=== PATIENT | male | born 1945 | race Caucasian/White ===

== ENCOUNTER 2017-09-18 22:47 | Inpatient (IN) | payer OTHER, BC ==
[~2017-09-18] VITALS: Ht 170.2 cm; Wt 66.2 kg
[2017-09-18 02:35] VITALS: BP 101/62; PULSE 91; TEMP 37.1; O2SAT 100; BMI 17.5
[~2017-09-18 22:47] MED LIST: ALPR-411 PO; ASPCH81X JT; ATOR-22 PO; IMD2 PO; LANS30CA63 PO; LMTHP PO; LPR25 PO; MGNO400 PO; PRT40 PO; VTMD PO
[2017-09-18] MEDS ORDERED: NOREPINEPHRINE BIT INJ 8 MG in DEXTROSE 5% 500ML 500 ML IV STA (23:05)
[2017-09-18 23:13] LABS: HEMATOCRIT 40.3 % (42-52); HEMOGLOBIN 12.1 g/dL (14.0-18.0); MEAN CELL VOLUME 90.2 fL (80-100); MEAN CORPUSCULAR HEMOGLOBIN 27.1 pg (25-34); MEAN PLATELET VOLUME 9.8 fL (7.4-10.4); PLATELET COUNT 473 K/uL (130-400); RED CELL DISTRIBUTION WIDTH CV 16.9 % (11.5-14.5); RED CELL DISTRIBUTION WIDTH SD 55.9 fL (36.4-46.3); WHITE BLOOD COUNT 29.94 K/uL (4.8-10.8)
[2017-09-18] MEDS ORDERED: VANCOMYCIN IV 1,500 MG in SODIUM CHLORIDE 0.9% 500ML 500 ML IV STA (23:16)
[2017-09-18] MEDS ORDERED: PIPERACILLIN/TAZOBACTAM 4.5 GM/100ML D5W IV STA (23:16)
--- NOTE | 2017-09-18 23:21 | DIAGNOSTIC IMAGING REPORT ---
CHEST ONE VIEW PORTABLE CLINICAL HISTORY: 72 years-old Male presenting with Evaluate Fever/Sepsis. TECHNIQUE: Portable supine AP view of the chest was obtained. COMPARISON: 06/18/2015. FINDINGS: Tracheostomy tube terminates in the upper thoracic trachea. Surgical clips again project over the mediastinum. Multiple external leads project over the chest. Atherosclerosis of the aortic arch. Cardiac silhouette normal size. Pulmonary vascular prominence. Mid to basilar predominant opacities in the right lung. Moderate right pleural effusion. No large pneumothorax. Deformity of the left first rib unchanged. Partially visualized aortic endograft in the abdomen. IMPRESSION: 1. Right lung mid to basilar opacity with moderate right pleural effusion. This is concerning for pneumonia with a parapneumonic effusion. Consider chest CT for further evaluation. Electronically signed by: Niranjan Vyas M.D. 09/18/2017 11:19 PM Dictated Date/Time: 09/18/2017 11:17 PM
[2017-09-18 23:28] LABS: PTT PATIENT 27.5 SECONDS (21.0-31.0)
[2017-09-18 23:29] LABS: ISTAT SODIUM 136 mEq/L (135-144)
[2017-09-18] MEDS ORDERED: VANCOMYCIN CONSULT ACTIVE PRN (23:30)
[2017-09-18] MEDS ORDERED: FURO-85 PO (23:34)
[2017-09-18] MEDS ORDERED: LACTATED RINGER'S 1000ML 1,000 ML IV STA (23:36)
[2017-09-18] MEDS ORDERED: CLON0.5T3 PO (23:37)
[2017-09-18] MEDS ORDERED: tobramycin PO (23:37)
[2017-09-18 23:38] LABS: BASO % 0.3 %; BASO ABS # 0.09 K/uL (0-0.2); EOS % 0.3 %; EOS ABS # 0.09 K/uL (0-0.5); IG# 1.28 K/uL (0.00-0.02); LYMPH % 10.6 %; LYMPH ABS # 3.17 K/uL (1.2-3.4); MONO % 6.7 %; MONO ABS # 2.01 K/uL (0.11-0.59); NEUT % 77.8 %
[2017-09-18] MEDS ORDERED: BUSP15TA70 PO (23:38)
[2017-09-18 23:41] LABS: ALBUMIN 3.2 gm/dl (3.4-5.0); ALT/SGPT 102 U/L (12-78); AST/SGOT 111 U/L (15-37); BLOOD UREA NITROGEN 26 mg/dl (7-18); CALCIUM 9.2 mg/dl (8.5-10.1); CARBON DIOXIDE 34 mmol/L (21-32); CREATININE 1.17 mg/dl (0.60-1.40); GLUCOSE 255 mg/dl (70-99); LIPASE 53 U/L (73-393); SODIUM 134 mmol/L (136-145)
[2017-09-18 23:53] LABS: ALKALINE PHOSPHATASE 150 U/L (45-117)
[2017-09-19] VITALS (60 sets, daily range): BP systolic 85–125; BP diastolic 41–74; PULSE 86–114; TEMP 36.8–37; O2SAT 93–100; Ht 170.2 cm; Wt 66.2 kg
--- NOTE | 2017-09-19 00:29 | EMERGENCY ROOM VISIT NOTE ---
History Report prepared by Angelibdylon: Willie Adkins Under the Supervision of: Dr. Robbin Gunn M.D. First contact with patient: 22:44 Chief Complaint: CARDIAC ARREST Stated Complaint: CARDIAC ARREST History of Present Illness The patient is a 72 year old male who presents to the Emergency Room from [facility] via ALS for Cardiac Arrest. Per EMS the patient first stopped breathing and then went into cardiac arrest while a patient in [facility]. CPR was started and an AED was placed. NO SHOCK was advised by the AED. EMS/ Staff members performed chest compressions for 5-10 minutes and pulses returned spontaneously without shock. There was a substantial amount of aspirate in the patient's tracheostomy tube, which was suctioned out. The tracheotomy tube is present secondary to a history of Esophageal Cancer. Following return of pulse, the patient remained unresponsive. The patient is a "FULL CODE." EMS was dispatched 2145, 1 hour and 2 minutes ago. EMS administered fluids and placed a left humeral IO prior to arrival. Source of History: EMS Onset: EMS called 1 hour and 2 minutes ago Position: chest Quality: other (Cardiac Arrest) Timing: other (Cardiac arrest/pulses returned spontaneously) Note: Patient is unresponsive. Review of Systems See HPI for pertinent positives and negatives. A total of ten systems were reviewed and were otherwise negative. Past Medical & Surgical Medical Problems: (1) Acute respiratory failure with hypoxia and hypercapnia (2) COPD (chronic obstructive pulmonary disease) (3) Coronary artery disease (4) DVT (deep venous thrombosis) (5) Esophageal cancer (6) Paroxysmal SVT (supraventricular tachycardia) (7) Sepsis Surgical Problems: (1) History of esophagectomy Family History Cancer Heart disease Social History Smoking Status: Former Smoker Drug Use: none Marital Status: Housing Status: lives with family Occupation Status: retired Current/Historical Medications Scheduled Aspirin (Aspirin Chewable), 81 MG PO DAILY Atorvastatin (Lipitor), 20 MG PO DAILY Buspirone Hcl (Buspar), Unknown Dose PO DIRECTED Clonazepam (Klonopin), Unknown Dose PO DIRECTED Furosemide (Lasix), 20 MG PO BID Metoprolol Tartrate (Lopressor), 25 MG PO BID [tobramycin], 300 ML PO BID Scheduled PRN Alprazolam (Xanax), 0.25 MG PO Q8 PRN for anxiety Allergies Coded Allergies: No Known Allergies (Unverified , 09/18/17) Physical Exam Vital Signs Date Time Temp Pulse Resp B/P (MAP) Pulse Ox O2 Delivery O2 Flow Rate FiO2 09/19/17 01:51 92/58 100 Mechanical Ventilator 100 09/19/17 01:20 95 20 89/52 100 Mechanical Ventilator 100 09/19/17 00:45 94 20 92/63 100 Mechanical Ventilator 100 09/19/17 00:40 93 20 74/26 100 Mechanical Ventilator 100 09/19/17 00:25 93 20 88/44 98 Mechanical Ventilator 09/19/17 00:02 101 20 86/45 95 Mechanical Ventilator 100 09/18/17 23:35 103 20 83/55 99 Mechanical Ventilator 100 09/18/17 23:22 116 20 88/52 95 Mechanical Ventilator 100 09/18/17 23:16 93 Mechanical Ventilator 100 09/18/17 23:00 36.8 110 18 79/48 95 Mechanical Ventilator 100 09/18/17 23:00 100 09/18/17 22:52 117 09/18/17 02:35 37.1 91 20 101/62 100 Mechanical Ventilator 100 Physical Exam GENERAL: Awake, alert, chronically ill-appearing HENT: Normocephalic, atraumatic. Dry cracked Mucous membranes. EYES: Normal conjunctiva. Sclera non-icteric. NECK: Supple. No nuchal rigidity. FROM. No JVD. Tracheotomy is clean/dry/ intact. RESPIRATORY: There are rhonchorus breath sounds in the right lung field, otherwise diminished throughout. CARDIAC: ST. Extremities warm and well perfused. Pulses equal. ABDOMEN: Soft, non-distended. No tenderness to palpation. No rebound or guarding. No masses. The lower abdominal J-tube tube is clean dry and intact. RECTAL: Deferred. MUSCULOSKELETAL: Chest examination reveals diffuse tenderness. The back is symmetrical on inspection without obvious abnormality. There is no CVA tenderness to palpation. No joint edema. LOWER EXTREMITIES: Calves are equal size bilaterally and non-tender. No edema. No discoloration. NEURO: GCS of 14 SKIN: No rash or jaundice noted. Skin tear anterior CW. Medical Decision & Procedures ER Provider Diagnostic Interpretation: Radiology results as stated below per my review and radiologist interpretation: CHEST ONE VIEW PORTABLE CLINICAL HISTORY: 72 years-old Male presenting with Evaluate Fever/Sepsis. TECHNIQUE: Portable supine AP view of the chest was obtained. COMPARISON: 06/18/2015. FINDINGS: Tracheostomy tube terminates in the upper thoracic trachea. Surgical clips again project over the mediastinum. Multiple external leads project over the chest. Atherosclerosis of the aortic arch. Cardiac silhouette normal size. Pulmonary vascular prominence. Mid to basilar predominant opacities in the right lung. Moderate right pleural effusion. No large pneumothorax. Deformity of the left first rib unchanged. Partially visualized aortic endograft in the abdomen. IMPRESSION: 1. Right lung mid to basilar opacity with moderate right pleural effusion. This is concerning for pneumonia with a parapneumonic effusion. Consider chest CT for further evaluation. Electronically signed by: Niranjan Vyas M.D. 09/18/2017 11:19 PM Dictated Date/Time: 09/18/2017 11:[address] HEAD: No ICH, mass effect or edema. No evidence of acute cortical stroke. Visualized sinuses and mastoid air cells are clear. CT CHEST without contrast: A bandlike opacity in the right upper lobe may represent post radiation change or other chronic change. There is right lower lobe collapse with areas of bronchiectasis as well as small airway occlusions which may indicate mucoid impaction. Cannot exclude underlying infiltrate or mass lesions. Dependent atelectasis in the left lower lobe with corresponding areas of peribronchial thickening No significant effusion and no pneumothorax Tracheostomy tube in place Postop changes in the chest wall and anterior mediastinum Scattered age-indeterminate rib factures. Radiologist: Drake Driscoll MD Laboratory Results Test 09/18/17 23:00 09/18/17 23:05 09/18/17 23:15 09/19/17 00:14 Red Blood Cell Morphology Unremarkable Total Bilirubin 1.1 mg/dl (0.2-1) Direct Bilirubin 0.3 mg/dl (0-0.2) Aspartate Amino Transf (AST/SGOT) 111 U/L (15-37) Alanine Aminotransferase (ALT/SGPT) 102 U/L (12-78) Alkaline Phosphatase 150 U/L (45-117) Total Creatine Kinase 81 U/L (39-308) Pro-B-Type Natriuretic Peptide 4349 pg/ml (0-900) Total Protein 9.0 gm/dl (6.4-8.2) Albumin 3.2 gm/dl (3.4-5.0) Lipase 53 U/L (73-393) Bedside Troponin I 0.060 ng/ml (0-0.045) Bedside Hemoglobin 10.9 g/dl (14.0-18.0) Bedside Hematocrit 32 % (42-52) Bedside Blood Gas pH (LAB) 7.33 (7.35-7.45) Bedside Blood Gas pCO2 (LAB) 61 mmHg (35-46) Bedside Blood Gas pO2 (LAB) 102 mmHg (80-95) Bedside Blood Gas HCO3 (LAB) 32 meq/L (19-24) Bedside Blood Gas Total CO2 34 mEq/l (24-31) Bedside Blood Gas Base Excess (LAB) 6.0 meq/L (-9-1.8) Bedside Blood Gas O2 Saturation 97.0 % (90-95) Bedside Sodium 136 mEq/L (135-144) Bedside Potassium 3.0 mEq/L (3.3-5.0) Urine Color DK YELLOW Urine Appearance CLOUDY (CLEAR) Urine pH 5.0 (4.5-7.5) Urine Specific [place] 1.021 (1.000-1.030) Urine Protein 2+ (NEG) Urine Glucose (UA) NEG (NEG) Urine Ketones NEG (NEG) Urine Occult Blood 2+ (NEG) Urine Nitrite NEG (NEG) Urine Bilirubin NEG (NEG) Urine Urobilinogen NEG (NEG) Urine Leukocyte Esterase NEG (NEG) Urine WBC (Auto) 5-10 /hpf (0-5) Urine RBC (Auto) 10-30 /hpf (0-4) Urine Hyaline Casts (Auto) 10-30 /lpf (0-5) Urine Epithelial Cells (Auto) >30 /lpf (0-5) Urine Bacteria (Auto) NEG (NEG) Urine Renal Epithelial Cells /lpf (0-5) Laboratory results reviewed by me Medications Administered Medications (Trade) Dose Ordered Sig/Madalyn Route Start Time Stop Time Status Last Admin Dose Admin Norepinephrine Bitartrate 8 mg/ Dextrose 508 ml @ 0 mls/hr Q0M STAT IV 09/18/17 23:05 09/18/17 23:08 DC 09/18/17 23:18 30.7 MLS/HR Vancomycin HCl 1500 mg/Sodium Chloride 530 ml @ 200 mls/hr ONE STAT IV 09/18/17 23:16 09/19/17 01:54 DC 09/19/17 00:07 200 MLS/HR Piperacillin Sod/ Tazobactam Sod (Zosyn Iv) 4.5 gm NOW STAT IV 09/18/17 23:16 09/18/17 23:19 DC 09/18/17 23:23 4.5 GM Lactated Ringer's 1,000 ml @ 999 mls/hr Q1H1M STAT IV 09/18/17 23:36 09/19/17 00:36 DC 09/19/17 00:07 999 MLS/HR Fentanyl Citrate (Fentanyl Inj) 12.5 mcg Q1H PRN IV 09/19/17 01:45 10/03/17 01:44 09/19/17 17:19 12.5 MCG Lorazepam (Ativan Inj) 0.5 mg Q4H PRN IV 09/19/17 01:45 10/19/17 01:44 09/19/17 05:55 0.5 MG Norepinephrine Bitartrate 8 mg/ Dextrose 508 ml @ 0 mls/hr Q0M PRN IV 09/19/17 01:44 10/19/17 01:43 09/19/17 05:55 36.5 MLS/HR Procedure Central Venous Catheter Indication: Hypotension/Sepsis Catheter type: Triple Lumen Location: Right Femoral Verbal consent was obtained after the risks and benefits were explained, including but not limited to pneumothorax, hemothorax, vessel injury, bleeding, scarring, infection, pain, and bone/joint/nerve damage. At this time, the risks of the procedure are less than the risks of NOT performing the procedure. A time out was taken and the correct patient and site identified. The patient was placed in the supine position and the skin was prepped in the standard fashion with chlorhexidine and full sterile drapes applied. The proper landmarks were identified with ultrasound, anesthetized with 1% lidocaine without epinephrine, and the needle was inserted through the skin in the standard fashion. The needle was carefully advanced into blood vessel lumen under ultrasound guidance. The guidewire was placed uneventfully. The vessel is dilated and the catheter was placed. It was sutured into position. There was good blood return from all ports. The patient tolerated the procedure well and there were no complications. ECG Per My Interpretation Rate (beats per minute): 118 Rhythm: sinus tachycardia Findings: LAFB, other (Left ventricular hypertrophy) Change: no significant change (previous visit EKG) ED Course 2246: The patient was evaluated in room B1. A complete history and physical exam was performed. 2305: Ordered Norepinephrine 508 mL IV. 2316: Ordered Zosyn 4.5 gm IV, Vancomycin HCl 530 mL @ 200 mL/hr IV. 2336: Ordered Lactated Ringer's 1000 mL @ 999 mL/hr IV. 2343: I discussed the case with Dr. Donal Frias [facility] Hospitalist. He will evaluate the patient until he is placed in the ICU. 2348: I discussed the case with Dr. Shawna Frias [facility] Javascript Front End Developer. He will accept the patient to the ICU. Medical Decision I reviewed the patient's past medical history, medications, and the nursing notes as described above. Differential diagnosis: Etiologies such as aortic dissection, pulmonary embolism, pneumothorax, musculoskeletal, infections, pericarditis, myocarditis, esophageal rupture, gastrointestinal,reactive airway disease, pneumonia, COPD, CHF, cardiac ischemia, as well as others were entertained. 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 Of note, I received med command call from EMS after [facility] and they were concerned for ST elevations present on their 12-lead, albeit with HR 120s-150s. Prior to patient 's arrival I discussed the patient's case with Dr. Mckeon, interventional cardiology. Given the report of the patient's recent critical illness, we agreed to reassess upon arrival to evaluate the need/indication to activate the Supervisor [employer]. After ROSC obtained EMS found the patient be hypotensive and administered push doses of epinephrine for blood pressure support. On arrival, the patient is AF with HR 110s, SBP 100s, Hypoxic with O2 sat 80s. The patient was alert with eyes open and would follow commands to close his eyes and give thumbs up. EKG demonstrated Left anterior fascicular block with LVH with QRS of 118 similar to patient's prior. No JESSICA present. Thus, no indication for lab support tech activation at this time. Moreover, history is most c/w respiratory arrest as inciting event. Once secure peripheral IV access was obtained the patient was seated up, and his initial hypoxia in the 80s improved to the mid 90s-100s. Blood pressure then drifting down to systolic of 70s so patient was given additional IV fluids and placed on Levophed drip. Initial ABG demonstrated pH of 7.35, PCO2 60s, and PaO2 of 102. Chest chest x-ray demonstrates right lung opacities concerning for pneumonia, given patient's aspiration history concerning for aspiration as well as infection related to the patient's known pseudomonal infection for which he is receiving inhaled tobramycin. Preliminary stat rad read of CT head is unremarkable. Preliminary STATRAD read of CT of the chest demonstrates right lower lobe collapse with areas of bronchiectasis as well as small airway occlusions which may indicate mucoid impaction. Comments on multiple age-indeterminate rib fractures. No pneumothorax. Labs consistent with critical illness. WBC 29, lactate 5.8. Troponin 0 0.93, BNP 4000. Patient continued on IV fluids and Levophed with improvement in his alertness. Given broad-spectrum antibiotics. Case was discussed with past KODAK Perez hospitalist, who will evaluate the patient for admission to the ICU. Case was additionally discussed with Dr. Matos, ICU wood mill supervisor, who accepts the patient for admission to the ICU. Central line was placed in the right femoral vein per procedure note. IJ site deferred at this time given the patient's report of prior thrombosis as well as challenge of placement with patient's tracheostomy. Subclavian also deferred at this time due to the patient's anatomy related to his critical illness. Medication Reconcilliation Current Medication List: was personally reviewed by me Blood Pressure Screening Patient's blood pressure: Low blood pressure Referred to wood mill supervisor Consults Time Called: [phone] Consulting Physician: Dr. Donal CANDELARIO Hospitalist Returned Call: [phone] I discussed the case with Dr. Donal CANDELARIO Hospitalist. He will evaluate the patient until he is placed in the ICU. Additional Consults: Time Called: [phone] Consulted Physician: Dr. Shawna CANDELARIO Javascript Front End Developer Returned Call: [phone] Additional Comments: I discussed the case with Dr. Shawna CANDELARIO Javascript Front End Developer. He will accept the patient to the ICU. Impression Primary Impression: Cardiopulmonary arrest with successful resuscitation Additional Impression: Aspiration pneumonia Critical Care I have personally spent greater than 80 minutes of critical care time in the direct management of this patient. This includes bedside care, interpretation of diagnostic studies, and testing, discussion with consultants, patient, and family members, and other required patient management activities. This 80 minutes is in excess of all separately billable procedures. Scribe Attestation The scribe's documentation has been prepared under my direction and personally reviewed by me in its entirety. I confirm that the note above accurately reflects all work, treatment, procedures, and medical decision making performed by me. Departure Information Dispostion Being Evaluated By Hospitalist Referrals Nilay Samayoa M.D. (PCP) Patient Instructions My [facility] Problem Qualifiers
[2017-09-19] MEDS ORDERED: NOREPINEPHRINE BIT INJ 8 MG in DEXTROSE 5% 500ML 500 ML IV PRN (01:44)
[2017-09-19] MEDS ORDERED: ICU PROTOCOL FOR HYPERGLYCEMIA PRN (01:45)
[2017-09-19] MEDS ORDERED: ACETAMINOPHEN 325 MG TAB PO PRN (01:45)
--- NOTE | 2017-09-19 02:03 | History and Physical ---
History & Physical Date & Time of Service: September 19, 2017 at 02:03 Chief Complaint: Cardiac Arrest Primary Care Physician: Nilay Samayoa M.D. History of Present Illness Source: family, hospital records, EMS 72 yo M with CAD s/p CABG, AAA s/p stent graft repair, DM II, COPD, HTN. esophageal cancer s/p tracheostomy and J tube insertion who was transferred from [facility] for cardiac arrest. Per reports, patient had respiratory arrest during J tube feeds. When a pulse could not be identified, CPR was initiated although no defibrillation was advised by AED. There was eventual return of spontaneous circulation after 10 min of chest compressions. On arrival to the ED, patient was noted to be hypotensive and tachycardic. Airways was established via suctioning, IVF was administered with additional pressor support and patient was started on broad spectrum antibiotics in accordance with recent sputum culture showing multi-resistant pseudomonas species. Additionally a central line was placed into the right femoral artery. Patient was transferred to ICU for close monitoring. Past Medical/Surgical History Medical Problems: (1) Acute respiratory failure with hypoxia and hypercapnia (2) COPD (chronic obstructive pulmonary disease) (3) Coronary artery disease (4) DVT (deep venous thrombosis) (5) Elevated troponin (6) Esophageal cancer (7) Esophageal obstruction (8) GI bleed (9) Hypotension (10) Paroxysmal SVT (supraventricular tachycardia) (11) Pneumonia (12) Protein-calorie malnutrition, moderate (13) Renal failure (14) Respiratory failure (15) Sepsis (16) Syncope and collapse (17) Vomiting (18) Weakness Surgical Problems: (1) History of esophagectomy Family History Cancer Heart disease Non contributory Social History Smoking Status: Former Smoker Smokeless Tobacco Use: No Alcohol Use: none Drug Use: none Marital Status: Occupational Status: retired Immunizations History of Influenza Vaccine: Unknown History of Tetanus Vaccine?: Unknown History of Pneumococcal: No Pneumococcal Date: Apr 23, 2012 History of Hepatitis B Vaccine: No Allergies Coded Allergies: No Known Allergies (Unverified , 09/18/17) Home Medications Scheduled Aspirin (Aspirin Chewable), 81 MG PO DAILY Atorvastatin (Lipitor), 20 MG PO DAILY Buspirone Hcl (Buspar), Unknown Dose PO DIRECTED Clonazepam (Klonopin), Unknown Dose PO DIRECTED Furosemide (Lasix), 20 MG PO BID Metoprolol Tartrate (Lopressor), 25 MG PO BID [tobramycin], 300 ML PO BID Scheduled PRN Alprazolam (Xanax), 0.25 MG PO Q8 PRN for anxiety Physical Exam Vital Signs Date Time Temp Pulse Resp B/P (MAP) Pulse Ox O2 Delivery O2 Flow Rate FiO2 09/19/17 00:45 94 20 92/63 100 Mechanical Ventilator 100 09/19/17 00:40 93 20 74/26 100 Mechanical Ventilator 100 09/19/17 00:25 93 20 88/44 98 Mechanical Ventilator 09/19/17 00:02 101 20 86/45 95 Mechanical Ventilator 100 09/18/17 23:35 103 20 83/55 99 Mechanical Ventilator 100 09/18/17 23:22 116 20 88/52 95 Mechanical Ventilator 100 09/18/17 23:16 93 Mechanical Ventilator 100 09/18/17 23:00 36.8 110 18 79/48 95 Mechanical Ventilator 100 09/18/17 23:00 100 09/18/17 22:52 117 General Appearance: + mild distress (secondary to pain), + thin Head: normocephalic, atraumatic Eyes: sclerae normal ENT: hearing grossly normal, + pertinent finding (tracheostomy in situ) Neck: supple Respiratory/Chest: + decreased breath sounds, + rales, + wheezing Cardiovascular: normal peripheral pulses, + tachycardia Abdomen/GI: normal bowel sounds, non tender, soft, + pertinent finding (J tube in LLQ) Genitourinary - Male: normal male genitalia Extremities/Musculoskelatal: no calf tenderness, no pedal edema Neurologic/Psych: alert, normal mood/affect Skin: normal color, warm/dry, no rash Diagnostics Laboratory Results Results Past 24 Hours Test 09/18/17 23:00 09/18/17 23:05 09/18/17 23:15 09/18/17 23:18 Range/Units White Blood Count 29.94 4.8-10.8 K/uL Red Blood Count 4.47 4.7-6.1 M/uL Hemoglobin 12.1 14.0-18.0 g/dL Hematocrit 40.3 42-52 % Mean Corpuscular Volume 90.2 80-100 fL Mean Corpuscular Hemoglobin 27.1 25-34 pg Mean Corpuscular Hemoglobin Concent 30.0 32-36 g/dl Platelet Count 473 130-400 K/uL Mean Platelet Volume 9.8 7.4-10.4 fL Neutrophils (%) (Auto) 77.8 % Lymphocytes (%) (Auto) 10.6 % Monocytes (%) (Auto) 6.7 % Eosinophils (%) (Auto) 0.3 % Basophils (%) (Auto) 0.3 % Neutrophils # (Auto) 23.30 1.4-6.5 K/uL Lymphocytes # (Auto) 3.17 1.2-3.4 K/uL Monocytes # (Auto) 2.01 0.11-0.59 K/uL Eosinophils # (Auto) 0.09 0-0.5 K/uL Basophils # (Auto) 0.09 0-0.2 K/uL RDW Standard Deviation 55.9 36.4-46.3 fL RDW Coefficient of Variation 16.9 11.5-14.5 % Immature Granulocyte % (Auto) 4.3 % Immature Granulocyte # (Auto) 1.28 0.00-0.02 K/uL Red Blood Cell Morphology Unremarkable Prothrombin Time 10.6 9.0-12.0 SECONDS Prothromb Time International Ratio 1.0 0.9-1.1 Activated Partial Thromboplast Time 27.5 21.0-31.0 SECONDS Partial Thromboplastin Ratio 1.1 Sodium Level 134 136-145 mmol/L Potassium Level 4.0 3.5-5.1 mmol/L Chloride Level 88 98-107 mmol/L Carbon Dioxide Level 34 21-32 mmol/L Anion Gap 12.0 3-11 mmol/L Blood Urea Nitrogen 26 7-18 mg/dl Creatinine 1.17 0.60-1.40 mg/dl Estimated GFR () 72.8 Estimated GFR (Non- 62.8 BUN/Creatinine Ratio 22.5 10-20 Random Glucose 255 70-99 mg/dl Calcium Level 9.2 8.5-10.1 mg/dl Total Bilirubin 1.1 0.2-1 mg/dl Direct Bilirubin 0.3 0-0.2 mg/dl Aspartate Amino Transf (AST/SGOT) 111 15-37 U/L Alanine Aminotransferase (ALT/SGPT) 102 12-78 U/L Alkaline Phosphatase 150 45-117 U/L Total Creatine Kinase 81 39-308 U/L Troponin I 0.093 0-0.045 ng/ml Pro-B-Type Natriuretic Peptide 4349 0-900 pg/ml Total Protein 9.0 6.4-8.2 gm/dl Albumin 3.2 3.4-5.0 gm/dl Lipase 53 73-393 U/L Bedside Troponin I 0.060 0-0.045 ng/ml Bedside Hemoglobin 10.9 14.0-18.0 g/dl Bedside Hematocrit 32 42-52 % Bedside Blood Gas pH (LAB) 7.33 7.35-7.45 Bedside Blood Gas pCO2 (LAB) 61 35-46 mmHg Bedside Blood Gas pO2 (LAB) 102 80-95 mmHg Bedside Blood Gas HCO3 (LAB) 32 19-24 meq/L Bedside Blood Gas Total CO2 34 24-31 mEq/l Bedside Blood Gas Base Excess (LAB) 6.0 -9-1.8 meq/L Bedside Blood Gas O2 Saturation 97.0 90-95 % Bedside Sodium 136 135-144 mEq/L Bedside Potassium 3.0 3.3-5.0 mEq/L Lactic Acid Level 5.8 0.4-2.0 mmol/L Test 09/19/17 00:14 Range/Units Urine Color DK YELLOW Urine Appearance CLOUDY CLEAR Urine pH 5.0 4.5-7.5 Urine Specific [place] 1.021 1.000-1.030 Urine Protein 2+ NEG Urine Glucose (UA) NEG NEG Urine Ketones NEG NEG Urine Occult Blood 2+ NEG Urine Nitrite NEG NEG Urine Bilirubin NEG NEG Urine Urobilinogen NEG NEG Urine Leukocyte Esterase NEG NEG Urine WBC (Auto) 5-10 0-5 /hpf Urine RBC (Auto) 10-30 0-4 /hpf Urine Hyaline Casts (Auto) 10-30 0-5 /lpf Urine Epithelial Cells (Auto) >30 0-5 /lpf Urine Bacteria (Auto) NEG NEG Urine Renal Epithelial Cells 0-5 /lpf Microbiology Results 09/18/17 Blood Culture, Received Pending 09/18/17 Blood Culture, Received Pending 09/19/17 Urine Culture, Received Pending Diagnostic Radiology CT HEAD WITHOUT CONTRAST (CT) CLINICAL HISTORY: Altered mental status COMPARISON STUDY: No previous studies for comparison. TECHNIQUE: Axial CT of the brain is performed from the vertex to the skull base. IV contrast was not administered for this examination. A dose lowering technique was utilized adhering to the principles of ALARA. CT DOSE: 614.27 mGy.cm FINDINGS: No intra or extra-axial mass lesions are visualized. There is no CT evidence of acute cortical infarction. There is no evidence of midline shift. There is no acute hemorrhage. No calvarial fractures are visualized. There are patchy white matter hypodensities likely on a small vessel basis. There is no evidence of pathologic ventricular dilatation. There is no evidence of acute sinusitis. There is a small metallic foreign body within the left premaxillary soft tissues. IMPRESSION: No acute intracranial findings CHEST ONE VIEW PORTABLE CLINICAL HISTORY: 72 years-old Male presenting with Evaluate Fever/Sepsis. TECHNIQUE: Portable supine AP view of the chest was obtained. COMPARISON: 06/18/2015. FINDINGS: Tracheostomy tube terminates in the upper thoracic trachea. Surgical clips again project over the mediastinum. Multiple external leads project over the chest. Atherosclerosis of the aortic arch. Cardiac silhouette normal size. Pulmonary vascular prominence. Mid to basilar predominant opacities in the right lung. Moderate right pleural effusion. No large pneumothorax. Deformity of the left first rib unchanged. Partially visualized aortic endograft in the abdomen. IMPRESSION: 1. Right lung mid to basilar opacity with moderate right pleural effusion. This is concerning for pneumonia with a parapneumonic effusion. Consider chest CT for further evaluation. CT SCAN OF THE CHEST WITHOUT IV CONTRAST CLINICAL HISTORY: Cardiac arrest. COMPARISON STUDY: Chest CT dated 07/30/2014. TECHNIQUE: CT scan of the thorax was performed from the thoracic inlet to the upper abdomen. Images are reviewed in the axial, sagittal, and coronal planes. IV contrast was not administered for this examination. The examination is significantly degraded by motion artifact, as was by streak artifact from the arms which could not be elevated above the chest. A dose lowering technique was utilized adhering to the principles of ALARA. CT DOSE: 263.09 mGy.cm FINDINGS: Thyroid: Atrophic. Thoracic aorta: There is atherosclerotic calcification of the thoracic aorta, which is normal in caliber and demonstrates bovine variant arch anatomy. Heart: The heart is normal in size and without pericardial effusion. The coronary arteries are densely calcified. Lungs and pleural spaces: A tracheostomy is in place. Secretions fill the larynx. Emphysema is noted. Fibrotic change in the paramediastinal right upper lobe is similar to previous and is likely treatment related. There are small right and trace left pleural effusions. There is dense airspace consolidation in the right lower lung with near-complete atelectasis of the right lower lobe. Fluid/secretions fill the right lower lobe airways. Dense airspace consolidation is seen in the left lower lobe. Patchy consolidative changes also seen in the right middle and right upper lobes. Mediastinum: There is no mediastinal lymphadenopathy. Rema: Not well assessed without IV contrast. Axillae: There is no axillary lymphadenopathy. Upper abdomen: There are postoperative changes from esophageal resection and gastric pull-through procedure. The gastric conduit is seen in the anterior mediastinum. An aortic stent graft is partially imaged in the upper abdomen. A 2.7 cm cyst is incidentally noted in the right hepatic lobe. A punctate nonobstructing calculus is seen in the upper pole of the left kidney. There are mildly enlarged upper abdominal lymph nodes. Gastrohepatic nodes measure up to 10 mm in short axis. A celiac node on image #[id number] measures 13 mm in short axis. Skeletal structures: The skeletal structures are osteopenic. Degenerative change is seen throughout the thoracic spine. There are mild compression deformities of T6, T10, and T12. No lytic or blastic bony lesions are seen. Postoperative change is noted in the left humeral head. Chronic deformity is noted in the left shoulder. There is also chronic deformity of the right posterior sixth rib as well as several left-sided ribs. There are acute nondistracted right anterior 2nd through 7th rib fractures. There are also acute nondistracted left anterior 3rd through 7th rib fractures. IMPRESSION: 1. Significantly streak and motion compromised examination 2. Numerous bilateral rib fractures as above. 3. There are postoperative changes from esophageal resection with gastric pull-through procedure. 4. There are small right and trace left pleural effusions. 5. There is dense airspace consolidation at the right lung base with near-complete atelectasis of the right lower lobe. Fluid/secretions fill the right lower lobe airways. There is also dense consolidation at the left lung base, with patchy airspace consolidation seen in the right upper and middle lobes. These findings likely represent pneumonia/aspiration pneumonitis. 6. There are enlarged lymph nodes in the upper abdomen. These are nonspecific but concerning for metastatic disease if there is a history of esophageal cancer. 7. Additional findings as above. Impression Assessment and Plan 72 yo M with CAD s/p CABG, AAA s/p stent graft repair, DM II, COPD, HTN. esophageal cancer s/p tracheostomy and J tube insertion who was transferred from [facility] for cardiac arrest. Per reports, patient had respiratory arrest during J tube feeds. When a pulse could not be identified, CPR was initiated although no defibrillation was advised by AED. There was eventual return of spontaneous circulation after 10 min of chest compressions. On arrival to the ED, patient was noted to be hypotensive and tachycardic. Airways was established via suctioning, IVF was administered with additional pressor support and patient was started on broad spectrum antibiotics in accordance with recent sputum culture showing multi-resistant pseudomonas species. Additionally a central line was placed into the right femoral artery. Patient was transferred to ICU for close monitoring. Sepsis secondary to probable pulmonary source (chronic aspiration vs empyema) - ABx based on recent sputum cultures+ sensitivities from : tobramycin, ciprofloxacin, vancomycin - ID consulted - Blood cultures pending - Vasopressor support with IVF NSS and norepinephrine per ICU - Ventilatory support per ICU - Procal ordered, trend CBC and lactic acid Rib fractures - Pain: acetaminophen and fentanyl ordered Deranged LFTs - Liver U/S ordered - Trend LFT CAD/HTN/HLD - PO meds held for now: aspirin, metoprolol, furosemide, atorvastatin - EKG PRN chest pain - Monitor on telemetry DM -Glucose checks as per ICU protocol GI ppx - Pantoprazole VTE ppx - Hep SC Code: FULL Attending addendum: I have physically seen this patient, have supervised the medical residents activities, and agree with the H&P unless as otherwise noted. Assessment and Plan: Sepsis/acute on chronic respiratory failure with hypoxia and hypercapnia/ chronic Pseudomonas infection-- Adjust ventilator per follow-up ABGs. Review of cultures from [facility] shows an inducible beta- lactamase with resistance generated to penicillins and all cephalosporins except cefepime. Continue tobramycin inhaled 300 mg twice daily. Add Cipro 400 mg IV every 12 hours. Remainder of care per funeral service licensee consult. CAD/hypertension-- Adjust medications to IV Diabetes mellitus-- Accu-Cheks before meals and at bedtime NovoLog coverage Remainder as above. Resuscitation Status FULL VTE Prophylaxis Will order VTE Prophylaxis: Yes Note Total Time: Critical Care 30 - 74 minutes Resident Tracking Resident Involvement: Resident Care Provided Care Provided: Adult Hospital Medicine
[2017-09-19] MEDS ORDERED: VANCOMYCIN CONSULT ACTIVE PRN (02:15)
[2017-09-19] MEDS: FENTANYL CITRATE INJ 50 MCG/1 ML 2 ML VIAL IV PRN ×4 (03:35→17:19)
[2017-09-19] MEDS ORDERED: VANCOMYCIN IV 750 MG in SODIUM CHLORIDE 0.9% 250ML 250 ML IV SCH ×2 (04:00→16:00)
[2017-09-19] MEDS: SODIUM CHLORIDE 0.9% 1000ML 1,000 ML IV SCH ×2 (05:04→17:20)
[2017-09-19] MEDS ORDERED: TOBRAMYCIN CONSULT ACTIVE PRN (05:30)
[2017-09-19] MEDS: LORAZEPAM 2 MG/ML 1 ML VIAL IV PRN (05:55)
[2017-09-19] MEDS: IMIPENEM CILASTATIN IV SCH ×3 (05:57→17:19)
[2017-09-19] MEDS: DEXTROSE 5% IV SCH ×3 (05:57→17:19)
[2017-09-19] MEDS ORDERED: TOBRAMYCIN SULF INJ 420 MG in DEXTROSE 5% 100ML 100 ML IV SCH (06:00)
[2017-09-19] MEDS ORDERED: CIPROFLOXACIN / D5W 400 MG in PREMIXED IN D5W 200 ML IV SCH (06:00)
--- NOTE | 2017-09-19 06:32 | DIAGNOSTIC IMAGING REPORT ---
CT HEAD WITHOUT CONTRAST (CT) CLINICAL HISTORY: Altered mental status COMPARISON STUDY: No previous studies for comparison. TECHNIQUE: Axial CT of the brain is performed from the vertex to the skull base. IV contrast was not administered for this examination. A dose lowering technique was utilized adhering to the principles of ALARA. CT DOSE: 614.27 mGy.cm FINDINGS: No intra or extra-axial mass lesions are visualized. There is no CT evidence of acute cortical infarction. There is no evidence of midline shift. There is no acute hemorrhage. No calvarial fractures are visualized. There are patchy white matter hypodensities likely on a small vessel basis. There is no evidence of pathologic ventricular dilatation. There is no evidence of acute sinusitis. There is a small metallic foreign body within the left premaxillary soft tissues. IMPRESSION: No acute intracranial findings Electronically signed by: Art Ma M.D. 09/19/2017 6:30 AM Dictated Date/Time: 09/19/2017 6:29 AM
[2017-09-19 06:34] LABS: HEMOGLOBIN A1C 5.2 % (4.5-5.6)
--- NOTE | 2017-09-19 07:11 | Critical Care Consultation ---
Critical Care Consultation Date of Consultation: September 19, 2017. Attending Physician: Ernesto Mansfield M.D. Reason for Consultation: Respiratory arrest, hypotension History of Present Illness History is obtained from prior records as well as staff members. Patient is a 72-year-old male who presents from [facility] via ALS for cardiac arrest. Reportedly the patient suffered respiratory insufficiency/respiratory arrest ( the possibility has been raised with possibly aspiration and was reportedly receiving tube feeds or medications via the gastrostomy tube when this event occurred) leading to cardiac arrest. The patient was noted to not have a pulse which CPR was started and an AED was placed and no shock was advised. Patient received chest compressions for approximately 5-10 minutes before there was return of spontaneous circulation. Reportedly there was copious amounts of aspirate from the patient's tracheostomy tube which was suctioned out and airway was reestablished. EMS established a left humeral intraosseous line prior to arrival in the emergency department In the emergency department, the patient had consultation with Dr. Mckeon interventional cardiology for possible ST elevations present on prehospital EKG , repeat EKG did not demonstrate such changes. Patient was noted to have a significant 6 multidrug-resistant pseudomonal infection that he was being treated for, he was started on broad-spectrum IV antibiotics, a right sided femoral line was placed for persistent hypotension and vasoactive medication administration. There is a concern for concrement and sepsis secondary to probable pulmonary source, chronic aspiration, empyema. In the emergency department the patient was found to be responsive and answering questions appropriately. There is no indication for therapeutic hypothermia. The patient was at [facility] secondary to recent admission to [facility] for complications following treatment for esophageal cancer. 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 with surgeries performed at [facility], type 2 diabetes, history of coronary artery disease, history of repaired abdominal aortic aneurysm, history of transaminitis, COPD, history of deep venous thrombosis (this is possibly associated with PICC lines) Past Medical/Surgical History As noted above Family History Cancer Heart disease Social History Smoking Status: Former Smoker Drug Use: none Marital Status: Housing Status: lives with family Occupation Status: retired Allergies Coded Allergies: No Known Allergies (Unverified , 09/18/17) Home Medications Scheduled Aspirin (Aspirin Chewable), 81 MG PO DAILY Atorvastatin (Lipitor), 20 MG PO DAILY Buspirone Hcl (Buspar), Unknown Dose PO DIRECTED Clonazepam (Klonopin), Unknown Dose PO DIRECTED Furosemide (Lasix), 20 MG PO BID Metoprolol Tartrate (Lopressor), 25 MG PO BID [tobramycin], 300 ML PO BID Scheduled PRN Alprazolam (Xanax), 0.25 MG PO Q8 PRN for anxiety Current Inpatient Medications Current Inpatient Medications Medications (Trade) Dose Ordered Sig/Madalyn Route Start Time Stop Time Status Last Admin Dose Admin Heparin Sodium (Porcine) (Heparin Sq 5000 Unit/0.5ml) 5,000 unit Q12H SQ 09/19/17 09:00 10/19/17 08:59 Sodium Chloride 1,000 ml @ 100 mls/hr Q10H IV 09/19/17 05:00 10/19/17 04:59 09/19/17 05:04 100 MLS/HR Acetaminophen (Tylenol Tab) 650 mg Q4H PRN PO 09/19/17 01:45 10/19/17 01:44 Fentanyl Citrate (Fentanyl Inj) 12.5 mcg Q1H PRN IV 09/19/17 01:45 10/03/17 01:44 09/19/17 03:35 12.5 MCG Lorazepam (Ativan Inj) 0.5 mg Q4H PRN IV 09/19/17 01:45 10/19/17 01:44 09/19/17 05:55 0.5 MG Norepinephrine Bitartrate 8 mg/ Dextrose 508 ml @ 0 mls/hr Q0M PRN IV 09/19/17 01:44 10/19/17 01:43 09/19/17 05:55 36.5 MLS/HR Pantoprazole Sodium 40 mg/ Syringe 10 ml @ 5 mls/min DAILY IV 09/19/17 09:00 09/22/17 09:01 Albuterol/ Ipratropium (Duoneb) 3 ml Q4RWA INH 09/19/17 08:00 10/19/17 07:59 Miscellaneous Information (Icu Protocol For Hyperglycemia) 1 ea PRN PRN N/A 09/19/17 01:45 09/21/17 01:44 Tobramycin (Ortiz Soln For Inhalation 300MG/ 5ML) 5 ml BIDR NEB 09/19/17 08:00 09/26/17 07:59 Miscellaneous Information (Consult) 1 ea UD PRN N/A 09/19/17 02:15 10/19/17 02:14 Vancomycin HCl 750 mg/Sodium Chloride 265 ml @ 125 mls/hr Q16H IV 09/19/17 16:00 09/21/17 00:00 Imipenem/ Cilastatin Sodium 400 mg/Dextrose 116 ml @ 100 mls/hr Q6H IV 09/19/17 06:00 09/26/17 05:59 09/19/17 05:57 100 MLS/HR Tobramycin Sulfate 420 mg/ Dextrose 110.5 ml @ 100 mls/hr TODAY@0600 IV 09/19/17 06:00 09/19/17 07:07 09/19/17 05:57 100 MLS/HR Miscellaneous Information (Consult) 1 ea UD PRN N/A 09/19/17 05:30 10/19/17 05:29 Ciprofloxacin/ Dextrose 400 mg/ Prmx 200 ml @ 100 mls/hr Q12H IV 09/19/17 08:00 09/26/17 07:59 Review of Systems Constitutional: No fever Cardiovascular: + chest pain (Associated with movement, known rib fractures) Physical Exam Date Time Temp Pulse Resp B/P (MAP) Pulse Ox O2 Delivery O2 Flow Rate FiO2 09/19/17 06:30 86 12 109/52 (71) 98 Mechanical Ventilator 50 09/19/17 06:15 88 12 113/59 (77) 97 Mechanical Ventilator 50 09/19/17 06:00 91 12 107/69 (82) 98 Mechanical Ventilator 50 09/19/17 05:54 80 09/19/17 05:45 91 20 110/58 (75) 99 Mechanical Ventilator 100 09/19/17 05:30 96 20 96/59 (71) 100 Mechanical Ventilator 100 09/19/17 05:15 100 09/19/17 05:15 93 20 106/59 (75) 99 Mechanical Ventilator 100 09/19/17 05:00 96 20 101/65 (77) 98 Mechanical Ventilator 100 09/19/17 04:45 95 20 105/51 (69) 99 Mechanical Ventilator 100 09/19/17 04:30 94 20 105/55 (72) 100 Mechanical Ventilator 100 5/15/18 04:15 95 20 103/56 (72) 100 Mechanical Ventilator 100 09/19/17 04:00 100 09/19/17 04:00 Mechanical Ventilator 100 09/19/17 04:00 96 20 102/53 (69) 100 Mechanical Ventilator 100 09/19/17 03:45 94 20 91/52 (65) 100 Mechanical Ventilator 100 09/19/17 03:30 95 20 99/55 (70) 100 Mechanical Ventilator 100 09/19/17 03:15 93 20 90/67 (75) 100 Mechanical Ventilator 100 09/19/17 02:15 100 09/19/17 01:51 92/58 100 Mechanical Ventilator 100 09/19/17 01:20 95 20 89/52 100 Mechanical Ventilator 100 09/19/17 00:45 94 20 92/63 100 Mechanical Ventilator 100 09/19/17 00:40 93 20 74/26 100 Mechanical Ventilator 100 09/19/17 00:25 93 20 88/44 98 Mechanical Ventilator 09/19/17 00:02 101 20 86/45 95 Mechanical Ventilator 100 09/18/17 23:35 103 20 83/55 99 Mechanical Ventilator 100 09/18/17 23:22 116 20 88/52 95 Mechanical Ventilator 100 09/18/17 23:16 93 Mechanical Ventilator 100 09/18/17 23:00 36.8 110 18 79/48 95 Mechanical Ventilator 100 09/18/17 23:00 100 09/18/17 22:52 117 Laboratory Results Last 24 Hours Test 09/18/17 23:00 09/18/17 23:05 09/18/17 23:15 09/18/17 23:18 White Blood Count 29.94 K/uL Red Blood Count 4.47 M/uL Hemoglobin 12.1 g/dL Hematocrit 40.3 % Mean Corpuscular Volume 90.2 fL Mean Corpuscular Hemoglobin 27.1 pg Mean Corpuscular Hemoglobin Concent 30.0 g/dl Platelet Count 473 K/uL Mean Platelet Volume 9.8 fL Neutrophils (%) (Auto) 77.8 % Lymphocytes (%) (Auto) 10.6 % Monocytes (%) (Auto) 6.7 % Eosinophils (%) (Auto) 0.3 % Basophils (%) (Auto) 0.3 % Neutrophils # (Auto) 23.30 K/uL Lymphocytes # (Auto) 3.17 K/uL Monocytes # (Auto) 2.01 K/uL Eosinophils # (Auto) 0.09 K/uL Basophils # (Auto) 0.09 K/uL RDW Standard Deviation 55.9 fL RDW Coefficient of Variation 16.9 % Immature Granulocyte % (Auto) 4.3 % Immature Granulocyte # (Auto) 1.28 K/uL Red Blood Cell Morphology Unremarkable Prothrombin Time 10.6 SECONDS Prothromb Time International Ratio 1.0 Activated Partial Thromboplast Time 27.5 SECONDS Partial Thromboplastin Ratio 1.1 Sodium Level 134 mmol/L Potassium Level 4.0 mmol/L Chloride Level 88 mmol/L Carbon Dioxide Level 34 mmol/L Anion Gap 12.0 mmol/L Blood Urea Nitrogen 26 mg/dl Creatinine 1.17 mg/dl Estimated GFR () 72.8 Estimated GFR (Non- 62.8 BUN/Creatinine Ratio 22.5 Random Glucose 255 mg/dl Calcium Level 9.2 mg/dl Total Bilirubin 1.1 mg/dl Direct Bilirubin 0.3 mg/dl Aspartate Amino Transf (AST/SGOT) 111 U/L Alanine Aminotransferase (ALT/SGPT) 102 U/L Alkaline Phosphatase 150 U/L Total Creatine Kinase 81 U/L Troponin I 0.093 ng/ml Pro-B-Type Natriuretic Peptide 4349 pg/ml Total Protein 9.0 gm/dl Albumin 3.2 gm/dl Lipase 53 U/L Bedside Troponin I 0.060 ng/ml Bedside Hemoglobin 10.9 g/dl Bedside Hematocrit 32 % Bedside Blood Gas pH (LAB) 7.33 Bedside Blood Gas pCO2 (LAB) 61 mmHg Bedside Blood Gas pO2 (LAB) 102 mmHg Bedside Blood Gas HCO3 (LAB) 32 meq/L Bedside Blood Gas Total CO2 34 mEq/l Bedside Blood Gas Base Excess (LAB) 6.0 meq/L Bedside Blood Gas O2 Saturation 97.0 % Bedside Sodium 136 mEq/L Bedside Potassium 3.0 mEq/L Lactic Acid Level 5.8 mmol/L Test 09/19/17 00:14 09/19/17 04:25 09/19/17 05:33 Urine Color DK YELLOW Urine Appearance CLOUDY Urine pH 5.0 Urine Specific Bitely 1.021 Urine Protein 2+ Urine Glucose (UA) NEG Urine Ketones NEG Urine Occult Blood 2+ Urine Nitrite NEG Urine Bilirubin NEG Urine Urobilinogen NEG Urine Leukocyte Esterase NEG Urine WBC (Auto) 5-10 /hpf Urine RBC (Auto) 10-30 /hpf Urine Hyaline Casts (Auto) 10-30 /lpf Urine Epithelial Cells (Auto) >30 /lpf Urine Bacteria (Auto) NEG Urine Renal Epithelial Cells /lpf Estimated Average Glucose 103 mg/dl Hemoglobin A1c 5.2 % Lactic Acid Level 1.8 mmol/L Troponin I 0.845 ng/ml Ionized Calcium 1.07 mmol/l Procalcitonin 1.70 ng/ml Diagnostic Results I have reviewed the radiology report as well as the images of the CT scan of the head, chest x-ray, I have also independently reviewed the CT scan imaging of the chest: Significant collapse of the right lower posterior lobe, probable mucoid impaction, retained material cephalad to the tracheostomy tube, significant soft tissue defect in the left anterior chest, age-indeterminate rib fractures left chest, I do not see significant effusion that was noted on the chest x-ray Assessment & Plan Reason Critically Ill: Acute hypoxic respiratory arrest leading to cardiac arrest PLAN: Neuro: Pain secondary to rib fractures status post cardiopulmonary resuscitation -Roxicodone via PEG tube every 6 hours as needed for pain Resp: Respiratory arrest -Likely secondary to acute airway obstruction Mucoid impaction of lungs -Status post bronchoscopy with significant extensive impaction -Lavage specimen sent History pneumonia with multidrug-resistant Pseudomonas The patient's requested Dr. Bowmna of the pulmonary service to also evaluate the patient CV: Status post cardiac arrest -Elevated troponins likely secondary to above -Echocardiogram pending -Wean vasoactive medications as tolerated -Hold metoprolol, continue aspirin and statin Fluids/Renal: Hypomagnesemia Hypokalemia Hypophosphatemia -Replete electrolytes as needed ID: Blood cultures and lavage cultures pending -Attempted to get [facility] records for microbiological history -Patient on Primaxin, ciprofloxacin, tobramycin, and tobramycin nebulizer GI/Nutrition: Hypoalbuminemia Severe protein calorie malnutrition -Boost and continue with tube feedings when on minimal levo or off vasoactive medication Jejunostomy tube malfunction -General surgery consult reviewed -Manipulated by general surgery and temporarily working -If to do becomes completely occluded will require transfer to outside facility for interventional radiology guided placement Heme: Heparin 5000 twice daily for DVT prophylaxis History of esophageal cancer -Requested [facility] H&[facility], discharge summary, oncology notes Endocrine: Hyperglycemia -ICU hyperglycemia protocol Vascular access: Right femoral triple lumen placed in emergency department Code Status: Full, palliative care consulted The patient was discussed on multidisciplinary rounds I discussed the case at length with Dr. Bowman. I have personally spent 125 minutes of critical care time in the direct management of this patient. This is a life/limb threatening event. This includes time spent evaluating patient, direct bedside care, chart review, placing orders, interpretation of diagnostic studies, discussion with consultants, patient, and/or family members regarding treatment decisions, as well as other required patient management activities. This time is exclusive of all separately billable procedures, and teaching time and separate from and in addition to any other critical care service time.
--- NOTE | 2017-09-19 07:19 | DIAGNOSTIC IMAGING REPORT ---
ULTRASOUND RIGHT UPPER QUADRANT ABDOMEN CLINICAL HISTORY: Elevated hepatic transaminases. COMPARISON STUDY: Abdominal CT dated 07/18/2014. TECHNIQUE: Real-time, grayscale, and color flow sonography of the right upper quadrant of the abdomen was performed. Images are reviewed in the transverse and longitudinal planes. FINDINGS: Liver: The liver is normal in size and demonstrates heterogeneously increased echotexture suggesting steatosis. There is no intrahepatic biliary ductal dilatation. The main portal vein is patent. Gallbladder: The gallbladder is filled with sludge and shadowing gallstones. There is no gallbladder wall thickening or pericholecystic fluid. A sonographic Gentile's sign is indeterminant as the patient has right-sided rib fractures. The common bile duct measures up to 0.4 cm in diameter. Pancreas: Not visualized due to overlying bowel gas. Right kidney: Survey images of the right kidney demonstrate normal size and echotexture. There is no hydronephrosis. Ascites: There is trace perihepatic ascites. Pleural spaces: A trace right pleural effusion is noted. IMPRESSION: 1. Cholelithiasis and biliary sludge without convincing sonographic evidence of acute cholecystitis. A sonographic Gentile's sign was indeterminate due to right-sided rib fractures, and if there is strong clinical concern for cholecystitis a nuclear hepatobiliary scan should be considered. 2. Findings suggest mild hepatic steatosis. 3. There is trace perihepatic ascites. 4. Trace right pleural effusion. Electronically signed by: Ike Gregorio M.D. 09/19/2017 7:18 AM Dictated Date/Time: 09/19/2017 7:15 AM
[2017-09-19] MEDS: CIPROFLOXACIN / D5W 400 MG in PREMIXED IN D5W 200 ML IV SCH ×2 (07:28→19:40)
[2017-09-19] MEDS: TOBRAMYCIN 300 MG/5 ML NEB SCH ×2 (07:32→20:42)
[2017-09-19] MEDS: ALBUT/IPRATROP 3MG/0.5MG NEB 3 ML VIAL INH SCH ×4 (07:32→20:41)
--- NOTE | 2017-09-19 07:59 | DIAGNOSTIC IMAGING REPORT ---
CT SCAN OF THE CHEST WITHOUT IV CONTRAST CLINICAL HISTORY: Cardiac arrest. COMPARISON STUDY: Chest CT dated 07/30/2014. TECHNIQUE: CT scan of the thorax was performed from the thoracic inlet to the upper abdomen. Images are reviewed in the axial, sagittal, and coronal planes. IV contrast was not administered for this examination. The examination is significantly degraded by motion artifact, as was by streak artifact from the arms which could not be elevated above the chest. A dose lowering technique was utilized adhering to the principles of ALARA. CT DOSE: 263.09 mGy.cm FINDINGS: Thyroid: Atrophic. Thoracic aorta: There is atherosclerotic calcification of the thoracic aorta, which is normal in caliber and demonstrates bovine variant arch anatomy. Heart: The heart is normal in size and without pericardial effusion. The coronary arteries are densely calcified. Lungs and pleural spaces: A tracheostomy is in place. Secretions fill the larynx. Emphysema is noted. Fibrotic change in the paramediastinal right upper lobe is similar to previous and is likely treatment related. There are small right and trace left pleural effusions. There is dense airspace consolidation in the right lower lung with near-complete atelectasis of the right lower lobe. Fluid/secretions fill the right lower lobe airways. Dense airspace consolidation is seen in the left lower lobe. Patchy consolidative changes also seen in the right middle and right upper lobes. Mediastinum: There is no mediastinal lymphadenopathy. Rema: Not well assessed without IV contrast. Axillae: There is no axillary lymphadenopathy. Upper abdomen: There are postoperative changes from esophageal resection and gastric pull-through procedure. The gastric conduit is seen in the anterior mediastinum. An aortic stent graft is partially imaged in the upper abdomen. A 2.7 cm cyst is incidentally noted in the right hepatic lobe. A punctate nonobstructing calculus is seen in the upper pole of the left kidney. There are mildly enlarged upper abdominal lymph nodes. Gastrohepatic nodes measure up to 10 mm in short axis. A celiac node on image #[id number] measures 13 mm in short axis. Skeletal structures: The skeletal structures are osteopenic. Degenerative change is seen throughout the thoracic spine. There are mild compression deformities of T6, T10, and T12. No lytic or blastic bony lesions are seen. Postoperative change is noted in the left humeral head. Chronic deformity is noted in the left shoulder. There is also chronic deformity of the right posterior sixth rib as well as several left-sided ribs. There are acute nondistracted right anterior 2nd through 7th rib fractures. There are also acute nondistracted left anterior 3rd through 7th rib fractures. IMPRESSION: 1. Significantly streak and motion compromised examination 2. Numerous bilateral rib fractures as above. 3. There are postoperative changes from esophageal resection with gastric pull-through procedure. 4. There are small right and trace left pleural effusions. 5. There is dense airspace consolidation at the right lung base with near-complete atelectasis of the right lower lobe. Fluid/secretions fill the right lower lobe airways. There is also dense consolidation at the left lung base, with patchy airspace consolidation seen in the right upper and middle lobes. These findings likely represent pneumonia/aspiration pneumonitis. 6. There are enlarged lymph nodes in the upper abdomen. These are nonspecific but concerning for metastatic disease if there is a history of esophageal cancer. 7. Additional findings as above. Electronically signed by: Ike Gregorio M.D. 09/19/2017 7:58 AM Dictated Date/Time: 09/19/2017 7:43 AM
[2017-09-19 08:49] LABS: PTT PATIENT 24.5 SECONDS (21.0-31.0)
[2017-09-19] MEDS: PANTOprazole INJ 40 MG in SYRINGE 0 ML IV SCH (08:57)
[2017-09-19] MEDS: HEPARIN SOD 5000 UNIT/0.5 ML CARP SQ SCH ×2 (08:58→21:36)
[2017-09-19 08:59] LABS: CALCIUM 8.1 mg/dl (8.5-10.1); CREATININE 0.77 mg/dl (0.60-1.40); POTASSIUM 3.4 mmol/L (3.5-5.1)
[2017-09-19] MEDS ORDERED: VANCOMYCIN IV 1,000 MG in SODIUM CHLORIDE 0.9% 250ML 250 ML IV SCH (09:00)
[2017-09-19] MEDS ORDERED: PERFLUTREN LIPID MICROSPHERE (DEFINITY) IV ONE (09:08)
[2017-09-19 09:30] LABS: HEMATOCRIT 28.6 % (42-52); HEMOGLOBIN 8.9 g/dL (14.0-18.0); MEAN CELL VOLUME 85.6 fL (80-100); MEAN CORPUSCULAR HEMOGLOBIN 26.6 pg (25-34); MEAN CORPUSCULAR HGB CONC 31.1 g/dl (32-36); MEAN PLATELET VOLUME 9.7 fL (7.4-10.4); PLATELET COUNT 395 K/uL (130-400); RED CELL DISTRIBUTION WIDTH CV 16.9 % (11.5-14.5); RED CELL DISTRIBUTION WIDTH SD 53.4 fL (36.4-46.3); WHITE BLOOD COUNT 19.45 K/uL (4.8-10.8)
[2017-09-19 09:31] LABS: BASO % 0.1 %; BASO ABS # 0.02 K/uL (0-0.2); IG# 0.23 K/uL (0.00-0.02); LYMPH % 4.4 %; LYMPH ABS # 0.85 K/uL (1.2-3.4); MONO % 7.9 %; MONO ABS # 1.53 K/uL (0.11-0.59); NEUT % 86.4 %; NEUT ABS # 16.82 K/uL (1.4-6.5)
[2017-09-19] MEDS ORDERED: POTASSIUM PHOS 3 MMOL/1 ML INFUSION IV STA (09:48)
--- NOTE | 2017-09-19 10:09 | Medical Consult ---
Consultation Date of Consultation: September 19, 2017. Attending Physician: Alec Azul MD Reason for Consultation: Multi resistant Pseudomonas species History of Present Illness History obtained from medical records and medical staff as patient unable to provide any history. 72-year-old male with history of esophageal cancer, status post multiple procedures with prior esophageal perforation, intermittent feeding through his PEG tube, who apparently has had pulmonary infection with highly resistant Pseudomonas species for which he has been receiving inhaled tobramycin, was brought to the hospital after suffering cardiac arrest at rehab. He has now been intubated for respiratory failure, with infiltrates on x-ray consistent with probable aspiration. Patient has been started on broad-spectrum antibiotics with imipenem, vancomycin, ciprofloxacin. Cultures are pending. He has undergone bronchoscopy with lavage of mucus plugs, smears and cultures are pending. Past Medical/Surgical History Medical Problems: (1) Aspiration pneumonia Status: Acute (2) Cardiac arrest Status: Acute (3) Cardiopulmonary arrest with successful resuscitation Status: Acute (4) Elevated troponin Status: Acute (5) Pneumonia Status: Acute (6) Renal failure Status: Acute (7) Respiratory failure Status: Acute Medical Problems: (1) Acute respiratory failure with hypoxia and hypercapnia (2) COPD (chronic obstructive pulmonary disease) (3) Coronary artery disease (4) DVT (deep venous thrombosis) (5) Esophageal cancer (6) Paroxysmal SVT (supraventricular tachycardia) (7) Sepsis Surgical Problems: (1) History of esophagectomy Family History Cancer Heart disease Social History Smoking Status: Former Smoker Drug Use: none Marital Status: Housing Status: lives with family Occupation Status: retired Allergies Coded Allergies: No Known Allergies (Unverified , 09/18/17) Current Inpatient Medications Current Inpatient Medications Medications (Trade) Dose Ordered Sig/Madalyn Route Start Time Stop Time Status Last Admin Dose Admin Heparin Sodium (Porcine) (Heparin Sq 5000 Unit/0.5ml) 5,000 unit Q12H SQ 09/19/17 09:00 10/19/17 08:59 09/19/17 08:58 5,000 UNIT Sodium Chloride 1,000 ml @ 100 mls/hr Q10H IV 09/19/17 05:00 10/19/17 04:59 09/19/17 05:04 100 MLS/HR Acetaminophen (Tylenol Tab) 650 mg Q4H PRN PO 09/19/17 01:45 10/19/17 01:44 Fentanyl Citrate (Fentanyl Inj) 12.5 mcg Q1H PRN IV 09/19/17 01:45 10/03/17 01:44 09/19/17 09:08 12.5 MCG Lorazepam (Ativan Inj) 0.5 mg Q4H PRN IV 09/19/17 01:45 10/19/17 01:44 09/19/17 05:55 0.5 MG Norepinephrine Bitartrate 8 mg/ Dextrose 508 ml @ 0 mls/hr Q0M PRN IV 09/19/17 01:44 10/19/17 01:43 09/19/17 05:55 36.5 MLS/HR Pantoprazole Sodium 40 mg/ Syringe 10 ml @ 5 mls/min DAILY IV 09/19/17 09:00 09/22/17 09:01 09/19/17 08:57 5 MLS/MIN Albuterol/ Ipratropium (Duoneb) 3 ml Q4RWA INH 09/19/17 08:00 10/19/17 07:59 09/19/17 07:32 3 ML Miscellaneous Information (Icu Protocol For Hyperglycemia) 1 ea PRN PRN N/A 09/19/17 01:45 09/21/17 01:44 Tobramycin (Ortiz Soln For Inhalation 300MG/ 5ML) 5 ml BIDR NEB 09/19/17 08:00 09/26/17 07:59 09/19/17 07:32 5 ML Miscellaneous Information (Consult) 1 ea UD PRN N/A 09/19/17 02:15 10/19/17 02:14 Vancomycin HCl 750 mg/Sodium Chloride 265 ml @ 125 mls/hr Q16H IV 09/19/17 16:00 09/21/17 00:00 Imipenem/ Cilastatin Sodium 400 mg/Dextrose 116 ml @ 100 mls/hr Q6H IV 09/19/17 06:00 09/26/17 05:59 09/19/17 05:57 100 MLS/HR Miscellaneous Information (Consult) 1 ea UD PRN N/A 09/19/17 05:30 10/19/17 05:29 Ciprofloxacin/ Dextrose 400 mg/ Prmx 200 ml @ 100 mls/hr Q12H IV 09/19/17 08:00 09/26/17 07:59 09/19/17 07:28 100 MLS/HR Magnesium Sulfate 100 ml @ 100 mls/hr Q1H IV 09/19/17 10:15 09/19/17 12:14 Potassium Phosphate (Potassium Phosphate Replacement) 15 mmol NOW STAT IV 09/19/17 09:48 09/19/17 09:49 UNV Review of Systems Not obtainable because of patient's mental status Physical Exam Date Time Temp Pulse Resp B/P (MAP) Pulse Ox O2 Delivery O2 Flow Rate FiO2 09/19/17 08:30 92 12 107/51 (69) 97 09/19/17 08:15 91 12 95/56 (69) 96 09/19/17 08:00 40 09/19/17 08:00 96 Mechanical Ventilator 40 09/19/17 08:00 90 12 94/47 (63) 96 09/19/17 07:33 40 09/19/17 06:30 86 12 109/52 (71) 98 Mechanical Ventilator 50 09/19/17 06:15 88 12 113/59 (77) 97 Mechanical Ventilator 50 09/19/17 06:00 91 12 107/69 (82) 98 Mechanical Ventilator 50 09/19/17 05:54 80 09/19/17 05:45 91 20 110/58 (75) 99 Mechanical Ventilator 100 09/19/17 05:30 96 20 96/59 (71) 100 Mechanical Ventilator 100 09/19/17 05:15 100 09/19/17 05:15 93 20 106/59 (75) 99 Mechanical Ventilator 100 09/19/17 05:00 96 20 101/65 (77) 98 Mechanical Ventilator 100 09/19/17 04:45 95 20 105/51 (69) 99 Mechanical Ventilator 100 09/19/17 04:30 94 20 105/55 (72) 100 Mechanical Ventilator 100 09/19/17 04:15 95 20 103/56 (72) 100 Mechanical Ventilator 100 09/19/17 04:00 100 09/19/17 04:00 Mechanical Ventilator 100 09/19/17 04:00 96 20 102/53 (69) 100 Mechanical Ventilator 100 09/19/17 03:45 94 20 91/52 (65) 100 Mechanical Ventilator 100 09/19/17 03:30 95 20 99/55 (70) 100 Mechanical Ventilator 100 09/19/17 03:15 93 20 90/67 (75) 100 Mechanical Ventilator 100 09/19/17 02:15 100 09/19/17 01:51 92/58 100 Mechanical Ventilator 100 09/19/17 01:20 95 20 89/52 100 Mechanical Ventilator 100 09/19/17 00:45 94 20 92/63 100 Mechanical Ventilator 100 09/19/17 00:40 93 20 74/26 100 Mechanical Ventilator 100 09/19/17 00:25 93 20 88/44 98 Mechanical Ventilator 09/19/17 00:02 101 20 86/45 95 Mechanical Ventilator 100 09/18/17 23:35 103 20 83/55 99 Mechanical Ventilator 100 09/18/17 23:22 116 20 88/52 95 Mechanical Ventilator 100 09/18/17 23:16 93 Mechanical Ventilator 100 09/18/17 23:00 36.8 110 18 79/48 95 Mechanical Ventilator 100 09/18/17 23:00 100 09/18/17 22:52 117 General Appearance: no apparent distress, + pertinent finding (Chronically ill- appearing) Head: normocephalic, atraumatic Eyes: normal inspection, EOMI, sclerae normal ENT: normal ENT inspection, pharynx normal, + pertinent finding (Endotracheal tube in place) Neck: supple, no adenopathy, thyroid normal, trachea midline Respiratory/Chest: no respiratory distress, + rales, + rhonchi Cardiovascular: regular rate, rhythm, no gallop, no murmur Abdomen/GI: normal bowel sounds, non tender, soft, no organomegaly Extremities/Musculoskelatal: normal inspection, normal capillary refill, non- tender Neurologic/Psych: + pertinent finding (Sedated on ventilator, no obvious focal) Skin: normal color, warm/dry, no rash Lymphatic: no adenopathy Laboratory Results Date/Time Source Procedure Growth Status 09/18/17 23:18 Blood Blood Culture Pending Received 09/18/17 23:00 Blood Blood Culture Pending Received 09/19/17 02:45 Nasal MRSA DNA Surveillance Screen - Final Specimen Negative for MRSA by DNA Probe Complete 09/19/17 05:36 Sputum Trach. Tube Suction Gram Stain Pending Received 09/19/17 05:36 Sputum Trach. Tube Suction Sputum Culture Pending Received 09/19/17 00:14 Urine,Catheterized Urine Culture Pending Received Last 24 Hours Test 09/18/17 23:00 09/18/17 23:05 09/18/17 23:15 09/18/17 23:18 White Blood Count 29.94 K/uL Red Blood Count 4.47 M/uL Hemoglobin 12.1 g/dL Hematocrit 40.3 % Mean Corpuscular Volume 90.2 fL Mean Corpuscular Hemoglobin 27.1 pg Mean Corpuscular Hemoglobin Concent 30.0 g/dl Platelet Count 473 K/uL Mean Platelet Volume 9.8 fL Neutrophils (%) (Auto) 77.8 % Lymphocytes (%) (Auto) 10.6 % Monocytes (%) (Auto) 6.7 % Eosinophils (%) (Auto) 0.3 % Basophils (%) (Auto) 0.3 % Neutrophils # (Auto) 23.30 K/uL Lymphocytes # (Auto) 3.17 K/uL Monocytes # (Auto) 2.01 K/uL Eosinophils # (Auto) 0.09 K/uL Basophils # (Auto) 0.09 K/uL RDW Standard Deviation 55.9 fL RDW Coefficient of Variation 16.9 % Immature Granulocyte % (Auto) 4.3 % Immature Granulocyte # (Auto) 1.28 K/uL Red Blood Cell Morphology Unremarkable Prothrombin Time 10.6 SECONDS Prothromb Time International Ratio 1.0 Activated Partial Thromboplast Time 27.5 SECONDS Partial Thromboplastin Ratio 1.1 Sodium Level 134 mmol/L Potassium Level 4.0 mmol/L Chloride Level 88 mmol/L Carbon Dioxide Level 34 mmol/L Anion Gap 12.0 mmol/L Blood Urea Nitrogen 26 mg/dl Creatinine 1.17 mg/dl Estimated GFR () 72.8 Estimated GFR (Non- 62.8 BUN/Creatinine Ratio 22.5 Random Glucose 255 mg/dl Calcium Level 9.2 mg/dl Total Bilirubin 1.1 mg/dl Direct Bilirubin 0.3 mg/dl Aspartate Amino Transf (AST/SGOT) 111 U/L Alanine Aminotransferase (ALT/SGPT) 102 U/L Alkaline Phosphatase 150 U/L Total Creatine Kinase 81 U/L Troponin I 0.093 ng/ml Pro-B-Type Natriuretic Peptide 4349 pg/ml Total Protein 9.0 gm/dl Albumin 3.2 gm/dl Lipase 53 U/L Bedside Troponin I 0.060 ng/ml Bedside Hemoglobin 10.9 g/dl Bedside Hematocrit 32 % Bedside Blood Gas pH (LAB) 7.33 Bedside Blood Gas pCO2 (LAB) 61 mmHg Bedside Blood Gas pO2 (LAB) 102 mmHg Bedside Blood Gas HCO3 (LAB) 32 meq/L Bedside Blood Gas Total CO2 34 mEq/l Bedside Blood Gas Base Excess (LAB) 6.0 meq/L Bedside Blood Gas O2 Saturation 97.0 % Bedside Sodium 136 mEq/L Bedside Potassium 3.0 mEq/L Lactic Acid Level 5.8 mmol/L Test 09/19/17 00:14 09/19/17 04:25 09/19/17 05:33 09/19/17 08:29 Urine Color DK YELLOW Urine Appearance CLOUDY Urine pH 5.0 Urine Specific [place] 1.021 Urine Protein 2+ Urine Glucose (UA) NEG Urine Ketones NEG Urine Occult Blood 2+ Urine Nitrite NEG Urine Bilirubin NEG Urine Urobilinogen NEG Urine Leukocyte Esterase NEG Urine WBC (Auto) 5-10 /hpf Urine RBC (Auto) 10-30 /hpf Urine Hyaline Casts (Auto) 10-30 /lpf Urine Epithelial Cells (Auto) >30 /lpf Urine Bacteria (Auto) NEG Urine Renal Epithelial Cells /lpf Estimated Average Glucose 103 mg/dl Hemoglobin A1c 5.2 % Lactic Acid Level 1.8 mmol/L 1.6 mmol/L Troponin I 0.845 ng/ml Hepatitis C Antibody Screen NEG Ionized Calcium 1.07 mmol/l 1.04 mmol/l Procalcitonin 1.70 ng/ml Random Cortisol 40.37 mcg/dl White Blood Count 19.45 K/uL Red Blood Count 3.34 M/uL Hemoglobin 8.9 g/dL Hematocrit 28.6 % Mean Corpuscular Volume 85.6 fL Mean Corpuscular Hemoglobin 26.6 pg Mean Corpuscular Hemoglobin Concent 31.1 g/dl Platelet Count 395 K/uL Mean Platelet Volume 9.7 fL Neutrophils (%) (Auto) 86.4 % Lymphocytes (%) (Auto) 4.4 % Monocytes (%) (Auto) 7.9 % Eosinophils (%) (Auto) 0.0 % Basophils (%) (Auto) 0.1 % Neutrophils # (Auto) 16.82 K/uL Lymphocytes # (Auto) 0.85 K/uL Monocytes # (Auto) 1.53 K/uL Eosinophils # (Auto) 0.00 K/uL Basophils # (Auto) 0.02 K/uL RDW Standard Deviation 53.4 fL RDW Coefficient of Variation 16.9 % Immature Granulocyte % (Auto) 1.2 % Immature Granulocyte # (Auto) 0.23 K/uL Anisocytosis PRESENT Stomatocytes 1+ Prothrombin Time 10.8 SECONDS Prothromb Time International Ratio 1.0 Activated Partial Thromboplast Time 24.5 SECONDS Partial Thromboplastin Ratio 0.9 Sodium Level 133 mmol/L Potassium Level 3.4 mmol/L Chloride Level 92 mmol/L Carbon Dioxide Level 35 mmol/L Anion Gap 6.0 mmol/L Blood Urea Nitrogen 21 mg/dl Creatinine 0.77 mg/dl Est Creatinine Clear Calc Drug Dose 76.8 ml/min Estimated GFR () 106.6 Estimated GFR (Non- 91.9 BUN/Creatinine Ratio 27.8 Random Glucose 220 mg/dl Calcium Level 8.1 mg/dl Phosphorus Level 2.0 mg/dl Magnesium Level 1.6 mg/dl Patient Name: MCKENZIE STYLES Unit Number: [id number] Dictated: 09/19/17742 Transcribed: 09/19/17742 EV Printed Date/Time: [~ rep prt dt]/[~ rep prt tm] [~ rep ct labl] - [~ rep ct ivnm] [facility] Radiology [place] [address] Dictated: 09/19/17742 Transcribed: 09/19/17742 EV Printed Date/Time: [~ rep prt dt]/[~ rep prt tm] [~ rep ct labl] - [~ rep ct ivnm] CT SCAN OF THE CHEST WITHOUT IV CONTRAST CLINICAL HISTORY: Cardiac arrest. COMPARISON STUDY: Chest CT dated 07/30/2014. TECHNIQUE: CT scan of the thorax was performed from the thoracic inlet to the upper abdomen. Images are reviewed in the axial, sagittal, and coronal planes. IV contrast was not administered for this examination. The examination is significantly degraded by motion artifact, as was by streak artifact from the arms which could not be elevated above the chest. A dose lowering technique was utilized adhering to the principles of ALARA. CT DOSE: 263.09 mGy.cm FINDINGS: Thyroid: Atrophic. Thoracic aorta: There is atherosclerotic calcification of the thoracic aorta, which is normal in caliber and demonstrates bovine variant arch anatomy. Heart: The heart is normal in size and without pericardial effusion. The coronary arteries are densely calcified. Lungs and pleural spaces: A tracheostomy is in place. Secretions fill the larynx. Emphysema is noted. Fibrotic change in the paramediastinal right upper lobe is similar to previous and is likely treatment related. There are small right and trace left pleural effusions. There is dense airspace consolidation in the right lower lung with near-complete atelectasis of the right lower lobe. Fluid/secretions fill the right lower lobe airways. Dense airspace consolidation is seen in the left lower lobe. Patchy consolidative changes also seen in the right middle and right upper lobes. Mediastinum: There is no mediastinal lymphadenopathy. Rema: Not well assessed without IV contrast. Axillae: There is no axillary lymphadenopathy. Upper abdomen: There are postoperative changes from esophageal resection and gastric pull-through procedure. The gastric conduit is seen in the anterior mediastinum. An aortic stent graft is partially imaged in the upper abdomen. A 2.7 cm cyst is incidentally noted in the right hepatic lobe. A punctate nonobstructing calculus is seen in the upper pole of the left kidney. There are mildly enlarged upper abdominal lymph nodes. Gastrohepatic nodes measure up to 10 mm in short axis. A celiac node on image #[id number] measures 13 mm in short axis. Skeletal structures: The skeletal structures are osteopenic. Degenerative change is seen throughout the thoracic spine. There are mild compression deformities of T6, T10, and T12. No lytic or blastic bony lesions are seen. Postoperative change is noted in the left humeral head. Chronic deformity is noted in the left shoulder. There is also chronic deformity of the right posterior sixth rib as well as several left-sided ribs. There are acute nondistracted right anterior 2nd through 7th rib fractures. There are also acute nondistracted left anterior 3rd through 7th rib fractures. IMPRESSION: 1. Significantly streak and motion compromised examination 2. Numerous bilateral rib fractures as above. 3. There are postoperative changes from esophageal resection with gastric pull-through procedure. 4. There are small right and trace left pleural effusions. 5. There is dense airspace consolidation at the right lung base with near-complete atelectasis of the right lower lobe. Fluid/secretions fill the right lower lobe airways. There is also dense consolidation at the left lung base, with patchy airspace consolidation seen in the right upper and middle lobes. These findings likely represent pneumonia/aspiration pneumonitis. 6. There are enlarged lymph nodes in the upper abdomen. These are nonspecific but concerning for metastatic disease if there is a history of esophageal cancer. 7. Additional findings as above. Electronically signed by: Ike Gregorio M.D. 09/19/2017 7:58 AM Dictated Date/Time: 09/19/2017 7:43 AM The status of this report is Signed. Draft = Not yet reviewed or approved by Radiologist. Signed = Reviewed and approved by Radiologist. <AttendingPhy>Ernesto Mansfield M.D.</AttendingPhy> <FamilyPhy></FamilyPhy> < PrimaryPhy>Nilay Samayoa M.D.</PrimaryPhy> <UnitNumber>[id number]</UnitNumber> <VisitNumber>[id number]</VisitNumber> <PatientName>MCKENZIE STYLES</ PatientName> <DateOfBirth>1945</DateOfBirth> <Location>[facility]</Location> <ServiceDate>09/18/17</ServiceDate> <MNE>ESINDI</MNE> <OrderingPhy>Robbin Gunn M.D.</OrderingPhy> <OrderingPhyMNE>f rep ord dr bethea</OrderingPhyMNE> <DictatingPhyMNE>f rep dict dr bethea</DictatingPhyMNE> <CCListMNE>f rep ct neema</ CCListMNE> <AdmittingPhyMNE>f pt admit dr bethea</AdmittingPhyMNE> <AttendingPhyMNE >f pt attend dr bethea</AttendingPhyMNE> <ConsultingPhyMNE>f pt consult dr bethea</ConsultingPhyMNE> <FamilyPhyMNE>f pt fam dr bethea</FamilyPhyMNE> <OtherPhyMNE>f pt other dr bethea</OtherPhyMNE> < PrimaryPhyMNE>f pt prim care dr bethea</PrimaryPhyMNE> <ReferringPhyMNE>f pt referring dr bethea</ReferringPhyMNE> Assessment & Plan 72-year-old male status post cardiac arrest with probable aspiration with report of highly resistant Pseudomonas in recent sputum. Patient be continued on broad-spectrum antibiotics, will try to obtain exact culture and sensitivity results to better guide therapy. Will discuss with all involved. Will follow.
[2017-09-19] MEDS ORDERED: POTASSIUM PHOSPHATE INJ 15 MMOL in SODIUM CHLORIDE 0.9% 250ML 250 ML IV ONE (10:15)
[2017-09-19] MEDS: MAGNESIUM SULFATE 1GM / D5W 100 ML IV SCH ×2 (10:23→11:17)
[2017-09-19] MEDS ORDERED: OPTIRAY 320 IV PRN (10:45)
[2017-09-19] MEDS ORDERED: MAGNESIUM SULFATE 1GM / D5W 100 ML IV SCH (11:30)
--- NOTE | 2017-09-19 12:08 | DIAGNOSTIC IMAGING REPORT ---
CT ABD/PELVIS IV CONTRAST ONLY CLINICAL HISTORY: Right-sided abdominal pain. Trauma hematocrit. Evaluate for intraabdominal hemorrhage. COMPARISON STUDY: July 18, 2014 TECHNIQUE: Following the IV administration of 119 mL of Optiray-320, CT scan of the abdomen and pelvis was performed from the lung bases to the proximal femurs. Images are reviewed in the axial, sagittal, and coronal planes. IV contrast was administered without complication. A dose lowering technique was utilized adhering to the principles of ALARA. CT DOSE: FINDINGS: Lower chest: There is underlying pulmonary emphysema. There is dense right lower lobe pulmonary consolidation with air bronchograms. There is left lower lobe atelectasis/consolidation. Liver: There is a 29 mm right hepatic lobe hypodensity, under water assistant with a cyst. There is minimal central ductal prominence. Gallbladder: Unremarkable. Spleen: Normal in size and attenuation. Pancreas: Unremarkable. Adrenal glands: Unremarkable. Kidneys: There is symmetric renal cortical enhancement. The kidneys are normal in size without hydronephrosis. Bowel: There are no transition zones to indicate bowel obstruction. There is no evidence of acute diverticulitis. There are postsurgical changes involving the right colon. There is no evidence of acute appendicitis. A left-sided jejunostomy tube is visualized. Peritoneum: There is no intraperitoneal free air or abdominal ascites. There are no findings to indicate a retroperitoneal hematoma. Vasculature: The patient is status post aortobiiliac stent grafting. The right iliac stent is occluded. Adenopathy: There are borderline enlarged para-aortic and peripancreatic lymph nodes. Pelvic viscera: There is a joint for leak catheter. The prostate is mildly enlarged. Skeletal structures: There is bilateral L5 spondylolysis. There is an old superior endplate T10 compression deformity. IMPRESSION: 1. No evidence of intra-abdominal or pelvic hemorrhage 2. No evidence of bowel obstruction. No evidence of free air. No evidence of acute diverticulitis. No evidence of acute appendicitis. 3. Aortobiiliac stent grafting. The right iliac stent is occluded 4. Dense consolidation of the right lower lobe. Left basilar atelectasis/consolidation 5. Borderline enlarged para-aortic and peripancreatic lymph nodes Electronically signed by: Art Ma M.D. 09/19/2017 12:06 PM Dictated Date/Time: 09/19/2017 12:00 PM
[2017-09-19 12:12] LABS: HEMATOCRIT 25.7 % (42-52); HEMOGLOBIN 8.1 g/dL (14.0-18.0)
[2017-09-19] MEDS ORDERED: DEXTROSE 50% 50 ML SYR IV PRN (12:30)
[2017-09-19] MEDS ORDERED: PHARMACY GLYCEMIC MGMT CONSULT PRN (12:30)
[2017-09-19] MEDS ORDERED: GLUCOSE 40% GEL 15 GM TUBE PO PRN (12:30)
[2017-09-19] MEDS ORDERED: GLUCAGON FOR INJ 1 MG VIAL IM PRN (12:30)
[2017-09-19] MEDS ORDERED: CARBOHYDRATES FOR HYPOGLYCEMIA PO PRN (12:30)
[2017-09-19] MEDS ORDERED: GLUCOSE 10 TABS/TUBE PO PRN (12:30)
[2017-09-19] MEDS ORDERED: NovoLIN R BOLUS FROM BAG IV ONE (12:30)
--- NOTE | 2017-09-19 12:39 | DIAGNOSTIC IMAGING REPORT ---
CHEST CTA for PULMONARY ARTERIES CT DOSE: 872.30 mGy.cm HISTORY: Respiratory arrest. TECHNIQUE: Multiaxial CT images of the chest were performed following the intravenous administration of contrast to evaluate the pulmonary arteries. Maximal intensity projection images were also obtained. A dose lowering technique was utilized adhering to the principles of ALARA. COMPARISON STUDY: Chest CT 09/18/2017. FINDINGS: Partially visualized stent within the abdominal aorta. No evidence for aortic dissection. Trace bilateral pleural effusions. 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 Motion artifact results in suboptimal evaluation of the left lower lobe segmental and subsegmental pulmonary arteries. However, no definite filling defects identified within the pulmonary arteries to suggest pulmonary embolus. Tracheostomy tube is in good position. There is mucoid material within the larynx superior to the tracheostomy tube. Partial opacification of the left lower lobe bronchi. There is also near complete opacification of the right lower lobe bronchus. Dense consolidation within the posterior right lower lobe persists. There are postoperative changes suggesting prior right upper lobectomy. Right suprahilar consolidation remains unchanged. This may be due to post radiation changes. No pneumothorax. Mild emphysema. Left lower lobe basilar patchy groundglass and consolidative opacities are not significantly changed. Bilateral rib fractures are again noted. These are consistent with age indeterminate fractures. Retrograde opacification of the hepatic veins. Stable hypodense lesion within the right hepatic lobe. No significant mediastinal or hilar lymphadenopathy. There again noted postoperative changes consistent with prior esophagectomy with a colonic bypass at the anterior mediastinum. Catheter hepatic lymphadenopathy remains unchanged. Compression deformities within the thoracic spine are again noted. IMPRESSION: 1. No evidence for pulmonary embolus with limitations as described above. 2. No significant change compared to the prior study. Bilateral lower lobe consolidation, right greater than left and partial opacification of the lower lobe bronchi are again noted. This favors aspiration pneumonia. 3. Gastrohepatic lymphadenopathy, unchanged. 4. Right suprahilar consolidation may represent posttreatment changes. 5. Acute bilateral anterior rib fractures are again noted. No pneumothorax. 6. Postoperative changes consistent with esophagectomy with a colonic bypass. Electronically signed by: Jamil Thorpe M.D. 09/19/2017 12:38 PM Dictated Date/Time: 09/19/2017 12:21 PM
[2017-09-19] MEDS ORDERED: INSULIN REGULAR 250 UNITS in SODIUM CHLORIDE 0.9% 250ML 250 ML IV SCH (12:45)
[2017-09-19] MEDS ORDERED: NURSING VERBAL MED ORDER ONE ×2 (12:45→14:15)
[2017-09-19] MEDS ORDERED: INSULIN ASPART 100 UNITS/ML 3 ML PEN SC SCH (12:45)
[2017-09-19] MEDS ORDERED: [UNRECOGNIZED DRUG - REMARK] ONE (13:00)
[2017-09-19] MEDS ORDERED: MIDAZOLAM HCL 1 MG/ML 2ML VIAL ONE (14:03)
[2017-09-19] MEDS ORDERED: MIDAZOLAM HCL 5 MG/ML 1 ML VIAL IV ONE (14:15)
[2017-09-19] MEDS ORDERED: FENTANYL CITRATE INJ 50 MCG/1 ML 2 ML VIAL IV ONE (14:15)
[2017-09-19] MEDS ORDERED: FENTANYL CITRATE INJ 50 MCG/1 ML 2 ML VIAL IV STA (14:50)
[2017-09-19] MEDS: INSULIN ASPART 100 UNITS/ML 3 ML PEN SC SCH ×2 (14:59→17:32)
--- NOTE | 2017-09-19 15:03 | Post Sedation Assessment ---
Post Sedation Assessment General Date of Sedation September 19, 2017. Vital Signs: Vital Signs Past 12 Hours Date Time Temp Pulse Resp B/P (MAP) Pulse Ox O2 Delivery O2 Flow Rate FiO2 09/19/17 13:16 94 12 95/53 (67) 95 09/19/17 13:00 93 13 106/55 (72) 93 09/19/17 12:46 101 13 93/51 (65) 94 09/19/17 12:31 95 12 102/55 (71) 94 09/19/17 12:16 96 12 107/56 (73) 93 09/19/17 12:00 36.8 99 15 115/61 (79) 95 Mechanical Ventilator 40 09/19/17 12:00 Mechanical Ventilator 40 09/19/17 12:00 40 09/19/17 11:10 40 09/19/17 11:00 91 12 97/52 (67) 97 Mechanical Ventilator 40 09/19/17 10:46 89 12 98/46 (63) 97 Mechanical Ventilator 40 09/19/17 10:31 93 12 98/41 (60) 96 Mechanical Ventilator 40 09/19/17 10:00 93 12 94/56 (69) 96 Mechanical Ventilator 40 09/19/17 09:46 96 12 91/49 (63) 95 Mechanical Ventilator 40 09/19/17 09:30 93 14 92/54 (67) 96 Mechanical Ventilator 40 09/19/17 09:00 92 12 104/44 (64) 96 Mechanical Ventilator 40 09/19/17 08:30 92 12 107/51 (69) 97 09/19/17 08:15 91 12 95/56 (69) 96 09/19/17 08:00 40 09/19/17 08:00 96 Mechanical Ventilator 40 09/19/17 08:00 90 12 94/47 (63) 96 09/19/17 07:33 40 09/19/17 06:30 86 12 109/52 (71) 98 Mechanical Ventilator 50 09/19/17 06:15 88 12 113/59 (77) 97 Mechanical Ventilator 50 09/19/17 06:00 91 12 107/69 (82) 98 Mechanical Ventilator 50 09/19/17 05:54 80 09/19/17 05:45 91 20 110/58 (75) 99 Mechanical Ventilator 100 09/19/17 05:30 96 20 96/59 (71) 100 Mechanical Ventilator 100 09/19/17 05:15 100 09/19/17 05:15 93 20 106/59 (75) 99 Mechanical Ventilator 100 09/19/17 05:00 96 20 101/65 (77) 98 Mechanical Ventilator 100 09/19/17 04:45 95 20 105/51 (69) 99 Mechanical Ventilator 100 09/19/17 04:30 94 20 105/55 (72) 100 Mechanical Ventilator 100 09/19/17 04:15 95 20 103/56 (72) 100 Mechanical Ventilator 100 09/19/17 04:00 100 09/19/17 04:00 Mechanical Ventilator 100 09/19/17 04:00 96 20 102/53 (69) 100 Mechanical Ventilator 100 09/19/17 03:45 94 20 91/52 (65) 100 Mechanical Ventilator 100 09/19/17 03:30 95 20 99/55 (70) 100 Mechanical Ventilator 100 09/19/17 03:15 93 20 90/67 (75) 100 Mechanical Ventilator 100 Post Procedure Recovery Score Activity: (2) Moves 4 extremities * Circulation: (2) +/-20% PreAnes Value Consciousness: (1) Arouseable (by name) Discharge Sedation Level of Care: Higher Level of Care (Patient remains in ICU status) Post Sedation Plan Medications where given on my order. Procedure start time 14:15, end time 15:00. Total fentanyl 200 mcg IV, total versed 4 mg IV. Patient tolerated procedure well.
--- NOTE | 2017-09-19 15:20 | Procedure Note ---
Procedure Note Procedure Date September 19, 2017. (Ike Haas PA-C) Procedure Description Procedure Name: Fiberoptic bronchoscopy Procedure time out: patient ID confirmed, correct procedure Consent obtained: written (Consent obtained by Dr. Matos) Time of procedure: 14:30 Performed by: physician cryptologist (Ike Haas PA-C) Indications: diagnostic, therapeutic Contraindications: none Description: Using clean technique and with Dr. Matos in the room, a fiberoptic bronchoscope was passed through the adapter into a #6 Shiley tracheostomy tube with inner cannula. This was easily passed and june was visualized. There was significant sputum and mucus plugging at the right main bronchus. The bronchoscope was advanced into the right lower lobe and copious amounts of mucopurulent sputum and mucous plugs were removed. The scope was then passed into the right middle lobe with similar findings and results. The scope was then passed into the right upper lobe takeoff where there was minimal mucus plugging. Approximately 80 cc of saline was used to flush the right middle and right lower lobe and samples were collected with a Lukens trap and sent to the lab for analysis. 5 cc of acetylcysteine (Mucomyst) was instilled into the right lower lobe. Scope was then brought back to the level of the june and passed through the left main bronchus. There were some mucous plugs in the left lower lobe takeoff at the level of the lingula. Left lower lobe was lavaged until clean. There was minimal bronchial trauma with no significant bleeding in the left subsegments. The bronchoscope was then brought back to the level of the june and again passed into the right main bronchus and into the right lower lobe where significant mucous plugs were again removed. This was repeated until sputum was mobile. This is also done in the right middle lobe takeoff. At the completion of the procedure, 5 cc of acetylcysteine was then instilled at the right main bronchus with 5 cc of saline. Patient tolerated the procedure well with no change in SaO2 and no change in blood pressure or heart rate. Fentanyl and midazolam was used for conscious sedation and was ordered and monitored by Dr. Matos who was present for the entire procedure. Complications: none Patient tolerated procedure: well Post-procedure vital signs: reviewed and stable Comments: Results were conveyed verbally to the patient's Sri Jerry who stated understanding and all questions were answered to her satisfaction (Ike Haas PA-C) Procedure Name: I was physically present during the entire procedure (Wero Matos, Rick.OKarla)
--- NOTE | 2017-09-19 15:39 | Pharmacy Progress Note ---
Pharmacy Antibiotic Consult Date of Service: September 19, 2017. Pharmacy Dosing Scope Pharmacy is consulted to initiate vancomycin/tobramycin IV dosing therapy, order appropriate labs and adjust drug dose/frequency. Subjective The patient is a 72 year old male admitted on September 19, 2017 at 02:03. Objective Height (Feet): 5 Height (Inches): 7.00 Weight (Kilograms): 60.800 Lab Results (24hrs): Test 09/18/17 23:00 09/18/17 23:05 09/18/17 23:15 09/19/17 00:14 White Blood Count 29.94 K/uL (4.8-10.8) Red Blood Count 4.47 M/uL (4.7-6.1) Hemoglobin 12.1 g/dL (14.0-18.0) Hematocrit 40.3 % (42-52) Mean Corpuscular Volume 90.2 fL (80-100) Mean Corpuscular Hemoglobin 27.1 pg (25-34) Mean Corpuscular Hemoglobin Concent 30.0 g/dl (32-36) Platelet Count 473 K/uL (130-400) Mean Platelet Volume 9.8 fL (7.4-10.4) Neutrophils (%) (Auto) 77.8 % Lymphocytes (%) (Auto) 10.6 % Monocytes (%) (Auto) 6.7 % Eosinophils (%) (Auto) 0.3 % Basophils (%) (Auto) 0.3 % Neutrophils # (Auto) 23.30 K/uL (1.4-6.5) Lymphocytes # (Auto) 3.17 K/uL (1.2-3.4) Monocytes # (Auto) 2.01 K/uL (0.11-0.59) Eosinophils # (Auto) 0.09 K/uL (0-0.5) Basophils # (Auto) 0.09 K/uL (0-0.2) RDW Standard Deviation 55.9 fL (36.4-46.3) RDW Coefficient of Variation 16.9 % (11.5-14.5) Immature Granulocyte % (Auto) 4.3 % Immature Granulocyte # (Auto) 1.28 K/uL (0.00-0.02) Red Blood Cell Morphology Unremarkable Prothrombin Time 10.6 SECONDS (9.0-12.0) Prothromb Time International Ratio 1.0 (0.9-1.1) Activated Partial Thromboplast Time 27.5 SECONDS (21.0-31.0) Partial Thromboplastin Ratio 1.1 Sodium Level 134 mmol/L (136-145) Potassium Level 4.0 mmol/L (3.5-5.1) Chloride Level 88 mmol/L (98-107) Carbon Dioxide Level 34 mmol/L (21-32) Anion Gap 12.0 mmol/L (3-11) Blood Urea Nitrogen 26 mg/dl (7-18) Creatinine 1.17 mg/dl (0.60-1.40) Estimated GFR () 72.8 Estimated GFR (Non- 62.8 BUN/Creatinine Ratio 22.5 (10-20) Random Glucose 255 mg/dl (70-99) Calcium Level 9.2 mg/dl (8.5-10.1) Total Bilirubin 1.1 mg/dl (0.2-1) Direct Bilirubin 0.3 mg/dl (0-0.2) Aspartate Amino Transf (AST/SGOT) 111 U/L (15-37) Alanine Aminotransferase (ALT/SGPT) 102 U/L (12-78) Alkaline Phosphatase 150 U/L (45-117) Total Creatine Kinase 81 U/L (39-308) Pro-B-Type Natriuretic Peptide 4349 pg/ml (0-900) Total Protein 9.0 gm/dl (6.4-8.2) Albumin 3.2 gm/dl (3.4-5.0) Lipase 53 U/L (73-393) Bedside Troponin I 0.060 ng/ml (0-0.045) Bedside Hemoglobin 10.9 g/dl (14.0-18.0) Bedside Hematocrit 32 % (42-52) Bedside Blood Gas pH (LAB) 7.33 (7.35-7.45) Bedside Blood Gas pCO2 (LAB) 61 mmHg (35-46) Bedside Blood Gas pO2 (LAB) 102 mmHg (80-95) Bedside Blood Gas HCO3 (LAB) 32 meq/L (19-24) Bedside Blood Gas Total CO2 34 mEq/l (24-31) Bedside Blood Gas Base Excess (LAB) 6.0 meq/L (-9-1.8) Bedside Blood Gas O2 Saturation 97.0 % (90-95) Bedside Sodium 136 mEq/L (135-144) Bedside Potassium 3.0 mEq/L (3.3-5.0) Urine Color DK YELLOW Urine Appearance CLOUDY (CLEAR) Urine pH 5.0 (4.5-7.5) Urine Specific [place] 1.021 (1.000-1.030) Urine Protein 2+ (NEG) Urine Glucose (UA) NEG (NEG) Urine Ketones NEG (NEG) Urine Occult Blood 2+ (NEG) Urine Nitrite NEG (NEG) Urine Bilirubin NEG (NEG) Urine Urobilinogen NEG (NEG) Urine Leukocyte Esterase NEG (NEG) Urine WBC (Auto) 5-10 /hpf (0-5) Urine RBC (Auto) 10-30 /hpf (0-4) Urine Hyaline Casts (Auto) 10-30 /lpf (0-5) Urine Epithelial Cells (Auto) >30 /lpf (0-5) Urine Bacteria (Auto) NEG (NEG) Urine Renal Epithelial Cells /lpf (0-5) Test 09/19/17 04:25 09/19/17 05:33 09/19/17 08:29 09/19/17 12:03 Estimated Average Glucose 103 mg/dl Hemoglobin A1c 5.2 % (4.5-5.6) Lactic Acid Level 1.8 mmol/L (0.4-2.0) 1.6 mmol/L (0.4-2.0) Troponin I 0.845 ng/ml (0-0.045) 0.544 ng/ml (0-0.045) Hepatitis C Antibody Screen NEG (NEG) Ionized Calcium 1.07 mmol/l (1.12-1.32) 1.04 mmol/l (1.12-1.32) Procalcitonin 1.70 ng/ml (0-0.5) Random Cortisol 40.37 mcg/dl White Blood Count 19.45 K/uL (4.8-10.8) Red Blood Count 3.34 M/uL (4.7-6.1) Hemoglobin 8.9 g/dL (14.0-18.0) 8.1 g/dL (14.0-18.0) Hematocrit 28.6 % (42-52) 25.7 % (42-52) Mean Corpuscular Volume 85.6 fL (80-100) Mean Corpuscular Hemoglobin 26.6 pg (25-34) Mean Corpuscular Hemoglobin Concent 31.1 g/dl (32-36) Platelet Count 395 K/uL (130-400) Mean Platelet Volume 9.7 fL (7.4-10.4) Neutrophils (%) (Auto) 86.4 % Lymphocytes (%) (Auto) 4.4 % Monocytes (%) (Auto) 7.9 % Eosinophils (%) (Auto) 0.0 % Basophils (%) (Auto) 0.1 % Neutrophils # (Auto) 16.82 K/uL (1.4-6.5) Lymphocytes # (Auto) 0.85 K/uL (1.2-3.4) Monocytes # (Auto) 1.53 K/uL (0.11-0.59) Eosinophils # (Auto) 0.00 K/uL (0-0.5) Basophils # (Auto) 0.02 K/uL (0-0.2) RDW Standard Deviation 53.4 fL (36.4-46.3) RDW Coefficient of Variation 16.9 % (11.5-14.5) Immature Granulocyte % (Auto) 1.2 % Immature Granulocyte # (Auto) 0.23 K/uL (0.00-0.02) Anisocytosis PRESENT Stomatocytes 1+ Prothrombin Time 10.8 SECONDS (9.0-12.0) Prothromb Time International Ratio 1.0 (0.9-1.1) Activated Partial Thromboplast Time 24.5 SECONDS (21.0-31.0) Partial Thromboplastin Ratio 0.9 Sodium Level 133 mmol/L (136-145) Potassium Level 3.4 mmol/L (3.5-5.1) Chloride Level 92 mmol/L (98-107) Carbon Dioxide Level 35 mmol/L (21-32) Anion Gap 6.0 mmol/L (3-11) Blood Urea Nitrogen 21 mg/dl (7-18) Creatinine 0.77 mg/dl (0.60-1.40) Est Creatinine Clear Calc Drug Dose 76.8 ml/min Estimated GFR () 106.6 Estimated GFR (Non- 91.9 BUN/Creatinine Ratio 27.8 (10-20) Random Glucose 220 mg/dl (70-99) Calcium Level 8.1 mg/dl (8.5-10.1) Phosphorus Level 2.0 mg/dl (2.5-4.9) Magnesium Level 1.6 mg/dl (1.8-2.4) Random Tobramycin Level 7.40 mcg/mL Test 09/19/17 13:59 09/19/17 14:26 Bedside Glucose (other) 95 mg/dl (70-99) 83 mg/dl (70-99) Assessment & Plan Original dosing was completed by overnight pharmacist then altered given improvement in renal function. Patient started empirically on antibiotics, pending receipt of previous culture results as well as new repeat cultures. Patient is also noted to be receiving imipenem, ciprofloxacin, and tobramycin nebulizer treatments. Patient has been receiving tobramycin nebs prior to admission. ID on board. I will dose slightly less aggressively on the mg/kg dose of vancomycin given the potential for nephrotoxicity with vancomycin and concomitant aminoglycosides. Loading dose: vancomycin 1500 mg IV X 1 dose (given 07/20 ~0000) then vancomycin 750mg q18 hours (received 1 dose): Change to 750 mg IV every 12 hours. Goal trough level estimate: between 15 - 20 mcg/mL. Peak and trough or random level has been ordered for: as indicated should therapy continue Tobramycin dosed ~7 mg/kg (420mg) actual body weight (ABW<IBW) via extended interval dosing. Random level 6 hours post infusion was 7.4, thus indicating every 24 hour dosing. Repeat levels will be ordered as necessary. Pharmacy will continue to follow and will adjust dose/frequency as necessary. Thank you
--- NOTE | 2017-09-19 15:41 | OPERATIVE REPORT ---
DATE OF OPERATION: 09/19/2017 The patient seen in the unit. REASON FOR CONSULTATION: Plugged J tube. SUMMARY: The patient had an insignificant course for the last 24 hours, but noted to have a jejunostomy tube that apparently was not functioning. In talking with the apparently this had been a pattern for sometime and they changed multiple times. I talked with the radiologist here regarding the possibility of changing and they felt that probably interventional radiologist would need to be done and this would have to be done at elsewhere. The patient is comfortable now, is in no acute distress. The abdomen is benign. I looked at the jejunostomy tube and actually placed a very fine flimsy guidewire through the area without any difficulty. It went approximately at most about 8 inches or so. Once this had been done, I then used a syringe to a total of 20 mL of saline and infused and it went in very easily without any obstruction, obviously we could not aspirate back. I used another 10 mL and similarly went in without any problem. At this point, I let the nursing service and Ike Haas to know of the procedure that apparently was tolerated well and it should be functioning. I attest to the content of the Intraoperative Record and any orders documented therein. Any exceptions are noted below. RAUL
--- NOTE | 2017-09-19 16:12 | ECHOCARDIOGRAM REPORT ---
*NOTICE TO RECEIVING LIBERTARIAN AGENCY This information is strictly Confidential and protected under [place] law. [place] law prohibits you from making any further disclosure of this information unless further disclosure is expressly permitted by the written consent of the person to whom it pertains or is authorized by law. A general authorization for the release of medical or other information is not sufficient for this purpose. Hospital accepts no responsibility if the information is made available to any other person, INCLUDING THE PATIENT. Interpretation Summary * Name: WHIT PEDROZA Study Date: 09/19/2017 06:49 AM BP: 183/83 mmHg * Patient Location: C.EDB HR: 60 * : 12/25/1919 (M/d/yyyy) Gender: Female Height: 62 in * Age: 89 yrs Ethnicity: CA Weight: 180 lb * Ordering Physician: Roselyn Sandy. * Performed By: Laura Manning RCS * * Reason For Study: CHF * BSA: 1.8 m2 * -- Conclusions -- * 1. Normal left ventricular size and systolic function. EF 60-65%. No definite regional wall motion abnormalities. No left ventricular hypertrophy. No significant diastolic dysfunction suggested. * 2. The right ventricle is severely dilated. The right ventricular systolic function is normal as assessed by tricuspid annular plane systolic excursion (TAPSE) (normal >1.5 cm). * 3. Severe biatrial dilation. * 4. Severe tricuspid regurgitation. * 5. Normal estimated right ventricular systolic pressure; 36mmHg. * 6. Compared to prior study on 05/08/2012, LV systolic function is now normal. Right ventricle is now severely dilated. Procedure Details * A complete two-dimensional transthoracic echocardiogram was performed (2D, M-mode, Doppler and color flow Doppler). * A contrast injection of Definity was performed to improve assessment of LV function. * Contrast was injected into an intravenous site in the right arm. * One vial of Definity ultrasound contrast was diluted in normal saline to a total volume of 10 ml. A total of '2' ml of solution was administered during imaging. * Lot # [id number] of Definity utilized for procedure. * Expiration date . * The attending nurse who injected the contrast agent was Gayathri Sandy RN. * Please note the patient name at top of image is incorrect, however the patient name on report is correct. Images are for Whit Pedroza. Left Ventricle * Normal left ventricular size and systolic function. EF 60-65%. No definite regional wall motion abnormalities. No left ventricular hypertrophy. No significant diastolic dysfunction suggested. Right Ventricle * There is a pacemaker lead in the right ventricle. * The right ventricle is severely dilated. * The right ventricular systolic function is normal as assessed by tricuspid annular plane systolic excursion (TAPSE) (normal >1.5 cm). Atria * The left atrium is severely dilated. * The right atrium is severely dilated. Mitral Valve * There is mild to moderate mitral annular calcification. * There is no mitral valve stenosis. * There is mild mitral regurgitation. Tricuspid Valve * The tricuspid valve is not well visualized. * There is no tricuspid stenosis. * There is severe tricuspid regurgitation. Aortic Valve * The aortic valve is trileaflet. * No hemodynamically significant valvular aortic stenosis. * Trace aortic regurgitation. Pulmonic Valve * The pulmonary valve is inadequately visualized, but the Doppler data is adequate for interpretation. * There is no pulmonic valvular stenosis. * Mild to moderate pulmonic valvular regurgitation. Great Vessels * The aortic root is normal size. * There is systolic flow reversal of the hepatic venous flow pattern. Pericardium/Pleural * There is no pericardial effusion. Great Vessels * Normal inferior vena cava size and collapsability with sniff indicates a normal right atrial pressure of 3 mmHg MMode 2D Measurements and Calculations IVSd 1.1 cm IVSs 1.3 cm LVIDd 4.1 cm LVIDs 2.5 cm LVPWd 1.0 cm LVPWs 1.4 cm IVS/LVPW 1.0 FS 38.4 % EDV(Teich) 74.0 ml ESV(Teich) 22.8 ml EF(Teich) 69.2 % EDV(cubed) 68.6 ml ESV(cubed) 16.0 ml EF(cubed) 76.6 % % IVS thick 23.4 % % LVPW thick 35.1 % LV mass(C)d 145.3 grams LV mass(C)dI 79.5 grams/m\S\2 LV mass(C)s 110.3 grams LV mass(C)sI 60.3 grams/m\S\2 CO(Teich) 3.1 l/min CI(Teich) 1.7 l/min/m\S\2 SV(Teich) 51.2 ml SI(Teich) 28.0 ml/m\S\2 CO(cubed) 3.2 l/min CI(cubed) 1.7 l/min/m\S\2 SV(cubed) 52.6 ml SI(cubed) 28.8 ml/m\S\2 Ao root diam 3.3 cm Ao root area 8.7 cm\S\2 ACS 1.6 cm LA dimension 5.2 cm LA/Ao 1.6 LVAd ap4 24.1 cm\S\2 LVLd ap4 7.2 cm EDV(MOD-sp4) 66.1 ml LVAs ap4 12.8 cm\S\2 LVLs ap4 6.0 cm ESV(MOD-sp4) 23.1 ml EF(MOD-sp4) 65.1 % LVAd ap2 25.4 cm\S\2 LVLd ap2 7.6 cm EDV(MOD-sp2) 70.8 ml LVAs ap2 14.2 cm\S\2 LVLs ap2 6.6 cm ESV(MOD-sp2) 26.3 ml EF(MOD-sp2) 62.9 % CO(MOD-sp4) 2.6 l/min CI(MOD-sp4) 1.4 l/min/m\S\2 SV(MOD-sp4) 43.0 ml SI(MOD-sp4) 23.5 ml/m\S\2 CO(MOD-sp2) 2.7 l/min CI(MOD-sp2) 1.5 l/min/m\S\2 SV(MOD-sp2) 44.5 ml SI(MOD-sp2) 24.3 ml/m\S\2 Doppler Measurements and Calculations MV E max mary 94.6 cm/sec MV A max mary 30.6 cm/sec MV E/A 3.1 MV P1/2t max mary 107.0 cm/sec MV P1/2t 79.4 msec MVA(P1/2t) 2.8 cm\S\2 MV dec slope 394.8 cm/sec\S\2 MV dec time 0.18 sec Ao V2 max 126.7 cm/sec Ao max PG 6.4 mmHg Ao max PG (full) 4.3 mmHg AI max mary 446.4 cm/sec AI max PG 79.7 mmHg AI dec slope 227.5 cm/sec\S\2 AI P1/2t 574.8 msec LV V1 max PG 2.1 mmHg LV V1 max 72.3 cm/sec PA V2 max 96.0 cm/sec PA max PG 3.7 mmHg PI max mary 193.9 cm/sec PI max PG 15.0 mmHg PI dec slope 173.8 cm/sec\S\2 PI P1/2t 326.7 msec TR max mary 288.6 cm/sec RVSP(TR) 36.3 mmHg RAP systole 3.0 mmHg
[2017-09-19] MEDS ORDERED: FUROSEMIDE 20 MG TAB PO SCH (16:30)
[2017-09-19] MEDS ORDERED: POTASSIUM PHOSPHATE INJ 12 MMOL in SODIUM CHLORIDE 0.9% 250ML 250 ML IV ONE (16:30)
[2017-09-19 17:07] LABS: HEMATOCRIT 26.7 % (42-52); HEMOGLOBIN 8.3 g/dL (14.0-18.0)
--- NOTE | 2017-09-19 17:27 | PULMONARY CONSULTATION ---
DATE OF CONSULTATION: 09/19/2017 Pulmonary medicine consultation. REASON FOR CONSULTATION: Right lower lobe pneumonia/tracheostomy and a previous bout of cardiopulmonary arrest. HISTORY OF PRESENT ILLNESS: [id number] white male was transferred emergently from [facility] to this facility on 09/19/2017 to our ER. Patient has a complex medical history. 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 He has had bouts of sepsis secondary to pneumonia as well as previous acute renal injury and history of ileostomy. He has anemia of chronic disease and has been fed through a PEG tube that was replaced several weeks ago at [facility] when it became inoperative. Apparently there was difficulty at [facility] with utilization of the PEG tube. He was allowed liquids intermittently at [facility] over the past month without obvious signs of aspiration. Apparently at [facility], he suffered a cardiac arrest with possible aspiration. CPR was instituted as patient was found pulseless and an AED was placed but no shock was advised. He received compressions for 5-10 minutes and there was return of spontaneous circulation. Apparently they suctioned copious amounts from the tracheostomy tube, which was a #[address] Tj Mckeon from interventional cardiology was consulted, but no intervention was indicated and there was no indication for therapeutic hypothermia. He has had a pseudomonas growing from his tracheal secretions for some time and they were using inhaled RAJ at [facility]. Pulmozyme and Mucomyst were considered because at times the secretions were thick. Patient prior to undergoing bronchoscopy this afternoon because of the right lower lobe consolidation and atelectasis, he was found to be responsive and answering questions appropriately. A palliative care consultation was obtained earlier with Dr. Vivienne Pereira. 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 Those records are not available to me at present time. Dr. Casanova was consulted and a guidewire was placed through the jejunostomy tube. There was no sign of obstruction and Dr. Casanova felt the J tube was now operational. During the bronchoscopy, Mucomyst was instilled into the right lower lobe and the right mainstem bronchus was significantly occluded and the aspirate was sent for appropriate studies. I have been asked to see patient in consultation. For details of past medical history, medications, family and social history, I refer you to current and past record. Chest CT scan done yesterday showed numerous bilateral rib fractures. Postoperative changes from esophageal resection with gastric pull-through procedure was noted with colonic interposition. Trace right and left pleural effusions. There was dense airspace consolidation involving the right lower lobe with near-complete atelectasis and fluid and secretions seen in the right lower lobe bronchus. PHYSICAL EXAMINATION: GENERAL: Reveals a thin, somewhat cachectic white male currently sedated but exhibiting no signs of respiratory distress. VITAL SIGNS: Pulse is 110 and regular, respiratory rate 16, blood pressure 111/62, O2 sat 98% on 100% FIO2 on current mechanical ventilator settings. SKIN: Without lesion. HEENT: Atraumatic, normocephalic. PERRLA. EOMI. Conjunctivae pale. Sclerae nonicteric. Fundi poorly visualized. NECK: Neck veins are not distended at 45 degrees. LUNGS: Coarse rhonchorous breath sounds heard over the large airways with decreased breath sounds in right base. CARDIAC: Sinus tachycardia. I do not appreciate an S3. ABDOMEN: Soft, protuberant, J tube in place. EXTREMITIES: No significant pedal edema, clubbing or cyanosis. NEUROLOGICAL: Cannot evaluate. LABORATORY DATA AND IMAGING: CT scan as noted. Culture is pending. H&H 8.1 and 25.7, white count 19,000. Troponin 0.544. 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 Patient currently is receiving subQ heparin sedation, Levophed, IV pantoprazole, aerosolized bronchodilator and inhaled tobramycin b.i.d. 300 mg along with IV vancomycin, Zosyn and ciprofloxacin. We will see what the cultures show from the bronchial washings, but agree with current selection of antibiotic pending culture results. Pulmonary toilet is critical here with frequent suctioning and the use of Mucomyst would be helpful. The echocardiogram shows right ventricle severely dilated with a normal left ventricle ejection fraction. We will follow along with you. Thank you very much for this consultation.
[2017-09-19] MEDS ORDERED: PEPTAMEN INTENSE VHP 1000ML BAG JT PRN (18:00)
[2017-09-19] MEDS: OXYCODONE/ACETAMINOPHEN 5-325 TAB PO PRN (18:23)
--- NOTE | 2017-09-19 20:23 | Progress Note ---
Subjective Date of Service: September 19, 2017. Subjective Pt evaluation today including: physical exam, chart review, lab review, review of studies (CTs, records from [facility]), conversation w/ campaign consultant ( critical care), review of inpatient medication list Pain: right side of abdomen (grimaces with palpating abdomen, shakes head "yes ") PO Intake: NPO, on vent, J-tube Voiding: fink catheter in place events of last 24 hours noted patient was awake and following commands for me during my bedside rounds shaking head yes/no to questions as well main issue was that of abdominal pain during the examination shook head NO when asked about chest pain, dyspnea Problem List Medical Problems: (1) Aspiration pneumonia Status: Acute (2) Cardiac arrest Status: Acute (3) Cardiopulmonary arrest with successful resuscitation Status: Acute (4) Elevated troponin Status: Acute (5) Pneumonia Status: Acute (6) Renal failure Status: Acute (7) Respiratory failure Status: Acute Objective Vital Signs Date Time Temp Pulse Resp B/P (MAP) Pulse Ox O2 Delivery O2 Flow Rate FiO2 09/19/17 17:46 90/58 (69) 09/19/17 17:30 113 15 89/57 (68) 95 Mechanical Ventilator 60 09/19/17 17:18 50 09/19/17 17:16 111 23 95/61 (72) 09/19/17 17:01 114 24 107/60 (76) 99 09/19/17 17:00 114 24 107/60 (76) 99 09/19/17 16:41 110 16 86/61 (69) 99 09/19/17 16:36 113 15 107/56 (73) 98 09/19/17 16:31 113 13 87/61 (70) 97 09/19/17 16:30 106 21 100/65 (77) 98 09/19/17 16:15 105 16 98/60 (73) 98 09/19/17 16:00 Mechanical Ventilator 100 09/19/17 16:00 109 18 96/63 (74) 98 09/19/17 16:00 80 09/19/17 15:16 80 09/19/17 15:01 106 16 111/62 (78) 98 Mechanical Ventilator 100 09/19/17 15:00 106 16 111/62 (78) 98 09/19/17 14:55 98 12 115/74 (88) 98 09/19/17 14:52 103 19 118/52 (74) 97 09/19/17 14:50 99 15 118/60 (79) 98 09/19/17 14:45 94 23 125/65 (85) 99 09/19/17 14:41 91 14 114/58 (76) 99 Mechanical Ventilator 100 09/19/17 14:35 90 14 111/55 (73) 100 09/19/17 14:30 92 13 99/52 (68) 99 09/19/17 14:26 95 12 102/55 (71) 100 09/19/17 14:22 90 12 110/50 (70) 100 Mechanical Ventilator 100 09/19/17 13:16 94 12 95/53 (67) 95 09/19/17 13:00 93 13 106/55 (72) 93 09/19/17 12:46 101 13 93/51 (65) 94 09/19/17 12:31 95 12 102/55 (71) 94 09/19/17 12:16 96 12 107/56 (73) 93 09/19/17 12:00 36.8 99 15 115/61 (79) 95 Mechanical Ventilator 40 09/19/17 12:00 Mechanical Ventilator 40 09/19/17 12:00 40 09/19/17 11:10 40 09/19/17 11:00 91 12 97/52 (67) 97 Mechanical Ventilator 40 09/19/17 10:46 89 12 98/46 (63) 97 Mechanical Ventilator 40 09/19/17 10:31 93 12 98/41 (60) 96 Mechanical Ventilator 40 09/19/17 10:00 93 12 94/56 (69) 96 Mechanical Ventilator 40 09/19/17 09:46 96 12 91/49 (63) 95 Mechanical Ventilator 40 09/19/17 09:30 93 14 92/54 (67) 96 Mechanical Ventilator 40 09/19/17 09:00 92 12 104/44 (64) 96 Mechanical Ventilator 40 09/19/17 08:30 92 12 107/51 (69) 97 09/19/17 08:15 91 12 95/56 (69) 96 09/19/17 08:00 40 09/19/17 08:00 96 Mechanical Ventilator 40 09/19/17 08:00 90 12 94/47 (63) 96 09/19/17 07:33 40 09/19/17 06:30 86 12 109/52 (71) 98 Mechanical Ventilator 50 09/19/17 06:15 88 12 113/59 (77) 97 Mechanical Ventilator 50 09/19/17 06:00 91 12 107/69 (82) 98 Mechanical Ventilator 50 09/19/17 05:54 80 09/19/17 05:45 91 20 110/58 (75) 99 Mechanical Ventilator 100 09/19/17 05:30 96 20 96/59 (71) 100 Mechanical Ventilator 100 09/19/17 05:15 100 09/19/17 05:15 93 20 106/59 (75) 99 Mechanical Ventilator 100 09/19/17 05:00 96 20 101/65 (77) 98 Mechanical Ventilator 100 09/19/17 04:45 95 20 105/51 (69) 99 Mechanical Ventilator 100 09/19/17 04:30 94 20 105/55 (72) 100 Mechanical Ventilator 100 09/19/17 04:15 95 20 103/56 (72) 100 Mechanical Ventilator 100 09/19/17 04:00 100 09/19/17 04:00 Mechanical Ventilator 100 09/19/17 04:00 96 20 102/53 (69) 100 Mechanical Ventilator 100 09/19/17 03:45 94 20 91/52 (65) 100 Mechanical Ventilator 100 09/19/17 03:30 95 20 99/55 (70) 100 Mechanical Ventilator 100 09/19/17 03:15 93 20 90/67 (75) 100 Mechanical Ventilator 100 09/19/17 02:15 100 09/19/17 01:51 92/58 100 Mechanical Ventilator 100 09/19/17 01:20 95 20 89/52 100 Mechanical Ventilator 100 09/19/17 00:45 94 20 92/63 100 Mechanical Ventilator 100 09/19/17 00:40 93 20 74/26 100 Mechanical Ventilator 100 09/19/17 00:25 93 20 88/44 98 Mechanical Ventilator 09/19/17 00:02 101 20 86/45 95 Mechanical Ventilator 100 09/18/17 23:35 103 20 83/55 99 Mechanical Ventilator 100 09/18/17 23:22 116 20 88/52 95 Mechanical Ventilator 100 09/18/17 23:16 93 Mechanical Ventilator 100 09/18/17 23:00 36.8 110 18 79/48 95 Mechanical Ventilator 100 09/18/17 23:00 100 09/18/17 22:52 117 Physical Exam General Appearance: no apparent distress, + thin ENT: pharynx normal (no thrush or ulcers ) Neck: no JVD, + pertinent finding (trach in place, clean) Respiratory/Chest: lungs clear, no respiratory distress, no accessory muscle use, + decreased breath sounds (right base), + pertinent finding (left upper chest with scalloped out area of muscle/tissue; this is well-healed; visible pulsations from vessels noted; there is also an area of weeping/bleeding near the left costo-chrondral junction) Cardiovascular: regular rate, rhythm, no gallop, + systolic murmur (2/6 LSB) Abdomen: normal bowel sounds, soft, no organomegaly, + tenderness (very tender RUQ and RLQ, especially the RUQ), + pertinent finding (J-tube in place, lower abdomen ) Extremities: no pedal edema Neurologic/Psychiatric: no motor/sensory deficits (strength 5/5 x 4 exts; no facial droop), alert Skin: + pertinent finding (right groin femoral CVC clean, no bleeding or hematoma) Laboratory Results Last 24 Hours Test 09/18/17 23:00 09/18/17 23:05 09/18/17 23:15 09/18/17 23:18 White Blood Count 29.94 K/uL Red Blood Count 4.47 M/uL Hemoglobin 12.1 g/dL Hematocrit 40.3 % Mean Corpuscular Volume 90.2 fL Mean Corpuscular Hemoglobin 27.1 pg Mean Corpuscular Hemoglobin Concent 30.0 g/dl Platelet Count 473 K/uL Mean Platelet Volume 9.8 fL Neutrophils (%) (Auto) 77.8 % Lymphocytes (%) (Auto) 10.6 % Monocytes (%) (Auto) 6.7 % Eosinophils (%) (Auto) 0.3 % Basophils (%) (Auto) 0.3 % Neutrophils # (Auto) 23.30 K/uL Lymphocytes # (Auto) 3.17 K/uL Monocytes # (Auto) 2.01 K/uL Eosinophils # (Auto) 0.09 K/uL Basophils # (Auto) 0.09 K/uL RDW Standard Deviation 55.9 fL RDW Coefficient of Variation 16.9 % Immature Granulocyte % (Auto) 4.3 % Immature Granulocyte # (Auto) 1.28 K/uL Red Blood Cell Morphology Unremarkable Prothrombin Time 10.6 SECONDS Prothromb Time International Ratio 1.0 Activated Partial Thromboplast Time 27.5 SECONDS Partial Thromboplastin Ratio 1.1 Sodium Level 134 mmol/L Potassium Level 4.0 mmol/L Chloride Level 88 mmol/L Carbon Dioxide Level 34 mmol/L Anion Gap 12.0 mmol/L Blood Urea Nitrogen 26 mg/dl Creatinine 1.17 mg/dl Estimated GFR () 72.8 Estimated GFR (Non- 62.8 BUN/Creatinine Ratio 22.5 Random Glucose 255 mg/dl Calcium Level 9.2 mg/dl Total Bilirubin 1.1 mg/dl Direct Bilirubin 0.3 mg/dl Aspartate Amino Transf (AST/SGOT) 111 U/L Alanine Aminotransferase (ALT/SGPT) 102 U/L Alkaline Phosphatase 150 U/L Total Creatine Kinase 81 U/L Troponin I 0.093 ng/ml Pro-B-Type Natriuretic Peptide 4349 pg/ml Total Protein 9.0 gm/dl Albumin 3.2 gm/dl Lipase 53 U/L Bedside Troponin I 0.060 ng/ml Bedside Hemoglobin 10.9 g/dl Bedside Hematocrit 32 % Bedside Blood Gas pH (LAB) 7.33 Bedside Blood Gas pCO2 (LAB) 61 mmHg Bedside Blood Gas pO2 (LAB) 102 mmHg Bedside Blood Gas HCO3 (LAB) 32 meq/L Bedside Blood Gas Total CO2 34 mEq/l Bedside Blood Gas Base Excess (LAB) 6.0 meq/L Bedside Blood Gas O2 Saturation 97.0 % Bedside Sodium 136 mEq/L Bedside Potassium 3.0 mEq/L Lactic Acid Level 5.8 mmol/L Test 09/19/17 00:14 09/19/17 04:25 09/19/17 05:33 09/19/17 06:15 Urine Color DK YELLOW Urine Appearance CLOUDY Urine pH 5.0 Urine Specific [place] 1.021 Urine Protein 2+ Urine Glucose (UA) NEG Urine Ketones NEG Urine Occult Blood 2+ Urine Nitrite NEG Urine Bilirubin NEG Urine Urobilinogen NEG Urine Leukocyte Esterase NEG Urine WBC (Auto) 5-10 /hpf Urine RBC (Auto) 10-30 /hpf Urine Hyaline Casts (Auto) 10-30 /lpf Urine Epithelial Cells (Auto) >30 /lpf Urine Bacteria (Auto) NEG Urine Renal Epithelial Cells /lpf Estimated Average Glucose 103 mg/dl Hemoglobin A1c 5.2 % Lactic Acid Level 1.8 mmol/L Troponin I 0.845 ng/ml Hepatitis C Antibody Screen NEG Ionized Calcium 1.07 mmol/l Procalcitonin 1.70 ng/ml Random Cortisol 40.37 mcg/dl Bedside Glucose 146 mg/dl Test 09/19/17 08:29 09/19/17 12:03 09/19/17 12:09 09/19/17 13:59 White Blood Count 19.45 K/uL Red Blood Count 3.34 M/uL Hemoglobin 8.9 g/dL 8.1 g/dL Hematocrit 28.6 % 25.7 % Mean Corpuscular Volume 85.6 fL Mean Corpuscular Hemoglobin 26.6 pg Mean Corpuscular Hemoglobin Concent 31.1 g/dl Platelet Count 395 K/uL Mean Platelet Volume 9.7 fL Neutrophils (%) (Auto) 86.4 % Lymphocytes (%) (Auto) 4.4 % Monocytes (%) (Auto) 7.9 % Eosinophils (%) (Auto) 0.0 % Basophils (%) (Auto) 0.1 % Neutrophils # (Auto) 16.82 K/uL Lymphocytes # (Auto) 0.85 K/uL Monocytes # (Auto) 1.53 K/uL Eosinophils # (Auto) 0.00 K/uL Basophils # (Auto) 0.02 K/uL RDW Standard Deviation 53.4 fL RDW Coefficient of Variation 16.9 % Immature Granulocyte % (Auto) 1.2 % Immature Granulocyte # (Auto) 0.23 K/uL Anisocytosis PRESENT Stomatocytes 1+ Prothrombin Time 10.8 SECONDS Prothromb Time International Ratio 1.0 Activated Partial Thromboplast Time 24.5 SECONDS Partial Thromboplastin Ratio 0.9 Sodium Level 133 mmol/L Potassium Level 3.4 mmol/L Chloride Level 92 mmol/L Carbon Dioxide Level 35 mmol/L Anion Gap 6.0 mmol/L Blood Urea Nitrogen 21 mg/dl Creatinine 0.77 mg/dl Est Creatinine Clear Calc Drug Dose 76.8 ml/min Estimated GFR () 106.6 Estimated GFR (Non- 91.9 BUN/Creatinine Ratio 27.8 Random Glucose 220 mg/dl Lactic Acid Level 1.6 mmol/L Calcium Level 8.1 mg/dl Ionized Calcium 1.04 mmol/l Phosphorus Level 2.0 mg/dl Magnesium Level 1.6 mg/dl Troponin I 0.544 ng/ml Random Tobramycin Level 7.40 mcg/mL Bedside Glucose (other) 283 mg/dl 95 mg/dl Test 09/19/17 14:26 09/19/17 15:16 09/19/17 16:58 Bedside Glucose (other) 83 mg/dl 95 mg/dl Hemoglobin 8.3 g/dL Hematocrit 26.7 % Troponin I 0.440 ng/ml Assessment and Plan Complicated 72yo male with: 1. shock, likely septic - from right-sided pneumonia - continue levophed, titrate to maintain MAP>65. Cannot rule out another source for septic shock (biliary?). Cont broad-spectrum IV antibiotics. Follow all cultures. ECHO today without evidence of cardiogenic component contributing to shock. No evidence of adrenal shock. Could have hemorrhage as his H/H have dropped considerably from admission. Fecal occult his stools. Defer antibiotic selection to ID and critical care. 2. s/p cardiac arrest - likely hypoxia-induced as there was a report that copious secretions/tube feedings were suctioned from his trach during the code. He had chest compressions for 5-10 minutes with successful cheondoism of spontaneous circulation. He has a mild troponin elevation likely due to his arrest and #1 above. Doubt he had a true ACS. Echo w/ preserved LV function. Amazingly he appears to be neurologically intact based on my limited neurological exam today. He is following commands and has a nonfocal examination. Once off the vent we can reassess this more carefully. 3. acute hypoxic/hypercarbic respiratory failure likely 2nd to right-sided pneumonia - strong suspicion that the pneumonia is from aspiration. He has had pseudomonas pneumonia by report with the pseudomonas being multi- drug resistant. Defer vent management to critical care; defer abx selection to ID. 4. j-tube obstruction - s/p dislodgement by general surgery today. 5. right-sided pneumonia - s/p bronch today with cultures taken and mucous plugs removed. Supportive care, [facility] ventilation, abx, etc. 6. abdominal pain - mainly RUQ - with his gallstones and abnormal LFTs need to r/o acute cholecystitis. Agree w/ HIDA scan. 7. hypomagnesemia - replace w/ IV mag sulfate 2 grams, repeat mag level in am. 8. hypophosphatemia - replace with IV k-phos, repeat level in am. 9. positive troponin - due to cardiac arrest and/or myocardial demand ischemia in setting of shock. 10. ?acute blood loss anemia - serial H/H's, fecal occult blood, IV PPI. 11. esophageal cancer with numerous complications in the past requiring various surgeries - since all of his care is out of town in [place] the exact status of his cancer is unknown. 12. h/o T2DM - hemoglobin a1c is very low suggesting his DM has resolved, likely from weight loss due to #11 and malnutrition. 13. protein calorie malnutrition - once J-tube obstruction has resolved resume feedings per dietary recs. 14. COPD - does not appear to be in exacerbation at this time. 15. h/o DVT - noted. Heparin for DVT proph cautiously in light of #10. 16. CAD - the medical record suggests history of such, but I cannot find any definitive evidence of coronary disease. 17. hyponatremia - continue IV fluids; BMP am. appreciate gen surg, critical care, ID consultations Continued [facility] stay due to: abnormal vital signs, voiding difficulties, ambulation difficulties, multiple IV medications needed Discharge planning: uncertain
--- NOTE | 2017-09-19 20:46 | ECHOCARDIOGRAM REPORT ---
*NOTICE TO RECEIVING [employer] This information is strictly Confidential and protected under [place] law. [place] law prohibits you from making any further disclosure of this information unless further disclosure is expressly permitted by the written consent of the person to whom it pertains or is authorized by law. A general authorization for the release of medical or other information is not sufficient for this purpose. Hospital accepts no responsibility if the information is made available to any other person, INCLUDING THE PATIENT. Interpretation Summary * Name: MCKENZIE STYLES Study Date: 09/19/2017 12:57 PM BP: 105/51 mmHg * Patient Location: E107 HR: 95 * : 1945 (M/d/yyyy) Gender: Male Height: 67 in * Age: 72 yrs Ethnicity: CA Weight: 134 lb * Ordering Physician: Du * Performed By: Pieter Manning RCS * * Reason For Study: Chest Pain * BSA: 1.7 m2 * -- Conclusions -- * 1. Normal left ventricular size and systolic function. EF 55-60%. No definite regional wall motion abnormalities. No left ventricular hypertrophy. * 2. The right ventricular systolic function is reduced as assessed by tricuspid annular plane systolic excursion (TAPSE) (TAPSE <1.6 cm). * 3. Moderate valvular aortic stenosis. Mild aortic regurgitation. * 4. Compared to prior study on 06/18/2015, aortic transvalvular velocities and gradients have increased. LV systolic function is now less hyperdynamic. Procedure Details * A complete two-dimensional transthoracic echocardiogram was performed (2D, M-mode, Doppler and color flow Doppler). * The study was technically difficult. * There were technical limitations due to patient'spoor positioning * A contrast injection of Definity was performed to improve assessment of LV function. * Contrast was injected into an intravenous site in the right arm. * One vial of Definity ultrasound contrast was diluted in normal saline to a total volume of 10 ml. A total of '1' ml of solution was administered during imaging. * Lot # [id number] of Definity utilized for procedure. * Expiration date . * The attending nurse who injected the contrast agent was aCtrina Caro RN. Left Ventricle * Normal left ventricular size and systolic function. EF 55-60%. No definite regional wall motion abnormalities. No left ventricular hypertrophy. Right Ventricle * The right ventricle is normal size. * The right ventricular systolic function is reduced as assessed by tricuspid annular plane systolic excursion (TAPSE) (TAPSE <1.6 cm). Atria * The left atrial size is normal. * Right atrial size is normal. * There is no evidence of atrial septal defect, but resolution does not allow assessment for a patent foramen ovale. Mitral Valve * There is mild to moderate mitral annular calcification. * There is no mitral valve stenosis. * Significant mitral regurgitation is absent. Tricuspid Valve * The tricuspid valve is not well visualized. * There is no tricuspid stenosis. * Significant tricuspid regurgitation is absent. Aortic Valve * The aortic valve is not well visualized. * Dimensionless index 0.34. * Moderate valvular aortic stenosis. * Mild aortic regurgitation. Pulmonic Valve * The pulmonic valve is not well visualized. Great Vessels * The aortic root is not well visualized. Pericardium/Pleural * There is no pericardial effusion. Great Vessels * IVC not well visualized. MMode 2D Measurements and Calculations IVSd 0.84 cm IVSs 1.1 cm LVIDd 4.1 cm LVIDs 2.8 cm LVPWd 0.77 cm LVPWs 1.1 cm IVS/LVPW 1.1 FS 31.3 % EDV(Teich) 74.4 ml ESV(Teich) 30.1 ml EF(Teich) 59.6 % EDV(cubed) 69.2 ml ESV(cubed) 22.4 ml EF(cubed) 67.6 % % IVS thick 32.5 % % LVPW thick 42.8 % LV mass(C)d 98.1 grams LV mass(C)dI 57.5 grams/m\S\2 LV mass(C)s 87.8 grams LV mass(C)sI 51.5 grams/m\S\2 SV(Teich) 44.3 ml SI(Teich) 26.0 ml/m\S\2 SV(cubed) 46.7 ml SI(cubed) 27.4 ml/m\S\2 ACS 1.1 cm LA dimension 2.3 cm LVOT diam 2.0 cm LVOT area 3.2 cm\S\2 LVAd ap4 31.5 cm\S\2 LVLd ap4 9.2 cm EDV(MOD-sp4) 88.7 ml EDV(sp4-el) 91.8 ml LVAs ap4 19.4 cm\S\2 LVLs ap4 7.7 cm ESV(MOD-sp4) 40.7 ml ESV(sp4-el) 41.2 ml EF(MOD-sp4) 54.1 % EF(sp4-el) 55.1 % SV(MOD-sp4) 47.9 ml SI(MOD-sp4) 28.1 ml/m\S\2 SV(sp4-el) 50.6 ml SI(sp4-el) 29.6 ml/m\S\2 Doppler Measurements and Calculations MV E max mary 104.0 cm/sec MV A max mary 96.2 cm/sec MV E/A 1.1 MV P1/2t max mary 128.1 cm/sec MV P1/2t 52.2 msec MVA(P1/2t) 4.2 cm\S\2 MV dec slope 719.3 cm/sec\S\2 MV dec time 0.22 sec Ao V2 max 321.0 cm/sec Ao max PG 41.2 mmHg Ao max PG (full) 36.3 mmHg Ao V2 mean 217.7 cm/sec Ao mean PG 21.3 mmHg Ao mean PG (full) 18.9 mmHg Ao V2 VTI 52.2 cm DEVIN(I,A) 1.1 cm\S\2 DEVIN(I,D) 1.1 cm\S\2 DEVIN(V,A) 1.1 cm\S\2 DEVIN(V,D) 1.1 cm\S\2 AI max mary 412.0 cm/sec AI max PG 67.9 mmHg AI dec slope 256.4 cm/sec\S\2 AI P1/2t 470.6 msec LV V1 max PG 4.9 mmHg LV V1 mean PG 2.4 mmHg LV V1 max 110.7 cm/sec LV V1 mean 72.8 cm/sec LV V1 VTI 18.5 cm SV(LVOT) 59.8 ml SI(LVOT) 35.1 ml/m\S\2 PA V2 max 87.1 cm/sec PA max PG 3.0 mmHg
[2017-09-19] MEDS: MIDODRINE 10 MG TAB PO SCH (21:39)
[2017-09-20] VITALS (22 sets, daily range): BP systolic 82–130; BP diastolic 48–77; PULSE 95–123; TEMP 36.6–36.9; O2SAT 90–98
[2017-09-20] MEDS: DEXTROSE 5% IV SCH ×4 (00:17→17:43)
[2017-09-20] MEDS: IMIPENEM CILASTATIN IV SCH ×4 (00:17→17:43)
[2017-09-20] MEDS: OXYCODONE/ACETAMINOPHEN 5-325 TAB PO PRN ×2 (00:33→08:13)
[2017-09-20 00:43] LABS: HEMATOCRIT 26.2 % (42-52); HEMOGLOBIN 8.2 g/dL (14.0-18.0)
[2017-09-20] MEDS: ALBUT/IPRATROP 3MG/0.5MG NEB 3 ML VIAL INH SCH ×5 (02:28→20:18)
[2017-09-20] MEDS ORDERED: VANCOMYCIN IV 1,000 MG in SODIUM CHLORIDE 0.9% 250ML 250 ML IV SCH (04:00)
[2017-09-20] MEDS ORDERED: VANCOMYCIN IV 750 MG in SODIUM CHLORIDE 0.9% 250ML 250 ML IV SCH (04:00)
[2017-09-20 04:33] LABS: BASO % 0.1 %; BASO ABS # 0.02 K/uL (0-0.2); EOS % 0.3 %; EOS ABS # 0.05 K/uL (0-0.5); HEMATOCRIT 27.1 % (42-52); HEMOGLOBIN 8.5 g/dL (14.0-18.0); IG# 0.08 K/uL (0.00-0.02); LYMPH ABS # 0.86 K/uL (1.2-3.4); MEAN CELL VOLUME 85.8 fL (80-100); MEAN CORPUSCULAR HEMOGLOBIN 26.9 pg (25-34); MEAN CORPUSCULAR HGB CONC 31.4 g/dl (32-36); MEAN PLATELET VOLUME 9.5 fL (7.4-10.4); MONO % 9.4 %; MONO ABS # 1.35 K/uL (0.11-0.59); NEUT % 83.6 %; NEUT ABS # 12.05 K/uL (1.4-6.5); PLATELET COUNT 308 K/uL (130-400); RED CELL DISTRIBUTION WIDTH CV 17.3 % (11.5-14.5); RED CELL DISTRIBUTION WIDTH SD 54.2 fL (36.4-46.3); WHITE BLOOD COUNT 14.41 K/uL (4.8-10.8)
[2017-09-20] MEDS: FENTANYL CITRATE INJ 50 MCG/1 ML 2 ML VIAL IV PRN (04:43)
[2017-09-20 04:59] LABS: ALBUMIN 2.3 gm/dl (3.4-5.0); CALCIUM 8.2 mg/dl (8.5-10.1); CREATININE 0.81 mg/dl (0.60-1.40); POTASSIUM 3.9 mmol/L (3.5-5.1)
[2017-09-20 05:09] LABS: PHOSPHORUS 3.2 mg/dl (2.5-4.9); TOTAL PROTEIN 6.2 gm/dl (6.4-8.2)
[2017-09-20] MEDS: SODIUM CHLORIDE 0.9% 1000ML 1,000 ML IV SCH ×2 (05:21→11:00)
[2017-09-20] MEDS ORDERED: TOBRAMYCIN SULF INJ 420 MG in DEXTROSE 5% 100ML 100 ML IV SCH (06:00)
[2017-09-20] MEDS: INSULIN ASPART 100 UNITS/ML 3 ML PEN SC SCH ×4 (06:00→17:42)
[2017-09-20] MEDS: MIDODRINE 10 MG TAB PO SCH ×3 (06:09→21:40)
--- NOTE | 2017-09-20 07:00 | DIAGNOSTIC IMAGING REPORT ---
CHEST ONE VIEW PORTABLE CLINICAL HISTORY: Respiratory arrest. ASPIRATION PNEUMONIA COMPARISON STUDY: 09/18/2017 FINDINGS: The cardiac and mediastinal contours remain stable. The heart is normal in size. A tracheostomy tube is again visualized. There is pulmonary emphysema. There is an old deformity of the left medial clavicle. There are bilateral deformities. There is a decreasing right pleural effusion.[ There are improving basilar airspace opacities IMPRESSION: 1. Emphysema 2. Decreasing right pleural effusion 3. Improving basilar airspace opacities Electronically signed by: Art Ma M.D. 09/20/2017 6:59 AM Dictated Date/Time: 09/20/2017 6:57 AM
[2017-09-20] MEDS: CIPROFLOXACIN / D5W 400 MG in PREMIXED IN D5W 200 ML IV SCH (08:13)
[2017-09-20] MEDS: HEPARIN SOD 5000 UNIT/0.5 ML CARP SQ SCH ×2 (08:14→20:44)
[2017-09-20] MEDS: PANTOprazole INJ 40 MG in SYRINGE 0 ML IV SCH ×2 (08:14→20:43)
[2017-09-20] MEDS: TOBRAMYCIN 300 MG/5 ML NEB SCH ×2 (08:35→20:18)
[2017-09-20] MEDS ORDERED: ASPIRIN 81 MG CHEW PO SCH (09:00)
[2017-09-20] MEDS ORDERED: ATORVASTATIN 10 MG TAB PO SCH (09:00)
--- NOTE | 2017-09-20 09:18 | SURGERY PROGRESS NOTE ---
DATE: 09/20/2017 I checked with the nurses. There has been no problem with the J tube that we unplugged yesterday. At this time, we will sign off; we will be glad to see him anytime should any future problems arise.
[2017-09-20] MEDS ORDERED: KETOROLAC TROMETHAMINE 15 MG/ML VIAL IV. PRN (09:30)
[2017-09-20] MEDS ORDERED: OXYCODONE HCL IR 5 MG TAB (IMMEDIATE RELEASE) PO PRN (10:15)
[2017-09-20] MEDS: ACETAMINOPHEN IV 1000MG/100ML IV SCH ×2 (11:43→21:40)
[2017-09-20] MEDS: LIDODERM (LIDOCAINE) PATCH 5% TD PRN (11:44)
[2017-09-20] MEDS ORDERED: CLON0.5T3 JT (12:50)
[2017-09-20] MEDS ORDERED: FURO-85 JT (12:50)
[2017-09-20] MEDS ORDERED: DOCU5LIQ JT (12:50)
[2017-09-20] MEDS ORDERED: BUSP1TAB46 JT (12:50)
[2017-09-20] MEDS ORDERED: FAMO20TA JT (12:50)
[2017-09-20] MEDS ORDERED: IPRASOL4 INH (12:51)
[2017-09-20] MEDS ORDERED: PRMT10 JT (12:54)
[2017-09-20] MEDS ORDERED: NTRP JT (12:54)
[2017-09-20] MEDS ORDERED: OXYC10SO JT (12:54)
[2017-09-20] MEDS ORDERED: SENN8.8S5 JT (12:54)
[2017-09-20] MEDS ORDERED: [UNRECOGNIZED DRUG - CODE] INH (12:56)
[2017-09-20] MEDS ORDERED: TOBR1NEB INH (12:56)
[2017-09-20] MEDS ORDERED: LANS30CA12 JT (12:56)
--- NOTE | 2017-09-20 13:25 | PULMONARY PROGRESS NOTE ---
DATE: 09/20/2017 SUBJECTIVE: The patient is awake, alert, and able to converse with me both by written language and mouthing the words. No signs of respiratory distress. He is complaining of right upper quadrant and lower pain and sternal pain, no doubt from chest compressions and multiple rib fractures. Apparently a HIDA scan has been scheduled and though the patient is not able, it is recommended not to take any narcotics prior to the procedure. He denies respiratory distress currently. PHYSICAL EXAMINATION: VITAL SIGNS: Temperature is 36.9, pulse 103 and regular, respiratory rate 22, blood pressure 105/52 and 90% on a 12 L trach collar. SKIN: Without lesion. HEENT: Atraumatic, normocephalic. PERRLA. LUNGS: Improved aeration in right base, distant P and A. CARDIAC EXAMINATION: Unchanged. ABDOMEN: Soft. EXTREMITIES: Trace pedal edema. No clubbing or peripheral cyanosis. NEUROLOGICAL: No obvious lateralizing signs. LABORATORY DATA: H and H 8.5 and 27, white count 14,000. PRP within normal limits. Albumin 2.3. A chest x-ray today shows emphysematous changes with decreased right pleural effusion with improved aeration at the right base. Cultures from yesterday's bronch washings grew out scant deja floor and no sign of Pseudomonas. 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 At this point, the patient's J tube is functioning. I suspect the pain that he is feeling is from multiple rib fractures, perhaps aggravated by recent chest compression. I do not believe at this point in time he inhaled RAJ, it is necessarily contributing much to his care and I suspect the patient can be left on his Cipro without any additional antibiotic. He may need Mucomyst 20% 3-5 mL each time via neb treatment as I suspect the right lower lobe area of atelectasis and mucoid impaction is a chronic problem. We would like to see the patient out of the bed in a chair possible and we will reevaluate after the HIDA scan today.
[2017-09-20] MEDS ORDERED: [UNRECOGNIZED DRUG - REMARK] ONE (15:00)
--- NOTE | 2017-09-20 15:03 | Infectious Disease Progress Nt ---
Progress Note Date of Service September 20, 2017. Subjective Pt evaluation today including: conversation w/ patient, physical exam, chart review, lab review, review of studies, conversation w/ internet sales consultant, review of inpatient medication list Patient awake and alert this morning, on trach collar and appears to be in no acute distress. Remains afebrile. Review of prior sputum cultures showed that patient had fully sensitive Pseudomonas species, and no significant resistance noted. All Other Systems: Reviewed and Negative Medications Current Inpatient Medications Medications (Trade) Dose Ordered Sig/Madalyn Route Start Time Stop Time Status Last Admin Dose Admin Heparin Sodium (Porcine) (Heparin Sq 5000 Unit/0.5ml) 5,000 unit Q12H SQ 09/19/17 09:00 10/19/17 08:59 09/20/17 08:14 5,000 UNIT Sodium Chloride 1,000 ml @ 100 mls/hr Q10H IV 09/19/17 05:00 09/20/17 15:00 09/20/17 05:21 100 MLS/HR Acetaminophen (Tylenol Tab) 650 mg Q4H PRN PO 09/19/17 01:45 10/19/17 01:44 Fentanyl Citrate (Fentanyl Inj) 12.5 mcg Q1H PRN IV 09/19/17 01:45 10/03/17 01:44 09/20/17 04:43 12.5 MCG Lorazepam (Ativan Inj) 0.5 mg Q4H PRN IV 09/19/17 01:45 10/19/17 01:44 09/19/17 05:55 0.5 MG Albuterol/ Ipratropium (Duoneb) 3 ml Q4RWA INH 09/19/17 08:00 10/19/17 07:59 09/20/17 11:09 3 ML Tobramycin (Ortiz Soln For Inhalation 300MG/ 5ML) 5 ml BIDR NEB 09/19/17 08:00 09/26/17 07:59 09/20/17 08:35 5 ML Imipenem/ Cilastatin Sodium 400 mg/Dextrose 116 ml @ 100 mls/hr Q6H IV 09/19/17 06:00 09/26/17 05:59 09/20/17 11:51 100 MLS/HR Ioversol (Optiray 320) 100 ml UD PRN IV 09/19/17 10:45 09/23/17 10:44 Atorvastatin Calcium (Lipitor Tab) 10 mg QAM PO 09/20/17 09:00 10/20/17 08:59 Future Hold Midodrine (Proamatine Tab) 10 mg Q8 PO 09/19/17 14:00 10/19/17 13:59 Future hold 09/20/17 06:09 10 MG Furosemide (Lasix Tab) 20 mg BIDM PO 09/19/17 16:30 10/19/17 16:29 Future Hold Insulin Aspart (novoLOG ASPART) SLIDING SCALE Q6H SC 09/19/17 12:00 10/19/17 11:59 Glucose (Glucose 40% Gel) 15-30 GRAMS 15 GRAMS... UD PRN PO 09/19/17 12:30 10/19/17 12:29 Glucose (Glucose Chew Tab) 4-8 Tablets 4 Tabl... UD PRN PO 09/19/17 12:30 10/19/17 12:29 Dextrose (Dextrose 50% 50ML Syringe) 25-50ML 25ML FOR ... UD PRN IV 09/19/17 12:30 10/19/17 12:29 Glucagon (Glucagon Inj) 1 mg UD PRN IM 09/19/17 12:30 10/19/17 12:29 Carbohydrates (Carbohydrates For Hypoglycemia) 15-30 GRAMS 15 grams if BSG 54-69... UD PRN PO 09/19/17 12:30 10/19/17 12:29 Enteral Nutritional Formula (Peptamen Intense VHP) 1,000 ml UD PRN JT 09/19/17 18:00 10/19/17 17:59 09/19/17 19:40 1,000 ML Oxycodone HCl (Roxicodone Immediate Rel Tab) `1-2 tabs for pain 1 tab ... Q6H PRN PO 09/20/17 10:15 10/04/17 10:14 Acetaminophen 100 ml @ 400 mls/hr Q8 IV 09/20/17 12:00 10/20/17 11:59 09/20/17 11:43 400 MLS/HR Ketorolac Tromethamine (Toradol Inj) 15 mg Q6H IV. 09/20/17 16:00 09/25/17 09:59 Miscellaneous (Stop Order) 1 ea TODAY@1500 ONCE N/A 09/20/17 15:00 09/20/17 15:01 Pantoprazole Sodium 40 mg/ Syringe 10 ml @ 5 mls/min BID IV 09/20/17 21:00 09/27/17 09:01 Lidocaine (Lidoderm Patch 5%) 1 patch Q24H PRN TD 09/20/17 10:30 10/20/17 10:29 09/20/17 11:44 1 PATCH Pantoprazole Sodium 40 mg/ Syringe 10 ml @ 5 mls/min DAILY IV 09/28/17 09:00 10/28/17 08:59 Aspirin (Aspirin Chew) 81 mg DAILY@1400 JT 09/20/17 14:00 10/20/17 13:59 Miscellaneous (Remove Lidoderm Patch) 1 ea Q12H PRN N/A 09/20/17 12:00 10/20/17 11:59 Buspirone HCl (Buspar Tab) 7.5 mg TID JT 09/20/17 14:00 10/20/17 13:59 Clonazepam (Klonopin Tab) 0.5 mg TID PO 09/20/17 14:00 10/20/17 13:59 Objective Vital Signs Date Time Temp Pulse Resp B/P (MAP) Pulse Ox O2 Delivery O2 Flow Rate FiO2 09/20/17 14:21 103 26 93/53 (66) 91 Trach Collar 12.0 70 09/20/17 12:00 Trach Collar 12.0 70 09/20/17 12:00 36.9 103 22 105/52 (69) 90 Trach Collar 12.0 70 09/20/17 11:10 96 20 94 Trach Collar 12.0 40 09/20/17 10:00 102 18 82/49 (60) 95 Mechanical Ventilator 09/20/17 08:42 40 09/20/17 08:00 40 09/20/17 08:00 Mechanical Ventilator 50 09/20/17 08:00 36.9 105 17 98/52 (67) 95 Mechanical Ventilator 09/20/17 07:15 40 09/20/17 06:01 100 15 100/52 (68) 97 09/20/17 05:32 50 09/20/17 04:16 36.7 116 18 130/77 (94) 95 Mechanical Ventilator 09/20/17 04:00 Mechanical Ventilator 50 5/16/18 04:00 50 18 02:29 50 18 02:01 96 17 99/59 (72) 97 18 00:01 36.8 104 17 89/56 (67) 98 Mechanical Ventilator 09/19/17 23:59 Mechanical Ventilator 50 18 23:59 50 18 22:45 50 18 21:31 112 14 85/61 (69) 97 09/19/17 21:10 50 18 21:01 112 19 94/53 (67) 97 18 20:01 37.0 95 19 105/58 (74) 96 Mechanical Ventilator 50 09/19/17 20:00 96 Mechanical Ventilator 50 09/19/17 20:00 50 09/19/17 19:46 100 14 96/57 (70) 96 09/19/17 19:31 104 13 102/59 (73) 96 09/19/17 19:16 106 13 99/55 (70) 96 09/19/17 19:01 108 13 96/60 (72) 97 09/19/17 17:46 90/58 (69) 09/19/17 17:30 113 15 89/57 (68) 95 Mechanical Ventilator 60 09/19/17 17:18 50 09/19/17 17:16 111 23 95/61 (72) 09/19/17 17:01 114 24 107/60 (76) 99 09/19/17 17:00 114 24 107/60 (76) 99 18 16:41 110 16 86/61 (69) 99 18 16:36 113 15 107/56 (73) 98 18 16:31 113 13 87/61 (70) 97 09/19/17 16:30 106 21 100/65 (77) 98 18 16:15 105 16 98/60 (73) 98 09/19/17 16:00 Mechanical Ventilator 100 09/19/17 16:00 109 18 96/63 (74) 98 18 16:00 80 18 15:16 80 18 15:01 106 16 111/62 (78) 98 Mechanical Ventilator 100 09/19/17 15:00 106 16 111/62 (78) 98 Physical Exam General Appearance: WD/WN, no apparent distress Eyes: normal inspection, EOMI, sclerae normal ENT: normal ENT inspection, pharynx normal Neck: supple, no adenopathy, thyroid normal, trachea midline Respiratory/Chest: chest non-tender, no respiratory distress, + rales, + rhonchi Cardiovascular: regular rate, rhythm, no edema, no murmur Abdomen: normal bowel sounds, non tender, soft, no organomegaly Extremities: non-tender, no calf tenderness, normal capillary refill Neurologic/Psychiatric: no motor/sensory deficits, oriented x 3 Skin: normal color, warm/dry, no rash Lymphatic: no adenopathy Laboratory Results RUN DATE: 09/20/17 [facility] LAB PAGE 1 RUN TIME: 1132 Specimen Inquiry PATIENT: MCKENZIE STYLES A LOC: EREN U # : [id number] AGE/SX: 72/M ROOM: E107 REG : 09/19/[address]: Alec Azul MD : 1945 BED: 1 DIS : STATUS: ADM IN TLOC: SPEC #: [id number] PHILIP: 09/19/17 STATUS: RES REQ #: [id number] RECD: 09/19/[address] [facility] [address]: Alka. Sandy MD SOURCE: SPUTUM ENTR: 09/19/[address] [facility] DR: Vikram Singh MD SPDESC: T TUBE SUC Nilay Samayoa M.D. Pasquariello, Rick D M.D. Shippert, Brian W. , D.OKarla ORDERED: SPUT CULT/SMR COMMENTS: Has Specimen Been Obtained/Collected? Y Procedure Result Verified Site GRAM STAIN Final 09/20/17 RESULT FEW EPITHELIAL CELLS MODERATE POLYS FEW YEAST SPUTUM CULTURE Preliminary 09/20/17 LIGHT NORMAL SCOTT Present, Final Report to Follow. Last 24 Hours Test 09/19/17 15:16 09/19/17 16:58 09/19/17 17:26 09/20/17 00:02 Bedside Glucose (other) 95 mg/dl Hemoglobin 8.3 g/dL Hematocrit 26.7 % Troponin I 0.440 ng/ml Bedside Glucose 121 mg/dl 109 mg/dl Test 09/20/17 00:10 09/20/17 04:15 09/20/17 11:34 Hemoglobin 8.2 g/dL 8.5 g/dL Hematocrit 26.2 % 27.1 % White Blood Count 14.41 K/uL Red Blood Count 3.16 M/uL Mean Corpuscular Volume 85.8 fL Mean Corpuscular Hemoglobin 26.9 pg Mean Corpuscular Hemoglobin Concent 31.4 g/dl Platelet Count 308 K/uL Mean Platelet Volume 9.5 fL Neutrophils (%) (Auto) 83.6 % Lymphocytes (%) (Auto) 6.0 % Monocytes (%) (Auto) 9.4 % Eosinophils (%) (Auto) 0.3 % Basophils (%) (Auto) 0.1 % Neutrophils # (Auto) 12.05 K/uL Lymphocytes # (Auto) 0.86 K/uL Monocytes # (Auto) 1.35 K/uL Eosinophils # (Auto) 0.05 K/uL Basophils # (Auto) 0.02 K/uL RDW Standard Deviation 54.2 fL RDW Coefficient of Variation 17.3 % Immature Granulocyte % (Auto) 0.6 % Immature Granulocyte # (Auto) 0.08 K/uL Red Blood Cell Morphology Unremarkable Sodium Level 135 mmol/L Potassium Level 3.9 mmol/L Chloride Level 97 mmol/L Carbon Dioxide Level 31 mmol/L Anion Gap 7.0 mmol/L Blood Urea Nitrogen 16 mg/dl Creatinine 0.81 mg/dl Est Creatinine Clear Calc Drug Dose 73.0 ml/min Estimated GFR () 104.4 Estimated GFR (Non- 90.0 BUN/Creatinine Ratio 19.2 Random Glucose 106 mg/dl Calcium Level 8.2 mg/dl Phosphorus Level 3.2 mg/dl Magnesium Level 1.9 mg/dl Total Bilirubin 0.8 mg/dl Direct Bilirubin 0.2 mg/dl Aspartate Amino Transf (AST/SGOT) 47 U/L Alanine Aminotransferase (ALT/SGPT) 51 U/L Alkaline Phosphatase 84 U/L Total Protein 6.2 gm/dl Albumin 2.3 gm/dl Bedside Glucose 105 mg/dl Patient Name: MCKENZIE STYLES Unit Number: [id number] Dictated: 09/20/17656 Transcribed: 09/20/17656 ARG Printed Date/Time: [~ rep prt dt]/[~ rep prt tm] [~ rep ct labl] - [~ rep ct ivnm] [facility] Radiology Department [place] [id number] Dictated: 09/20/17656 Transcribed: 09/20/17656 ARG Printed Date/Time: [~ rep prt dt]/[~ rep prt tm] [~ rep ct labl] - [~ rep ct ivnm] CHEST ONE VIEW PORTABLE CLINICAL HISTORY: Respiratory arrest. ASPIRATION PNEUMONIA COMPARISON STUDY: 09/18/2017 FINDINGS: The cardiac and mediastinal contours remain stable. The heart is normal in size. A tracheostomy tube is again visualized. There is pulmonary emphysema. There is an old deformity of the left medial clavicle. There are bilateral deformities. There is a decreasing right pleural effusion.[ There are improving basilar airspace opacities IMPRESSION: 1. Emphysema 2. Decreasing right pleural effusion 3. Improving basilar airspace opacities Electronically signed by: Art Ma M.D. 09/20/2017 6:59 AM Dictated Date/Time: 09/20/2017 6:57 AM The status of this report is Signed. Draft = Not yet reviewed or approved by Radiologist. Signed = Reviewed and approved by Radiologist. <AttendingPhy>Alec Azul MD</AttendingPhy> <FamilyPhy></FamilyPhy> < PrimaryPhy>Nilay Samayoa M.D.</PrimaryPhy> <UnitNumber>[id number]</UnitNumber> <VisitNumber>[id number]</VisitNumber> <PatientName>MCKENZIE STYLES</ PatientName> <DateOfBirth>1945</DateOfBirth> <Location>C.MSICU</Location> <ServiceDate>09/18/17</ServiceDate> <MNE>ESINDI</MNE> <OrderingPhy>Roselyn Sandy MD </OrderingPhy> <OrderingPhyMNE>f rep ord dr bethea</OrderingPhyMNE> < DictatingPhyMNE>f rep dict dr bethea</DictatingPhyMNE> <CCListMNE>f rep ct mne</ CCListMNE> <AdmittingPhyMNE>f pt admit dr bethea</AdmittingPhyMNE> <AttendingPhyMNE >f pt attend dr bethea</AttendingPhyMNE> <ConsultingPhyMNE>f pt consult dr bethea</ConsultingPhyMNE> <FamilyPhyMNE>f pt fam dr bethea</FamilyPhyMNE> <OtherPhyMNE>f pt other dr bethea</OtherPhyMNE> < PrimaryPhyMNE>f pt prim care dr bethea</PrimaryPhyMNE> <ReferringPhyMNE>f pt referring dr bethea</ReferringPhyMNE> Assessment and Plan 72-year-old male status post cardiac arrest with probable aspiration, previously treated for pseudomonal infection. I think that antibiotics can be de-escalated at this point, and would consider use of imipenem. Discuss with Critical Care service. Will follow.
--- NOTE | 2017-09-20 15:19 | DIAGNOSTIC IMAGING REPORT ---
NUCLEAR MEDICINE HEPATOBILIARY SCAN CLINICAL HISTORY: Right upper quadrant abdominal pain. Cholelithiasis. COMPARISON STUDY: Ultrasound dated 09/19/2017, CT scan dated 09/19/2017. FINDINGS: The patient was injected with 5.5 mCi of technetium 99m Choletec. The patient was unable to lay supine for the standard image acquisition. A single 60 minute static image was acquired. There is apparent visualization of the gallbladder. The cystic duct is likely patent. IMPRESSION: 1. Technically limited study 2. A single 60 minute static image appears to demonstrate the gallbladder. This would indicate cystic duct patency Electronically signed by: Art Ma M.D. 09/20/2017 3:18 PM Dictated Date/Time: 09/20/2017 3:15 PM
[2017-09-20] MEDS: CLONAZEPAM 0.5 MG TAB PO SCH ×2 (15:26→20:43)
[2017-09-20] MEDS: ASPIRIN 81 MG CHEW JT SCH (15:26)
[2017-09-20] MEDS: OXYCODONE HCL IR 5 MG TAB (IMMEDIATE RELEASE) PO PRN ×2 (15:27→20:43)
[2017-09-20] MEDS: KETOROLAC TROMETHAMINE 15 MG/ML VIAL IV. SCH ×2 (15:28→21:40)
--- NOTE | 2017-09-20 16:51 | Pre Sedation Assessment ---
Pre Sedation Assessment General Date of Sedation: September 19, 2017. This is a delayed chart entry, original documentation is contained below, this was inadvertently filed in the incorrect chart. Pre-Sedation Airway Assessment Smoking Status: Former Smoker Hx of Sleep Apnea: No Oral Cavity: Dentures NPO Status Date of Last Intake of Fluids: September 18, 2017 Time of Last Intake of Fluids: 9 Date of Last Intake of Solids: September 18, 2017 Time of Last Intake of Solids: 2358 Notes Pre Sedation Assessment General Date of Sedation: September 19, 2017. Vital Signs Past 12 Hours Date Time Temp Pulse Resp B/P (MAP) Pulse Ox O2 Delivery O2 Flow Rate FiO2 09/19/17 13:00 95 17 112/84 (93) 100 Mechanical Ventilator 40 09/19/17 12:39 60 09/19/17 12:30 40 09/19/17 12:30 37.1 94 16 143/106 99 Mechanical Ventilator 40 09/19/17 12:01 107 16 148/86 100 Mechanical Ventilator 09/19/17 11:30 117 16 154/96 100 Mechanical Ventilator 09/19/17 11:21 60 09/19/17 11:15 111 16 157/86 98 Mechanical Ventilator 09/19/17 10:58 100 09/19/17 10:53 108 09/19/17 10:09 102 16 149/74 99 Room Air 09/19/17 08:38 96 20 114/61 94 Room Air Review Cardiovascular: regular rate, rhythm Lungs: + pertinent finding (decreased sounds right chest) Pre-Sedation Airway Assessment Hx of Sleep Apnea: No Hx of difficult intubation: No Short Thick Neck: No Thyro-mental Distance: > 3 Finger Breadths Oral Cavity: Dental Abnormalities (adentulous) Mallampati Classification: Class III (patient has secure airway with established traceostomy) ASA Classification: Class IV NPO Status Date of Last Intake of Fluids: September 18, 2017 Time of Last Intake of Fluids: 23:59 Date of Last Intake of Solids: September 18, 2017 Time of Last Intake of Solids: 23:59 Procedure Planning Contraindications for Sedation: None Notes Patient has established tracheostomy. Currently ICU status on vasoactive medication with secured central venous access. The planned sedation has been discussed with the patient. Informed Consent was obtained. I have identified the patient, determined the appropriateness of sedation and have assessed the patient immediately prior to the procedure. All medicine(s) and interventions are by my order. <Electronically signed by Wero Matos D.O.> Signed: 09/19/17 [id number] Signed: The status of this report is Signed * If report status is Draft, the document has not been finalized by the responsible provider.
--- NOTE | 2017-09-20 17:02 | Critical Care Progress Note ---
Critical Care Progress Note Date of Service September 20, 2017. ICU Day ICU Day Number: [address] Matos Subjective Patient with chronic placement of tracheostomy tube. He had been placed on AC ventilation for respiratory failure secondary to pneumonia. Bronchoscopy yesterday revealed copious amounts of mucopurulent secretions. Bronc results pending. Patient placed on trach collar this morning and oxygenating well. Patient is alert and oriented. He denies any pain from cough but does complain of chest pain from rib fractures. He denies any feelings of shortness of breath. He has no awareness of arrhythmias or tachyarrhythmias. He denies nausea or vomiting. He has no other acute complaints. He is alert this morning and communicates with cursive writing on a note pad. Objective GENERAL : No acute distress. Pleasant EYES: No icterus, gaze conjugate NOSE: No evidence of epistaxis MOUTH: No lesions or candidiasis. Mucosa moist NECK: Supple. Tracheostomy tube in place. LUNGS: Decreased breath sounds at the right base with some coarse crackles. No bronchospasm HEART: Regular, rate controlled ABDOMEN: Soft, NT, ND, BS Present. J-tube in place and secure EXTREMITIES: No LE edema, pedal pulses intact NEURO: A&OX3 Assessment & Plan This is a 72-year-old male that was admitted to the intensive care unit yesterday for acute hypoxic respiratory rest leading to cardiac arrest. He has a history of recurrent Pseudomonas. Respiratory cultures were reviewed from [facility] and showed pansensitive Pseudomonas. Patient is being followed by Dr. Singh from infectious disease while inpatient. The patient 's is very active in his care. PNEUMONIA * Status post bronchoscopy yesterday with copious amounts of mucopurulent secretions evacuated with bronchial lavage * Initial bronc washings show scant normal deja * Laboratory analysis of bronchial washings pending * Bronchial washings with severe acute pneumonitis * Patient initially started on ciprofloxacin IV, tobramycin IV, vancomycin IV, and Primaxin IV * ID consulted -appreciate Dr. Singh's input * Discontinue vancomycin as MRSA screening is negative * Change ciprofloxacin to p.o. pending final bronc wash results * Discontinue tobramycin IV per Dr. Singh * Chest x-ray this morning was significant clearing * No bronchoscopy planned for today * Continue to monitor clinically * Continue bronchodilators * Vibration bed module ordered * Continue incentive spirometry * Pneumatic vest not an option secondary to rib fractures * De-escalate antibiotics to tobramycin nebs and imipenem NEURO * Patient alert and oriented 3 -CAM negative * No focal deficits * Watch for focal changes secondary to increase of pain medications PAIN * Percocet discontinued -change to oxycodone * Will start [id number] scheduled Tylenol as well as [id number] scheduled Toradol * Check LFTs in the morning * PPI increased for gastric protection given history of GI bleeding * K pad ordered * Unable to Place Lidoderm patch secondary to open skin wound secondary to cardiac compressions CARDIOVASCULAR * Troponin trended downward -elevated secondary to hypoxic driven cardiac arrest * Echocardiogram completed with LVEF of 55-60%. Also with moderate aortic stenosis with mild aortic regurgitation * Pressures have been weaned off as of 0500 this morning * Continue to monitor on telemetry * Home meds include furosemide 20 mg p.o. twice daily, Lipitor 20 mg p.o. daily , aspirin 81 mg daily, Lopressor 25 mg p.o. twice daily, Midrin 10 mg TID * Patient scheduled for HIDA scan later today -resume oral medications after testing is completed PULMONARY * Pseudomonal pneumonia as listed above * Continue bronchodilators * We will discuss restarting tobramycin nebs with pulmonary tomorrow RENAL * BUN 16, creatinine 0.81 * Currently receiving normal saline at 100 mL/h * Discontinue of 1500 today after completion of HIDA scan * Trend serial labs NUTRITION * Jejunal tube malfunction corrected by Dr. Casanova and is now functioning well * Nutrition consult placed * Peptamen held for HIDA scan today * Resume tube feeds after HIDA scan * Check repeat LFTs tomorrow morning HEME * Hemoglobin stable at 8.5 * No indication for transfusion at this time * Continue to follow serial labs ID * Pseudomonas pneumonia as above * ID consulted and following -appreciate Dr. Singh's input * Blood cultures negative for growth 2 * Urine culture with less than 1000 colonies * MRSA screening negative by DNA probe * Initial sputum culture from tube secretions is light normal deja * Cultures from bronchial washings completed 09/19/2017 pending * Discontinue vancomycin. Discontinue tobramycin IV * Change ciprofloxacin to p.o.; continue Primaxin at this time -await bronchial washing results GI * History of esophageal carcinoma * Peptamen tube feeds per nutritional consult * Continue pantoprazole * Twice daily dosing for 7 days secondary to empiric Toradol for 5 days * Jejunal tube in place and functioning IV ACCESS * Peripheral IVs in place * Right femoral triple-lumen had been placed in the emergency department - discontinue ENDOCRINE * No history of diabetes mellitus or chronic insulin use * Hyperglycemia * Hyperglycemia protocol with BSG's * Continue NovoLog sliding scale insulin * No history of hypothyroidism * Most recent TSH from 06/18/2015 was 1.4 DVT PROPHYLAXIS * Heparin 5000 units subcu every 12 hours CCT: 45 minutes independent of any procedures Thank you for including us in the care of this patient. Please refer to Dr. Matos's addendum for further recommendations. I have personally evaluated and examined this patient. I agree with assessment and plan of Ethel Haas PA-C. See additions above I suspect the patient is having difficulty mobilizing secretions as his chest x- ray looks significantly improved this morning, however he is requiring supplemental oxygen I plan to rest the patient overnight on the ventilator with PEEP to assist with preventing atelectatic trauma and mucoid impaction We will reassess the need to perform bronchoscopy tomorrow and hopefully be able to downgrade the patient I believe the main roots of the patient's problem is mucoid impaction of the lungs leading to acute airway obstruction which led to his cardiac arrest Consults & Procedures Consultants: General surgery -Dr. Casanova Pulmonary -Dr. Bowman Wound care nurse -Yokasta Gibbs RNchild care centre manager medicine -Dr. Matos Procedures: Right femoral triple-lumen catheter; placed in the ED 09/19/2017; removed 2017 Fiberoptic bronchoscopy 09/19/2017 Echocardiogram 09/19/2017 Data Medications: Current Inpatient Medications Medications (Trade) Dose Ordered Sig/Madalyn Route Start Time Stop Time Status Last Admin Dose Admin Heparin Sodium (Porcine) (Heparin Sq 5000 Unit/0.5ml) 5,000 unit Q12H SQ 09/19/17 09:00 10/19/17 08:59 09/20/17 08:14 5,000 UNIT Acetaminophen (Tylenol Tab) 650 mg Q4H PRN PO 09/19/17 01:45 10/19/17 01:44 Fentanyl Citrate (Fentanyl Inj) 12.5 mcg Q1H PRN IV 09/19/17 01:45 10/03/17 01:44 09/20/17 04:43 12.5 MCG Lorazepam (Ativan Inj) 0.5 mg Q4H PRN IV 09/19/17 01:45 10/19/17 01:44 09/19/17 05:55 0.5 MG Albuterol/ Ipratropium (Duoneb) 3 ml Q4RWA INH 09/19/17 08:00 10/19/17 07:59 09/20/17 15:22 3 ML Tobramycin (Ortiz Soln For Inhalation 300MG/ 5ML) 5 ml BIDR NEB 09/19/17 08:00 09/26/17 07:59 09/20/17 08:35 5 ML Imipenem/ Cilastatin Sodium 400 mg/Dextrose 116 ml @ 100 mls/hr Q6H IV 09/19/17 06:00 09/26/17 05:59 09/20/17 11:51 100 MLS/HR Ioversol (Optiray 320) 100 ml UD PRN IV 09/19/17 10:45 09/23/17 10:44 Atorvastatin Calcium (Lipitor Tab) 10 mg QAM PO 09/20/17 09:00 10/20/17 08:59 Future Hold Midodrine (Proamatine Tab) 10 mg Q8 PO 09/19/17 14:00 10/19/17 13:59 Future hold 09/20/17 15:26 10 MG Furosemide (Lasix Tab) 20 mg BIDM PO 09/19/17 16:30 10/19/17 16:29 Future Hold Insulin Aspart (novoLOG ASPART) SLIDING SCALE Q6H SC 09/19/17 12:00 10/19/17 11:59 Glucose (Glucose 40% Gel) 15-30 GRAMS 15 GRAMS... UD PRN PO 09/19/17 12:30 10/19/17 12:29 Glucose (Glucose Chew Tab) 4-8 Tablets 4 Tabl... UD PRN PO 09/19/17 12:30 10/19/17 12:29 Dextrose (Dextrose 50% 50ML Syringe) 25-50ML 25ML FOR ... UD PRN IV 09/19/17 12:30 10/19/17 12:29 Glucagon (Glucagon Inj) 1 mg UD PRN IM 09/19/17 12:30 10/19/17 12:29 Carbohydrates (Carbohydrates For Hypoglycemia) 15-30 GRAMS 15 grams if BSG 54-69... UD PRN PO 09/19/17 12:30 10/19/17 12:29 Enteral Nutritional Formula (Peptamen Intense VHP) 1,000 ml UD PRN JT 09/19/17 18:00 10/19/17 17:59 09/19/17 19:40 1,000 ML Acetaminophen 100 ml @ 400 mls/hr Q8 IV 09/20/17 12:00 10/20/17 11:59 09/20/17 11:43 400 MLS/HR Ketorolac Tromethamine (Toradol Inj) 15 mg Q6H IV. 09/20/17 16:00 09/25/17 09:59 09/20/17 15:28 15 MG Pantoprazole Sodium 40 mg/ Syringe 10 ml @ 5 mls/min BID IV 09/20/17 21:00 09/27/17 09:01 Lidocaine (Lidoderm Patch 5%) 1 patch Q24H PRN TD 09/20/17 10:30 10/20/17 10:29 09/20/17 11:44 1 PATCH Pantoprazole Sodium 40 mg/ Syringe 10 ml @ 5 mls/min DAILY IV 09/28/17 09:00 10/28/17 08:59 Aspirin (Aspirin Chew) 81 mg DAILY@1400 JT 09/20/17 14:00 10/20/17 13:59 09/20/17 15:26 81 MG Miscellaneous (Remove Lidoderm Patch) 1 ea Q12H PRN N/A 09/20/17 12:00 10/20/17 11:59 Buspirone HCl (Buspar Tab) 7.5 mg TID JT 09/20/17 14:00 10/20/17 13:59 09/20/17 15:26 7.5 MG Clonazepam (Klonopin Tab) 0.5 mg TID PO 09/20/17 14:00 10/20/17 13:59 09/20/17 15:26 0.5 MG Oxycodone HCl (Roxicodone Immediate Rel Tab) `1-2 tabs for pain 1 tab ... Q6H PRN PO 09/20/17 15:15 10/04/17 15:14 09/20/17 15:27 10 MG I & O: 24-Hour Column 09/21/17 08:00 Intake Total 2379 ml Output Total 900 ml Balance 1479 ml Vital Signs: Date Time Temp Pulse Resp B/P (MAP) Pulse Ox O2 Delivery O2 Flow Rate FiO2 09/20/17 16:00 Trach Collar 12.0 50 09/20/17 14:21 103 26 93/53 (66) 91 Trach Collar 12.0 70 09/20/17 12:00 Trach Collar 12.0 70 09/20/17 12:00 36.9 103 22 105/52 (69) 90 Trach Collar 12.0 70 09/20/17 11:10 96 20 94 Trach Collar 12.0 40 09/20/17 10:00 102 18 82/49 (60) 95 Mechanical Ventilator 09/20/17 08:42 40 09/20/17 08:00 40 09/20/17 08:00 Mechanical Ventilator 50 09/20/17 08:00 36.9 105 17 98/52 (67) 95 Mechanical Ventilator 09/20/17 07:15 40 09/20/17 06:01 100 15 100/52 (68) 97 09/20/17 05:32 50 09/20/17 04:16 36.7 116 18 130/77 (94) 95 Mechanical Ventilator 09/20/17 04:00 Mechanical Ventilator 50 09/20/17 04:00 50 09/20/17 02:29 50 09/20/17 02:01 96 17 99/59 (72) 97 09/20/17 00:01 36.8 104 17 89/56 (67) 98 Mechanical Ventilator 09/19/17 23:59 Mechanical Ventilator 50 09/19/17 23:59 50 09/19/17 22:45 50 09/19/17 21:31 112 14 85/61 (69) 97 09/19/17 21:10 50 09/19/17 21:01 112 19 94/53 (67) 97 09/19/17 20:01 37.0 95 19 105/58 (74) 96 Mechanical Ventilator 50 09/19/17 20:00 96 Mechanical Ventilator 50 09/19/17 20:00 50 09/19/17 19:46 100 14 96/57 (70) 96 09/19/17 19:31 104 13 102/59 (73) 96 09/19/17 19:16 106 13 99/55 (70) 96 09/19/17 19:01 108 13 96/60 (72) 97 5/15/18 17:46 90/58 (69) 09/19/17 17:30 113 15 89/57 (68) 95 Mechanical Ventilator 60 09/19/17 17:18 50 09/19/17 17:16 111 23 95/61 (72) 09/19/17 17:01 114 24 107/60 (76) 99 09/19/17 17:00 114 24 107/60 (76) 99 09/19/17 16:41 110 16 86/61 (69) 99 09/19/17 16:36 113 15 107/56 (73) 98 Laboratory Results: Last 24 Hours Test 09/19/17 16:58 09/19/17 17:26 09/20/17 00:02 09/20/17 00:10 Hemoglobin 8.3 g/dL 8.2 g/dL Hematocrit 26.7 % 26.2 % Troponin I 0.440 ng/ml Bedside Glucose 121 mg/dl 109 mg/dl Test 09/20/17 04:15 09/20/17 11:34 White Blood Count 14.41 K/uL Red Blood Count 3.16 M/uL Hemoglobin 8.5 g/dL Hematocrit 27.1 % Mean Corpuscular Volume 85.8 fL Mean Corpuscular Hemoglobin 26.9 pg Mean Corpuscular Hemoglobin Concent 31.4 g/dl Platelet Count 308 K/uL Mean Platelet Volume 9.5 fL Neutrophils (%) (Auto) 83.6 % Lymphocytes (%) (Auto) 6.0 % Monocytes (%) (Auto) 9.4 % Eosinophils (%) (Auto) 0.3 % Basophils (%) (Auto) 0.1 % Neutrophils # (Auto) 12.05 K/uL Lymphocytes # (Auto) 0.86 K/uL Monocytes # (Auto) 1.35 K/uL Eosinophils # (Auto) 0.05 K/uL Basophils # (Auto) 0.02 K/uL RDW Standard Deviation 54.2 fL RDW Coefficient of Variation 17.3 % Immature Granulocyte % (Auto) 0.6 % Immature Granulocyte # (Auto) 0.08 K/uL Red Blood Cell Morphology Unremarkable Sodium Level 135 mmol/L Potassium Level 3.9 mmol/L Chloride Level 97 mmol/L Carbon Dioxide Level 31 mmol/L Anion Gap 7.0 mmol/L Blood Urea Nitrogen 16 mg/dl Creatinine 0.81 mg/dl Est Creatinine Clear Calc Drug Dose 73.0 ml/min Estimated GFR () 104.4 Estimated GFR (Non- 90.0 BUN/Creatinine Ratio 19.2 Random Glucose 106 mg/dl Calcium Level 8.2 mg/dl Phosphorus Level 3.2 mg/dl Magnesium Level 1.9 mg/dl Total Bilirubin 0.8 mg/dl Direct Bilirubin 0.2 mg/dl Aspartate Amino Transf (AST/SGOT) 47 U/L Alanine Aminotransferase (ALT/SGPT) 51 U/L Alkaline Phosphatase 84 U/L Total Protein 6.2 gm/dl Albumin 2.3 gm/dl Bedside Glucose 105 mg/dl
--- NOTE | 2017-09-20 17:46 | Progress Note ---
Subjective Date of Service: September 20, 2017. Subjective Pt evaluation today including: conversation w/ patient, physical exam, chart review, lab review, review of studies (HIDA, CTs, etc), conversation w/ safety consultant (critical care ), review of inpatient medication list Pain: chest, pleuritic, and also the upper abdomen PO Intake: NPO Voiding: fink catheter in place events of overnight reviewed he is awake, alert, and voicing all needs by writing down questions as well as answers on a piece of paper his main complaint is that of chest pain, especially the lower chest wall denies nausea or emesis having some upper abdominal pain as well was contacted by [place], director of casework department, and wishes for him to return to [facility] and not an LTACH he had [place] [facility] June [place] to September 2017 Problem List Medical Problems: (1) Aspiration pneumonia Status: Acute (2) Cardiac arrest Status: Acute (3) Cardiopulmonary arrest with successful resuscitation Status: Acute (4) Elevated troponin Status: Acute (5) Pneumonia Status: Acute (6) Renal failure Status: Acute (7) Respiratory failure Status: Acute Review of Systems Constitutional: No fever Respiratory: + cough, No dyspnea at rest Cardiac: + see HPI, + chest pain, No orthopnea, No PND Abdomen: + pain, + constipation, No nausea, No vomiting Objective Vital Signs Date Time Temp Pulse Resp B/P (MAP) Pulse Ox O2 Delivery O2 Flow Rate FiO2 09/20/17 08:42 40 09/20/17 07:15 40 09/20/17 06:01 100 15 100/52 (68) 97 09/20/17 05:32 50 09/20/17 04:16 36.7 116 18 130/77 (94) 95 Mechanical Ventilator 09/20/17 04:00 Mechanical Ventilator 50 09/20/17 04:00 50 09/20/17 02:29 50 09/20/17 02:01 96 17 99/59 (72) 97 09/20/17 00:01 36.8 104 17 89/56 (67) 98 Mechanical Ventilator 09/19/17 23:59 Mechanical Ventilator 50 09/19/17 23:59 50 09/19/17 22:45 50 09/19/17 21:31 112 14 85/61 (69) 97 09/19/17 21:10 50 09/19/17 21:01 112 19 94/53 (67) 97 09/19/17 20:01 37.0 95 19 105/58 (74) 96 Mechanical Ventilator 50 09/19/17 20:00 96 Mechanical Ventilator 50 09/19/17 20:00 50 18 19:46 100 14 96/57 (70) 96 09/19/17 19:31 104 13 102/59 (73) 96 09/19/17 19:16 106 13 99/55 (70) 96 09/19/17 19:01 108 13 96/60 (72) 97 09/19/17 17:46 90/58 (69) 09/19/17 17:30 113 15 89/57 (68) 95 Mechanical Ventilator 60 09/19/17 17:18 50 09/19/17 17:16 111 23 95/61 (72) 09/19/17 17:01 114 24 107/60 (76) 99 09/19/17 17:00 114 24 107/60 (76) 99 09/19/17 16:41 110 16 86/61 (69) 99 09/19/17 16:36 113 15 107/56 (73) 98 09/19/17 16:31 113 13 87/61 (70) 97 09/19/17 16:30 106 21 100/65 (77) 98 09/19/17 16:15 105 16 98/60 (73) 98 09/19/17 16:00 Mechanical Ventilator 100 09/19/17 16:00 109 18 96/63 (74) 98 09/19/17 16:00 80 09/19/17 15:16 80 09/19/17 15:01 106 16 111/62 (78) 98 Mechanical Ventilator 100 09/19/17 15:00 106 16 111/62 (78) 98 09/19/17 14:55 98 12 115/74 (88) 98 09/19/17 14:52 103 19 118/52 (74) 97 09/19/17 14:50 99 15 118/60 (79) 98 09/19/17 14:45 94 23 125/65 (85) 99 09/19/17 14:41 91 14 114/58 (76) 99 Mechanical Ventilator 100 09/19/17 14:35 90 14 111/55 (73) 100 09/19/17 14:30 92 13 99/52 (68) 99 09/19/17 14:26 95 12 102/55 (71) 100 09/19/17 14:22 90 12 110/50 (70) 100 Mechanical Ventilator 100 09/19/17 13:16 94 12 95/53 (67) 95 09/19/17 13:00 93 13 106/55 (72) 93 09/19/17 12:46 101 13 93/51 (65) 94 09/19/17 12:31 95 12 102/55 (71) 94 09/19/17 12:16 96 12 107/56 (73) 93 09/19/17 12:00 36.8 99 15 115/61 (79) 95 Mechanical Ventilator 40 09/19/17 12:00 Mechanical Ventilator 40 09/19/17 12:00 40 09/19/17 11:10 40 09/19/17 11:00 91 12 97/52 (67) 97 Mechanical Ventilator 40 09/19/17 10:46 89 12 98/46 (63) 97 Mechanical Ventilator 40 09/19/17 10:31 93 12 98/41 (60) 96 Mechanical Ventilator 40 09/19/17 10:00 93 12 94/56 (69) 96 Mechanical Ventilator 40 09/19/17 09:46 96 12 91/49 (63) 95 Mechanical Ventilator 40 09/19/17 09:30 93 14 92/54 (67) 96 Mechanical Ventilator 40 Physical Exam General Appearance: no apparent distress, + thin, + pertinent finding ( coughing ) ENT: pharynx normal (MMM, no thrush) Neck: no JVD, + pertinent finding (trach in place, white secretions in tubing connected to the trach) Respiratory/Chest: lungs clear, no respiratory distress, no accessory muscle use, + decreased breath sounds (right base), + pertinent finding (tender to palpation over costo-chondral junction; large scalloped area of chest wall missing from left upper chest with visible pulsations from vessels underneath; there is a large dressing on the central chest wall ) Cardiovascular: regular rate, rhythm, no gallop, + systolic murmur (2/6 RUSB) Abdomen: normal bowel sounds, soft, no organomegaly, + tenderness (RUE/high epigastric region) Extremities: no pedal edema Neurologic/Psychiatric: no motor/sensory deficits (strength 5/5 x 4 exts; no obvious facial droop), alert Skin: + pertinent finding (j-tube in place left abdomen clean; right femoral CVC clean, no hematoma or drainage) Laboratory Results Last 24 Hours Test 09/19/17 12:03 09/19/17 12:09 09/19/17 13:59 09/19/17 14:26 Hemoglobin 8.1 g/dL Hematocrit 25.7 % Troponin I 0.544 ng/ml Random Tobramycin Level 7.40 mcg/mL Bedside Glucose (other) 283 mg/dl 95 mg/dl 83 mg/dl Test 09/19/17 15:16 09/19/17 16:58 09/19/17 17:26 09/20/17 00:02 Bedside Glucose (other) 95 mg/dl Hemoglobin 8.3 g/dL Hematocrit 26.7 % Troponin I 0.440 ng/ml Bedside Glucose 121 mg/dl 109 mg/dl Test 09/20/17 00:10 09/20/17 04:15 Hemoglobin 8.2 g/dL 8.5 g/dL Hematocrit 26.2 % 27.1 % White Blood Count 14.41 K/uL Red Blood Count 3.16 M/uL Mean Corpuscular Volume 85.8 fL Mean Corpuscular Hemoglobin 26.9 pg Mean Corpuscular Hemoglobin Concent 31.4 g/dl Platelet Count 308 K/uL Mean Platelet Volume 9.5 fL Neutrophils (%) (Auto) 83.6 % Lymphocytes (%) (Auto) 6.0 % Monocytes (%) (Auto) 9.4 % Eosinophils (%) (Auto) 0.3 % Basophils (%) (Auto) 0.1 % Neutrophils # (Auto) 12.05 K/uL Lymphocytes # (Auto) 0.86 K/uL Monocytes # (Auto) 1.35 K/uL Eosinophils # (Auto) 0.05 K/uL Basophils # (Auto) 0.02 K/uL RDW Standard Deviation 54.2 fL RDW Coefficient of Variation 17.3 % Immature Granulocyte % (Auto) 0.6 % Immature Granulocyte # (Auto) 0.08 K/uL Red Blood Cell Morphology Unremarkable Sodium Level 135 mmol/L Potassium Level 3.9 mmol/L Chloride Level 97 mmol/L Carbon Dioxide Level 31 mmol/L Anion Gap 7.0 mmol/L Blood Urea Nitrogen 16 mg/dl Creatinine 0.81 mg/dl Est Creatinine Clear Calc Drug Dose 73.0 ml/min Estimated GFR () 104.4 Estimated GFR (Non- 90.0 BUN/Creatinine Ratio 19.2 Random Glucose 106 mg/dl Calcium Level 8.2 mg/dl Phosphorus Level 3.2 mg/dl Magnesium Level 1.9 mg/dl Total Bilirubin 0.8 mg/dl Direct Bilirubin 0.2 mg/dl Aspartate Amino Transf (AST/SGOT) 47 U/L Alanine Aminotransferase (ALT/SGPT) 51 U/L Alkaline Phosphatase 84 U/L Total Protein 6.2 gm/dl Albumin 2.3 gm/dl Assessment and Plan Complicated 72yo male with: 1. shock, likely septic - from right-sided pneumonia - pressors have been discontinued, leukocytosis resolving, and he overall has improved. Defer abx selection to ID and critical care- plan is for imipenem alone along with tobramycin nebs BID due to previous history of pseudomonas; thus far all cultures including bronch cultures are negative. ECHO without evidence of cardiogenic component contributing to shock. No evidence of SBE. No evidence of adrenal shock. Could have had hemorrhage as his H/H had dropped considerably from admission ( 12 down to low 8's). Fecal occult his stools. 2. s/p cardiac arrest - likely hypoxia-induced as there was a report that copious secretions/tube feedings were suctioned from his trach during the code. He had chest compressions for 5-10 minutes with successful lutheran of spontaneous circulation. He has a mild troponin elevation likely due to his arrest and #1 above. Doubt he had a true ACS. Echo w/ preserved LV function. Continues to do well from a mental status standpoint as well as neurological standpoint with no apparent deficits. 3. acute hypoxic/hypercarbic respiratory failure likely 2nd to right-sided pneumonia - strong suspicion that the pneumonia was due to aspiration. He is s/p bronch 09/19/17 Critical care to try and wean the vent today to trach collar. [place] [facility] [place] had rhinovirus infection and pseudomonas (although I cannot find an actual BAL or trach culture in those records) in August 2017. 4. j-tube obstruction - s/p dislodgement by general surgery; back on tube feedings w/ peptamen; goal rate is 50cc/hr continuously. 5. right-sided pneumonia - aspiration vs gram negative in etiology. see above. 6. abdominal pain - mainly RUQ - has gallstones and presented with abnormal LFTs; HIDA today does not appear to show acute cholecystitis. pain could be gastric in origin vs referred pain from rib fractures. We added toradol today for pain control. Consider long-acting pain med?? Cont oxycodone prn as well. 7. hypomagnesemia - resolved. 8. hypophosphatemia - resolved. 9. positive troponin - due to cardiac arrest and/or myocardial demand ischemia in setting of shock. 10. ?acute blood loss anemia - serial H/H's showed drop from about Hb of 12 to low 8's and he seems to have plateaued. Check a fecal occult blood and cont PPI. If heme+ then GI consultation. 11. 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 12. h/o T2DM - hemoglobin a1c is very low suggesting his DM has resolved, likely from weight loss due to #11 and malnutrition. 13. protein calorie malnutrition - severe - J-tube tube feedings have been resumed. 14. COPD - does not appear to be in exacerbation at this time. 15. h/o DVT - noted. Heparin for DVT proph cautiously in light of #10. 16. CAD - records suggest he had left main disease and other occlusions; he is s/p CABG in August 2014 at [facility]. He is typically on low- dose ASA, beta thomas, and statin. Latter being held due to abnormal LFTs. 17. hyponatremia - resolved with IVF. 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 19. tracheostomy status - placed 06/2017 at [facility]. 20. rhinovirus and pseudomonas pneumonia - 08/2017 at [facility] - bronch cultures thus far negative for such. 21. h/o AAA s/p repair in 2014 at [facility]. 22. b/l rib fractures - 2nd to chest compressions during recent cardiac arrest - pain control. 23. abnormal left upper chest wall / cavity - due to surgery in 2015 that involved partial resection of first rib, clavicle, and manubrium. 24. large skin tear on chest - presumably due to recent chest compressions - wound care team consulted for management. has follow-up with thoracic [place] [facility] [place] per records dispo - rehab - LTACH? [facility] once again? Other? update when able total time today including speaking to critical care, case management, and reviewing copious amounts of records from [facility] [place] [place] [facility] - about 60 minutes Continued [facility] stay due to: abnormal vital signs, inadequate oral pain control , voiding difficulties, ambulation difficulties, multiple IV medications needed Discharge planning: uncertain
[2017-09-20] MEDS ORDERED: CIPROFLOXACIN 500 MG TAB PO SCH (21:00)
[2017-09-21] VITALS (29 sets, daily range): BP systolic 87–122; BP diastolic 47–79; PULSE 85–109; TEMP 36.5–36.9; O2SAT 90–100
[2017-09-21] MEDS: IMIPENEM CILASTATIN IV SCH ×2 (00:46→05:52)
[2017-09-21] MEDS: FENTANYL CITRATE INJ 50 MCG/1 ML 2 ML VIAL IV PRN ×4 (00:46→14:35)
[2017-09-21] MEDS: DEXTROSE 5% IV SCH ×2 (00:46→05:52)
--- NOTE | 2017-09-21 01:06 | Surgery Progress Note ---
Surgery Progress Note Date of Service September 21, 2017. Subjective called re- jej tube balloon outside skin Objective Vital Signs: Date Time Temp Pulse Resp B/P (MAP) Pulse Ox O2 Delivery O2 Flow Rate FiO2 09/20/17 22:01 105 25 104/55 (82) 91 09/20/17 21:01 123 25 98/67 (77) 90 09/20/17 20:18 98 20 94 Trach Collar 12.0 40 09/20/17 20:01 101 27 103/57 (68) 91 09/20/17 20:00 36.6 09/20/17 20:00 92 Trach Collar 50 09/20/17 19:01 95 17 98/48 (59) 92 09/20/17 18:01 99 22 117/68 (84) 92 09/20/17 17:31 98 25 101/56 (71) 91 09/20/17 17:01 104 20 100/48 (65) 91 09/20/17 16:31 106 22 98/50 (66) 92 Trach Collar 09/20/17 16:01 36.7 98 24 105/53 (70) 91 Trach Collar 50 09/20/17 16:00 Trach Collar 12.0 50 09/20/17 14:21 103 26 93/53 (66) 91 Trach Collar 12.0 70 09/20/17 12:00 Trach Collar 12.0 70 09/20/17 12:00 36.9 103 22 105/52 (69) 90 Trach Collar 12.0 70 09/20/17 11:10 96 20 94 Trach Collar 12.0 40 09/20/17 10:00 102 18 82/49 (60) 95 Mechanical Ventilator 09/20/17 08:42 40 09/20/17 08:00 40 09/20/17 08:00 Mechanical Ventilator 50 09/20/17 08:00 36.9 105 17 98/52 (67) 95 Mechanical Ventilator 09/20/17 07:15 40 09/20/17 06:01 100 15 100/52 (68) 97 09/20/17 05:32 50 09/20/17 04:16 36.7 116 18 130/77 (94) 95 Mechanical Ventilator 09/20/17 04:00 Mechanical Ventilator 50 09/20/17 04:00 50 09/20/17 02:29 50 5/16/18 02:01 96 17 99/59 (80) 97 General Appearance: no apparent distress Respiratory/Chest: no respiratory distress Abdomen: + pertinent finding (jej tube balloon outside skin with small amt saline) Laboratory Results: Results Past 24 Hours Test 09/20/17 04:15 09/20/17 11:34 09/20/17 17:40 09/20/17 23:27 Range/Units White Blood Count 14.41 4.8-10.8 K/uL Red Blood Count 3.16 4.7-6.1 M/uL Hemoglobin 8.5 14.0-18.0 g/dL Hematocrit 27.1 42-52 % Mean Corpuscular Volume 85.8 80-100 fL Mean Corpuscular Hemoglobin 26.9 25-34 pg Mean Corpuscular Hemoglobin Concent 31.4 32-36 g/dl Platelet Count 308 130-400 K/uL Mean Platelet Volume 9.5 7.4-10.4 fL Neutrophils (%) (Auto) 83.6 % Lymphocytes (%) (Auto) 6.0 % Monocytes (%) (Auto) 9.4 % Eosinophils (%) (Auto) 0.3 % Basophils (%) (Auto) 0.1 % Neutrophils # (Auto) 12.05 1.4-6.5 K/uL Lymphocytes # (Auto) 0.86 1.2-3.4 K/uL Monocytes # (Auto) 1.35 0.11-0.59 K/uL Eosinophils # (Auto) 0.05 0-0.5 K/uL Basophils # (Auto) 0.02 0-0.2 K/uL RDW Standard Deviation 54.2 36.4-46.3 fL RDW Coefficient of Variation 17.3 11.5-14.5 % Immature Granulocyte % (Auto) 0.6 % Immature Granulocyte # (Auto) 0.08 0.00-0.02 K/uL Red Blood Cell Morphology Unremarkable Sodium Level 135 136-145 mmol/L Potassium Level 3.9 3.5-5.1 mmol/L Chloride Level 97 98-107 mmol/L Carbon Dioxide Level 31 21-32 mmol/L Anion Gap 7.0 3-11 mmol/L Blood Urea Nitrogen 16 7-18 mg/dl Creatinine 0.81 0.60-1.40 mg/dl Est Creatinine Clear Calc Drug Dose 73.0 ml/min Estimated GFR () 104.4 Estimated GFR (Non- 90.0 BUN/Creatinine Ratio 19.2 10-20 Random Glucose 106 70-99 mg/dl Calcium Level 8.2 8.5-10.1 mg/dl Phosphorus Level 3.2 2.5-4.9 mg/dl Magnesium Level 1.9 1.8-2.4 mg/dl Total Bilirubin 0.8 0.2-1 mg/dl Direct Bilirubin 0.2 0-0.2 mg/dl Aspartate Amino Transf (AST/SGOT) 47 15-37 U/L Alanine Aminotransferase (ALT/SGPT) 51 12-78 U/L Alkaline Phosphatase 84 45-117 U/L Total Protein 6.2 6.4-8.2 gm/dl Albumin 2.3 3.4-5.0 gm/dl Bedside Glucose 105 127 106 70-99 mg/dl Assessment & Plan Jej tube pulled partially out- deflated balloon able to easily pass tube/balloon back in and inflate balloon with 5 cc saline- will ask radiology to check placement tomorrow. catheter multiple cms into jejunum on CT
[2017-09-21] MEDS: LORAZEPAM 2 MG/ML 1 ML VIAL IV PRN ×3 (01:58→20:11)
--- NOTE | 2017-09-21 03:27 | Critical Care Progress Note ---
Critical Care Progress Note Date of Service September 21, 2017. Critical Care Progress Note I was approached by nursing staff informed the patient had somehow dislodged his J-tube with the balloon being on the external surface of the skin. Patient was independently evaluated by myself. We did attempt manual reduction without success. I did contact general surgery who was kind enough to evaluate the patient in the ICU. After deflation of the balloon, the J-tube was successfully advanced and reinflated without pain or discomfort. Tube feeds had been discontinued and will continue to be held throughout the remainder the night. Imaging modalities for placement will be obtained tomorrow. We will continue to monitor for any changes.
[2017-09-21] MEDS: KETOROLAC TROMETHAMINE 15 MG/ML VIAL IV. SCH ×4 (04:10→21:17)
[2017-09-21 04:36] LABS: BASO % 0.2 %; BASO ABS # 0.03 K/uL (0-0.2); EOS % 1.2 %; EOS ABS # 0.16 K/uL (0-0.5); HEMATOCRIT 26.8 % (42-52); HEMOGLOBIN 8.1 g/dL (14.0-18.0); IG# 0.06 K/uL (0.00-0.02); LYMPH ABS # 0.53 K/uL (1.2-3.4); MEAN CELL VOLUME 86.5 fL (80-100); MEAN CORPUSCULAR HEMOGLOBIN 26.1 pg (25-34); MEAN CORPUSCULAR HGB CONC 30.2 g/dl (32-36); MEAN PLATELET VOLUME 9.7 fL (7.4-10.4); MONO % 11.3 %; MONO ABS # 1.51 K/uL (0.11-0.59); NEUT % 82.8 %; NEUT ABS # 11.04 K/uL (1.4-6.5); PLATELET COUNT 291 K/uL (130-400); RED CELL DISTRIBUTION WIDTH CV 17.2 % (11.5-14.5); RED CELL DISTRIBUTION WIDTH SD 54.4 fL (36.4-46.3); WHITE BLOOD COUNT 13.33 K/uL (4.8-10.8)
[2017-09-21 05:05] LABS: ALBUMIN 2.2 gm/dl (3.4-5.0); CALCIUM 8.7 mg/dl (8.5-10.1); CREATININE 0.54 mg/dl (0.60-1.40); PHOSPHORUS 3.3 mg/dl (2.5-4.9); TOTAL PROTEIN 6.2 gm/dl (6.4-8.2)
[2017-09-21] MEDS: INSULIN ASPART 100 UNITS/ML 3 ML PEN SC SCH ×4 (05:52→17:43)
[2017-09-21] MEDS: MIDODRINE 10 MG TAB PO SCH ×3 (05:52→21:18)
[2017-09-21] MEDS: ACETAMINOPHEN IV 1000MG/100ML IV SCH ×3 (05:52→21:17)
[2017-09-21] MEDS: ALBUT/IPRATROP 3MG/0.5MG NEB 3 ML VIAL INH SCH ×4 (07:00→19:20)
[2017-09-21] MEDS: TOBRAMYCIN 300 MG/5 ML NEB SCH (07:00)
--- NOTE | 2017-09-21 07:05 | DIAGNOSTIC IMAGING REPORT ---
CHEST ONE VIEW PORTABLE HISTORY: 72 years-old Male resp arrest, asp PNA, broken ribs acute respiratory distress COMPARISON: Chest radiograph 09/20/2017 TECHNIQUE: Portable AP view of the chest FINDINGS: Cardiac silhouette is within the upper limits of normal in size, unchanged. Tracheostomy cannula overlying the midline appears unchanged in positioning. Small right pleural effusion has slightly increased in size. There is likely a trace pleural effusion also noted. There is mild pulmonary vascular congestion with development of mild interstitial coarsening. There are hazy bibasilar and right perihilar opacities without pneumothorax. Emphysematous changes redemonstrated. Chronic postsurgical or posttraumatic deformity about the medial left clavicle. Surgical is project over the mediastinum. Deformity involving right-sided ribs also noted. Degenerative changes of the shoulders and spine. IMPRESSION: 1. Mildly increased size of right pleural effusion with persistent bibasilar opacities. 2. Suggestion of mild pulmonary edema. 3. Emphysema. The above report was generated using voice recognition software. It may contain grammatical, syntax or spelling errors. Electronically signed by: Adiel Russell M.D. 09/21/2017 7:04 AM Dictated Date/Time: 09/21/2017 7:01 AM
--- NOTE | 2017-09-21 08:12 | DIAGNOSTIC IMAGING REPORT ---
KUB CLINICAL HISTORY: 72 years-old Male presenting with JTUBE PLACEMENT. TECHNIQUE: Single supine view of the abdomen was obtained. As part of the exam, 30 mL of Optiray 300 was injected through the jejunostomy tube. COMPARISON: CT from 09/19/2017. FINDINGS: The gastrostomy tube is no longer visualized. A jejunostomy tube projects over the left mid abdomen and superior pelvis. Aortobiiliac modular endograft stent is in place. A Mcintyre catheter projects over the pelvis. Subsequently, 30 mL of Optiray 300 was injected via the jejunostomy tube and normal-appearing jejunum opacified. No evidence of peritoneal spillage. Anastomotic suture lines noted in the right mid abdomen. Nonobstructive bowel gas pattern. No gross pneumoperitoneum allowing for supine technique. Allowing for bowel gas and stool, no calcifications to suggest nephrolithiasis. Degenerative changes of the spine. Significant right basilar opacity and minimal left basilar opacity. IMPRESSION: 1. Jejunostomy tube now in place. No evidence of leak or obstruction. Electronically signed by: Niranjan Vyas M.D. 09/21/2017 8:11 AM Dictated Date/Time: 09/21/2017 8:08 AM
[2017-09-21] MEDS: CLONAZEPAM 0.5 MG TAB PO SCH ×3 (08:36→20:14)
[2017-09-21] MEDS: OXYCODONE HCL IR 5 MG TAB (IMMEDIATE RELEASE) PO PRN ×2 (08:36→20:11)
[2017-09-21] MEDS: PANTOprazole INJ 40 MG in SYRINGE 0 ML IV SCH ×2 (08:38→20:12)
[2017-09-21] MEDS: HEPARIN SOD 5000 UNIT/0.5 ML CARP SQ SCH ×2 (08:38→20:13)
--- NOTE | 2017-09-21 09:44 | Progress Note ---
Subjective Date of Service: September 21, 2017. Subjective Pt evaluation today including: conversation w/ patient Pt is s/p bronch and has been given fentanyl. Nursing reports he is usually more interactive, however the fentanyl is preventing that at this time. He is usually also on the trach mask, but s/p bronch has been put on the vent as a respiratory failure prevention. Unable to obtain ROS/HPI due to above. No family is present. Problem List Medical Problems: (1) Aspiration pneumonia Status: Acute (2) Cardiac arrest Status: Acute (3) Cardiopulmonary arrest with successful resuscitation Status: Acute (4) Elevated troponin Status: Acute (5) Pneumonia Status: Acute (6) Renal failure Status: Acute (7) Respiratory failure Status: Acute Objective Vital Signs Date Time Temp Pulse Resp B/P (MAP) Pulse Ox O2 Delivery O2 Flow Rate FiO2 09/21/17 08:58 104 94 09/21/17 08:14 109 31 122/58 (79) 92 Trach Collar 12.0 50 09/21/17 08:12 105 26 111/51 (71) 92 Trach Collar 12.0 50 09/21/17 08:00 36.8 106 28 104/79 (87) 92 Trach Collar 12.0 50 09/21/17 08:00 Trach Collar 12.0 50 09/21/17 07:00 104 20 96 Mechanical Ventilator 40 09/21/17 06:04 50 09/21/17 06:01 108 22 115/66 (92) 95 09/21/17 05:01 106 20 107/47 (76) 95 09/21/17 04:01 109 19 117/60 (87) 94 09/21/17 04:00 96 Mechanical Ventilator 50 09/21/17 04:00 36.5 09/21/17 03:01 107 17 116/57 (81) 95 09/21/17 02:01 92 24 94/64 (77) 90 09/21/17 02:00 50 09/21/17 01:01 99 21 120/58 (83) 98 09/21/17 00:01 36.5 09/20/17 23:59 91 Trach Collar 12.0 40 09/20/17 23:01 101 21 100/55 (78) 91 09/20/17 22:01 105 25 104/55 (82) 91 09/20/17 21:01 123 25 98/67 (77) 90 09/20/17 20:18 98 20 94 Trach Collar 12.0 40 09/20/17 20:01 101 27 103/57 (68) 91 09/20/17 20:00 36.6 09/20/17 20:00 92 Trach Collar 50 09/20/17 19:01 95 17 98/48 (59) 92 09/20/17 18:01 99 22 117/68 (84) 92 09/20/17 17:31 98 25 101/56 (71) 91 09/20/17 17:01 104 20 100/48 (65) 91 09/20/17 16:31 106 22 98/50 (66) 92 Trach Collar 09/20/17 16:01 36.7 98 24 105/53 (70) 91 Trach Collar 50 09/20/17 16:00 Trach Collar 12.0 50 09/20/17 14:21 103 26 93/53 (66) 91 Trach Collar 12.0 70 09/20/17 12:00 Trach Collar 12.0 70 09/20/17 12:00 36.9 103 22 105/52 (69) 90 Trach Collar 12.0 70 09/20/17 11:10 96 20 94 Trach Collar 12.0 40 09/20/17 10:00 102 18 82/49 (60) 95 Mechanical Ventilator Physical Exam General Appearance: WD/WN, no apparent distress Eyes: normal inspection, sclerae normal Respiratory/Chest: normal breath sounds, no respiratory distress Cardiovascular: regular rate, rhythm, no edema Abdomen: non tender, soft Extremities: non-tender, no pedal edema Neurologic/Psychiatric: alert (opens eyes to name/voice, does not answer questions or follow basic commands) Skin: normal color, warm/dry Laboratory Results Last 24 Hours Test 09/20/17 11:34 09/20/17 17:40 09/20/17 23:27 09/21/17 04:19 Bedside Glucose 105 mg/dl 127 mg/dl 106 mg/dl White Blood Count 13.33 K/uL Red Blood Count 3.10 M/uL Hemoglobin 8.1 g/dL Hematocrit 26.8 % Mean Corpuscular Volume 86.5 fL Mean Corpuscular Hemoglobin 26.1 pg Mean Corpuscular Hemoglobin Concent 30.2 g/dl Platelet Count 291 K/uL Mean Platelet Volume 9.7 fL Neutrophils (%) (Auto) 82.8 % Lymphocytes (%) (Auto) 4.0 % Monocytes (%) (Auto) 11.3 % Eosinophils (%) (Auto) 1.2 % Basophils (%) (Auto) 0.2 % Neutrophils # (Auto) 11.04 K/uL Lymphocytes # (Auto) 0.53 K/uL Monocytes # (Auto) 1.51 K/uL Eosinophils # (Auto) 0.16 K/uL Basophils # (Auto) 0.03 K/uL RDW Standard Deviation 54.4 fL RDW Coefficient of Variation 17.2 % Immature Granulocyte % (Auto) 0.5 % Immature Granulocyte # (Auto) 0.06 K/uL Red Blood Cell Morphology Unremarkable Sodium Level 137 mmol/L Potassium Level 4.0 mmol/L Chloride Level 102 mmol/L Carbon Dioxide Level 33 mmol/L Anion Gap 2.0 mmol/L Blood Urea Nitrogen 15 mg/dl Creatinine 0.54 mg/dl Est Creatinine Clear Calc Drug Dose 112.2 ml/min Estimated GFR () 123.3 Estimated GFR (Non- 106.4 BUN/Creatinine Ratio 27.3 Random Glucose 90 mg/dl Calcium Level 8.7 mg/dl Phosphorus Level 3.3 mg/dl Magnesium Level 2.0 mg/dl Total Bilirubin 0.6 mg/dl Direct Bilirubin 0.2 mg/dl Aspartate Amino Transf (AST/SGOT) 31 U/L Alanine Aminotransferase (ALT/SGPT) 37 U/L Alkaline Phosphatase 83 U/L Total Protein 6.2 gm/dl Albumin 2.2 gm/dl Test 09/21/17 05:50 Bedside Glucose 96 mg/dl Assessment and Plan Complicated 72yo male with: 1. shock, likely septic - from right-sided pneumonia - pressors have been discontinued, leukocytosis resolving, and he overall has improved. Defer abx selection to ID and critical care- plan is for imipenem alone along with tobramycin nebs BID due to previous history of pseudomonas; thus far all cultures including bronch cultures are negative. Bronch on 09/19 and repeated on 09/21 ECHO without evidence of cardiogenic component contributing to shock. No evidence of SBE. No evidence of adrenal shock. Could have had hemorrhage as his H/H had dropped considerably from admission ( 12 down to low 8's). Fecal occult pending 2. s/p cardiac arrest - likely hypoxia-induced as there was a report that copious secretions/tube feedings were suctioned from his trach during the code. He had chest compressions for 5-10 minutes with successful oriental orthodox of spontaneous circulation. He has a mild troponin elevation likely due to his arrest and #1 above. Doubt he had a true ACS. Echo w/ preserved LV function. Continues to do well from a mental status standpoint as well as neurological standpoint with no apparent deficits per report, pt is sedated on my exam s/p fentanyl today 3. acute hypoxic/hypercarbic respiratory failure likely 2nd to right-sided pneumonia - strong suspicion that the pneumonia was due to aspiration. He is s/p bronch 09/19 and again on 09/21 Records from [facility] indicate he had rhinovirus infection and pseudomonas, although no documentation found 4. j-tube obstruction - s/p dislodgement by general surgery; back on tube feedings w/ peptamen; goal rate is 50cc/hr continuously. 5. right-sided pneumonia - aspiration vs gram negative in etiology. see above. 6. abdominal pain - mainly RUQ - has gallstones and presented with abnormal LFTs; HIDA neg for acute cholecystitis. pain could be gastric in origin vs referred pain from rib fractures. Toradol for pain control. Consider long-acting pain med?? Cont oxycodone prn as well. 7. hypomagnesemia - resolved. 8. hypophosphatemia - resolved. 9. positive troponin - due to cardiac arrest and/or myocardial demand ischemia in setting of shock. 10. ?acute blood loss anemia - serial H/H's showed drop from about Hb of 12 to low 8's and he seems to have plateaued. Check a fecal occult blood and cont PPI. If heme+ then GI consultation. 11. esophageal cancer with numerous complications in the past requiring various surgeries; he is s/p esophagectomy and ultimately underwent esophago- colonic anastomosis in 2015; Chronic anastomotic stricture and has received dilatations [id number] in the past per records - since all of his care is out of town in [place] the exact status of his cancer is unknown but there does not appear to be recurrence of cancer based on CT chest/ abd/pelvis this admission. 12. h/o T2DM - hemoglobin a1c is very low suggesting his DM has resolved, likely from weight loss due to #11 and malnutrition. 13. protein calorie malnutrition - severe - J-tube tube feedings have been resumed. 14. COPD - does not appear to be in exacerbation at this time. 15. h/o DVT - noted. Heparin for DVT proph cautiously in light of #10. 16. CAD - records suggest he had left main disease and other occlusions; he is s/p CABG in August 2014 at [facility]. He is typically on low- dose ASA, beta thomas, and statin. Latter being held due to abnormal LFTs. 17. hyponatremia - resolved with IVF. 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 19. tracheostomy status - placed 06/2017 at [facility]. 20. rhinovirus and pseudomonas pneumonia - 08/2017 at [facility] - bronch cultures thus far negative for such. 21. h/o AAA s/p repair in 2014 at [facility]. 22. b/l rib fractures - 2nd to chest compressions during recent cardiac arrest - pain control. 23. abnormal left upper chest wall / cavity - due to surgery in 2014 that involved partial resection of first rib, clavicle, and manubrium. 24. large skin tear on chest - presumably due to recent chest compressions - wound care team consulted for management. has follow-up with thoracic surgery at [facility] October 10, 2017 per records dispo - per sign out, prefers home or rehab vs LTACH PT/OT recs for LTACH Environmental [employer] planning for family meeting later today per nursing Continued [facility] stay due to: abnormal vital signs, inadequate oral pain control , voiding difficulties, ambulation difficulties, multiple IV medications needed Discharge planning: uncertain
[2017-09-21] MEDS: PEPTAMEN 1.5 CAL 1000ML BAG JT PRN (10:29)
[2017-09-21] MEDS: LIDODERM (LIDOCAINE) PATCH 5% TD PRN (12:25)
[2017-09-21] MEDS: METOPROLOL TARTRATE 25 MG TAB JT SCH ×2 (12:25→20:13)
[2017-09-21] MEDS: ATORVASTATIN 10 MG TAB PO SCH (13:20)
[2017-09-21] MEDS: ASPIRIN 81 MG CHEW JT SCH (13:20)
[2017-09-21] MEDS ORDERED: MIDAZOLAM HCL 1 MG/ML 2ML VIAL ONE (14:16)
[2017-09-21] MEDS ORDERED: NURSING VERBAL MED ORDER ONE (14:45)
[2017-09-21] MEDS ORDERED: FENTANYL CITRATE INJ 50 MCG/1 ML 2 ML VIAL IV PRN (15:00)
[2017-09-21] MEDS ORDERED: MIDAZOLAM HCL 1 MG/ML 2ML VIAL IV PRN (15:00)
--- NOTE | 2017-09-21 15:11 | PULMONARY PROGRESS NOTE ---
DATE: 09/21/2017 SUBJECTIVE: The patient sitting out in the bed and appears stable. J-tube had to be reinserted. I spoke with Dr. Matos who wishes to discuss with the family, specifically the patient and his about consideration for transfer to a LTACH although I understand the patient's family wished him to return to [facility]. I think at this point in time even pleasure feedings are probably not a good idea given the potential for [id number] aspiration. Post-bronchoscopy, the right lower lobe showed better aeration with right hemidiaphragm was able to be visualized better. Today's chest x-ray showed decreased size of what I suspect is persistent atelectasis of the right lower lobe much. I am not sure the inhaled Ortiz at this point in time is critical, but would consider Mucomyst at 3-5 mL 20% Mucomyst as this could be beneficial to help work as a mucolytic in our attempts to keep the right lower lobe more patent and aerated.
--- NOTE | 2017-09-21 15:42 | Critical Care Progress Note ---
Critical Care Progress Note Date of Service September 21, 2017. ICU Day ICU Day Number: [address] Matos Subjective Patient seen and examined at bedside. Overnight patient's J-tube was dislodged. Successfully replaced by Dr. Gonzales. JOSE E with Gastrografin contrast confirmed placement with no obstruction. Patient denies any abdominal pain. He does continue with chest pain associated with rib fractures. No significant shortness of breath. Increased sputum production today with thick yellow green sputum. No hemoptysis. Patient denies fever chills. No diaphoresis. No lower extremity pain. Edema seems improved to lower extremities. Left arm edema noted but not painful per patient. No other acute complaints Objective GENERAL : No acute distress. EYES: No icterus, gaze conjugate NOSE: No evidence of epistaxis MOUTH: No lesions or candidiasis. Mucosa moist NECK: Supple. Tracheostomy tube in place. No drainage noted to drainage pads LUNGS: Increased rhonchi all lung allen. No appreciation of bronchospasm HEART: Regular, rate controlled ABDOMEN: Soft, NT, ND, BS Present. EXTREMITIES: Bilateral LE edema, pedal pulses intact and equal. Feet warm. Left upper extremity edema but with good radial pulse and capillary refill NEURO: A&OX3 Assessment & Plan This is a 72-year-old male that was admitted to the intensive care unit 09/19/2017 for acute hypoxic respiratory rest leading to cardiac arrest. He has a history of recurrent Pseudomonas. Respiratory cultures were reviewed from [facility] and showed pansensitive Pseudomonas. Patient is being followed by Dr. Singh from infectious disease while inpatient. The patient 's is very active in his care. PNEUMONIA * Status post bronchoscopy 09/19/2017 with copious amounts of mucopurulent secretions evacuated with bronchial lavage * Initial bronc washings show scant normal deja * Laboratory analysis of bronchial washings with no acute infection * Bronchial washings with severe acute pneumonitis * Patient initially started on ciprofloxacin IV, tobramycin IV, vancomycin IV, and Primaxin IV * ID consulted -appreciate Dr. Singh's input * Discontinued vancomycin 09/20/2017 as MRSA screening is negative * Changed ciprofloxacin to p.o. 09/20/2017 pending final bronc wash results * Discontinued tobramycin IV 09/20/[address] Singh * All antibiotics discontinued today -await for patient to declare himself. * Bronchoscopy planned for today * Continue bronchodilators * Continue vibration bed module * Continue incentive spirometry * Pneumatic vest not an option secondary to rib fractures * Continue to treat underlying pain from rib fracture * Bedside ultrasound with no significant pleural effusion NEURO * Patient alert and oriented 3 -CAM negative * No focal deficits * Watch for focal changes secondary to increase of pain medications PAIN * Percocet discontinued -change to oxycodone * Continue [id number] scheduled Tylenol as well as [id number] scheduled Toradol * LFTs within normal range * Continue K pad CARDIOVASCULAR * Troponin trending downward -elevated secondary to hypoxic driven cardiac arrest * Echocardiogram completed with LVEF of 55-60%. Also with moderate aortic stenosis with mild aortic regurgitation * Patient has not required pressors for greater than 24 hours * Continue to monitor on telemetry * Home meds include furosemide 20 mg p.o. twice daily, Lipitor 20 mg p.o. daily , aspirin 81 mg daily, Lopressor 25 mg p.o. twice daily, Midrin 10 mg TID * Restart metoprolol 12.5 mg twice daily * Restart Lipitor at 10 mg daily, will follow-up LFTs PULMONARY * Pseudomonal pneumonia as listed above * Continue bronchodilators * Consider restarting tobramycin nebs per pulmonary discussion RENAL * Renal function stable * Trend serial labs NUTRITION * Jejunal tube management per surgery * Nutrition consult placed * Tube feeds per nutrition HEME * Hemoglobin stable at 8.1 * No evidence of active bleeding * No indication for transfusion at this time * Continue to follow serial labs ID * Pseudomonas pneumonia as above * ID consulted and following -appreciate Dr. Singh's input * Blood cultures negative for growth 2 * Urine culture with less than 1000 colonies * MRSA screening negative by DNA probe * Sputum culture from tube secretions is light normal deja * Cultures from bronchial washings completed 09/19/2017 negative * Discontinue all antibiotics and follow the patient clinically GI * History of esophageal carcinoma * Tube feeds per nutritional consult * Continue pantoprazole * Jejunal tube in place without obstruction per KUB with contrast this morning * Transaminitis: Resolved * History of nonalcoholic steatohepatitis * Consideration given for statin induced LFT transaminitis * Will likely require longer term follow-up IV ACCESS * Peripheral IVs in place * Right femoral triple-lumen had been placed in the emergency department - discontinued 09/20/2017 ENDOCRINE * No history of diabetes mellitus or chronic insulin use * Hyperglycemia * Hyperglycemia protocol with BSG's * Continue NovoLog sliding scale insulin * No history of hypothyroidism * Most recent TSH from 06/18/2015 was 1.4 DVT PROPHYLAXIS * Heparin 5000 units subcu every 12 hours * Change to Lovenox once bronchoscopy is completed if no evidence of hemoptysis CCT: 30 minutes independent of any procedures Thank you for including us in the care of this patient. Please refer to Dr. Matos's addendum for further recommendations. I have personally evaluated and examined this patient. I agree with assessment and plan of Ethel Haas PA-C. Patient was discussed on multidisciplinary rounds as well as as with Dr. Bowman of the pulmonary service. The patient has chronic hypercarbic and likely hypoxic respiratory failure secondary to hyperventilation syndrome secondary to essentially neuromuscular weakness and severe protein calorie malnutrition. During spirometry evaluation, the patient's minute ventilation was only 4.6 L a minute, his ABG demonstrates a compensated chronic respiratory acidosis with PCO2 of 56 and chronic hypoxia on 40% trach collar with a PO2 of 74, his bicarbonate on BMP is chronically elevated at 33. He does not have an adequate minute ventilation for his degree of metabolic demand, his cachexia and muscle wasting is potentiating severe weakness, he is only able to generate a negative inspiratory force of -22 cm of water, his tidal volume is less than 200 his respiratory rate is 24. Additionally it is obvious that the patient is not able to clear his secretions from the right lower lobe effectively. These do not appear to be infected secretions, he is growing a light normal deja, I believe the tobramycin nebs are ill advised, and likely to potentiate future pseudomonal resistance as this patient is colonized and predisposed to recurrent pneumonia given the fact he has a tracheostomy. The patient is likely to require subsequent bronchoscopy for removal of his secretions otherwise he will likely occlude his airway again. Additionally I believe comfort feeds are ill advised on scanning he has significant amounts of secretions in his hypopharynx sitting above the inflated cuff of the tracheostomy tube. The patient has a esophagectomy with colonic transposition, he will always be at risk for aspiration, and agree with strict n.p.o. with regards to his disposition I feel the patient would be best benefited in long-term assisted care given the degree of cachexia and weakness and likely need for subsequent bronchoscopy to prevent airway occlusion. However should the goals of care change and the patient and family be comfortable with the possibility of an acute airway obstruction which would likely lead to the patient ultimately passing, under those circumstances I believe a lower level of care may be appropriate. Certainly given the likelihood of acute airway obstruction and the significant pain the patient already has given his recent cardiac arrest from an acute airway obstruction I feel the patient is best managed in a long-term facility prepared to deal with such complications. I have personally spent 50 minutes of critical care time in the direct management of this patient. This is a life/limb threatening event. This includes time spent evaluating patient, direct bedside care, chart review, placing orders, interpretation of diagnostic studies, discussion with consultants, patient, and/or family members regarding treatment decisions, as well as other required patient management activities. This time is exclusive of all separately billable procedures, and teaching time and separate from and in addition to any other critical care service time. Consults & Procedures Consultants: General surgery -Dr. Casanova Pulmonary -Dr. Bowman Wound care nurse -Yokasta Gibbs RNchild daycare worker medicine -Dr. Matos Procedures: Right femoral triple-lumen catheter; placed in the ED 09/19/2017; removed 2017 Fiberoptic bronchoscopy 09/19/2017 Echocardiogram 09/19/2017 Data Medications: Current Inpatient Medications Medications (Trade) Dose Ordered Sig/Madalyn Route Start Time Stop Time Status Last Admin Dose Admin Heparin Sodium (Porcine) (Heparin Sq 5000 Unit/0.5ml) 5,000 unit Q12H SQ 09/19/17 09:00 10/19/17 08:59 09/21/17 08:38 5,000 UNIT Acetaminophen (Tylenol Tab) 650 mg Q4H PRN PO 09/19/17 01:45 10/19/17 01:44 Fentanyl Citrate (Fentanyl Inj) 12.5 mcg Q1H PRN IV 09/19/17 01:45 10/03/17 01:44 09/21/17 14:35 100 MCG Lorazepam (Ativan Inj) 0.5 mg Q4H PRN IV 09/19/17 01:45 10/19/17 01:44 09/21/17 11:05 0.5 MG Albuterol/ Ipratropium (Duoneb) 3 ml Q4RWA INH 09/19/17 08:00 10/19/17 07:59 09/21/17 14:53 3 ML Ioversol (Optiray 320) 100 ml UD PRN IV 09/19/17 10:45 09/23/17 10:44 Midodrine (Proamatine Tab) 10 mg Q8 PO 09/19/17 14:00 10/19/17 13:59 Future hold 09/21/17 13:19 10 MG Furosemide (Lasix Tab) 20 mg BIDM PO 09/19/17 16:30 10/19/17 16:29 Future Hold Insulin Aspart (novoLOG ASPART) SLIDING SCALE Q6H SC 09/19/17 12:00 10/19/17 11:59 Glucose (Glucose 40% Gel) 15-30 GRAMS 15 GRAMS... UD PRN PO 09/19/17 12:30 10/19/17 12:29 Glucose (Glucose Chew Tab) 4-8 Tablets 4 Tabl... UD PRN PO 09/19/17 12:30 10/19/17 12:29 Dextrose (Dextrose 50% 50ML Syringe) 25-50ML 25ML FOR ... UD PRN IV 09/19/17 12:30 10/19/17 12:29 Glucagon (Glucagon Inj) 1 mg UD PRN IM 09/19/17 12:30 10/19/17 12:29 Carbohydrates (Carbohydrates For Hypoglycemia) 15-30 GRAMS 15 grams if BSG 54-69... UD PRN PO 09/19/17 12:30 10/19/17 12:29 Acetaminophen 100 ml @ 400 mls/hr Q8 IV 09/20/17 12:00 10/20/17 11:59 09/21/17 13:16 400 MLS/HR Ketorolac Tromethamine (Toradol Inj) 15 mg Q6H IV. 09/20/17 16:00 09/25/17 09:59 09/21/17 15:29 15 MG Pantoprazole Sodium 40 mg/ Syringe 10 ml @ 5 mls/min BID IV 09/20/17 21:00 09/27/17 09:01 09/21/17 08:38 5 MLS/MIN Lidocaine (Lidoderm Patch 5%) 1 patch Q24H PRN TD 09/20/17 10:30 10/20/17 10:29 09/21/17 12:25 1 PATCH Pantoprazole Sodium 40 mg/ Syringe 10 ml @ 5 mls/min DAILY IV 09/28/17 09:00 10/28/17 08:59 Aspirin (Aspirin Chew) 81 mg DAILY@1400 JT 09/20/17 14:00 10/20/17 13:59 09/21/17 13:20 81 MG Miscellaneous (Remove Lidoderm Patch) 1 ea Q12H PRN N/A 09/20/17 12:00 10/20/17 11:59 Buspirone HCl (Buspar Tab) 7.5 mg TID JT 09/20/17 14:00 10/20/17 13:59 09/21/17 13:19 7.5 MG Clonazepam (Klonopin Tab) 0.5 mg TID PO 09/20/17 14:00 10/20/17 13:59 09/21/17 13:21 0.5 MG Oxycodone HCl (Roxicodone Immediate Rel Tab) `1-2 tabs for pain 1 tab ... Q6H PRN PO 09/20/17 15:15 10/04/17 15:14 09/21/17 08:36 10 MG Enteral Nutritional Formula (Peptamen 1.5) 1,000 ml UD PRN JT 09/21/17 08:45 10/21/17 08:44 09/21/17 10:29 1,000 ML Atorvastatin Calcium (Lipitor Tab) 10 mg QAM PO 09/21/17 14:00 10/21/17 13:59 09/21/17 13:20 10 MG Metoprolol Tartrate (Lopressor Tab) 12.5 mg BID JT 09/21/17 11:30 10/21/17 11:29 09/21/17 12:25 12.5 MG Docusate Sodium (coLACE SYRUP) 100 mg HS JT 09/21/17 21:00 10/21/17 20:59 Senna (Senokot Syrup) 8.8 mg QAM PO 09/22/17 09:00 10/22/17 08:59 Fentanyl Citrate (Fentanyl Inj) 100 mcg AT BEDSIDE FOR PROCEDURE PRN IV 09/21/17 15:00 09/21/17 20:00 Midazolam HCl (Versed Inj) 2 mg AT BEDSIDE FOR PROCEDURE PRN IV 09/21/17 15:00 09/21/17 20:00 Acetylcysteine (Mucomyst 20% Inh Soln) 3 ml BIDR INH 09/21/17 20:00 10/21/17 19:59 I & O: 24-Hour Column 09/22/17 08:00 Intake Total 261 ml Output Total 300 ml Balance -39 ml Vital Signs: Date Time Temp Pulse Resp B/P (MAP) Pulse Ox O2 Delivery O2 Flow Rate FiO2 09/21/17 14:53 60 09/21/17 14:29 91 19 118/67 (84) 99 Mechanical Ventilator 100 09/21/17 14:27 88 19 104/62 (76) 99 Mechanical Ventilator 100 09/21/17 14:24 88 16 110/61 (77) 99 Mechanical Ventilator 100 09/21/17 14:23 87 23 105/60 (75) 98 Mechanical Ventilator 100 09/21/17 14:21 87 19 100/54 (69) 98 Mechanical Ventilator 100 09/21/17 14:00 85 26 107/54 (71) 90 Trach Collar 12.0 40 09/21/17 12:00 Trach Collar 12.0 50 09/21/17 12:00 36.6 100 18 113/57 (75) 98 Trach Collar 12.0 40 09/21/17 11:17 96 20 97 Trach Collar 12.0 50 09/21/17 10:51 97 24 98 09/21/17 10:00 105 33 110/57 (74) 100 12.0 40 09/21/17 08:58 104 94 09/21/17 08:14 109 31 122/58 (79) 92 Trach Collar 12.0 50 09/21/17 08:12 105 26 111/51 (71) 92 Trach Collar 12.0 50 09/21/17 08:00 36.8 106 28 104/79 (87) 92 Trach Collar 12.0 50 09/21/17 08:00 Trach Collar 12.0 50 09/21/17 07:00 104 20 96 Mechanical Ventilator 40 09/21/17 06:04 50 09/21/17 06:01 108 22 115/66 (92) 95 09/21/17 05:01 106 20 107/47 (76) 95 09/21/17 04:01 109 19 117/60 (87) 94 09/21/17 04:00 96 Mechanical Ventilator 50 09/21/17 04:00 36.5 09/21/17 03:01 107 17 116/57 (81) 95 09/21/17 02:01 92 24 94/64 (77) 90 09/21/17 02:00 50 09/21/17 01:01 99 21 120/58 (83) 98 09/21/17 00:01 36.5 09/20/17 23:59 91 Trach Collar 12.0 40 09/20/17 23:01 101 21 100/55 (78) 91 09/20/17 22:01 105 25 104/55 (82) 91 09/20/17 21:01 123 25 98/67 (77) 90 09/20/17 20:18 98 20 94 Trach Collar 12.0 40 09/20/17 20:01 101 27 103/57 (68) 91 09/20/17 20:00 36.6 09/20/17 20:00 92 Trach Collar 50 09/20/17 19:01 95 17 98/48 (59) 92 09/20/17 18:01 99 22 117/68 (84) 92 09/20/17 17:31 98 25 101/56 (71) 91 09/20/17 17:01 104 20 100/48 (65) 91 09/20/17 16:31 106 22 98/50 (66) 92 Trach Collar 09/20/17 16:01 36.7 98 24 105/53 (70) 91 Trach Collar 50 09/20/17 16:00 Trach Collar 12.0 50 Laboratory Results: Last 24 Hours Test 09/20/17 17:40 09/20/17 23:27 09/21/17 04:19 09/21/17 05:50 Bedside Glucose 127 mg/dl 106 mg/dl 96 mg/dl White Blood Count 13.33 K/uL Red Blood Count 3.10 M/uL Hemoglobin 8.1 g/dL Hematocrit 26.8 % Mean Corpuscular Volume 86.5 fL Mean Corpuscular Hemoglobin 26.1 pg Mean Corpuscular Hemoglobin Concent 30.2 g/dl Platelet Count 291 K/uL Mean Platelet Volume 9.7 fL Neutrophils (%) (Auto) 82.8 % Lymphocytes (%) (Auto) 4.0 % Monocytes (%) (Auto) 11.3 % Eosinophils (%) (Auto) 1.2 % Basophils (%) (Auto) 0.2 % Neutrophils # (Auto) 11.04 K/uL Lymphocytes # (Auto) 0.53 K/uL Monocytes # (Auto) 1.51 K/uL Eosinophils # (Auto) 0.16 K/uL Basophils # (Auto) 0.03 K/uL RDW Standard Deviation 54.4 fL RDW Coefficient of Variation 17.2 % Immature Granulocyte % (Auto) 0.5 % Immature Granulocyte # (Auto) 0.06 K/uL Red Blood Cell Morphology Unremarkable Sodium Level 137 mmol/L Potassium Level 4.0 mmol/L Chloride Level 102 mmol/L Carbon Dioxide Level 33 mmol/L Anion Gap 2.0 mmol/L Blood Urea Nitrogen 15 mg/dl Creatinine 0.54 mg/dl Est Creatinine Clear Calc Drug Dose 112.2 ml/min Estimated GFR () 123.3 Estimated GFR (Non- 106.4 BUN/Creatinine Ratio 27.3 Random Glucose 90 mg/dl Calcium Level 8.7 mg/dl Phosphorus Level 3.3 mg/dl Magnesium Level 2.0 mg/dl Total Bilirubin 0.6 mg/dl Direct Bilirubin 0.2 mg/dl Aspartate Amino Transf (AST/SGOT) 31 U/L Alanine Aminotransferase (ALT/SGPT) 37 U/L Alkaline Phosphatase 83 U/L Total Protein 6.2 gm/dl Albumin 2.2 gm/dl Test 09/21/17 13:01 Blood Gas Sample Site R Radial Bedside Blood Gas pH (LAB) 7.37 Bedside Blood Gas pCO2 (LAB) 56 mmHg Bedside Blood Gas pO2 (LAB) 74 mmHg Bedside Blood Gas HCO3 (LAB) 32 meq/L Bedside Blood Gas Total CO2 34 mEq/l Bedside Blood Gas Base Excess (LAB) 7.0 meq/L Bedside Blood Gas O2 Saturation 94.0 % Kota Test Pass Oxygen Delivery Device Trach Col Bedside FiO2 48 %
--- NOTE | 2017-09-21 16:39 | Procedure Note ---
Procedure Note Date of Service September 21, 2017. Procedure Note Procedure date: September 21, 2017 Procedure: fiberoptic bronchoscopy Pre-procedure Diagnosis: Right lung infiltrate on chest x-ray consistent with atelectasis Post-procedure Diagnosis: same as above Prior to Procedure: Informed Consent: The risks, benefits, indications, potential complications, and alternatives were explained to the patient/family and informed consent obtained. Attending Staff: Samir Matos DO Resident/APC: Not applicable Skin Prep: Not applicable Anesthesia: 2 mg Versed, 100 mcg fentanyl and total Indications: Patient is a 72-year-old male with chronic hypercapnic respiratory failure who has mucoid impaction in the right lower lobe. The identity of the patient was confirmed and a bedside time out was performed. Description of Procedure: Using clean technique a fiberoptic bronchoscope was passed through the adapter into a #6 Shiley tracheostomy tube with inner cannula. This was easily passed and june was visualized. There was significant sputum and mucus plugging at the right main bronchus. The bronchoscope was advanced into the right lower lobe and copious amounts of mucopurulent sputum and mucous plugs were removed. The scope was then passed into the right middle lobe with similar findings and results. The scope was then passed into the right upper lobe takeoff where there was minimal mucus plugging. 5 cc of acetylcysteine (Mucomyst) was instilled into the right lower lobe. Scope was then brought back to the level of the june and passed through the left main bronchus. There were some mucous plugs in the left lower lobe takeoff at the level of the lingula. Left lower lobe was lavaged until clean. 5 cc of acetylcysteine (Mucomyst) was instilled into the left lower lobe. The bronchoscope was then brought back to the level of the june and again passed into the right main bronchus and into the right lower lobe where significant mucous plugs were again removed. This was repeated until sputum was mobile. This is also done in the right middle lobe takeoff. The bronchoscope was then brought back to the level of the june and again passed into the left main bronchus and into the left lower lobe where significant mucous plugs were again removed. At the completion of the procedure, 5 cc of acetylcysteine was then instilled at the right main as well as the left main bronchus with 5 cc of saline. Complications: None, patient tolerated the procedure well Specimens: None Estimated blood loss: Zero
--- NOTE | 2017-09-21 16:42 | Procedure Note ---
Procedure Note Date of Service September 21, 2017. Procedure Note Critical Care Medicine Point of Care Bedside Ultrasound Procedure: Limited Bedside Lung Ultrasound Procedure Date: September 21, 2017 Indication: Infiltrates in right lung on chest x-ray, rule out effusion versus atelectasis Attending: Samir Matos DO Resident/Physician Police Shift Commander: [] Organs Examined: Right lung Phrenic Point (axillary), PLAPS point (posterior) A lines visualized: Present, B lines visualized: Absent Lung Sliding: Present Tissue-like Sign: Present Shred Sign: Absent Quad Sign: Absent Sinusoid Sign: Absent Type of effusions: None Impression: No evidence of pleural effusion, evidence of infiltrative versus atelectatic process Plan: Follow-up with bronchoscopy Images obtained are saved for permanent record
[2017-09-21] MEDS: ACETYLCYSTEINE 20% INHAL SOLN ***DISPENSED BY RESP. INH SCH (19:20)
--- NOTE | 2017-09-21 19:53 | Palliative Care Consultation ---
Consultation Date of Consultation: September 21, 2017. Requesting Physician: Dr. Matos Attending Physician: Dr Matos Reason for Consultation: To be present at family meeting and to assist with goals of care History of Present Illness Patient is a 72-year-old male with a significant past medical history of esophageal cancer status post esophagectomy, now with trach and J-tube. Patient had been transferred from [facility] to [facility] on approximately 5 9. On 515 patient had increased weakness with poor cough. At [facility] patient removed his J-tube, J-tube was replaced, and no further feedings or meds were given until position could be verified. Later that evening patient was found to have a respiratory rate of 3, No pulse was detected and CPR was initiated with transfer to [facility]. Present at bedside with discussion with patient and with ICU attending regarding patient's current status and prognosis to determine patient and 's goals of care. 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 Patient at high risk for repeat aspiration and pneumonia due to cracked ribs after CPR and poor nutritional status despite tube feeds. is optimistic that patient can improve given all his comorbidities. stated she would discuss with the patient in private what his personal goals are. Dr. Matos discussed with that an LTAC is best to meet his needs. did not want patient to return to LTAC in [place]. At [facility] patient was not strong enough to participate in therapies and continued to weaken over several days he was there, doubt he would be a rehab candidate at this time. We will continue to provide support to patient and family regarding further decision making. Past Medical/Surgical History Medical History: Esophageal cancer status post esophagectomy, tracheostomy, G-tube dependent, CAD status post CABG, AAA status post stent, diabetes, COPD, hypertension, history of DVT, history of GI bleed, SVT, recurrent PNA Surgical History: Esophagectomy, tracheostomy, J-tube placement, CABG, AAA stent, bronchoscopies Family History Positive for cancer and heart disease Social History Smoking Status: Former Smoker History of Alcohol Use: No Drug Use: none Marital Status: Housing Status: other (Patient has not been at home for several months, was inpatient ,then transfer to LTAC, then transferred for rehab) Occupation Status: retired Review of Systems Complete review of systems not obtained at on the initial visit due to patient fatigue Allergies Coded Allergies: No Known Allergies (Unverified , 09/18/17) Medications Current Inpatient Medications Medications (Trade) Dose Ordered Sig/Madalyn Route Start Time Stop Time Status Last Admin Dose Admin Heparin Sodium (Porcine) (Heparin Sq 5000 Unit/0.5ml) 5,000 unit Q12H SQ 09/19/17 09:00 10/19/17 08:59 09/21/17 08:38 5,000 UNIT Acetaminophen (Tylenol Tab) 650 mg Q4H PRN PO 09/19/17 01:45 10/19/17 01:44 Fentanyl Citrate (Fentanyl Inj) 12.5 mcg Q1H PRN IV 09/19/17 01:45 10/03/17 01:44 09/21/17 14:35 100 MCG Lorazepam (Ativan Inj) 0.5 mg Q4H PRN IV 09/19/17 01:45 10/19/17 01:44 09/21/17 11:05 0.5 MG Albuterol/ Ipratropium (Duoneb) 3 ml Q4RWA INH 09/19/17 08:00 10/19/17 07:59 09/21/17 19:20 3 ML Ioversol (Optiray 320) 100 ml UD PRN IV 09/19/17 10:45 09/23/17 10:44 Midodrine (Proamatine Tab) 10 mg Q8 PO 09/19/17 14:00 10/19/17 13:59 Future hold 09/21/17 13:19 10 MG Furosemide (Lasix Tab) 20 mg BIDM PO 09/19/17 16:30 10/19/17 16:29 Future Hold Insulin Aspart (novoLOG ASPART) SLIDING SCALE Q6H SC 09/19/17 12:00 10/19/17 11:59 Glucose (Glucose 40% Gel) 15-30 GRAMS 15 GRAMS... UD PRN PO 09/19/17 12:30 10/19/17 12:29 Glucose (Glucose Chew Tab) 4-8 Tablets 4 Tabl... UD PRN PO 09/19/17 12:30 10/19/17 12:29 Dextrose (Dextrose 50% 50ML Syringe) 25-50ML 25ML FOR ... UD PRN IV 09/19/17 12:30 10/19/17 12:29 Glucagon (Glucagon Inj) 1 mg UD PRN IM 09/19/17 12:30 10/19/17 12:29 Carbohydrates (Carbohydrates For Hypoglycemia) 15-30 GRAMS 15 grams if BSG 54-69... UD PRN PO 09/19/17 12:30 10/19/17 12:29 Acetaminophen 100 ml @ 400 mls/hr Q8 IV 09/20/17 12:00 10/20/17 11:59 09/21/17 13:16 400 MLS/HR Ketorolac Tromethamine (Toradol Inj) 15 mg Q6H IV. 09/20/17 16:00 09/25/17 09:59 09/21/17 15:29 15 MG Pantoprazole Sodium 40 mg/ Syringe 10 ml @ 5 mls/min BID IV 09/20/17 21:00 09/27/17 09:01 09/21/17 08:38 5 MLS/MIN Lidocaine (Lidoderm Patch 5%) 1 patch Q24H PRN TD 09/20/17 10:30 10/20/17 10:29 09/21/17 12:25 1 PATCH Pantoprazole Sodium 40 mg/ Syringe 10 ml @ 5 mls/min DAILY IV 09/28/17 09:00 10/28/17 08:59 Aspirin (Aspirin Chew) 81 mg DAILY@1400 JT 09/20/17 14:00 10/20/17 13:59 09/21/17 13:20 81 MG Miscellaneous (Remove Lidoderm Patch) 1 ea Q12H PRN N/A 09/20/17 12:00 10/20/17 11:59 Buspirone HCl (Buspar Tab) 7.5 mg TID JT 09/20/17 14:00 10/20/17 13:59 09/21/17 13:19 7.5 MG Clonazepam (Klonopin Tab) 0.5 mg TID PO 09/20/17 14:00 10/20/17 13:59 09/21/17 13:21 0.5 MG Oxycodone HCl (Roxicodone Immediate Rel Tab) `1-2 tabs for pain 1 tab ... Q6H PRN PO 09/20/17 15:15 10/04/17 15:14 09/21/17 08:36 10 MG Enteral Nutritional Formula (Peptamen 1.5) 1,000 ml UD PRN JT 09/21/17 08:45 10/21/17 08:44 09/21/17 10:29 1,000 ML Atorvastatin Calcium (Lipitor Tab) 10 mg QAM PO 09/21/17 14:00 10/21/17 13:59 09/21/17 13:20 10 MG Metoprolol Tartrate (Lopressor Tab) 12.5 mg BID JT 09/21/17 11:30 10/21/17 11:29 09/21/17 12:25 12.5 MG Docusate Sodium (coLACE SYRUP) 100 mg HS JT 09/21/17 21:00 10/21/17 20:59 Senna (Senokot Syrup) 8.8 mg QAM PO 09/22/17 09:00 10/22/17 08:59 Fentanyl Citrate (Fentanyl Inj) 100 mcg AT BEDSIDE FOR PROCEDURE PRN IV 09/21/17 15:00 09/21/17 20:00 Midazolam HCl (Versed Inj) 2 mg AT BEDSIDE FOR PROCEDURE PRN IV 09/21/17 15:00 09/21/17 20:00 Acetylcysteine (Mucomyst 20% Inh Soln) 3 ml BIDR INH 09/21/17 20:00 10/21/17 19:59 09/21/17 19:20 3 ML Physical Exam Date Time Temp Pulse Resp B/P (MAP) Pulse Ox O2 Delivery O2 Flow Rate FiO2 09/21/17 19:20 101 22 99 Trach Collar 12.0 70 09/21/17 18:00 94 20 110/65 (80) 98 Trach Collar 70 09/21/17 16:00 36.8 100 21 100/54 (69) 92 Trach Collar 50 09/21/17 16:00 Trach Collar 50 09/21/17 15:32 50 09/21/17 14:53 60 09/21/17 14:29 91 19 118/67 (84) 99 Mechanical Ventilator 100 09/21/17 14:27 88 19 104/62 (76) 99 Mechanical Ventilator 100 09/21/17 14:24 88 16 110/61 (77) 99 Mechanical Ventilator 100 09/21/17 14:23 87 23 105/60 (75) 98 Mechanical Ventilator 100 5/17/18 14:21 87 19 100/54 (69) 98 Mechanical Ventilator 100 18 14:00 85 26 107/54 (71) 90 Trach Collar 12.0 40 1718 12:00 Trach Collar 12.0 50 17/18 12:00 36.6 100 18 113/57 (75) 98 Trach Collar 12.0 40 17/18 11:17 96 20 97 Trach Collar 12.0 50 17/18 10:51 97 24 98 1718 10:00 105 33 110/57 (74) 100 12.0 40 17/18 08:58 104 94 18 08:14 109 31 122/58 (79) 92 Trach Collar 12.0 50 09/21/18 08:12 105 26 111/51 (71) 92 Trach Collar 12.0 50 18 08:00 36.8 106 28 104/79 (87) 92 Trach Collar 12.0 50 18 08:00 Trach Collar 12.0 50 18 07:00 104 20 96 Mechanical Ventilator 40 09/21/17 06:04 50 18 06:01 108 22 115/66 (92) 95 18 05:01 106 20 107/47 (76) 95 18 04:01 109 19 117/60 (87) 94 18 04:00 96 Mechanical Ventilator 50 18 04:00 36.5 18 03:01 107 17 116/57 (81) 95 09/21/17 02:01 92 24 94/64 (77) 90 18 02:00 50 18 01:01 99 21 120/58 (83) 98 18 00:01 36.5 18 23:59 91 Trach Collar 12.0 40 18 23:01 101 21 100/55 (78) 91 18 22:01 105 25 104/55 (82) 91 09/20/18 21:01 123 25 98/67 (77) 90 18 20:18 98 20 94 Trach Collar 12.0 40 18 20:01 101 27 103/57 (68) 91 18 20:00 36.6 518 20:00 92 Trach Collar 50 General Appearance: no apparent distress Eyes: EOMI ENT: + pertinent finding (Mild hard of hearing) Neck: supple, + pertinent finding (Trach in place with trach collar) Respiratory: no respiratory distress Cardiovascular: regular rate, rhythm Abdomen: + pertinent finding (Not distended) Musculoskeletal: pertinent finding (Decreased strength upper and lower extremities) Neurologic/Psychiatric: alert Skin: warm/dry Laboratory Results Last 24 Hours Test 09/20/17 23:27 09/21/17 04:19 09/21/17 05:50 09/21/17 13:01 Bedside Glucose 106 mg/dl 96 mg/dl White Blood Count 13.33 K/uL Red Blood Count 3.10 M/uL Hemoglobin 8.1 g/dL Hematocrit 26.8 % Mean Corpuscular Volume 86.5 fL Mean Corpuscular Hemoglobin 26.1 pg Mean Corpuscular Hemoglobin Concent 30.2 g/dl Platelet Count 291 K/uL Mean Platelet Volume 9.7 fL Neutrophils (%) (Auto) 82.8 % Lymphocytes (%) (Auto) 4.0 % Monocytes (%) (Auto) 11.3 % Eosinophils (%) (Auto) 1.2 % Basophils (%) (Auto) 0.2 % Neutrophils # (Auto) 11.04 K/uL Lymphocytes # (Auto) 0.53 K/uL Monocytes # (Auto) 1.51 K/uL Eosinophils # (Auto) 0.16 K/uL Basophils # (Auto) 0.03 K/uL RDW Standard Deviation 54.4 fL RDW Coefficient of Variation 17.2 % Immature Granulocyte % (Auto) 0.5 % Immature Granulocyte # (Auto) 0.06 K/uL Red Blood Cell Morphology Unremarkable Sodium Level 137 mmol/L Potassium Level 4.0 mmol/L Chloride Level 102 mmol/L Carbon Dioxide Level 33 mmol/L Anion Gap 2.0 mmol/L Blood Urea Nitrogen 15 mg/dl Creatinine 0.54 mg/dl Est Creatinine Clear Calc Drug Dose 112.2 ml/min Estimated GFR () 123.3 Estimated GFR (Non- 106.4 BUN/Creatinine Ratio 27.3 Random Glucose 90 mg/dl Calcium Level 8.7 mg/dl Phosphorus Level 3.3 mg/dl Magnesium Level 2.0 mg/dl Total Bilirubin 0.6 mg/dl Direct Bilirubin 0.2 mg/dl Aspartate Amino Transf (AST/SGOT) 31 U/L Alanine Aminotransferase (ALT/SGPT) 37 U/L Alkaline Phosphatase 83 U/L Total Protein 6.2 gm/dl Albumin 2.2 gm/dl Blood Gas Sample Site R Radial Bedside Blood Gas pH (LAB) 7.37 Bedside Blood Gas pCO2 (LAB) 56 mmHg Bedside Blood Gas pO2 (LAB) 74 mmHg Bedside Blood Gas HCO3 (LAB) 32 meq/L Bedside Blood Gas Total CO2 34 mEq/l Bedside Blood Gas Base Excess (LAB) 7.0 meq/L Bedside Blood Gas O2 Saturation 94.0 % Kota Test Pass Oxygen Delivery Device Trach Col Bedside FiO2 48 % Assessment & Plan Palliative Performance Scale: 30 % (1) Palliative care encounter Assessment & Plan: Patient with a complex medical history and poor prognosis. We will continue to provide support to patient and with medical decision making (2) Aspiration pneumonia Status: Chronic Assessment & Plan: Patient with recurrent aspiration of secretions, has been n.p.o., J-tube dependent. Patient also trach dependent (3) Cardiopulmonary arrest with successful resuscitation Status: Acute Assessment & Plan: Patient with cracked ribs status post chest compressions, in addition to his weakness impacting his ability to cough and take deep breaths. Counseling and Coordination Total time 55 minutes with greater than 50% of the time spent at bedside involved with family meeting with ICU attending. Will continue to provide support to patient and with medical decision-making.
[2017-09-21] MEDS: DOCUSATE SODIUM 100 MG/10 ML UDC JT SCH (20:12)
--- NOTE | 2017-09-21 20:17 | Critical Care Progress Note ---
Critical Care Progress Note Date of Service September 21, 2017. 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 Pereira regarding goals of care, prognosis, current treatment recommendations. We discussed from 1755 until 1830. Of note upon entry into the room patient's had placed a speaking valve on the patient's tracheostomy. I confirmed that the cuff was in fact deflated. I questioned if the patient's had notified any of nursing or respiratory staff that she was placing a speaking valve on the patient, she reported that she had, I was unable to confirm this with [facility] staff after the discussion. I requested that she inform medical staff and allow us to participate, we recognize that she carries professional content chills with regards to respiratory therapy; however, for patient safety we want to ensure that we are aware of what is being done with the patient and that deviations from our protocol are recognized in the event of an emergency. The patient's is obviously encouraged by the numerous recoveries the patient has had over the last 5 years particular last 2 years in battling with esophageal cancer. I emphasized my concerns and she was in agreement that the patient meets criteria for hypercarbic and hypoxic respiratory failure. She is in agreement that the patient is at risk for recurrent mucoid impaction and I explained that tobramycin nebs are not recommended, Mucomyst nebulizers are recommended and currently ordered. We discussed the lack of pleural effusion findings and recurrence mucoid impaction which is persistent despite the patient coughing up thick secretions, and my emphasis is that despite him clearing some secretions he still has significant mucoid impaction and we were all in agreement that the patient is at risk for acute airway occlusion. Accordingly with the patient being at risk for acute airway occlusion and subsequent cardiac arrest as evidenced by his recent history he is best suited in a long-term care hospital, the patient's is very hesitant to refer back to the LTAC in [place] however was opened to looking at other facilities. 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 Further emphasized the patient already has fractured ribs and should he suffer another acute airway occlusion leading to cardiac arrest and undergo subsequent CPR is closed nondisplaced rib fractures likely be converted to additional rib fractures with displacement and will be at risk for significantly greater injury making recovery that much more difficult. The patient and his still desire full resuscitation in event of cardiac arrest and accordingly I strongly, and again emphasized strongly, recommend LTAC placement in a facility that can manage needs for recurrent bronchoscopy, recurrent mucoid impaction, and acute airway occlusion. I have also requested that Dr. Bowman discuss these recommendations with the patient and his tomorrow. I have personally spent 35 minutes of critical care time in the direct management of this patient. This is a life/limb threatening event. This includes time spent evaluating patient, direct bedside care, chart review, placing orders, interpretation of diagnostic studies, discussion with consultants, patient, and/or family members regarding treatment decisions, as well as other required patient management activities. This time is exclusive of all separately billable procedures, and teaching time and separate from and in addition to any other critical care service time.
--- NOTE | 2017-09-21 20:40 | Infectious Disease Progress Nt ---
Progress Note Date of Service September 21, 2017. 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 Hemodynamically stable. Remains afebrile. Culture results remain unremarkable. All Other Systems: Reviewed and Negative Medications Current Inpatient Medications Medications (Trade) Dose Ordered Sig/Madalyn Route Start Time Stop Time Status Last Admin Dose Admin Heparin Sodium (Porcine) (Heparin Sq 5000 Unit/0.5ml) 5,000 unit Q12H SQ 09/19/17 09:00 10/19/17 08:59 09/21/17 20:13 5,000 UNIT Acetaminophen (Tylenol Tab) 650 mg Q4H PRN PO 09/19/17 01:45 10/19/17 01:44 Fentanyl Citrate (Fentanyl Inj) 12.5 mcg Q1H PRN IV 09/19/17 01:45 10/03/17 01:44 09/21/17 14:35 100 MCG Lorazepam (Ativan Inj) 0.5 mg Q4H PRN IV 09/19/17 01:45 10/19/17 01:44 09/21/17 20:11 0.5 MG Albuterol/ Ipratropium (Duoneb) 3 ml Q4RWA INH 09/19/17 08:00 10/19/17 07:59 09/21/17 19:20 3 ML Ioversol (Optiray 320) 100 ml UD PRN IV 09/19/17 10:45 09/23/17 10:44 Midodrine (Proamatine Tab) 10 mg Q8 PO 09/19/17 14:00 10/19/17 13:59 Future hold 09/21/17 13:19 10 MG Furosemide (Lasix Tab) 20 mg BIDM PO 09/19/17 16:30 10/19/17 16:29 Future Hold Insulin Aspart (novoLOG ASPART) SLIDING SCALE Q6H SC 09/19/17 12:00 10/19/17 11:59 Glucose (Glucose 40% Gel) 15-30 GRAMS 15 GRAMS... UD PRN PO 09/19/17 12:30 10/19/17 12:29 Glucose (Glucose Chew Tab) 4-8 Tablets 4 Tabl... UD PRN PO 09/19/17 12:30 10/19/17 12:29 Dextrose (Dextrose 50% 50ML Syringe) 25-50ML 25ML FOR ... UD PRN IV 09/19/17 12:30 10/19/17 12:29 Glucagon (Glucagon Inj) 1 mg UD PRN IM 09/19/17 12:30 10/19/17 12:29 Carbohydrates (Carbohydrates For Hypoglycemia) 15-30 GRAMS 15 grams if BSG 54-69... UD PRN PO 09/19/17 12:30 10/19/17 12:29 Acetaminophen 100 ml @ 400 mls/hr Q8 IV 09/20/17 12:00 10/20/17 11:59 09/21/17 13:16 400 MLS/HR Ketorolac Tromethamine (Toradol Inj) 15 mg Q6H IV. 09/20/17 16:00 09/25/17 09:59 09/21/17 15:29 15 MG Pantoprazole Sodium 40 mg/ Syringe 10 ml @ 5 mls/min BID IV 09/20/17 21:00 09/27/17 09:01 09/21/17 20:12 5 MLS/MIN Lidocaine (Lidoderm Patch 5%) 1 patch Q24H PRN TD 09/20/17 10:30 10/20/17 10:29 09/21/17 12:25 1 PATCH Pantoprazole Sodium 40 mg/ Syringe 10 ml @ 5 mls/min DAILY IV 09/28/17 09:00 10/28/17 08:59 Aspirin (Aspirin Chew) 81 mg DAILY@1400 JT 09/20/17 14:00 10/20/17 13:59 09/21/17 13:20 81 MG Miscellaneous (Remove Lidoderm Patch) 1 ea Q12H PRN N/A 09/20/17 12:00 10/20/17 11:59 Buspirone HCl (Buspar Tab) 7.5 mg TID JT 09/20/17 14:00 10/20/17 13:59 09/21/17 20:12 7.5 MG Clonazepam (Klonopin Tab) 0.5 mg TID PO 09/20/17 14:00 10/20/17 13:59 09/21/17 20:14 0.5 MG Oxycodone HCl (Roxicodone Immediate Rel Tab) `1-2 tabs for pain 1 tab ... Q6H PRN PO 09/20/17 15:15 10/04/17 15:14 09/21/17 20:11 5 MG Enteral Nutritional Formula (Peptamen 1.5) 1,000 ml UD PRN JT 09/21/17 08:45 10/21/17 08:44 09/21/17 10:29 1,000 ML Atorvastatin Calcium (Lipitor Tab) 10 mg QAM PO 09/21/17 14:00 10/21/17 13:59 09/21/17 13:20 10 MG Metoprolol Tartrate (Lopressor Tab) 12.5 mg BID JT 09/21/17 11:30 10/21/17 11:29 09/21/17 20:13 12.5 MG Docusate Sodium (coLACE SYRUP) 100 mg HS JT 09/21/17 21:00 10/21/17 20:59 09/21/17 20:12 100 MG Senna (Senokot Syrup) 8.8 mg QAM PO 09/22/17 09:00 10/22/17 08:59 Acetylcysteine (Mucomyst 20% Inh Soln) 3 ml BIDR INH 09/21/17 20:00 10/21/17 19:59 09/21/17 19:20 3 ML Objective Vital Signs Date Time Temp Pulse Resp B/P (MAP) Pulse Ox O2 Delivery O2 Flow Rate FiO2 09/21/17 19:20 101 22 99 Trach Collar 12.0 70 09/21/17 18:00 94 20 110/65 (80) 98 Trach Collar 70 09/21/17 16:00 36.8 100 21 100/54 (69) 92 Trach Collar 50 09/21/17 16:00 Trach Collar 50 09/21/17 15:32 50 09/21/17 14:53 60 09/21/17 14:29 91 19 118/67 (84) 99 Mechanical Ventilator 100 09/21/17 14:27 88 19 104/62 (76) 99 Mechanical Ventilator 100 09/21/17 14:24 88 16 110/61 (77) 99 Mechanical Ventilator 100 09/21/17 14:23 87 23 105/60 (75) 98 Mechanical Ventilator 100 09/21/17 14:21 87 19 100/54 (69) 98 Mechanical Ventilator 100 09/21/17 14:00 85 26 107/54 (71) 90 Trach Collar 12.0 40 18 12:00 Trach Collar 12.0 50 09/21/17 12:00 36.6 100 18 113/57 (75) 98 Trach Collar 12.0 40 18 11:17 96 20 97 Trach Collar 12.0 50 18 10:51 97 24 98 09/21/17 10:00 105 33 110/57 (74) 100 12.0 40 18 08:58 104 94 09/21/17 08:14 109 31 122/58 (79) 92 Trach Collar 12.0 50 09/21/17 08:12 105 26 111/51 (71) 92 Trach Collar 12.0 50 09/21/17 08:00 36.8 106 28 104/79 (87) 92 Trach Collar 12.0 50 09/21/17 08:00 Trach Collar 12.0 50 09/21/17 07:00 104 20 96 Mechanical Ventilator 40 09/21/17 06:04 50 09/21/17 06:01 108 22 115/66 (92) 95 09/21/17 05:01 106 20 107/47 (76) 95 09/21/17 04:01 109 19 117/60 (87) 94 09/21/17 04:00 96 Mechanical Ventilator 50 09/21/17 04:00 36.5 09/21/17 03:01 107 17 116/57 (81) 95 09/21/17 02:01 92 24 94/64 (77) 90 09/21/17 02:00 50 09/21/17 01:01 99 21 120/58 (83) 98 09/21/17 00:01 36.5 09/20/17 23:59 91 Trach Collar 12.0 40 09/20/17 23:01 101 21 100/55 (78) 91 09/20/17 22:01 105 25 104/55 (82) 91 09/20/17 21:01 123 25 98/67 (77) 90 Physical Exam General Appearance: WD/WN, no apparent distress Eyes: normal inspection, sclerae normal ENT: normal ENT inspection, pharynx normal Neck: supple, no adenopathy, thyroid normal, trachea midline Respiratory/Chest: + rales, + rhonchi, + pertinent finding (Chest wall tenderness) Cardiovascular: regular rate, rhythm, no gallop, no murmur Abdomen: normal bowel sounds, non tender, soft, no organomegaly Extremities: non-tender, no calf tenderness Neurologic/Psychiatric: alert, oriented x 3 Skin: normal color, warm/dry, no rash Lymphatic: no adenopathy Laboratory Results RUN DATE: 09/21/17 [facility] LAB PAGE 1 RUN TIME: 1359 Specimen Inquiry PATIENT: MCKENZIE STYLES LOC: [facility] U # : [id number] AGE/SX: 72/M ROOM: E107 REG : 09/19/[address]: Sri Jara DO : 1945 BED: 1 DIS : STATUS: ADM IN TLOC: SPEC #: [id number] PHILIP: 09/19/17 STATUS: COMP REQ #: [id number] RECD: 09/19/17-[address]: Ike Haas PA-C SOURCE: [facility] WASH ENTR: 09/19/17-151 [facility] DR: Vikram Singh MD [facility]: RT LOW LOB Nilay Samayoa M.D. Pasquariello, Rick D M.D. Ramondelli, Salvatore, M.D. Ratner, Jeffrey A., M.D. Du, Roselyn., MD Shippert, Wero W. , Hermann Azul,Alec Cobian MD ORDERED: CONNIE [facility] CUL/SM Procedure Result Verified Site GRAM STAIN Final 09/20/17-804 RESULT FEW EPITHELIAL CELLS MANY POLYS RARE YEAST BRONCH WASH CULTURE Final 09/21/17-3652 Organism 1 FAIZAN ALBICANS QUANITY FEW SENS NO SENSITIVITY TO FOLLOW NORMAL SCOTT NO NORMAL SCOTT Organism 2 YEAST NOT FAIZAN ALBICANS QUANITY RARE SENS NO SENSITIVITY TO FOLLOW END OF REPORT Last 24 Hours Test 09/20/17 23:27 09/21/17 04:19 09/21/17 05:50 09/21/17 13:01 Bedside Glucose 106 mg/dl 96 mg/dl White Blood Count 13.33 K/uL Red Blood Count 3.10 M/uL Hemoglobin 8.1 g/dL Hematocrit 26.8 % Mean Corpuscular Volume 86.5 fL Mean Corpuscular Hemoglobin 26.1 pg Mean Corpuscular Hemoglobin Concent 30.2 g/dl Platelet Count 291 K/uL Mean Platelet Volume 9.7 fL Neutrophils (%) (Auto) 82.8 % Lymphocytes (%) (Auto) 4.0 % Monocytes (%) (Auto) 11.3 % Eosinophils (%) (Auto) 1.2 % Basophils (%) (Auto) 0.2 % Neutrophils # (Auto) 11.04 K/uL Lymphocytes # (Auto) 0.53 K/uL Monocytes # (Auto) 1.51 K/uL Eosinophils # (Auto) 0.16 K/uL Basophils # (Auto) 0.03 K/uL RDW Standard Deviation 54.4 fL RDW Coefficient of Variation 17.2 % Immature Granulocyte % (Auto) 0.5 % Immature Granulocyte # (Auto) 0.06 K/uL Red Blood Cell Morphology Unremarkable Sodium Level 137 mmol/L Potassium Level 4.0 mmol/L Chloride Level 102 mmol/L Carbon Dioxide Level 33 mmol/L Anion Gap 2.0 mmol/L Blood Urea Nitrogen 15 mg/dl Creatinine 0.54 mg/dl Est Creatinine Clear Calc Drug Dose 112.2 ml/min Estimated GFR () 123.3 Estimated GFR (Non- 106.4 BUN/Creatinine Ratio 27.3 Random Glucose 90 mg/dl Calcium Level 8.7 mg/dl Phosphorus Level 3.3 mg/dl Magnesium Level 2.0 mg/dl Total Bilirubin 0.6 mg/dl Direct Bilirubin 0.2 mg/dl Aspartate Amino Transf (AST/SGOT) 31 U/L Alanine Aminotransferase (ALT/SGPT) 37 U/L Alkaline Phosphatase 83 U/L Total Protein 6.2 gm/dl Albumin 2.2 gm/dl Blood Gas Sample Site R Radial Bedside Blood Gas pH (LAB) 7.37 Bedside Blood Gas pCO2 (LAB) 56 mmHg Bedside Blood Gas pO2 (LAB) 74 mmHg Bedside Blood Gas HCO3 (LAB) 32 meq/L Bedside Blood Gas Total CO2 34 mEq/l Bedside Blood Gas Base Excess (LAB) 7.0 meq/L Bedside Blood Gas O2 Saturation 94.0 % Kota Test Pass Oxygen Delivery Device Trach Col Bedside FiO2 48 % Patient Name: MCKENZIE STYLES Unit Number: [id number] Dictated: 09/21/17700 Transcribed: 09/21/17700 TERE Printed Date/Time: [~ rep prt dt]/[~ rep prt tm] [~ rep ct labl] - [~ rep ct ivnm] [facility] Radiology Department [place], [place] [id number] Dictated: 09/21/17700 Transcribed: 09/21/17700 TERE Printed Date/Time: [~ rep prt dt]/[~ rep prt tm] [~ rep ct labl] - [~ rep ct ivnm] [~ rep ct add3]] CHEST ONE VIEW PORTABLE HISTORY: 72 years-old Male resp arrest, asp PNA, broken ribs acute respiratory distress COMPARISON: Chest radiograph 09/20/2017 TECHNIQUE: Portable AP view of the chest FINDINGS: Cardiac silhouette is within the upper limits of normal in size, unchanged. Tracheostomy cannula overlying the midline appears unchanged in positioning. Small right pleural effusion has slightly increased in size. There is likely a trace pleural effusion also noted. There is mild pulmonary vascular congestion with development of mild interstitial coarsening. There are hazy bibasilar and right perihilar opacities without pneumothorax. Emphysematous changes redemonstrated. Chronic postsurgical or posttraumatic deformity about the medial left clavicle. Surgical is project over the mediastinum. Deformity involving right-sided ribs also noted. Degenerative changes of the shoulders and spine. IMPRESSION: 1. Mildly increased size of right pleural effusion with persistent bibasilar opacities. 2. Suggestion of mild pulmonary edema. 3. Emphysema. The above report was generated using voice recognition software. It may contain grammatical, syntax or spelling errors. Electronically signed by: Adiel Russell M.D. 09/21/2017 7:04 AM Dictated Date/Time: 09/21/2017 7:01 AM The status of this report is Signed. Draft = Not yet reviewed or approved by Radiologist. Signed = Reviewed and approved by Radiologist. <AttendingPhy>Alec Azul MD</AttendingPhy> <FamilyPhy></FamilyPhy> < PrimaryPhy>Nilay Samayoa M.D.</PrimaryPhy> <UnitNumber>[id number]</UnitNumber> <VisitNumber>[id number]</VisitNumber> <PatientName>MCKENZIE STYLES</ PatientName> <DateOfBirth>1945</DateOfBirth> <Location>C.MSICU</Location> <ServiceDate>09/18/17</ServiceDate> <MNE>ESINDI</MNE> <OrderingPhy>Roselyn Sandy MD </OrderingPhy> <OrderingPhyMNE>f rep ord dr bethea</OrderingPhyMNE> < DictatingPhyMNE>f rep dict dr bethea</DictatingPhyMNE> <CCListMNE>f rep ct mne</ CCListMNE> <AdmittingPhyMNE>f pt admit dr bethea</AdmittingPhyMNE> <AttendingPhyMNE >f pt attend dr bethea</AttendingPhyMNE> <ConsultingPhyMNE>f pt consult dr bethea</ConsultingPhyMNE> <FamilyPhyMNE>f pt fam dr bethea</FamilyPhyMNE> <OtherPhyMNE>f pt other dr bethea</OtherPhyMNE> < PrimaryPhyMNE>f pt prim care dr bethea</PrimaryPhyMNE> <ReferringPhyMNE>f pt referring dr bethea</ReferringPhyMNE> Assessment and Plan (1) Palliative care encounter Patient with a complex medical history and poor prognosis. We will continue to provide support to patient and with medical decision making (2) Aspiration pneumonia Status: Chronic Patient with recurrent aspiration of secretions, has been n.p.o., J-tube dependent. Patient also trach dependent (3) Cardiopulmonary arrest with successful resuscitation Status: Acute Patient with cracked ribs status post chest compressions, in addition to his weakness impacting his ability to cough and take deep breaths. 72-year-old male status post cardiac arrest with probable aspiration, previously treated for pseudomonal infection. Patient to continue on antibiotics for possible aspiration pneumonia, palliative care consultation and progress.
--- NOTE | 2017-09-21 22:07 | DIAGNOSTIC IMAGING REPORT ---
ULTRASOUND LEFT UPPER EXTREMITY VENOUS CLINICAL HISTORY: Left arm swelling. COMPARISON STUDY: No priors. TECHNIQUE: Real-time, grayscale, and color Doppler sonography of the deep veins of the left upper extremity is performed. Compression and augmentation were utilized. Several vessels were difficult to visualize. FINDINGS: There is no sonographic evidence of deep venous thrombosis identified in the left upper extremity. The left internal jugular, axillary, and brachial veins are patent and normally compressible. Normal venous waveforms and augmentation are seen within the left subclavian vein. The cephalic and basilic veins are clear. The visualized radial and ulnar veins are patent. Soft tissue edema is present in the left arm. IMPRESSION: There is no sonographic evidence of deep venous thrombosis identified in the left upper extremity. Electronically signed by: Ike Gregorio M.D. 09/21/2017 10:05 PM Dictated Date/Time: 09/21/2017 10:05 PM
[2017-09-22] VITALS (27 sets, daily range): BP systolic 64–127; BP diastolic 53–72; PULSE 86–115; TEMP 36.5–36.7; O2SAT 82–98
[2017-09-22] MEDS: KETOROLAC TROMETHAMINE 15 MG/ML VIAL IV. SCH ×4 (03:47→21:03)
[2017-09-22 05:14] LABS: BASO % 0.1 %; BASO ABS # 0.01 K/uL (0-0.2); EOS % 1.7 %; EOS ABS # 0.18 K/uL (0-0.5); HEMOGLOBIN 7.6 g/dL (14.0-18.0); IG# 0.04 K/uL (0.00-0.02); LYMPH % 4.3 %; LYMPH ABS # 0.45 K/uL (1.2-3.4); MEAN CELL VOLUME 87.1 fL (80-100); MEAN CORPUSCULAR HEMOGLOBIN 26.5 pg (25-34); MEAN CORPUSCULAR HGB CONC 30.4 g/dl (32-36); MEAN PLATELET VOLUME 9.8 fL (7.4-10.4); MONO % 9.9 %; MONO ABS # 1.04 K/uL (0.11-0.59); NEUT % 83.6 %; NEUT ABS # 8.75 K/uL (1.4-6.5); PLATELET COUNT 284 K/uL (130-400); RED CELL DISTRIBUTION WIDTH CV 17.3 % (11.5-14.5); RED CELL DISTRIBUTION WIDTH SD 55.2 fL (36.4-46.3); WHITE BLOOD COUNT 10.47 K/uL (4.8-10.8)
[2017-09-22 05:43] LABS: ALBUMIN 2.1 gm/dl (3.4-5.0); CALCIUM 8.8 mg/dl (8.5-10.1); CREATININE 0.51 mg/dl (0.60-1.40); PHOSPHORUS 3.2 mg/dl (2.5-4.9); POTASSIUM 3.9 mmol/L (3.5-5.1); TOTAL PROTEIN 5.9 gm/dl (6.4-8.2)
[2017-09-22] MEDS: ACETAMINOPHEN IV 1000MG/100ML IV SCH ×3 (05:58→21:02)
[2017-09-22] MEDS: INSULIN ASPART 100 UNITS/ML 3 ML PEN SC SCH ×4 (06:00→18:00)
[2017-09-22] MEDS: MIDODRINE 10 MG TAB PO SCH ×3 (06:00→21:03)
[2017-09-22] MEDS: LORAZEPAM 2 MG/ML 1 ML VIAL IV PRN ×3 (06:50→21:07)
[2017-09-22] MEDS: ALBUT/IPRATROP 3MG/0.5MG NEB 3 ML VIAL INH SCH ×4 (07:07→19:16)
[2017-09-22] MEDS: ACETYLCYSTEINE 20% INHAL SOLN ***DISPENSED BY RESP. INH SCH ×2 (07:07→19:21)
[2017-09-22] MEDS: PANTOprazole INJ 40 MG in SYRINGE 0 ML IV SCH ×2 (08:31→21:01)
[2017-09-22] MEDS: HEPARIN SOD 5000 UNIT/0.5 ML CARP SQ SCH ×2 (08:32→21:06)
[2017-09-22] MEDS: ATORVASTATIN 10 MG TAB PO SCH (08:34)
[2017-09-22] MEDS: METOPROLOL TARTRATE 25 MG TAB JT SCH ×2 (08:35→21:04)
[2017-09-22] MEDS: OXYCODONE HCL IR 5 MG TAB (IMMEDIATE RELEASE) PO PRN (08:40)
[2017-09-22] MEDS: CLONAZEPAM 0.5 MG TAB PO SCH ×3 (08:40→21:01)
[2017-09-22] MEDS: LIDODERM (LIDOCAINE) PATCH 5% TD PRN (08:43)
--- NOTE | 2017-09-22 08:44 | DIAGNOSTIC IMAGING REPORT ---
CHEST ONE VIEW PORTABLE CLINICAL HISTORY: 72 years-old Male presenting with Hypoxic respiratory failure, mucoid impaction. TECHNIQUE: Portable upright AP view of the chest was obtained. COMPARISON: 09/21/2017. FINDINGS: Tracheostomy tube projects over the upper thoracic trachea. Surgical clips noted in the mediastinum. Atherosclerosis of the aortic arch. Cardiac silhouette moderately enlarged, unchanged. Pulmonary vascular prominence. Interval increase in right mid to basilar opacity with a moderate to large pleural effusion on the right, which may be loculated. Increased density of the mid to basilar left lung. A layering left pleural effusion may be present. No large pneumothorax. Osseous structures normal. Partially visualized aortic endograft stent in the abdomen. 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 IMPRESSION: 1. Significant interval increase in the now moderate to large right pleural effusion with extensive right lung consolidation/atelectasis. 2. Cardiomegaly with volume overload. 3. Density in the left lung could suggest pulmonary edema, aspiration, or consolidation. Electronically signed by: Niranjan Vyas M.D. 09/22/2017 8:43 AM Dictated Date/Time: 09/22/2017 8:40 AM
[2017-09-22 08:48] LABS: RETIC COUNT % 2.9 % (0.5-2.0)
[2017-09-22] MEDS: SENNA 8.8 MG/5 ML UDP PO SCH (09:00)
[2017-09-22] MEDS ORDERED: NORMOSOL R 1,000 ML IV SCH (09:00)
[2017-09-22] MEDS ORDERED: MIDAZOLAM HCL 1 MG/ML 2ML VIAL IV STA (10:24)
[2017-09-22] MEDS ORDERED: MIDAZOLAM HCL 1 MG/ML 2ML VIAL ONE (10:25)
[2017-09-22] MEDS ORDERED: FENTANYL CITRATE INJ 50 MCG/1 ML 2 ML VIAL IV ONE (10:30)
--- NOTE | 2017-09-22 11:20 | Procedure Note ---
Procedure Note Date of Service September 22, 2017. Procedure Note Procedure date: September 22, 2017 Procedure: fiberoptic bronchoscopy Pre-procedure Diagnosis: Right lower lobe collapse Post-procedure Diagnosis: same as above Prior to Procedure: Informed Consent: The risks, benefits, indications, potential complications, and alternatives were explained to the patient/family and informed consent obtained. Attending Staff: Samir Matos DO Resident/APC: Beverly Skin Prep: Not applicable Anesthesia: 2 mg Versed, 50 mcg fentanyl Indications: Patient has right lower lobe collapse on chest x-ray and increasing oxygen requirements for chronic hypoxic hypercarbic respiratory failure. The identity of the patient was confirmed and a bedside time out was performed. Description of Procedure: Fiberoptic bronchoscopy was performed via endotracheal tube. Bronchioalveolar lavage right middle and lower lobes were performed. Findings included: Decreased amount of secretion in the right middle and right lower lobes after extensive suctioning. 5 ML's of Mucomyst with 5 mL' s of normal saline was instilled evaluation of the left lingular lobe did not demonstrate any mucoid impaction Complications: None Specimens: None Estimated blood loss: Zero
[2017-09-22] MEDS ORDERED: OPTIRAY 320 IV PRN (13:00)
--- NOTE | 2017-09-22 13:27 | Progress Note ---
Subjective Date of Service: September 22, 2017. Subjective Pt evaluation today including: conversation w/ patient, conversation w/ [employer] payroll consultant Pt is comfortable. He had another bronch today. Still SOB at times. Has occasionally nausea w/o emesis. Some abd pain. No chest pain. Pt denies fever, c /d, LE pain or swelling. Problem List Medical Problems: (1) Aspiration pneumonia Status: Chronic (2) Cardiac arrest Status: Acute (3) Cardiopulmonary arrest with successful resuscitation Status: Acute (4) Elevated troponin Status: Acute (5) Pneumonia Status: Acute (6) Renal failure Status: Acute (7) Respiratory failure Status: Acute Review of Systems All Other Systems: Reviewed and Negative Objective Vital Signs Date Time Temp Pulse Resp B/P (MAP) Pulse Ox O2 Delivery O2 Flow Rate FiO2 09/22/17 11:20 105 20 113/61 94 Mechanical Ventilator 50 09/22/17 11:15 106 16 114/62 94 Mechanical Ventilator 50 09/22/17 11:10 50 09/22/17 11:10 107 20 117/64 98 Mechanical Ventilator 09/22/17 11:05 107 17 119/66 98 Mechanical Ventilator 50 09/22/17 11:05 107 17 111/63 98 Mechanical Ventilator 100 09/22/17 11:00 105 18 111/63 95 Mechanical Ventilator 100 Trach Collar 09/22/17 10:55 102 13 103/58 98 Mechanical Ventilator 100 09/22/17 10:50 103 10 99/56 98 Mechanical Ventilator 100 Trach Collar 09/22/17 10:45 101 102/55 98 Mechanical Ventilator 100 Trach Collar 09/22/17 10:45 104 20 96 09/22/17 07:11 104 32 82 Trach Collar 50 09/22/17 06:00 98 22 103/57 (72) 97 09/22/17 04:00 97 Trach Collar 12.0 50 09/22/17 04:00 94 18 106/58 (74) 96 Trach Collar 50 09/22/17 03:00 94 22 106/57 (73) 96 Trach Collar 50 09/22/17 02:00 91 21 64/53 (57) 97 Trach Collar 50 09/22/17 01:00 97 17 105/56 (72) 97 09/22/17 00:00 36.5 90 16 104/57 (73) 97 Trach Collar 50 09/21/17 23:59 99 Trach Collar 12.0 50 09/21/17 22:00 87 20 103/59 (74) 95 Trach Collar 50 09/21/17 20:00 Trach Collar 50 09/21/17 20:00 36.9 105 23 102/64 (77) 94 Trach Collar 50 09/21/17 19:20 101 22 99 Trach Collar 12.0 70 09/21/17 18:00 94 20 110/65 (80) 98 Trach Collar 70 09/21/17 16:00 36.8 100 21 100/54 (69) 92 Trach Collar 50 09/21/17 16:00 Trach Collar 50 09/21/17 15:32 50 09/21/17 14:53 60 09/21/17 14:29 91 19 118/67 (84) 99 Mechanical Ventilator 100 09/21/17 14:27 88 19 104/62 (76) 99 Mechanical Ventilator 100 09/21/17 14:24 88 16 110/61 (77) 99 Mechanical Ventilator 100 09/21/17 14:23 87 23 105/60 (75) 98 Mechanical Ventilator 100 09/21/17 14:21 87 19 100/54 (69) 98 Mechanical Ventilator 100 09/21/17 14:00 85 26 107/54 (71) 90 Trach Collar 12.0 40 Physical Exam Comments: General Appearance: WD/WN, no apparent distress Eyes: normal inspection, sclerae normal Respiratory/Chest: normal breath sounds, no respiratory distress Cardiovascular: regular rate, rhythm, no edema Abdomen: TTP, soft Extremities: non-tender, no pedal edema Neurologic/Psychiatric: alert, answering questions Skin: normal color, warm/dry Laboratory Results Last 24 Hours Test 09/21/17 17:42 09/22/17 00:01 09/22/17 04:42 09/22/17 06:02 Bedside Glucose 94 mg/dl 112 mg/dl 112 mg/dl White Blood Count 10.47 K/uL Red Blood Count 2.87 M/uL Hemoglobin 7.6 g/dL Hematocrit 25.0 % Mean Corpuscular Volume 87.1 fL Mean Corpuscular Hemoglobin 26.5 pg Mean Corpuscular Hemoglobin Concent 30.4 g/dl Platelet Count 284 K/uL Mean Platelet Volume 9.8 fL Neutrophils (%) (Auto) 83.6 % Lymphocytes (%) (Auto) 4.3 % Monocytes (%) (Auto) 9.9 % Eosinophils (%) (Auto) 1.7 % Basophils (%) (Auto) 0.1 % Neutrophils # (Auto) 8.75 K/uL Lymphocytes # (Auto) 0.45 K/uL Monocytes # (Auto) 1.04 K/uL Eosinophils # (Auto) 0.18 K/uL Basophils # (Auto) 0.01 K/uL RDW Standard Deviation 55.2 fL RDW Coefficient of Variation 17.3 % Immature Granulocyte % (Auto) 0.4 % Immature Granulocyte # (Auto) 0.04 K/uL Red Blood Cell Morphology Unremarkable Absolute Reticulocyte Count 0.08 10^6/uL Percent Reticulocyte Count 2.9 % Sodium Level 139 mmol/L Potassium Level 3.9 mmol/L Chloride Level 101 mmol/L Carbon Dioxide Level 35 mmol/L Anion Gap 3.0 mmol/L Blood Urea Nitrogen 13 mg/dl Creatinine 0.51 mg/dl Est Creatinine Clear Calc Drug Dose 120.7 ml/min Estimated GFR () 126.2 Estimated GFR (Non- 108.9 BUN/Creatinine Ratio 26.5 Random Glucose 86 mg/dl Calcium Level 8.8 mg/dl Phosphorus Level 3.2 mg/dl Magnesium Level 1.9 mg/dl Total Bilirubin 0.5 mg/dl Direct Bilirubin 0.2 mg/dl Aspartate Amino Transf (AST/SGOT) 24 U/L Alanine Aminotransferase (ALT/SGPT) 28 U/L Alkaline Phosphatase 82 U/L Total Protein 5.9 gm/dl Albumin 2.1 gm/dl Assessment and Plan Complicated 72yo male with: 1. shock, likely septic - from right-sided pneumonia - pressors have been discontinued, leukocytosis resolving, and he overall has improved. Defer abx selection to ID and critical care- plan is for imipenem alone along with tobramycin nebs BID due to previous history of pseudomonas; thus far all cultures including bronch cultures are negative. Bronch on 09/19 and repeated on 09/21 ECHO without evidence of cardiogenic component contributing to shock. No evidence of SBE. No evidence of adrenal shock. Could have had hemorrhage as his H/H had dropped considerably from admission ( 12 down to low 8's). Fecal occult pending 2. s/p cardiac arrest - likely hypoxia-induced as there was a report that copious secretions/tube feedings were suctioned from his trach during the code. He had chest compressions for 5-10 minutes with successful adventism of spontaneous circulation. He has a mild troponin elevation likely due to his arrest and #1 above. Doubt he had a true ACS. Echo w/ preserved LV function. Continues to do well from a mental status standpoint as well as neurological standpoint with no apparent deficits per report, pt is sedated on my exam s/p fentanyl today 3. acute hypoxic/hypercarbic respiratory failure likely 2nd to right-sided pneumonia - strong suspicion that the pneumonia was due to aspiration. He is s/p bronch 09/19 and again on 09/[address] [facility] indicate he had rhinovirus infection and pseudomonas, although no documentation found 4. j-tube obstruction - s/p dislodgement by general surgery; back on tube feedings w/ peptamen; goal rate is 50cc/hr continuously. 5. right-sided pneumonia - aspiration vs gram negative in etiology. see above. 6. abdominal pain - mainly RUQ - has gallstones and presented with abnormal LFTs; HIDA neg for acute cholecystitis. pain could be gastric in origin vs referred pain from rib fractures. Toradol for pain control. Consider long-acting pain med?? Cont oxycodone prn as well. 7. hypomagnesemia - resolved. 8. hypophosphatemia - resolved. 9. positive troponin - due to cardiac arrest and/or myocardial demand ischemia in setting of shock. 10. ?acute blood loss anemia - serial H/H's showed drop from about Hb of 12 to low 8's and he seems to have plateaued. Check a fecal occult blood and cont PPI. If heme+ then GI consultation. 11. esophageal cancer with numerous complications in the past requiring various surgeries; he is s/p esophagectomy and ultimately underwent esophago- colonic anastomosis in 2015; Chronic anastomotic stricture and has received dilatations [id number] in the past per records - since all of his care is out of town in [place] the exact status of his cancer is unknown but there does not appear to be recurrence of cancer based on CT chest/ abd/pelvis this admission. 12. h/o T2DM - hemoglobin a1c is very low suggesting his DM has resolved, likely from weight loss due to #11 and malnutrition. 13. protein calorie malnutrition - severe - J-tube tube feedings have been resumed. 14. COPD - does not appear to be in exacerbation at this time. 15. h/o DVT - noted. Heparin for DVT proph cautiously in light of #10. 16. CAD - records suggest he had left main disease and other occlusions; he is s/p CABG in August 2014 at [facility]. He is typically on low- dose ASA, beta thomas, and statin. Latter being held due to abnormal LFTs. 17. hyponatremia - resolved with IVF. 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 19. tracheostomy status - placed 06/2017 at [facility]. 20. rhinovirus and pseudomonas pneumonia - 08/2017 at [facility] - bronch cultures thus far negative for such. 21. h/o AAA s/p repair in 2014 at [facility]. 22. b/l rib fractures - 2nd to chest compressions during recent cardiac arrest - pain control. 23. abnormal left upper chest wall / cavity - due to surgery in 2014 that involved partial resection of first rib, clavicle, and manubrium. 24. large skin tear on chest - presumably due to recent chest compressions - wound care team consulted for management. has follow-up with thoracic surgery at [facility] October 10, 2017 per records dispo - per sign out, prefers home or rehab vs LTAC PT/OT recs for LTAC Recs for LTAC. is uncertain about this and wanting pt kept here for a few more days. Per drill operator pneumatic, she is having a hard time accepting pt's prognosis and is in denial regarding his current health issues. TWYLA is working with for ongoing pt care needs and plans moving forward. Continued [facility] stay due to: abnormal vital signs, inadequate oral pain control , voiding difficulties, ambulation difficulties, multiple IV medications needed Discharge planning: uncertain
--- NOTE | 2017-09-22 14:18 | Critical Care Progress Note ---
Critical Care Progress Note Date of Service September 22, 2017. ICU Day ICU Day Number: [address] Matos Subjective Patient condition is stable today, no overnight event, will receive bronchoscopy today. Objective GENERAL : No acute distress. EYES: No icterus, gaze conjugate NOSE: No evidence of epistaxis MOUTH: No lesions or candidiasis. Mucosa moist NECK: Supple. Tracheostomy tube in place. No drainage noted to drainage pads LUNGS: Increased rhonchi all lung allen. No appreciation of bronchospasm HEART: Regular, rate controlled ABDOMEN: Soft, NT, ND, BS Present. EXTREMITIES: Bilateral LE edema, pedal pulses intact and equal. Feet warm. Left upper extremity edema but with good radial pulse and capillary refill NEURO: A&OX3 Assessment & Plan This is a 72-year-old male that was admitted to the intensive care unit 09/19/2017 for acute hypoxic respiratory rest leading to cardiac arrest. He has a history of recurrent Pseudomonas. Respiratory cultures were reviewed from [facility] and showed pansensitive Pseudomonas. Patient is being followed by Dr. Singh from infectious disease while inpatient. The patient 's is very active in his care. NEURO -Patient alert and oriented 3 -CAM negative -No focal deficits -Watch for focal changes secondary to increase of pain medications -Percocet discontinued -change to oxycodone -Continue [id number] scheduled Tylenol as well as [id number] scheduled Toradol -LFTs within normal range -Continue K pad CARDIO -Troponin trending downward -elevated secondary to hypoxic driven cardiac arrest -Echocardiogram completed with LVEF of 55-60%. Also with moderate aortic stenosis with mild aortic regurgitation -Patient has not required pressors for greater than 24 hours -Continue to monitor on telemetry -Home meds--- furosemide 20 mg p.o. twice daily, Lipitor 20 mg p.o. daily, aspirin 81 mg daily, Lopressor 25 mg p.o. twice daily, Midrin 10 mg TID -Continuing metoprolol 12.5 mg twice daily -Continuing Lipitor at 10 mg daily, will follow-up LFTs PULMONARY -Acute pulmonary process unlikely--Chronically colonized with pseudomonas Status post bronchoscopy 09/19/2017 with copious amounts of mucopurulent secretions evacuated with bronchial lavage:Initial bronc washings show scant normal deja, Laboratory analysis of bronchial washings with no acute infection , Bronchial washings with severe acute pneumonitis. -Repeat therapeutic bronchoscopy--09/21, 09/22 -Patient initially started on ciprofloxacin IV, tobramycin IV, vancomycin IV, and Primaxin IV, all discontinued--no acute process -Continue bronchodilator, vibration bed module, incentive spirometry -Pneumatic vest not an option secondary to rib fractures -Bedside ultrasound with no significant pleural effusion RENAL -Renal function stable -Trend serial labs NUTRITION -Jejunal tube management per surgery -Nutrition consult placed -Tube feeds per nutrition HEME -Hemoglobin stable at 7.6 -Ordered reticulocyte count, repeat H/H -Type and screen with possible plan to transfuse one unit of blood -Receiving consent for possible blood transfusion ID -Chronic colonization of pseudomonas, no acute process -ID consulted and following -appreciate Dr. Singh's input -Blood cultures negative for growth 2 -Urine culture with less than 1000 colonies -MRSA screening negative by DNA probe -Sputum culture from tube secretions is light normal deja -Cultures from bronchial washings completed 09/19/2017 negative -Discontinued all antibiotics yesterday and following the patient clinically GI -History of esophageal carcinoma -Tube feeds per nutritional consult -Continue pantoprazole -Jejunal tube in place without obstruction per KUB with contrast this morning -Transaminitis: Resolved--History of nonalcoholic steatohepatitis IV ACCESS -Peripheral IVs in place -Right femoral triple-lumen had been placed in the emergency department - discontinued 09/20/2017 ENDOCRINE -No history of diabetes mellitus or chronic insulin use -Hyperglycemia -Hyperglycemia protocol with BSG's -Continue NovoLog sliding scale insulin -No history of hypothyroidism -Most recent TSH from 06/18/2015 was 1.4 DVT PROPHYLAXIS -Heparin 5000 units subcu every [address] Paul was resident physician during care of patient. I separately evaluated patient and did history and exam. I discussed the case with the resident and generally agree with the findings and plan. Reviewed CTA of the chest as well as radiology report. Clinically the patient continues to have mucoid impaction of the lungs in the areas noted on the CT scan, there was less impaction noted today on bronchoscopy, these impactions appear to be baseline secretions they are not purulent in any fashion at this time. With regard to the right upper lobe findings he did have some secretions that were suctioned out of there, with regards to the differential possible organizing pneumonia, I feel this is much lower on the differential. The patient does appear to have chronic anatomic changes, certainly with his surgical history and manipulation of his chest wall I would anticipate anatomic changes, additionally when the mucoid impaction is removed the superficial tissues are more friable which is most likely product support representative of chronic impaction, however they do not appear to be very friable which would lead me to more of a believe of a simultaneous infection. Admittedly, chronic impaction does increase the risk for subsequent infection as well as postobstructive infection. The patient now appears to be at his baseline. I have discussed the case with Dr. Bowman as well as Dr. Jara. Patient may require intermittent ventilatory assistance, possibly overnight as well as may continue to require intermittent bronchoscopies. Again the patient would most benefit from intensive pulmonary rehab, I discussed this with case management as well as Dr. Bowman and that is the general planning at this time is for transfer to LTAC facility that can engage in that level of care. Patient does have an elevated reticulocyte count, repeat H&H is elevated I suspect the morning lab was spurious, he does not need blood transfusion at this time, stool occult still pending. Patient is stable for downgrade to telemetry status at this point. Consults & Procedures Consultants: General surgery -Dr. Casanova Pulmonary -Dr. Bowman Wound care nurse -Yokasta Gibbs RNmanaged care director medicine -Dr. Matos Procedures: Right femoral triple-lumen catheter; placed in the ED 09/19/2017; removed 2017 Fiberoptic bronchoscopy 09/19/2017 Echocardiogram 09/19/2017 Data Medications: Current Inpatient Medications Medications (Trade) Dose Ordered Sig/Madalyn Route Start Time Stop Time Status Last Admin Dose Admin Heparin Sodium (Porcine) (Heparin Sq 5000 Unit/0.5ml) 5,000 unit Q12H SQ 09/19/17 09:00 10/19/17 08:59 09/22/17 08:32 5,000 UNIT Acetaminophen (Tylenol Tab) 650 mg Q4H PRN PO 09/19/17 01:45 10/19/17 01:44 Fentanyl Citrate (Fentanyl Inj) 12.5 mcg Q1H PRN IV 09/19/17 01:45 10/03/17 01:44 09/21/17 14:35 100 MCG Lorazepam (Ativan Inj) 0.5 mg Q4H PRN IV 09/19/17 01:45 10/19/17 01:44 09/22/17 13:01 0.5 MG Albuterol/ Ipratropium (Duoneb) 3 ml Q4RWA INH 09/19/17 08:00 10/19/17 07:59 09/22/17 11:20 3 ML Ioversol (Optiray 320) 100 ml UD PRN IV 09/19/17 10:45 09/23/17 10:44 Midodrine (Proamatine Tab) 10 mg Q8 PO 09/19/17 14:00 10/19/17 13:59 Future hold 09/22/17 06:00 10 MG Furosemide (Lasix Tab) 20 mg BIDM PO 09/19/17 16:30 10/19/17 16:29 Future Hold Insulin Aspart (novoLOG ASPART) SLIDING SCALE Q6H SC 09/19/17 12:00 10/19/17 11:59 Glucose (Glucose 40% Gel) 15-30 GRAMS 15 GRAMS... UD PRN PO 09/19/17 12:30 10/19/17 12:29 Glucose (Glucose Chew Tab) 4-8 Tablets 4 Tabl... UD PRN PO 09/19/17 12:30 10/19/17 12:29 Dextrose (Dextrose 50% 50ML Syringe) 25-50ML 25ML FOR ... UD PRN IV 09/19/17 12:30 10/19/17 12:29 Glucagon (Glucagon Inj) 1 mg UD PRN IM 09/19/17 12:30 10/19/17 12:29 Carbohydrates (Carbohydrates For Hypoglycemia) 15-30 GRAMS 15 grams if BSG 54-69... UD PRN PO 09/19/17 12:30 10/19/17 12:29 Acetaminophen 100 ml @ 400 mls/hr Q8 IV 09/20/17 12:00 10/20/17 11:59 09/22/17 13:05 400 MLS/HR Ketorolac Tromethamine (Toradol Inj) 15 mg Q6H IV. 09/20/17 16:00 09/25/17 09:59 09/22/17 11:38 15 MG Pantoprazole Sodium 40 mg/ Syringe 10 ml @ 5 mls/min BID IV 09/20/17 21:00 09/27/17 09:01 09/22/17 08:31 5 MLS/MIN Lidocaine (Lidoderm Patch 5%) 1 patch Q24H PRN TD 09/20/17 10:30 10/20/17 10:29 09/22/17 08:43 1 PATCH Pantoprazole Sodium 40 mg/ Syringe 10 ml @ 5 mls/min DAILY IV 09/28/17 09:00 10/28/17 08:59 Aspirin (Aspirin Chew) 81 mg DAILY@1400 JT 09/20/17 14:00 10/20/17 13:59 09/21/17 13:20 81 MG Miscellaneous (Remove Lidoderm Patch) 1 ea Q12H PRN N/A 09/20/17 12:00 10/20/17 11:59 Buspirone HCl (Buspar Tab) 7.5 mg TID JT 09/20/17 14:00 10/20/17 13:59 09/22/17 08:34 7.5 MG Clonazepam (Klonopin Tab) 0.5 mg TID PO 09/20/17 14:00 10/20/17 13:59 09/22/17 08:40 0.5 MG Oxycodone HCl (Roxicodone Immediate Rel Tab) `1-2 tabs for pain 1 tab ... Q6H PRN PO 09/20/17 15:15 10/04/17 15:14 09/22/17 08:40 10 MG Enteral Nutritional Formula (Peptamen 1.5) 1,000 ml UD PRN JT 09/21/17 08:45 10/21/17 08:44 09/21/17 10:29 1,000 ML Atorvastatin Calcium (Lipitor Tab) 10 mg QAM PO 09/21/17 14:00 10/21/17 13:59 09/22/17 08:34 10 MG Metoprolol Tartrate (Lopressor Tab) 12.5 mg BID JT 09/21/17 11:30 10/21/17 11:29 09/22/17 08:35 12.5 MG Docusate Sodium (coLACE SYRUP) 100 mg HS JT 09/21/17 21:00 10/21/17 20:59 09/21/17 20:12 100 MG Senna (Senokot Syrup) 8.8 mg QAM PO 09/22/17 09:00 10/22/17 08:59 Acetylcysteine (Mucomyst 20% Inh Soln) 3 ml BIDR INH 09/21/17 20:00 10/21/17 19:59 09/22/17 07:07 3 ML Ioversol (Optiray 320) 100 ml UD PRN IV 09/22/17 13:00 09/26/17 12:59 Vital Signs: Date Time Temp Pulse Resp B/P (MAP) Pulse Ox O2 Delivery O2 Flow Rate FiO2 09/22/17 12:00 90 Mechanical Ventilator 50 09/22/17 11:20 105 20 113/61 94 Mechanical Ventilator 50 09/22/17 11:15 106 16 114/62 94 Mechanical Ventilator 50 09/22/17 11:10 50 09/22/17 11:10 107 20 117/64 98 Mechanical Ventilator 09/22/17 11:05 107 17 119/66 98 Mechanical Ventilator 50 09/22/17 11:05 107 17 111/63 98 Mechanical Ventilator 100 09/22/17 11:00 105 18 111/63 95 Mechanical Ventilator 100 Trach Collar 09/22/17 10:55 102 13 103/58 98 Mechanical Ventilator 100 09/22/17 10:50 103 10 99/56 98 Mechanical Ventilator 100 Trach Collar 09/22/17 10:45 101 102/55 98 Mechanical Ventilator 100 Trach Collar 09/22/17 10:45 104 20 96 09/22/17 08:00 97 Trach Collar 12.0 50 09/22/17 07:11 104 32 82 Trach Collar 50 09/22/17 06:00 98 22 103/57 (72) 97 09/22/17 04:00 97 Trach Collar 12.0 50 09/22/17 04:00 94 18 106/58 (74) 96 Trach Collar 50 09/22/17 03:00 94 22 106/57 (73) 96 Trach Collar 50 09/22/17 02:00 91 21 64/53 (57) 97 Trach Collar 50 09/22/17 01:00 97 17 105/56 (72) 97 09/22/17 00:00 36.5 90 16 104/57 (73) 97 Trach Collar 50 09/21/17 23:59 99 Trach Collar 12.0 50 09/21/17 22:00 87 20 103/59 (74) 95 Trach Collar 50 09/21/17 20:00 Trach Collar 50 09/21/17 20:00 36.9 105 23 102/64 (77) 94 Trach Collar 50 09/21/17 19:20 101 22 99 Trach Collar 12.0 70 09/21/17 18:00 94 20 110/65 (80) 98 Trach Collar 70 09/21/17 16:00 36.8 100 21 100/54 (69) 92 Trach Collar 50 09/21/17 16:00 Trach Collar 50 09/21/17 15:32 50 09/21/17 14:53 60 09/21/17 14:29 91 19 118/67 (84) 99 Mechanical Ventilator 100 09/21/17 14:27 88 19 104/62 (76) 99 Mechanical Ventilator 100 09/21/17 14:24 88 16 110/61 (77) 99 Mechanical Ventilator 100 09/21/17 14:23 87 23 105/60 (75) 98 Mechanical Ventilator 100 09/21/17 14:21 87 19 100/54 (69) 98 Mechanical Ventilator 100 09/21/17 14:00 85 26 107/54 (71) 90 Trach Collar 12.0 40 Laboratory Results: Last 24 Hours Test 09/21/17 17:42 09/22/17 00:01 09/22/17 04:42 09/22/17 06:02 Bedside Glucose 94 mg/dl 112 mg/dl 112 mg/dl White Blood Count 10.47 K/uL Red Blood Count 2.87 M/uL Hemoglobin 7.6 g/dL Hematocrit 25.0 % Mean Corpuscular Volume 87.1 fL Mean Corpuscular Hemoglobin 26.5 pg Mean Corpuscular Hemoglobin Concent 30.4 g/dl Platelet Count 284 K/uL Mean Platelet Volume 9.8 fL Neutrophils (%) (Auto) 83.6 % Lymphocytes (%) (Auto) 4.3 % Monocytes (%) (Auto) 9.9 % Eosinophils (%) (Auto) 1.7 % Basophils (%) (Auto) 0.1 % Neutrophils # (Auto) 8.75 K/uL Lymphocytes # (Auto) 0.45 K/uL Monocytes # (Auto) 1.04 K/uL Eosinophils # (Auto) 0.18 K/uL Basophils # (Auto) 0.01 K/uL RDW Standard Deviation 55.2 fL RDW Coefficient of Variation 17.3 % Immature Granulocyte % (Auto) 0.4 % Immature Granulocyte # (Auto) 0.04 K/uL Red Blood Cell Morphology Unremarkable Absolute Reticulocyte Count 0.08 10^6/uL Percent Reticulocyte Count 2.9 % Sodium Level 139 mmol/L Potassium Level 3.9 mmol/L Chloride Level 101 mmol/L Carbon Dioxide Level 35 mmol/L Anion Gap 3.0 mmol/L Blood Urea Nitrogen 13 mg/dl Creatinine 0.51 mg/dl Est Creatinine Clear Calc Drug Dose 120.7 ml/min Estimated GFR () 126.2 Estimated GFR (Non- 108.9 BUN/Creatinine Ratio 26.5 Random Glucose 86 mg/dl Calcium Level 8.8 mg/dl Phosphorus Level 3.2 mg/dl Magnesium Level 1.9 mg/dl Total Bilirubin 0.5 mg/dl Direct Bilirubin 0.2 mg/dl Aspartate Amino Transf (AST/SGOT) 24 U/L Alanine Aminotransferase (ALT/SGPT) 28 U/L Alkaline Phosphatase 82 U/L Total Protein 5.9 gm/dl Albumin 2.1 gm/dl
--- NOTE | 2017-09-22 14:31 | DIAGNOSTIC IMAGING REPORT ---
(CHEST FOR PE) ANGIO WITH CLINICAL HISTORY: 72 years-old Male presenting with ^hypoxia s/p bronch; Hx DVT, HX cancer, respiratory arrest. TECHNIQUE: Multidetector CT angiography of the chest was performed after administration of intravenous contrast. 3-D volumetric and/or maximum intensity projection (MIP) images were subsequently reconstructed for review. IV contrast: 94 mL of Optiray 320. A dose lowering technique was used consistent with the principles of ALARA (as low as reasonably achievable). COMPARISON: 09/19/2017. CT DOSE (mGy.cm): The estimated cumulative dose is 526.92 mGycm. FINDINGS: Process Technician topogram: Tracheostomy tube in place. Aortoiliac endograft stent. Pulmonary vasculature: The study is suboptimal for the assessment of the pulmonary vascular tree secondary to positioning of the arms at the sides. Allowing for limited image quality, no central filling defect to suggest pulmonary embolus. Main pulmonary artery is not enlarged. No flattening of the interventricular septum. No intracardiac filling defect. Reflux of contrast into the intrahepatic IVC. Remaining chest: On soft tissue windows, significant collateral vessels throughout the chest wall. A significant portion of the contrast is within these collateral vessels. This likely implies central venous stenosis. The left brachiocephalic vein is not opacified and may be occluded or severely stenotic. No axillary, supraclavicular, hilar, or mediastinal lymphadenopathy. Atherosclerosis of the aorta. Normal heart size. Coronary artery and aortic valve calcification. Trace bilateral pleural effusions. No pericardial effusion. Hypodensity in the liver likely hepatic cyst. Partially visualized aortic endograft stent. Postsurgical changes of esophagectomy and colonic bypass positioned in the anterior mediastinum. On lung windows, extensive dependent bilateral consolidation, which has increased since the prior exam in both lungs. Extensive peribronchovascular consolidation in the right upper lobe at the apex. Bronchiectasis also evident. Interval development of new patchy opacities, which likely represent superior extension from more solid consolidation. Mucous plugging evident in the right middle and lower lobe bronchi. Tracheostomy tube in place. On bone windows, degenerative changes of the spine. Multiple osseous deformities evident, some postsurgical or posttraumatic. IMPRESSION: 1. Allowing for suboptimal image quality, no evidence of pulmonary embolus. 2. Interval increase in extensive dependent consolidation affecting the bilateral lungs. There is prominent mucous plugging within the right middle and lower lobe bronchi. Findings suggest multifocal pneumonia, possibly aspiration pneumonia. 3. Peribronchovascular consolidation and bronchiectasis in the right apex consistent with chronic change, possibly organizing pneumonia. 4. Significant collateral chest wall vessels likely implies central venous stenosis. The left brachiocephalic vein is either occluded or severely stenotic. 5. Postsurgical changes of esophagectomy and colonic bypass. Electronically signed by: Niranjan Vyas M.D. 09/22/2017 2:29 PM Dictated Date/Time: 09/22/2017 2:18 PM
[2017-09-22 14:40] LABS: HEMATOCRIT 27.5 % (42-52); HEMOGLOBIN 8.4 g/dL (14.0-18.0)
--- NOTE | 2017-09-22 14:52 | PULMONARY PROGRESS NOTE ---
DATE: 09/22/2017 SUBJECTIVE: I had a lengthy discussion with Dr. Matos on 2 occasions concerning the meeting last evening that included Dr. Vivienne Pereira from palliative care and himself with the patient's , Sri Jerry. I know Sri who worked as a respiratory therapist at [facility] where I am a consultative staff. Dr. Matos feels that the patient should be sent to an LTAC of the family's choosing. Two facilities are being considered with one apparently in [place] voicing feedback that a bed is available today for transfer if the family decides to proceed. It was agreed on that [facility] perhaps was not the best facility currently for the patient given his status while he is not ventilator-dependent, he did present with an acute hypoxic bout of respiratory failure and cardiopulmonary arrest. As noted, the right lower lobe develops recurrent atelectasis from mucoid impaction and he has been prone to colonization with Pseudomonas in the past as well. ASSESSMENT AND PLAN: I am in agreement that an LTAC facility would make the most sense at this point in time, I do not believe he can go home and be cared for satisfactorily at this juncture. I have tried reaching Sri Jerry today by phone and will try again and will make myself available to visit with her when she visits with her today in the hospital. I did have the opportunity to speak with patient's . I explained that he is stable and in my opinion he had an hypoxic bout of respiratory failure the led to his arrest. The right lower lobe is chronically atelectatic and contributes to his issues. Most important issue was where he goes from here. She is in agreement that he needs to go to an LTAC facility perhaps in [place]. She was not happy with [facility] in [place] does not wish for him to go to [facility]. I suggested she according to self with [place] facility perhaps even visiting there. Her is a full code and we will do everything we can to try to precipitate his long-term recovery. I do not think inhaled RJA as needed anymore but Mucomyst as part of his nebulizer treatments may be helpful. I then spoke with Dr. Matos about our conversation and would keep patient through the weekend to be observed and make plans for possible transfer to the [facility] on Monday. RAUL
[2017-09-22] MEDS: ASPIRIN 81 MG CHEW JT SCH (16:23)
--- NOTE | 2017-09-22 19:32 | Infectious Disease Progress Nt ---
Progress Note Date of Service September 22, 2017. Subjective Pt evaluation today including: conversation w/ patient, physical exam, chart review, lab review, review of studies, conversation w/ system consultant, review of inpatient medication list No major problems overnight. Patient appears comfortable, remains afebrile. Now off antibiotics. All Other Systems: Reviewed and Negative Medications Current Inpatient Medications Medications (Trade) Dose Ordered Sig/Madalyn Route Start Time Stop Time Status Last Admin Dose Admin Heparin Sodium (Porcine) (Heparin Sq 5000 Unit/0.5ml) 5,000 unit Q12H SQ 09/19/17 09:00 10/19/17 08:59 09/22/17 08:32 5,000 UNIT Acetaminophen (Tylenol Tab) 650 mg Q4H PRN PO 09/19/17 01:45 10/19/17 01:44 Fentanyl Citrate (Fentanyl Inj) 12.5 mcg Q1H PRN IV 09/19/17 01:45 10/03/17 01:44 09/21/17 14:35 100 MCG Lorazepam (Ativan Inj) 0.5 mg Q4H PRN IV 09/19/17 01:45 10/19/17 01:44 09/22/17 13:01 0.5 MG Albuterol/ Ipratropium (Duoneb) 3 ml Q4RWA INH 09/19/17 08:00 10/19/17 07:59 09/22/17 19:16 3 ML Ioversol (Optiray 320) 100 ml UD PRN IV 09/19/17 10:45 09/23/17 10:44 Midodrine (Proamatine Tab) 10 mg Q8 PO 09/19/17 14:00 10/19/17 13:59 Future hold 09/22/17 16:24 10 MG Furosemide (Lasix Tab) 20 mg BIDM PO 09/19/17 16:30 10/19/17 16:29 Future Hold Insulin Aspart (novoLOG ASPART) SLIDING SCALE Q6H SC 09/19/17 12:00 10/19/17 11:59 Glucose (Glucose 40% Gel) 15-30 GRAMS 15 GRAMS... UD PRN PO 09/19/17 12:30 10/19/17 12:29 Glucose (Glucose Chew Tab) 4-8 Tablets 4 Tabl... UD PRN PO 09/19/17 12:30 10/19/17 12:29 Dextrose (Dextrose 50% 50ML Syringe) 25-50ML 25ML FOR ... UD PRN IV 09/19/17 12:30 10/19/17 12:29 Glucagon (Glucagon Inj) 1 mg UD PRN IM 09/19/17 12:30 10/19/17 12:29 Carbohydrates (Carbohydrates For Hypoglycemia) 15-30 GRAMS 15 grams if BSG 54-69... UD PRN PO 09/19/17 12:30 10/19/17 12:29 Acetaminophen 100 ml @ 400 mls/hr Q8 IV 09/20/17 12:00 10/20/17 11:59 09/22/17 13:05 400 MLS/HR Ketorolac Tromethamine (Toradol Inj) 15 mg Q6H IV. 09/20/17 16:00 09/25/17 09:59 09/22/17 16:27 15 MG Pantoprazole Sodium 40 mg/ Syringe 10 ml @ 5 mls/min BID IV 09/20/17 21:00 09/27/17 09:01 09/22/17 08:31 5 MLS/MIN Lidocaine (Lidoderm Patch 5%) 1 patch Q24H PRN TD 09/20/17 10:30 10/20/17 10:29 09/22/17 08:43 1 PATCH Pantoprazole Sodium 40 mg/ Syringe 10 ml @ 5 mls/min DAILY IV 09/28/17 09:00 10/28/17 08:59 Aspirin (Aspirin Chew) 81 mg DAILY@1400 JT 09/20/17 14:00 10/20/17 13:59 09/22/17 16:23 81 MG Miscellaneous (Remove Lidoderm Patch) 1 ea Q12H PRN N/A 09/20/17 12:00 10/20/17 11:59 Buspirone HCl (Buspar Tab) 7.5 mg TID JT 09/20/17 14:00 10/20/17 13:59 09/22/17 16:24 7.5 MG Clonazepam (Klonopin Tab) 0.5 mg TID PO 09/20/17 14:00 10/20/17 13:59 09/22/17 16:33 0.5 MG Oxycodone HCl (Roxicodone Immediate Rel Tab) `1-2 tabs for pain 1 tab ... Q6H PRN PO 09/20/17 15:15 10/04/17 15:14 09/22/17 08:40 10 MG Enteral Nutritional Formula (Peptamen 1.5) 1,000 ml UD PRN JT 09/21/17 08:45 10/21/17 08:44 09/21/17 10:29 1,000 ML Atorvastatin Calcium (Lipitor Tab) 10 mg QAM PO 09/21/17 14:00 10/21/17 13:59 09/22/17 08:34 10 MG Metoprolol Tartrate (Lopressor Tab) 12.5 mg BID JT 09/21/17 11:30 10/21/17 11:29 09/22/17 08:35 12.5 MG Docusate Sodium (coLACE SYRUP) 100 mg HS JT 09/21/17 21:00 10/21/17 20:59 09/21/17 20:12 100 MG Senna (Senokot Syrup) 8.8 mg QAM PO 09/22/17 09:00 10/22/17 08:59 Acetylcysteine (Mucomyst 20% Inh Soln) 3 ml BIDR INH 09/21/17 20:00 10/21/17 19:59 09/22/17 19:21 3 ML Ioversol (Optiray 320) 100 ml UD PRN IV 09/22/17 13:00 09/26/17 12:59 Objective Vital Signs Date Time Temp Pulse Resp B/P (MAP) Pulse Ox O2 Delivery O2 Flow Rate FiO2 09/22/17 19:22 40 09/22/17 18:00 103 22 116/68 (84) 94 Mechanical Ventilator 40 09/22/17 17:00 40 09/22/17 16:00 36.7 106 22 114/60 (78) 95 Mechanical Ventilator 40 09/22/17 16:00 94 Mechanical Ventilator 40 09/22/17 15:35 40 09/22/17 13:55 40 09/22/17 13:31 115 33 121/66 (84) 91 Mechanical Ventilator 40 09/22/17 13:00 113 30 127/72 (90) 90 Mechanical Ventilator 40 09/22/17 12:00 36.5 111 35 124/72 (89) 88 Mechanical Ventilator 50 5/18/18 12:00 90 Mechanical Ventilator 50 18 11:20 50 5/18 11:20 105 20 113/61 94 Mechanical Ventilator 50 18 11:15 106 16 114/62 94 Mechanical Ventilator 50 18 11:10 50 09/22/18 11:10 107 20 117/64 98 Mechanical Ventilator 09/22/17 11:05 107 17 119/66 98 Mechanical Ventilator 50 18 11:05 107 17 111/63 98 Mechanical Ventilator 100 09/22/17 11:01 105 18 111/63 (79) 98 Mechanical Ventilator 100 18 11:00 105 18 111/63 95 Mechanical Ventilator 100 Trach Collar 09/22/17 10:55 102 13 103/58 98 Mechanical Ventilator 100 09/22/17 10:50 103 10 99/56 98 Mechanical Ventilator 100 Trach Collar 09/22/17 10:45 101 102/55 98 Mechanical Ventilator 100 Trach Collar 09/22/17 10:45 104 20 96 09/22/17 10:00 103 17 105/55 (72) 98 Trach Collar 50 18 09:01 91 31 110/58 (75) 92 Trach Collar 50 18 08:00 36.5 104 27 106/56 (73) 93 Trach Collar 50 18 08:00 97 Trach Collar 12.0 50 18 07:11 104 32 82 Trach Collar 50 09/22/18 06:00 98 22 103/57 (72) 97 518/18 04:00 97 Trach Collar 12.0 50 18 04:00 94 18 106/58 (74) 96 Trach Collar 50 18 03:00 94 22 106/57 (73) 96 Trach Collar 50 18/18 02:00 91 21 64/53 (57) 97 Trach Collar 50 18/18 01:00 97 17 105/56 (72) 97 518/18 00:00 36.5 90 16 104/57 (73) 97 Trach Collar 50 17/18 23:59 99 Trach Collar 12.0 50 517/18 22:00 87 20 103/59 (74) 95 Trach Collar 50 17/18 20:00 Trach Collar 50 09/21/18 20:00 36.9 105 23 102/64 (77) 94 Trach Collar 50 Physical Exam General Appearance: WD/WN, no apparent distress Eyes: normal inspection, EOMI, sclerae normal ENT: normal ENT inspection, hearing grossly normal Neck: supple, no adenopathy, thyroid normal, trachea midline Respiratory/Chest: chest non-tender, no respiratory distress, no accessory muscle use, + rhonchi Cardiovascular: regular rate, rhythm, no gallop, no murmur Abdomen: normal bowel sounds, non tender, soft, no organomegaly Extremities: non-tender, no calf tenderness Neurologic/Psychiatric: alert, oriented x 3 Skin: normal color, warm/dry, no rash Lymphatic: no adenopathy Laboratory Results RUN DATE: 09/21/17 [facility] LAB PAGE 1 RUN TIME: 1359 Specimen Inquiry PATIENT: KRISTIESHANELLMCKENZIE LOC: [facility] U # : [id number] AGE/SX: 72/M ROOM: E107 REG : 09/19/[address]: Sri Jraa DO : 1945 BED: 1 DIS : STATUS: ADM IN TLOC: SPEC #: [id number] PHILIP: 09/19/17 STATUS: ALHAJI REQ #: [id number] RECD: 09/19/17-[address]: Ike Haas PA-C SOURCE: [facility]: 09/19/[address]: Vikram Singh MD [facility]: RT LOW LOB Nilay Samayoa M.D. Pasquariello, Rick D M.D. Ramondelli, Salvatore, M.D. Ratner, Jeffrey A., M.D. Sood, Alka., MD Shippert, Brian W. , D.O. Jorge Alberto,Alec Cobian MD ORDERED: [facility] CUL/SM Procedure Result Verified Site GRAM STAIN Final 09/20/17-804 RESULT FEW EPITHELIAL CELLS MANY POLYS RARE YEAST BRONCH WASH CULTURE Final 09/21/17-9206 Organism 1 FAIZAN ALBICANS QUANITY FEW SENS NO SENSITIVITY TO FOLLOW NORMAL SCOTT NO NORMAL SCOTT Organism 2 YEAST NOT FAIZAN ALBICANS QUANITY RARE SENS NO SENSITIVITY TO FOLLOW END OF REPORT Last 24 Hours Test 09/22/17 00:01 09/22/17 04:42 09/22/17 06:02 09/22/17 11:34 Bedside Glucose 112 mg/dl 112 mg/dl 130 mg/dl White Blood Count 10.47 K/uL Red Blood Count 2.87 M/uL Hemoglobin 7.6 g/dL Hematocrit 25.0 % Mean Corpuscular Volume 87.1 fL Mean Corpuscular Hemoglobin 26.5 pg Mean Corpuscular Hemoglobin Concent 30.4 g/dl Platelet Count 284 K/uL Mean Platelet Volume 9.8 fL Neutrophils (%) (Auto) 83.6 % Lymphocytes (%) (Auto) 4.3 % Monocytes (%) (Auto) 9.9 % Eosinophils (%) (Auto) 1.7 % Basophils (%) (Auto) 0.1 % Neutrophils # (Auto) 8.75 K/uL Lymphocytes # (Auto) 0.45 K/uL Monocytes # (Auto) 1.04 K/uL Eosinophils # (Auto) 0.18 K/uL Basophils # (Auto) 0.01 K/uL RDW Standard Deviation 55.2 fL RDW Coefficient of Variation 17.3 % Immature Granulocyte % (Auto) 0.4 % Immature Granulocyte # (Auto) 0.04 K/uL Red Blood Cell Morphology Unremarkable Absolute Reticulocyte Count 0.08 10^6/uL Percent Reticulocyte Count 2.9 % Sodium Level 139 mmol/L Potassium Level 3.9 mmol/L Chloride Level 101 mmol/L Carbon Dioxide Level 35 mmol/L Anion Gap 3.0 mmol/L Blood Urea Nitrogen 13 mg/dl Creatinine 0.51 mg/dl Est Creatinine Clear Calc Drug Dose 120.7 ml/min Estimated GFR () 126.2 Estimated GFR (Non- 108.9 BUN/Creatinine Ratio 26.5 Random Glucose 86 mg/dl Calcium Level 8.8 mg/dl Phosphorus Level 3.2 mg/dl Magnesium Level 1.9 mg/dl Total Bilirubin 0.5 mg/dl Direct Bilirubin 0.2 mg/dl Aspartate Amino Transf (AST/SGOT) 24 U/L Alanine Aminotransferase (ALT/SGPT) 28 U/L Alkaline Phosphatase 82 U/L Total Protein 5.9 gm/dl Albumin 2.1 gm/dl Test 09/22/17 14:27 09/22/17 17:46 Hemoglobin 8.4 g/dL Hematocrit 27.5 % Bedside Glucose 140 mg/dl Patient Name: MCKENZIE STYLES Unit Number: [id number] Dictated: 09/22/171417 Transcribed: 09/22/171417 PBS Printed Date/Time: [~ rep prt dt]/[~ rep prt tm] [~ rep ct labl] - [~ rep ct ivnm] [facility] [place] [address] Dictated: 09/22/171417 Transcribed: 09/22/171417 PBS Printed Date/Time: [~ rep prt dt]/[~ rep prt tm] [~ rep ct labl] - [~ rep ct ivnm] (CHEST FOR PE) ANGIO WITH CLINICAL HISTORY: 72 years-old Male presenting with ^hypoxia s/p bronch; Hx DVT, HX cancer, respiratory arrest. TECHNIQUE: Multidetector CT angiography of the chest was performed after administration of intravenous contrast. 3-D volumetric and/or maximum intensity projection (MIP) images were subsequently reconstructed for review. IV contrast: 94 mL of Optiray 320. A dose lowering technique was used consistent with the principles of ALARA (as low as reasonably achievable). COMPARISON: 09/19/2017. CT DOSE (mGy.cm): The estimated cumulative dose is 526.92 mGycm. FINDINGS: Marketing Services Manager topogram: Tracheostomy tube in place. Aortoiliac endograft stent. Pulmonary vasculature: The study is suboptimal for the assessment of the pulmonary vascular tree secondary to positioning of the arms at the sides. Allowing for limited image quality, no central filling defect to suggest pulmonary embolus. Main pulmonary artery is not enlarged. No flattening of the interventricular septum. No intracardiac filling defect. Reflux of contrast into the intrahepatic IVC. Remaining chest: On soft tissue windows, significant collateral vessels throughout the chest wall. A significant portion of the contrast is within these collateral vessels. This likely implies central venous stenosis. The left brachiocephalic vein is not opacified and may be occluded or severely stenotic. No axillary, supraclavicular, hilar, or mediastinal lymphadenopathy. Atherosclerosis of the aorta. Normal heart size. Coronary artery and aortic valve calcification. Trace bilateral pleural effusions. No pericardial effusion. Hypodensity in the liver likely hepatic cyst. Partially visualized aortic endograft stent. Postsurgical changes of esophagectomy and colonic bypass positioned in the anterior mediastinum. On lung windows, extensive dependent bilateral consolidation, which has increased since the prior exam in both lungs. Extensive peribronchovascular consolidation in the right upper lobe at the apex. Bronchiectasis also evident. Interval development of new patchy opacities, which likely represent superior extension from more solid consolidation. Mucous plugging evident in the right middle and lower lobe bronchi. Tracheostomy tube in place. On bone windows, degenerative changes of the spine. Multiple osseous deformities evident, some postsurgical or posttraumatic. IMPRESSION: 1. Allowing for suboptimal image quality, no evidence of pulmonary embolus. 2. Interval increase in extensive dependent consolidation affecting the bilateral lungs. There is prominent mucous plugging within the right middle and lower lobe bronchi. Findings suggest multifocal pneumonia, possibly aspiration pneumonia. 3. Peribronchovascular consolidation and bronchiectasis in the right apex consistent with chronic change, possibly organizing pneumonia. 4. Significant collateral chest wall vessels likely implies central venous stenosis. The left brachiocephalic vein is either occluded or severely stenotic. 5. Postsurgical changes of esophagectomy and colonic bypass. Electronically signed by: Niranjan Vyas M.D. 09/22/2017 2:29 PM Dictated Date/Time: 09/22/2017 2:18 PM The status of this report is Signed. Draft = Not yet reviewed or approved by Radiologist. Signed = Reviewed and approved by Radiologist. <AttendingPhy>Sri Jara DO</AttendingPhy> <FamilyPhy></FamilyPhy> < PrimaryPhy>Nilay Samayoa M.D.</PrimaryPhy> <UnitNumber>[id number]</UnitNumber> <VisitNumber>[id number]</VisitNumber> <PatientName>MCKENZIE STYLES</ PatientName> <DateOfBirth>1945</DateOfBirth> <Location>C[facility]</Location> <ServiceDate>09/18/17</ServiceDate> <MNE>ESINDI</MNE> <OrderingPhy>Shippert, Wero W D.O.</OrderingPhy> <OrderingPhyMNE>f rep ord dr bethea</OrderingPhyMNE> < DictatingPhyMNE>f rep dict dr bethea</DictatingPhyMNE> <CCListMNE>f rep ct mne</ CCListMNE> <AdmittingPhyMNE>f pt admit dr bethea</AdmittingPhyMNE> <AttendingPhyMNE >f pt attend dr bethea</AttendingPhyMNE> <ConsultingPhyMNE>f pt consult dr bethea</ConsultingPhyMNE> <FamilyPhyMNE>f pt fam dr bethea</FamilyPhyMNE> <OtherPhyMNE>f pt other dr bethea</OtherPhyMNE> < PrimaryPhyMNE>f pt prim care dr bethea</PrimaryPhyMNE> <ReferringPhyMNE>f pt referring dr bethea</ReferringPhyMNE> Assessment and Plan (1) Palliative care encounter Patient with a complex medical history and poor prognosis. We will continue to provide support to patient and with medical decision making (2) Aspiration pneumonia Status: Chronic Patient with recurrent aspiration of secretions, has been n.p.o., J-tube dependent. Patient also trach dependent (3) Cardiopulmonary arrest with successful resuscitation Status: Acute Patient with cracked ribs status post chest compressions, in addition to his weakness impacting his ability to cough and take deep breaths. 72-year-old male status post cardiac arrest with probable aspiration, previously treated for pseudomonal infection. All cultures have remained unremarkable, antibiotics have been discontinued. Will follow closely for recurrent fever, worsening respiratory status.
[2017-09-22] MEDS: DOCUSATE SODIUM 100 MG/10 ML UDC JT SCH (21:03)
[2017-09-22] MEDS: FENTANYL CITRATE INJ 50 MCG/1 ML 2 ML VIAL IV PRN (21:36)
[2017-09-23] VITALS (24 sets, daily range): BP systolic 89–126; BP diastolic 44–67; PULSE 78–105; TEMP 36.1–36.8; O2SAT 92–100
[2017-09-23] MEDS: FENTANYL CITRATE INJ 50 MCG/1 ML 2 ML VIAL IV PRN (00:58)
[2017-09-23] MEDS: LORAZEPAM 2 MG/ML 1 ML VIAL IV PRN ×3 (02:08→22:24)
[2017-09-23] MEDS: OXYCODONE HCL IR 5 MG TAB (IMMEDIATE RELEASE) PO PRN ×2 (02:09→12:45)
[2017-09-23] MEDS: PEPTAMEN 1.5 CAL 1000ML BAG JT PRN (02:22)
[2017-09-23] MEDS: KETOROLAC TROMETHAMINE 15 MG/ML VIAL IV. SCH ×4 (04:44→21:17)
[2017-09-23] MEDS: INSULIN ASPART 100 UNITS/ML 3 ML PEN SC SCH ×4 (06:00→18:00)
[2017-09-23] MEDS: ACETAMINOPHEN IV 1000MG/100ML IV SCH ×3 (06:06→21:16)
[2017-09-23] MEDS: MIDODRINE 10 MG TAB PO SCH ×3 (06:06→21:30)
[2017-09-23 06:19] LABS: ALBUMIN 2.4 gm/dl (3.4-5.0); CALCIUM 9.1 mg/dl (8.5-10.1); CREATININE 0.63 mg/dl (0.60-1.40); PHOSPHORUS 3.6 mg/dl (2.5-4.9); POTASSIUM 4.1 mmol/L (3.5-5.1); TOTAL PROTEIN 6.7 gm/dl (6.4-8.2)
[2017-09-23 06:24] LABS: HEMATOCRIT 28.2 % (42-52); HEMOGLOBIN 8.4 g/dL (14.0-18.0); MEAN CELL VOLUME 89.8 fL (80-100); MEAN CORPUSCULAR HEMOGLOBIN 26.8 pg (25-34); MEAN CORPUSCULAR HGB CONC 29.8 g/dl (32-36); MEAN PLATELET VOLUME 9.9 fL (7.4-10.4); PLATELET COUNT 343 K/uL (130-400); RED CELL DISTRIBUTION WIDTH CV 17.2 % (11.5-14.5); RED CELL DISTRIBUTION WIDTH SD 56.6 fL (36.4-46.3)
[2017-09-23 06:32] LABS: BASO % 0.2 %; BASO ABS # 0.02 K/uL (0-0.2); EOS % 1.2 %; EOS ABS # 0.13 K/uL (0-0.5); IG# 0.05 K/uL (0.00-0.02); LYMPH % 3.6 %; MONO % 10.6 %; MONO ABS # 1.19 K/uL (0.11-0.59); NEUT ABS # 9.41 K/uL (1.4-6.5)
[2017-09-23] MEDS: ALBUT/IPRATROP 3MG/0.5MG NEB 3 ML VIAL INH SCH ×4 (06:58→19:07)
[2017-09-23] MEDS: ACETYLCYSTEINE 20% INHAL SOLN ***DISPENSED BY RESP. INH SCH ×2 (06:58→19:07)
--- NOTE | 2017-09-23 07:15 | DIAGNOSTIC IMAGING REPORT ---
CHEST ONE VIEW PORTABLE HISTORY: Pneumonia. Follow-up. COMPARISON: Chest 09/22/2017. FINDINGS: Tracheostomy tube is in good position. There are surgical clips overlying the mediastinum. The heart is normal in size. No pneumothorax. Improved aeration within the right mid to lower lung zone. Trace bilateral pleural effusions. Mild interstitial thickening which has also improved. IMPRESSION: 1. Interval improvement in the right mid to lower lung zone airspace opacity. This suggests resolving atelectasis/pneumonia. 2. Mild diffuse interstitial thickening has also improved suggesting resolving pulmonary edema. Electronically signed by: Jamil Thorpe M.D. 09/23/2017 7:14 AM Dictated Date/Time: 09/23/2017 7:12 AM
--- NOTE | 2017-09-23 07:47 | Critical Care Progress Note ---
Critical Care Progress Note Date of Service September 23, 2017. Attending Dr. Matos Subjective He is comfortable and synchronous with the vent support. PSV in place. PEEP is generous. X-ray showing resolution of infiltrate and atelectasis. No elevated WBC or temp. Meds reviewed. Continues with general supportive measures. Objective GENERAL : No acute distress. EYES: No icterus, gaze conjugate NOSE: No evidence of epistaxis MOUTH: No lesions or candidiasis. Mucosa moist NECK: Supple. Tracheostomy tube in place. No drainage noted to drainage pads LUNGS: exchange is adequate. HEART: Regular, rate controlled ABDOMEN: Soft, NT, ND, BS Present. EXTREMITIES: no new target NEURO: A&OX3 Assessment & Plan Head and Neck Cancer with extensive surgical intervention--aspiration in setting of this and tracheostomy--respiratory arrest: 1. Pulmonary--will continue general supportive measures--LTACH is appropriate option until his ultimate trajectory for recovery is better sorted out. I do not recommend change at this time given the improved x-ray 2. Cardio--hemodynamics are stable 3. GI--tube feeding tolerated. 4. Neuro--continue general supportive measures. Consults & Procedures Consultants: General surgery -Dr. Casanova Pulmonary -Dr. Bowman Wound care nurse -Yokasta Gibbs RNcareer development director medicine -Dr. Matos Procedures: Right femoral triple-lumen catheter; placed in the ED 09/19/2017; removed 2017 Fiberoptic bronchoscopy 09/19/2017 Echocardiogram 09/19/2017 Data Medications: Current Inpatient Medications Medications (Trade) Dose Ordered Sig/Madalyn Route Start Time Stop Time Status Last Admin Dose Admin Heparin Sodium (Porcine) (Heparin Sq 5000 Unit/0.5ml) 5,000 unit Q12H SQ 09/19/17 09:00 10/19/17 08:59 09/22/17 21:06 5,000 UNIT Acetaminophen (Tylenol Tab) 650 mg Q4H PRN PO 09/19/17 01:45 10/19/17 01:44 Fentanyl Citrate (Fentanyl Inj) 12.5 mcg Q1H PRN IV 09/19/17 01:45 10/03/17 01:44 09/23/17 00:58 12.5 MCG Lorazepam (Ativan Inj) 0.5 mg Q4H PRN IV 09/19/17 01:45 10/19/17 01:44 09/23/17 06:06 0.5 MG Albuterol/ Ipratropium (Duoneb) 3 ml Q4RWA INH 09/19/17 08:00 10/19/17 07:59 09/23/17 06:58 3 ML Ioversol (Optiray 320) 100 ml UD PRN IV 09/19/17 10:45 09/23/17 10:44 Midodrine (Proamatine Tab) 10 mg Q8 PO 09/19/17 14:00 10/19/17 13:59 Future hold 09/23/17 06:06 10 MG Furosemide (Lasix Tab) 20 mg BIDM PO 09/19/17 16:30 10/19/17 16:29 Future Hold Insulin Aspart (novoLOG ASPART) SLIDING SCALE Q6H SC 09/19/17 12:00 10/19/17 11:59 Glucose (Glucose 40% Gel) 15-30 GRAMS 15 GRAMS... UD PRN PO 09/19/17 12:30 10/19/17 12:29 Glucose (Glucose Chew Tab) 4-8 Tablets 4 Tabl... UD PRN PO 09/19/17 12:30 10/19/17 12:29 Dextrose (Dextrose 50% 50ML Syringe) 25-50ML 25ML FOR ... UD PRN IV 09/19/17 12:30 10/19/17 12:29 Glucagon (Glucagon Inj) 1 mg UD PRN IM 09/19/17 12:30 10/19/17 12:29 Carbohydrates (Carbohydrates For Hypoglycemia) 15-30 GRAMS 15 grams if BSG 54-69... UD PRN PO 09/19/17 12:30 10/19/17 12:29 Acetaminophen 100 ml @ 400 mls/hr Q8 IV 09/20/17 12:00 10/20/17 11:59 09/23/17 06:06 400 MLS/HR Ketorolac Tromethamine (Toradol Inj) 15 mg Q6H IV. 09/20/17 16:00 09/25/17 09:59 09/23/17 04:44 15 MG Pantoprazole Sodium 40 mg/ Syringe 10 ml @ 5 mls/min BID IV 09/20/17 21:00 09/27/17 09:01 09/22/17 21:01 5 MLS/MIN Lidocaine (Lidoderm Patch 5%) 1 patch Q24H PRN TD 09/20/17 10:30 10/20/17 10:29 09/22/17 08:43 1 PATCH Pantoprazole Sodium 40 mg/ Syringe 10 ml @ 5 mls/min DAILY IV 09/28/17 09:00 10/28/17 08:59 Aspirin (Aspirin Chew) 81 mg DAILY@1400 JT 09/20/17 14:00 10/20/17 13:59 09/22/17 16:23 81 MG Miscellaneous (Remove Lidoderm Patch) 1 ea Q12H PRN N/A 09/20/17 12:00 10/20/17 11:59 Buspirone HCl (Buspar Tab) 7.5 mg TID JT 09/20/17 14:00 10/20/17 13:59 09/22/17 21:04 7.5 MG Clonazepam (Klonopin Tab) 0.5 mg TID PO 09/20/17 14:00 10/20/17 13:59 09/22/17 21:01 0.5 MG Oxycodone HCl (Roxicodone Immediate Rel Tab) `1-2 tabs for pain 1 tab ... Q6H PRN PO 09/20/17 15:15 10/04/17 15:14 09/23/17 02:09 5 MG Enteral Nutritional Formula (Peptamen 1.5) 1,000 ml UD PRN JT 09/21/17 08:45 10/21/17 08:44 09/23/17 02:22 1,000 ML Atorvastatin Calcium (Lipitor Tab) 10 mg QAM PO 09/21/17 14:00 10/21/17 13:59 09/22/17 08:34 10 MG Metoprolol Tartrate (Lopressor Tab) 12.5 mg BID JT 09/21/17 11:30 10/21/17 11:29 09/22/17 21:04 12.5 MG Docusate Sodium (coLACE SYRUP) 100 mg HS JT 09/21/17 21:00 10/21/17 20:59 09/22/17 21:03 100 MG Senna (Senokot Syrup) 8.8 mg QAM PO 09/22/17 09:00 10/22/17 08:59 Acetylcysteine (Mucomyst 20% Inh Soln) 3 ml BIDR INH 09/21/17 20:00 10/21/17 19:59 09/23/17 06:58 3 ML Ioversol (Optiray 320) 100 ml UD PRN IV 09/22/17 13:00 09/26/17 12:59 Vital Signs: Date Time Temp Pulse Resp B/P (MAP) Pulse Ox O2 Delivery O2 Flow Rate FiO2 09/23/17 07:00 40 09/23/17 06:00 99 31 114/44 (67) 96 Mechanical Ventilator 40 09/23/17 05:44 60 09/23/17 04:00 100 Mechanical Ventilator 40 09/23/17 04:00 36.8 102 24 114/67 (83) 100 Mechanical Ventilator 40 09/23/17 02:00 93 29 120/65 (83) 98 Mechanical Ventilator 40 09/23/17 01:55 40 09/23/17 00:01 93 25 126/63 (84) 97 Mechanical Ventilator 40 09/22/17 23:59 98 Mechanical Ventilator 40 09/22/17 23:15 40 09/22/17 22:00 86 29 116/63 (80) 96 Mechanical Ventilator 40 09/22/17 20:00 36.7 98 26 110/68 (82) 96 Mechanical Ventilator 40 09/22/17 20:00 96 Mechanical Ventilator 40 09/22/17 19:22 40 09/22/17 18:00 103 22 116/68 (84) 94 Mechanical Ventilator 40 09/22/17 17:00 40 09/22/17 16:00 36.7 106 22 114/60 (78) 95 Mechanical Ventilator 40 09/22/17 16:00 94 Mechanical Ventilator 40 09/22/17 15:35 40 09/22/17 13:55 40 09/22/17 13:31 115 33 121/66 (84) 91 Mechanical Ventilator 40 09/22/17 13:00 113 30 127/72 (90) 90 Mechanical Ventilator 40 09/22/17 12:00 36.5 111 35 124/72 (89) 88 Mechanical Ventilator 50 09/22/17 12:00 90 Mechanical Ventilator 50 09/22/17 11:20 50 09/22/17 11:20 105 20 113/61 94 Mechanical Ventilator 50 09/22/17 11:15 106 16 114/62 94 Mechanical Ventilator 50 09/22/17 11:10 50 09/22/17 11:10 107 20 117/64 98 Mechanical Ventilator 09/22/17 11:05 107 17 119/66 98 Mechanical Ventilator 50 09/22/17 11:05 107 17 111/63 98 Mechanical Ventilator 100 09/22/17 11:01 105 18 111/63 (79) 98 Mechanical Ventilator 100 09/22/17 11:00 105 18 111/63 95 Mechanical Ventilator 100 Trach Collar 09/22/17 10:55 102 13 103/58 98 Mechanical Ventilator 100 09/22/17 10:50 103 10 99/56 98 Mechanical Ventilator 100 Trach Collar 09/22/17 10:45 101 102/55 98 Mechanical Ventilator 100 Trach Collar 09/22/17 10:45 104 20 96 09/22/17 10:00 103 17 105/55 (72) 98 Trach Collar 50 09/22/17 09:01 91 31 110/58 (75) 92 Trach Collar 50 09/22/17 08:00 36.5 104 27 106/56 (73) 93 Trach Collar 50 09/22/17 08:00 97 Trach Collar 12.0 50 Laboratory Results: Last 24 Hours Test 09/22/17 11:34 09/22/17 14:27 09/22/17 17:46 09/23/17 00:40 Bedside Glucose 130 mg/dl 140 mg/dl 136 mg/dl Hemoglobin 8.4 g/dL Hematocrit 27.5 % Test 09/23/17 05:37 09/23/17 06:15 White Blood Count 11.20 K/uL Red Blood Count 3.14 M/uL Hemoglobin 8.4 g/dL Hematocrit 28.2 % Mean Corpuscular Volume 89.8 fL Mean Corpuscular Hemoglobin 26.8 pg Mean Corpuscular Hemoglobin Concent 29.8 g/dl Platelet Count 343 K/uL Mean Platelet Volume 9.9 fL Neutrophils (%) (Auto) 84.0 % Lymphocytes (%) (Auto) 3.6 % Monocytes (%) (Auto) 10.6 % Eosinophils (%) (Auto) 1.2 % Basophils (%) (Auto) 0.2 % Neutrophils # (Auto) 9.41 K/uL Lymphocytes # (Auto) 0.40 K/uL Monocytes # (Auto) 1.19 K/uL Eosinophils # (Auto) 0.13 K/uL Basophils # (Auto) 0.02 K/uL RDW Standard Deviation 56.6 fL RDW Coefficient of Variation 17.2 % Immature Granulocyte % (Auto) 0.4 % Immature Granulocyte # (Auto) 0.05 K/uL Hypochromasia PRESENT Stomatocytes 1+ Sodium Level 140 mmol/L Potassium Level 4.1 mmol/L Chloride Level 100 mmol/L Carbon Dioxide Level 38 mmol/L Anion Gap 2.0 mmol/L Blood Urea Nitrogen 14 mg/dl Creatinine 0.63 mg/dl Est Creatinine Clear Calc Drug Dose 102.0 ml/min Estimated GFR () 115.7 Estimated GFR (Non- 99.8 BUN/Creatinine Ratio 22.6 Random Glucose 71 mg/dl Calcium Level 9.1 mg/dl Phosphorus Level 3.6 mg/dl Magnesium Level 2.0 mg/dl Total Bilirubin 0.4 mg/dl Direct Bilirubin 0.1 mg/dl Aspartate Amino Transf (AST/SGOT) 16 U/L Alanine Aminotransferase (ALT/SGPT) 24 U/L Alkaline Phosphatase 100 U/L Total Protein 6.7 gm/dl Albumin 2.4 gm/dl Bedside Glucose 105 mg/dl
[2017-09-23] MEDS: PANTOprazole INJ 40 MG in SYRINGE 0 ML IV SCH ×2 (07:59→20:52)
[2017-09-23] MEDS: METOPROLOL TARTRATE 25 MG TAB JT SCH ×2 (08:00→20:55)
[2017-09-23] MEDS: ATORVASTATIN 10 MG TAB PO SCH (08:02)
[2017-09-23] MEDS: SENNA 8.8 MG/5 ML UDP PO SCH (08:04)
[2017-09-23] MEDS: HEPARIN SOD 5000 UNIT/0.5 ML CARP SQ SCH (08:04)
[2017-09-23] MEDS: CLONAZEPAM 0.5 MG TAB PO SCH ×3 (08:09→21:15)
[2017-09-23] MEDS: ASPIRIN 81 MG CHEW JT SCH (12:46)
--- NOTE | 2017-09-23 13:37 | Progress Note ---
Subjective Date of Service: September 23, 2017. Subjective Pt evaluation today including: conversation w/ patient, conversation w/ managed services sales consultant Pt is stable today. No new issues. Comfortable. He is still SOB at times. Has occasionally nausea. Some abd pain. No chest pain. Pt denies fever, c/d, LE pain or swelling. Problem List Medical Problems: (1) Aspiration pneumonia Status: Chronic (2) Cardiac arrest Status: Acute (3) Cardiopulmonary arrest with successful resuscitation Status: Acute (4) Elevated troponin Status: Acute (5) Pneumonia Status: Acute (6) Renal failure Status: Acute (7) Respiratory failure Status: Acute Review of Systems All Other Systems: Reviewed and Negative Objective Vital Signs Date Time Temp Pulse Resp B/P (MAP) Pulse Ox O2 Delivery O2 Flow Rate FiO2 09/23/17 11:20 40 09/23/17 09:02 40 09/23/17 08:00 98 Mechanical Ventilator 40 09/23/17 07:00 40 09/23/17 06:00 99 31 114/44 (67) 96 Mechanical Ventilator 40 09/23/17 05:44 60 09/23/17 04:00 100 Mechanical Ventilator 40 09/23/17 04:00 36.8 102 24 114/67 (83) 100 Mechanical Ventilator 40 09/23/17 02:00 93 29 120/65 (83) 98 Mechanical Ventilator 40 09/23/17 01:55 40 09/23/17 00:01 93 25 126/63 (84) 97 Mechanical Ventilator 40 09/22/17 23:59 98 Mechanical Ventilator 40 09/22/17 23:15 40 09/22/17 22:00 86 29 116/63 (80) 96 Mechanical Ventilator 40 09/22/17 20:00 36.7 98 26 110/68 (82) 96 Mechanical Ventilator 40 09/22/17 20:00 96 Mechanical Ventilator 40 09/22/17 19:22 40 09/22/17 18:00 103 22 116/68 (84) 94 Mechanical Ventilator 40 09/22/17 17:00 40 09/22/17 16:00 36.7 106 22 114/60 (78) 95 Mechanical Ventilator 40 09/22/17 16:00 94 Mechanical Ventilator 40 09/22/17 15:35 40 09/22/17 13:55 40 Physical Exam Comments: General Appearance: WD/WN, no apparent distress Eyes: normal inspection, sclerae normal Respiratory/Chest: normal breath sounds, no respiratory distress Cardiovascular: regular rate, rhythm, no edema Abdomen: TTP, soft Extremities: non-tender, no pedal edema Neurologic/Psychiatric: alert, answering questions Skin: normal color, warm/dry Laboratory Results Last 24 Hours Test 09/22/17 14:27 09/22/17 17:46 09/23/17 00:40 09/23/17 05:37 Hemoglobin 8.4 g/dL 8.4 g/dL Hematocrit 27.5 % 28.2 % Bedside Glucose 140 mg/dl 136 mg/dl White Blood Count 11.20 K/uL Red Blood Count 3.14 M/uL Mean Corpuscular Volume 89.8 fL Mean Corpuscular Hemoglobin 26.8 pg Mean Corpuscular Hemoglobin Concent 29.8 g/dl Platelet Count 343 K/uL Mean Platelet Volume 9.9 fL Neutrophils (%) (Auto) 84.0 % Lymphocytes (%) (Auto) 3.6 % Monocytes (%) (Auto) 10.6 % Eosinophils (%) (Auto) 1.2 % Basophils (%) (Auto) 0.2 % Neutrophils # (Auto) 9.41 K/uL Lymphocytes # (Auto) 0.40 K/uL Monocytes # (Auto) 1.19 K/uL Eosinophils # (Auto) 0.13 K/uL Basophils # (Auto) 0.02 K/uL RDW Standard Deviation 56.6 fL RDW Coefficient of Variation 17.2 % Immature Granulocyte % (Auto) 0.4 % Immature Granulocyte # (Auto) 0.05 K/uL Hypochromasia PRESENT Stomatocytes 1+ Sodium Level 140 mmol/L Potassium Level 4.1 mmol/L Chloride Level 100 mmol/L Carbon Dioxide Level 38 mmol/L Anion Gap 2.0 mmol/L Blood Urea Nitrogen 14 mg/dl Creatinine 0.63 mg/dl Est Creatinine Clear Calc Drug Dose 102.0 ml/min Estimated GFR () 115.7 Estimated GFR (Non- 99.8 BUN/Creatinine Ratio 22.6 Random Glucose 71 mg/dl Calcium Level 9.1 mg/dl Phosphorus Level 3.6 mg/dl Magnesium Level 2.0 mg/dl Total Bilirubin 0.4 mg/dl Direct Bilirubin 0.1 mg/dl Aspartate Amino Transf (AST/SGOT) 16 U/L Alanine Aminotransferase (ALT/SGPT) 24 U/L Alkaline Phosphatase 100 U/L Total Protein 6.7 gm/dl Albumin 2.4 gm/dl Test 09/23/17 06:15 09/23/17 12:37 Bedside Glucose 105 mg/dl 120 mg/dl Assessment and Plan Complicated 72yo male with: 1. shock, likely septic - from right-sided pneumonia - pressors have been discontinued, leukocytosis resolving, and he overall has improved. Defer abx selection to ID and critical care- plan is for imipenem alone along with tobramycin nebs BID due to previous history of pseudomonas; thus far all cultures including bronch cultures are negative. Bronch on 09/19 and repeated on 09/21 ECHO without evidence of cardiogenic component contributing to shock. No evidence of SBE. No evidence of adrenal shock. Could have had hemorrhage as his H/H had dropped considerably from admission ( 12 down to low 8's). Fecal occult pending 2. s/p cardiac arrest - likely hypoxia-induced as there was a report that copious secretions/tube feedings were suctioned from his trach during the code. He had chest compressions for 5-10 minutes with successful cheondoism of spontaneous circulation. He has a mild troponin elevation likely due to his arrest and #1 above. Doubt he had a true ACS. Echo w/ preserved LV function. Continues to do well from a mental status standpoint as well as neurological standpoint with no apparent deficits per report, pt is sedated on my exam s/p fentanyl today 3. acute hypoxic/hypercarbic respiratory failure likely 2nd to right-sided pneumonia - strong suspicion that the pneumonia was due to aspiration. He is s/p bronch 09/19 and again on 09/21 Records from [facility] indicate he had rhinovirus infection and pseudomonas, although no documentation found 4. j-tube obstruction - s/p dislodgement by general surgery; back on tube feedings w/ peptamen; goal rate is 50cc/hr continuously. 5. right-sided pneumonia - aspiration vs gram negative in etiology. see above. 6. abdominal pain - mainly RUQ - has gallstones and presented with abnormal LFTs; HIDA neg for acute cholecystitis. pain could be gastric in origin vs referred pain from rib fractures. Toradol for pain control. Consider long-acting pain med?? Cont oxycodone prn as well. 7. hypomagnesemia - resolved. 8. hypophosphatemia - resolved. 9. positive troponin - due to cardiac arrest and/or myocardial demand ischemia in setting of shock. 10. ?acute blood loss anemia - serial H/H's showed drop from about Hb of 12 to low 8's and he seems to have plateaued. Check a fecal occult blood and cont PPI. If heme+ then GI consultation. 11. esophageal cancer with numerous complications in the past requiring various surgeries; he is s/p esophagectomy and ultimately underwent esophago- colonic anastomosis in 2014; Chronic anastomotic stricture and has received dilatations [id number] in the past per records - since all of his care is out of town in [place] the exact status of his cancer is unknown but there does not appear to be recurrence of cancer based on CT chest/ abd/pelvis this admission. 12. h/o T2DM - hemoglobin a1c is very low suggesting his DM has resolved, likely from weight loss due to #11 and malnutrition. 13. protein calorie malnutrition - severe - J-tube tube feedings have been resumed. 14. COPD - does not appear to be in exacerbation at this time. 15. h/o DVT - noted. Heparin for DVT proph cautiously in light of #10. 16. CAD - records suggest he had left main disease and other occlusions; he is s/p CABG in August 2014 at [facility]. He is typically on low- dose ASA, beta thomas, and statin. Latter being held due to abnormal LFTs. 17. hyponatremia - resolved with IVF. 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 19. tracheostomy status - placed 06/2017 at [facility]. 20. rhinovirus and pseudomonas pneumonia - 08/2017 at [facility] - bronch cultures thus far negative for such. 21. h/o AAA s/p repair in 2014 at [facility]. 22. b/l rib fractures - 2nd to chest compressions during recent cardiac arrest - pain control. 23. abnormal left upper chest wall / cavity - due to surgery in 2014 that involved partial resection of first rib, clavicle, and manubrium. 24. large skin tear on chest - presumably due to recent chest compressions - wound care team consulted for management. has follow-up with thoracic surgery at [facility] October 10, 2017 per records PT/OT recs for LTACH Recs for LTAC. Per notes, Dr. Bowman spoke with pt's on Monday and plan is for LTACH in [place] on Monday. He is accepted at this facility. Continued [facility] stay due to: abnormal vital signs, inadequate oral pain control , voiding difficulties, ambulation difficulties, multiple IV medications needed Discharge planning: uncertain
[2017-09-23] MEDS: LIDODERM (LIDOCAINE) PATCH 5% TD PRN (18:04)
[2017-09-23] MEDS: DOCUSATE SODIUM 100 MG/10 ML UDC JT SCH (21:00)
[2017-09-24] VITALS (27 sets, daily range): BP systolic 103–132; BP diastolic 55–86; PULSE 83–101; TEMP 36.6–37.1; O2SAT 90–100
[2017-09-24] MEDS: OXYCODONE HCL IR 5 MG TAB (IMMEDIATE RELEASE) PO PRN ×2 (01:19→16:41)
[2017-09-24] MEDS: KETOROLAC TROMETHAMINE 15 MG/ML VIAL IV. SCH ×3 (02:07→09:39)
[2017-09-24] MEDS: HEPARIN SOD 5000 UNIT/0.5 ML CARP SQ SCH ×3 (02:07→19:57)
[2017-09-24] MEDS: LORAZEPAM 2 MG/ML 1 ML VIAL IV PRN ×2 (02:51→10:07)
[2017-09-24 04:44] LABS: BASO % 0.2 %; BASO ABS # 0.02 K/uL (0-0.2); EOS % 1.5 %; EOS ABS # 0.17 K/uL (0-0.5); HEMATOCRIT 26.7 % (42-52); HEMOGLOBIN 8.1 g/dL (14.0-18.0); IG# 0.05 K/uL (0.00-0.02); LYMPH % 4.7 %; LYMPH ABS # 0.52 K/uL (1.2-3.4); MEAN CELL VOLUME 88.7 fL (80-100); MEAN CORPUSCULAR HEMOGLOBIN 26.9 pg (25-34); MEAN CORPUSCULAR HGB CONC 30.3 g/dl (32-36); MEAN PLATELET VOLUME 9.7 fL (7.4-10.4); MONO ABS # 0.89 K/uL (0.11-0.59); NEUT % 85.2 %; NEUT ABS # 9.52 K/uL (1.4-6.5); PLATELET COUNT 328 K/uL (130-400); RED CELL DISTRIBUTION WIDTH CV 17.4 % (11.5-14.5); RED CELL DISTRIBUTION WIDTH SD 56.7 fL (36.4-46.3); WHITE BLOOD COUNT 11.17 K/uL (4.8-10.8)
[2017-09-24 05:10] LABS: ALBUMIN 2.4 gm/dl (3.4-5.0); CREATININE 0.58 mg/dl (0.60-1.40); PHOSPHORUS 2.6 mg/dl (2.5-4.9); POTASSIUM 4.4 mmol/L (3.5-5.1); TOTAL PROTEIN 7.1 gm/dl (6.4-8.2)
[2017-09-24] MEDS: MIDODRINE 10 MG TAB PO SCH ×3 (05:37→22:51)
[2017-09-24] MEDS: ACETAMINOPHEN IV 1000MG/100ML IV SCH (05:38)
[2017-09-24] MEDS: INSULIN ASPART 100 UNITS/ML 3 ML PEN SC SCH ×4 (05:38→18:00)
[2017-09-24] MEDS: ALBUT/IPRATROP 3MG/0.5MG NEB 3 ML VIAL INH SCH ×4 (07:06→19:13)
[2017-09-24] MEDS: ACETYLCYSTEINE 20% INHAL SOLN ***DISPENSED BY RESP. INH SCH ×2 (07:06→19:13)
--- NOTE | 2017-09-24 07:24 | DIAGNOSTIC IMAGING REPORT ---
CHEST ONE VIEW PORTABLE CLINICAL HISTORY: Pneumonia, congestive failure. COMPARISON STUDY: 09/23/2017 FINDINGS: A tracheostomy tube is visualized. The heart is normal in size. There is an increasing right pleural effusion. There is a small left pleural effusion. There are progressive right middle lower lung zone airspace opacities. There are stable left basilar airspace opacities. Postsurgical changes are present within the right hemithorax.[ IMPRESSION: 1. Slight increase in the size the right pleural effusion 2. Slight progression in the bilateral pulmonary airspace opacities Electronically signed by: Art Ma M.D. 09/24/2017 7:23 AM Dictated Date/Time: 09/24/2017 7:21 AM
--- NOTE | 2017-09-24 08:28 | Critical Care Progress Note ---
Critical Care Progress Note Date of Service September 24, 2017. Attending Dr. Matos Subjective Required some additional PSV last night. 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 Will require intermittent vent support for some time. No new fever or chills. No new focal changes. No change in sputum. Images noted. LTACH is good decision and plan for Monday in progress. I had a chance to talk with his yesterday. Objective GENERAL : No acute distress. EYES: No icterus, gaze conjugate NOSE: No evidence of epistaxis MOUTH: No lesions or candidiasis. Mucosa moist NECK: Supple. Tracheostomy tube in place. No drainage noted to drainage pads LUNGS: exchange is adequate. HEART: Regular, rate controlled ABDOMEN: Soft, NT, ND, BS Present. EXTREMITIES: no new target NEURO: A&OX3 Assessment & Plan Head and Neck Cancer with extensive surgical intervention--aspiration in setting of this and tracheostomy--respiratory arrest: 1. Pulmonary--PSV with PEEP continue to be required. The tracheostomy will make is easy for spontaneous respiratory trials. 2. Cardio--hemodynamics are stable 3. GI--tube feeding tolerated.--no changes recommended. 4. Neuro--continue general supportive measures. PT/OT and nutrition. LTACH is good choice. Consults & Procedures Consultants: General surgery -Dr. Casanova Pulmonary -Dr. Bowman Wound care nurse -Yokasta Gibbs RNcare management specialist medicine -Dr. Matos Procedures: Right femoral triple-lumen catheter; placed in the ED 09/19/2017; removed 2017 Fiberoptic bronchoscopy 09/19/2017 Echocardiogram 09/19/2017 Data Medications: Current Inpatient Medications Medications (Trade) Dose Ordered Sig/Madalyn Route Start Time Stop Time Status Last Admin Dose Admin Heparin Sodium (Porcine) (Heparin Sq 5000 Unit/0.5ml) 5,000 unit Q12H SQ 09/19/17 09:00 10/19/17 08:59 09/24/17 02:07 5,000 UNIT Acetaminophen (Tylenol Tab) 650 mg Q4H PRN PO 09/19/17 01:45 10/19/17 01:44 Fentanyl Citrate (Fentanyl Inj) 12.5 mcg Q1H PRN IV 09/19/17 01:45 10/03/17 01:44 09/23/17 00:58 12.5 MCG Lorazepam (Ativan Inj) 0.5 mg Q4H PRN IV 09/19/17 01:45 10/19/17 01:44 09/24/17 02:51 0.5 MG Albuterol/ Ipratropium (Duoneb) 3 ml Q4RWA INH 09/19/17 08:00 10/19/17 07:59 09/24/17 07:06 3 ML Midodrine (Proamatine Tab) 10 mg Q8 PO 09/19/17 14:00 10/19/17 13:59 Future hold 09/24/17 05:37 10 MG Furosemide (Lasix Tab) 20 mg BIDM PO 09/19/17 16:30 10/19/17 16:29 Future Hold Insulin Aspart (novoLOG ASPART) SLIDING SCALE Q6H SC 09/19/17 12:00 10/19/17 11:59 Glucose (Glucose 40% Gel) 15-30 GRAMS 15 GRAMS... UD PRN PO 09/19/17 12:30 10/19/17 12:29 Glucose (Glucose Chew Tab) 4-8 Tablets 4 Tabl... UD PRN PO 09/19/17 12:30 10/19/17 12:29 Dextrose (Dextrose 50% 50ML Syringe) 25-50ML 25ML FOR ... UD PRN IV 09/19/17 12:30 10/19/17 12:29 Glucagon (Glucagon Inj) 1 mg UD PRN IM 09/19/17 12:30 10/19/17 12:29 Carbohydrates (Carbohydrates For Hypoglycemia) 15-30 GRAMS 15 grams if BSG 54-69... UD PRN PO 09/19/17 12:30 10/19/17 12:29 Acetaminophen 100 ml @ 400 mls/hr Q8 IV 09/20/17 12:00 10/20/17 11:59 09/23/17 21:16 400 MLS/HR Ketorolac Tromethamine (Toradol Inj) 15 mg Q6H IV. 09/20/17 16:00 09/25/17 09:59 09/24/17 04:25 15 MG Pantoprazole Sodium 40 mg/ Syringe 10 ml @ 5 mls/min BID IV 09/20/17 21:00 09/27/17 09:01 09/23/17 20:52 5 MLS/MIN Lidocaine (Lidoderm Patch 5%) 1 patch Q24H PRN TD 09/20/17 10:30 10/20/17 10:29 09/23/17 18:04 1 PATCH Pantoprazole Sodium 40 mg/ Syringe 10 ml @ 5 mls/min DAILY IV 09/28/17 09:00 10/28/17 08:59 Aspirin (Aspirin Chew) 81 mg DAILY@1400 JT 09/20/17 14:00 10/20/17 13:59 09/23/17 12:46 81 MG Miscellaneous (Remove Lidoderm Patch) 1 ea Q12H PRN N/A 09/20/17 12:00 10/20/17 11:59 Buspirone HCl (Buspar Tab) 7.5 mg TID JT 09/20/17 14:00 10/20/17 13:59 09/23/17 20:53 7.5 MG Clonazepam (Klonopin Tab) 0.5 mg TID PO 09/20/17 14:00 10/20/17 13:59 09/23/17 21:15 0.5 MG Oxycodone HCl (Roxicodone Immediate Rel Tab) `1-2 tabs for pain 1 tab ... Q6H PRN PO 09/20/17 15:15 10/04/17 15:14 09/24/17 01:19 10 MG Enteral Nutritional Formula (Peptamen 1.5) 1,000 ml UD PRN JT 09/21/17 08:45 10/21/17 08:44 09/23/17 02:22 1,000 ML Metoprolol Tartrate (Lopressor Tab) 12.5 mg BID JT 09/21/17 11:30 10/21/17 11:29 09/23/17 20:55 12.5 MG Docusate Sodium (coLACE SYRUP) 100 mg HS JT 09/21/17 21:00 10/21/17 20:59 09/22/17 21:03 100 MG Senna (Senokot Syrup) 8.8 mg QAM PO 09/22/17 09:00 10/22/17 08:59 Acetylcysteine (Mucomyst 20% Inh Soln) 3 ml BIDR INH 09/21/17 20:00 10/21/17 19:59 09/24/17 07:06 3 ML Ioversol (Optiray 320) 100 ml UD PRN IV 09/22/17 13:00 09/26/17 12:59 Vital Signs: Date Time Temp Pulse Resp B/P (MAP) Pulse Ox O2 Delivery O2 Flow Rate FiO2 09/24/17 07:11 55 09/24/17 06:01 84 20 124/70 (88) 100 09/24/17 06:00 84 17 100 09/24/17 05:55 55 09/24/17 05:01 89 18 108/55 (72) 100 09/24/17 05:00 88 17 100 09/24/17 04:50 98 Mechanical Ventilator 12.0 40 09/24/17 04:01 36.6 90 19 107/57 (74) 96 09/24/17 04:00 91 20 96 09/24/17 03:01 101 10 105/60 (75) 99 09/24/17 03:00 96 22 100 09/24/17 02:06 55 09/24/17 02:00 36.7 94 17 98 09/24/17 01:01 95 46 118/67 (84) 99 09/24/17 01:00 97 25 98 09/24/17 00:41 98 43 120/66 (84) 95 09/24/17 00:01 93 45 111/86 (94) 90 09/24/17 00:00 92 30 92 09/24/17 00:00 98 Mechanical Ventilator 12.0 40 09/23/17 23:01 85 31 125/61 (82) 95 09/23/17 23:00 95 36 95 09/23/17 22:05 30 09/23/17 22:01 78 27 104/56 (72) 93 09/23/17 22:00 79 23 93 09/23/17 21:01 93 21 114/56 (75) 95 09/23/17 21:00 105 21 98 09/23/17 20:38 30 09/23/17 20:01 105 21 98 09/23/17 20:00 98 Mechanical Ventilator 12.0 40 09/23/17 20:00 36.5 105 21 98 09/23/17 19:13 40 09/23/17 19:01 92 24 114/59 (77) 100 09/23/17 19:00 85 25 100 09/23/17 18:00 90 25 116/61 (79) 100 09/23/17 17:30 40 09/23/17 16:00 36.5 96 19 111/61 (78) 98 Mechanical Ventilator 40 09/23/17 16:00 98 Mechanical Ventilator 40 09/23/17 14:58 90 26 92 Mechanical Ventilator 50 09/23/17 14:05 40 09/23/17 14:00 93 23 89/64 (72) 97 Mechanical Ventilator 40 09/23/17 13:00 92 18 105/59 (74) 97 Mechanical Ventilator 40 09/23/17 12:00 96 Mechanical Ventilator 40 09/23/17 12:00 36.1 93 21 106/60 (75) 98 Mechanical Ventilator 40 09/23/17 11:20 40 09/23/17 11:00 79 25 118/61 (80) 98 Mechanical Ventilator 40 09/23/17 10:00 83 20 104/56 (72) 98 Mechanical Ventilator 40 09/23/17 09:02 40 09/23/17 09:00 78 21 96/52 (67) 98 Mechanical Ventilator 40 Laboratory Results: Last 24 Hours Test 09/23/17 12:37 09/23/17 18:03 09/24/17 00:30 09/24/17 02:18 Bedside Glucose 120 mg/dl 121 mg/dl 121 mg/dl Stool Occult Blood NEGATIVE Test 09/24/17 04:34 09/24/17 05:26 White Blood Count 11.17 K/uL Red Blood Count 3.01 M/uL Hemoglobin 8.1 g/dL Hematocrit 26.7 % Mean Corpuscular Volume 88.7 fL Mean Corpuscular Hemoglobin 26.9 pg Mean Corpuscular Hemoglobin Concent 30.3 g/dl Platelet Count 328 K/uL Mean Platelet Volume 9.7 fL Neutrophils (%) (Auto) 85.2 % Lymphocytes (%) (Auto) 4.7 % Monocytes (%) (Auto) 8.0 % Eosinophils (%) (Auto) 1.5 % Basophils (%) (Auto) 0.2 % Neutrophils # (Auto) 9.52 K/uL Lymphocytes # (Auto) 0.52 K/uL Monocytes # (Auto) 0.89 K/uL Eosinophils # (Auto) 0.17 K/uL Basophils # (Auto) 0.02 K/uL RDW Standard Deviation 56.7 fL RDW Coefficient of Variation 17.4 % Immature Granulocyte % (Auto) 0.4 % Immature Granulocyte # (Auto) 0.05 K/uL Hypochromasia PRESENT Stomatocytes 1+ Sodium Level 139 mmol/L Potassium Level 4.4 mmol/L Chloride Level 99 mmol/L Carbon Dioxide Level 38 mmol/L Anion Gap 2.0 mmol/L Blood Urea Nitrogen 16 mg/dl Creatinine 0.58 mg/dl Est Creatinine Clear Calc Drug Dose 110.8 ml/min Estimated GFR () 119.7 Estimated GFR (Non- 103.3 BUN/Creatinine Ratio 27.2 Random Glucose 114 mg/dl Calcium Level 9.0 mg/dl Phosphorus Level 2.6 mg/dl Magnesium Level 2.0 mg/dl Total Bilirubin 0.4 mg/dl Direct Bilirubin mg/dl 0.1 mg/dl Aspartate Amino Transf (AST/SGOT) 25 U/L Alanine Aminotransferase (ALT/SGPT) 22 U/L Alkaline Phosphatase 102 U/L Total Protein 7.1 gm/dl Albumin 2.4 gm/dl Chemistry Specimen Hemolysis
[2017-09-24] MEDS: PANTOprazole INJ 40 MG in SYRINGE 0 ML IV SCH (09:37)
[2017-09-24] MEDS: METOPROLOL TARTRATE 25 MG TAB JT SCH ×2 (09:39→19:54)
[2017-09-24] MEDS: SENNA 8.8 MG/5 ML UDP PO SCH (10:15)
[2017-09-24] MEDS: CLONAZEPAM 0.5 MG TAB PO SCH ×3 (10:15→20:00)
[2017-09-24] MEDS ORDERED: NURSING VERBAL MED ORDER ONE ×2 (11:00)
--- NOTE | 2017-09-24 13:00 | Progress Note ---
Subjective Date of Service: September 24, 2017. Subjective Per nursing, pt has been very agitated today. His daughter apparently left in tears and he has been pulling at his trach collar. Pt is resting comfortably. Nursing reports that pt has not exhibited or c/o fever, chest pain, abd pain, n/ v/c/d, LE pain or swelling. Problem List Medical Problems: (1) Aspiration pneumonia Status: Chronic (2) Cardiac arrest Status: Acute (3) Cardiopulmonary arrest with successful resuscitation Status: Acute (4) Elevated troponin Status: Acute (5) Pneumonia Status: Acute (6) Renal failure Status: Acute (7) Respiratory failure Status: Acute Objective Vital Signs Date Time Temp Pulse Resp B/P (MAP) Pulse Ox O2 Delivery O2 Flow Rate FiO2 09/24/17 12:01 99 CPAP 35 09/24/17 12:00 37.0 92 32 126/63 (84) 98 CPAP 35 09/24/17 11:20 45 09/24/17 10:00 90 26 109/62 (78) 99 CPAP 45 09/24/17 09:19 45 09/24/17 08:00 37.1 90 24 119/65 (83) 100 CPAP 55 09/24/17 08:00 99 CPAP 55 09/24/17 07:11 55 09/24/17 06:01 84 20 124/70 (88) 100 09/24/17 06:00 84 17 100 09/24/17 05:55 55 09/24/17 05:01 89 18 108/55 (72) 100 09/24/17 05:00 88 17 100 09/24/17 04:50 98 Mechanical Ventilator 12.0 40 09/24/17 04:01 36.6 90 19 107/57 (74) 96 09/24/17 04:00 91 20 96 09/24/17 03:01 101 10 105/60 (75) 99 09/24/17 03:00 96 22 100 09/24/17 02:06 55 09/24/17 02:00 36.7 94 17 98 09/24/17 01:01 95 46 118/67 (84) 99 09/24/17 01:00 97 25 98 09/24/17 00:41 98 43 120/66 (84) 95 09/24/17 00:01 93 45 111/86 (94) 90 09/24/17 00:00 92 30 92 5/20/18 00:00 98 Mechanical Ventilator 12.0 40 09/23/17 23:01 85 31 125/61 (82) 95 09/23/17 23:00 95 36 95 09/23/17 22:05 30 09/23/17 22:01 78 27 104/56 (72) 93 09/23/17 22:00 79 23 93 09/23/17 21:01 93 21 114/56 (75) 95 09/23/17 21:00 105 21 98 09/23/17 20:38 30 09/23/17 20:01 105 21 98 09/23/17 20:00 98 Mechanical Ventilator 12.0 40 09/23/17 20:00 36.5 105 21 98 09/23/17 19:13 40 09/23/17 19:01 92 24 114/59 (77) 100 09/23/17 19:00 85 25 100 09/23/17 18:00 90 25 116/61 (79) 100 CPAP 09/23/17 17:30 40 09/23/17 16:00 36.5 96 19 111/61 (78) 98 CPAP 40 09/23/17 16:00 98 Mechanical Ventilator 40 09/23/17 14:58 90 26 92 Mechanical Ventilator 50 09/23/17 14:05 40 09/23/17 14:00 93 23 89/64 (72) 97 CPAP 40 09/23/17 13:00 92 18 105/59 (74) 97 CPAP 40 Physical Exam General Appearance: WD/WN, no apparent distress Respiratory/Chest: no respiratory distress Cardiovascular: no edema Skin: normal color Laboratory Results Last 24 Hours Test 09/23/17 18:03 09/24/17 00:30 09/24/17 02:18 09/24/17 04:34 Bedside Glucose 121 mg/dl 121 mg/dl Stool Occult Blood NEGATIVE White Blood Count 11.17 K/uL Red Blood Count 3.01 M/uL Hemoglobin 8.1 g/dL Hematocrit 26.7 % Mean Corpuscular Volume 88.7 fL Mean Corpuscular Hemoglobin 26.9 pg Mean Corpuscular Hemoglobin Concent 30.3 g/dl Platelet Count 328 K/uL Mean Platelet Volume 9.7 fL Neutrophils (%) (Auto) 85.2 % Lymphocytes (%) (Auto) 4.7 % Monocytes (%) (Auto) 8.0 % Eosinophils (%) (Auto) 1.5 % Basophils (%) (Auto) 0.2 % Neutrophils # (Auto) 9.52 K/uL Lymphocytes # (Auto) 0.52 K/uL Monocytes # (Auto) 0.89 K/uL Eosinophils # (Auto) 0.17 K/uL Basophils # (Auto) 0.02 K/uL RDW Standard Deviation 56.7 fL RDW Coefficient of Variation 17.4 % Immature Granulocyte % (Auto) 0.4 % Immature Granulocyte # (Auto) 0.05 K/uL Hypochromasia PRESENT Stomatocytes 1+ Sodium Level 139 mmol/L Potassium Level 4.4 mmol/L Chloride Level 99 mmol/L Carbon Dioxide Level 38 mmol/L Anion Gap 2.0 mmol/L Blood Urea Nitrogen 16 mg/dl Creatinine 0.58 mg/dl Est Creatinine Clear Calc Drug Dose 110.8 ml/min Estimated GFR () 119.7 Estimated GFR (Non- 103.3 BUN/Creatinine Ratio 27.2 Random Glucose 114 mg/dl Calcium Level 9.0 mg/dl Phosphorus Level 2.6 mg/dl Magnesium Level 2.0 mg/dl Total Bilirubin 0.4 mg/dl Direct Bilirubin mg/dl Aspartate Amino Transf (AST/SGOT) 25 U/L Alanine Aminotransferase (ALT/SGPT) 22 U/L Alkaline Phosphatase 102 U/L Total Protein 7.1 gm/dl Albumin 2.4 gm/dl Chemistry Specimen Hemolysis Test 09/24/17 05:26 09/24/17 11:54 Direct Bilirubin 0.1 mg/dl Bedside Glucose 116 mg/dl Assessment and Plan Complicated 72yo male with: 1. shock, likely septic - from right-sided pneumonia - pressors have been discontinued, leukocytosis resolving, and he overall has improved. Defer abx selection to ID and critical care- plan is for imipenem alone along with tobramycin nebs BID due to previous history of pseudomonas; thus far all cultures including bronch cultures are negative. Bronch on 09/19 and repeated on 09/21 ECHO without evidence of cardiogenic component contributing to shock. No evidence of SBE. No evidence of adrenal shock. Could have had hemorrhage as his H/H had dropped considerably from admission ( 12 down to low 8's). Fecal occult neg 2. s/p cardiac arrest - likely hypoxia-induced as there was a report that copious secretions/tube feedings were suctioned from his trach during the code. He had chest compressions for 5-10 minutes with successful mandaeism of spontaneous circulation. He has a mild troponin elevation likely due to his arrest and #1 above. Doubt he had a true ACS. Echo w/ preserved LV function. Continues to do well from a mental status standpoint as well as neurological standpoint with no apparent deficits per report, pt is sedated on my exam s/p fentanyl today 3. acute hypoxic/hypercarbic respiratory failure likely 2nd to right-sided pneumonia - strong suspicion that the pneumonia was due to aspiration. He is s/p bronch 09/19 and again on 09/21 Records from [facility] indicate he had rhinovirus infection and pseudomonas, although no documentation found 4. j-tube obstruction - s/p dislodgement by general surgery; back on tube feedings w/ peptamen; goal rate is 50cc/hr continuously. 5. right-sided pneumonia - aspiration vs gram negative in etiology. see above. 6. abdominal pain - mainly RUQ - has gallstones and presented with abnormal LFTs; HIDA neg for acute cholecystitis. pain could be gastric in origin vs referred pain from rib fractures. Toradol for pain control. Consider long-acting pain med?? Cont oxycodone prn as well. 7. hypomagnesemia - resolved. 8. hypophosphatemia - resolved. 9. positive troponin - due to cardiac arrest and/or myocardial demand ischemia in setting of shock. 10. ?acute blood loss anemia - serial H/H's showed drop from about Hb of 12 to low 8's and he seems to have plateaued. Check a fecal occult blood and cont PPI. If heme+ then GI consultation. 11. esophageal cancer with numerous complications in the past requiring various surgeries; he is s/p esophagectomy and ultimately underwent esophago- colonic anastomosis in 2015; Chronic anastomotic stricture and has received dilatations [id number] in the past per records - since all of [place] care [place] the exact status of his cancer is unknown but there does not appear to be recurrence of cancer based on CT chest/ abd/pelvis this admission. 12. h/o T2DM - hemoglobin a1c is very low suggesting his DM has resolved, likely from weight loss due to #11 and malnutrition. 13. protein calorie malnutrition - severe - J-tube tube feedings have been resumed. 14. COPD - does not appear to be in exacerbation at this time. 15. h/o DVT - noted. Heparin for DVT proph cautiously in light of #10. 16. CAD - records suggest he had left main disease and other occlusions; he is s/p CABG in August 2014 at [facility]. He is typically on low- dose ASA, beta thomas, and statin. Latter being held due to abnormal LFTs. 17. hyponatremia - resolved with IVF. 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 19. tracheostomy status - placed 06/2017 at [facility]. 20. rhinovirus and pseudomonas pneumonia - 08/2017 at [facility] - bronch cultures thus far negative for such. 21. h/o AAA s/p repair in 2014 at [facility]. 22. b/l rib fractures - 2nd to chest compressions during recent cardiac arrest - pain control. 23. abnormal left upper chest wall / cavity - due to surgery in 2014 that involved partial resection of first rib, clavicle, and manubrium. 24. large skin tear on chest - presumably due to recent chest compressions - wound care team consulted for management. has follow-up with thoracic surgery at [facility] [place] 10, 2017 per records PT/OT recs for LTACH Recs for LTAC. Per notes, Dr. Bowman spoke with pt's on Monday and plan is for LTACH in [place] on Monday. He is accepted at this facility. Continued [facility] stay due to: abnormal vital signs, inadequate oral pain control , voiding difficulties, ambulation difficulties, multiple IV medications needed Discharge planning: uncertain
[2017-09-24] MEDS: ASPIRIN 81 MG CHEW JT SCH (13:18)
[2017-09-24] MEDS: ACETAMINOPHEN SOLN 160 MG/5 ML BTL GT SCH ×2 (13:18→22:51)
[2017-09-24] MEDS: LORAZEPAM 0.5 MG TAB JT PRN (19:52)
[2017-09-24] MEDS: LANSOPRAZOLE SOLUTAB 30 MG JT SCH (19:55)
[2017-09-24] MEDS: DOCUSATE SODIUM 100 MG/10 ML UDC JT SCH (19:55)
[2017-09-25] VITALS (16 sets, daily range): BP systolic 110–129; BP diastolic 57–72; PULSE 87–107; TEMP 36.3–36.8; O2SAT 94–99
[2017-09-25] MEDS: PEPTAMEN 1.5 CAL 1000ML BAG JT PRN (01:03)
[2017-09-25 04:35] LABS: BASO % 0.2 %; BASO ABS # 0.02 K/uL (0-0.2); EOS % 1.8 %; EOS ABS # 0.23 K/uL (0-0.5); HEMATOCRIT 24.3 % (42-52); HEMOGLOBIN 7.4 g/dL (14.0-18.0); IG# 0.03 K/uL (0.00-0.02); LYMPH % 4.8 %; MEAN CELL VOLUME 86.5 fL (80-100); MEAN CORPUSCULAR HEMOGLOBIN 26.3 pg (25-34); MEAN CORPUSCULAR HGB CONC 30.5 g/dl (32-36); MEAN PLATELET VOLUME 9.3 fL (7.4-10.4); MONO % 9.7 %; MONO ABS # 1.21 K/uL (0.11-0.59); NEUT % 83.3 %; NEUT ABS # 10.35 K/uL (1.4-6.5); PLATELET COUNT 311 K/uL (130-400); RED CELL DISTRIBUTION WIDTH CV 17.6 % (11.5-14.5); RED CELL DISTRIBUTION WIDTH SD 55.8 fL (36.4-46.3); WHITE BLOOD COUNT 12.44 K/uL (4.8-10.8)
[2017-09-25 04:55] LABS: CALCIUM 8.7 mg/dl (8.5-10.1); CREATININE 0.47 mg/dl (0.60-1.40); PHOSPHORUS 2.2 mg/dl (2.5-4.9); POTASSIUM 4.2 mmol/L (3.5-5.1)
[2017-09-25] MEDS: LORAZEPAM 0.5 MG TAB JT PRN (05:13)
[2017-09-25] MEDS: ACETAMINOPHEN SOLN 160 MG/5 ML BTL GT SCH (05:13)
[2017-09-25] MEDS: MIDODRINE 10 MG TAB PO SCH (05:14)
[2017-09-25] MEDS: INSULIN ASPART 100 UNITS/ML 3 ML PEN SC SCH ×2 (06:00)
[2017-09-25] MEDS: ALBUT/IPRATROP 3MG/0.5MG NEB 3 ML VIAL INH SCH (07:06)
[2017-09-25] MEDS: ACETYLCYSTEINE 20% INHAL SOLN ***DISPENSED BY RESP. INH SCH (07:06)
--- NOTE | 2017-09-25 07:43 | Critical Care Progress Note ---
Critical Care Progress Note Date of Service September 25, 2017. ICU Day ICU Day Number: [address] Matos Subjective No overnight events, tolerated person support ventilation with 5 of PEEP. Objective GENERAL : No acute distress. EYES: No icterus, gaze conjugate NOSE: No evidence of epistaxis MOUTH: No lesions or candidiasis. Mucosa moist NECK: Supple. Tracheostomy tube in place. No drainage noted to drainage pads LUNGS: exchange is adequate. HEART: Regular, rate controlled ABDOMEN: Soft, NT, ND, BS Present. NEURO: A&OX3 Assessment & Plan This is a 72-year-old male that was admitted to the intensive care unit 09/19/2017 for acute hypoxic respiratory rest leading to cardiac arrest. He has a history of recurrent Pseudomonas. Respiratory cultures were reviewed from [facility] and showed pansensitive Pseudomonas. Patient is being followed by Dr. Singh from infectious disease while inpatient. The patient 's is very active in his care. NEURO Muscle weakness consistent with ICU myopathy -Plan transfer to LTAC today -Patient alert and oriented 3 -CAM negative -No focal deficits -Watch for focal changes secondary to increase of pain medications -Percocet discontinued -change to oxycodone -Continue [id number] scheduled Tylenol as well as [id number] scheduled Toradol -LFTs within normal range -Continue K pad CARDIO -Troponin trending downward -elevated secondary to hypoxic driven cardiac arrest -Echocardiogram completed with LVEF of 55-60%. Also with moderate aortic stenosis with mild aortic regurgitation -Home meds--- furosemide 20 mg p.o. twice daily, Lipitor 20 mg p.o. daily, aspirin 81 mg daily, Lopressor 25 mg p.o. twice daily, Midrin 10 mg TID -Continuing metoprolol 12.5 mg twice daily -Continuing Lipitor at 10 mg daily, will follow-up LFTs -Discontinued secondary to ICU myopathy and history of transaminitis PULMONARY -Acute pulmonary process unlikely--Chronically colonized with pseudomonas Status post bronchoscopy 09/19/2017 with copious amounts of secretions evacuated with bronchial lavage:Initial bronc washings show scant normal deja, Laboratory analysis of bronchial washings with no acute infection, Bronchial washings with severe acute pneumonitis. -Repeat therapeutic bronchoscopy--09/21, 09/22 -Patient initially started on ciprofloxacin IV, tobramycin IV, vancomycin IV, and Primaxin IV, all discontinued--no acute process -Continue bronchodilator, vibration bed module, incentive spirometry -Pneumatic vest not an option secondary to rib fractures -Bedside ultrasound with no significant pleural effusion -Take off pressure support ventilation and trach collar during the day RENAL -Renal function stable -Trend serial labs NUTRITION -Jejunal tube management per surgery -Nutrition consult placed -Tube feeds per nutrition HEME -Hemoglobin stable at 7.6 - reticulocyte count: Appropriately elevated, repeat H/H -Type and screen: Completed -Consent on chart ID -Chronic colonization of pseudomonas, no acute process -ID consulted and following -appreciate Dr. Singh's input -Blood cultures negative for growth 2 -Urine culture with less than 1000 colonies -MRSA screening negative by DNA probe -Sputum culture from tube secretions is light normal deja -Cultures from bronchial washings completed 09/19/2017 negative -Discontinued all antibiotics and following the patient clinically GI -History of esophageal carcinoma -Tube feeds per nutritional consult -Continue pantoprazole -Jejunal tube in place without obstruction per KUB with contrast -Transaminitis: Resolved--History of nonalcoholic steatohepatitis, possible component secondary to statin IV ACCESS -Peripheral IVs in place -Right femoral triple-lumen had been placed in the emergency department - discontinued 09/20/2017 ENDOCRINE -No history of diabetes mellitus or chronic insulin use -Hyperglycemia -Hyperglycemia protocol with BSG's -Continue NovoLog sliding scale insulin -No history of hypothyroidism -Most recent TSH from 06/18/2015 was 1.4 DVT PROPHYLAXIS -Heparin 5000 units subcu every 12 hours Disposition: Patient requires long-term acute care secondary to profound ICU myopathy and intermittent need for mechanical ventilation and probable therapeutic aspiration of pulmonary secretions. Plan transfer later today. I gave a physician to physician report to a Dr. Grace phone number: [phone] Consults & Procedures Consultants: General surgery -Dr. Casanova Pulmonary -Dr. Bowman Wound care nurse -Yokasta Gibbs,childcare director medicine -Dr. Matos Procedures: Right femoral triple-lumen catheter; placed in the ED 09/19/2017; removed 2017 Fiberoptic bronchoscopy 09/19/2017 Echocardiogram 09/19/2017 Data Medications: Current Inpatient Medications Medications (Trade) Dose Ordered Sig/Madalyn Route Start Time Stop Time Status Last Admin Dose Admin Heparin Sodium (Porcine) (Heparin Sq 5000 Unit/0.5ml) 5,000 unit Q12H SQ 09/19/17 09:00 6/14/18 08:59 09/24/17 19:57 5,000 UNIT Fentanyl Citrate (Fentanyl Inj) 12.5 mcg Q1H PRN IV 09/19/17 01:45 10/03/17 01:44 09/23/17 00:58 12.5 MCG Lorazepam (Ativan Inj) 0.5 mg Q4H PRN IV 09/19/17 01:45 10/19/17 01:44 09/24/17 10:07 0.5 MG Albuterol/ Ipratropium (Duoneb) 3 ml Q4RWA INH 09/19/17 08:00 10/19/17 07:59 09/25/17 07:06 3 ML Midodrine (Proamatine Tab) 10 mg Q8 PO 09/19/17 14:00 10/19/17 13:59 Future hold 09/25/17 05:14 10 MG Furosemide (Lasix Tab) 20 mg BIDM PO 09/19/17 16:30 10/19/17 16:29 Future Hold Insulin Aspart (novoLOG ASPART) SLIDING SCALE Q6H SC 09/19/17 12:00 10/19/17 11:59 Glucose (Glucose 40% Gel) 15-30 GRAMS 15 GRAMS... UD PRN PO 09/19/17 12:30 10/19/17 12:29 Glucose (Glucose Chew Tab) 4-8 Tablets 4 Tabl... UD PRN PO 09/19/17 12:30 10/19/17 12:29 Dextrose (Dextrose 50% 50ML Syringe) 25-50ML 25ML FOR ... UD PRN IV 09/19/17 12:30 10/19/17 12:29 Glucagon (Glucagon Inj) 1 mg UD PRN IM 09/19/17 12:30 10/19/17 12:29 Carbohydrates (Carbohydrates For Hypoglycemia) 15-30 GRAMS 15 grams if BSG 54-69... UD PRN PO 09/19/17 12:30 10/19/17 12:29 Lidocaine (Lidoderm Patch 5%) 1 patch Q24H PRN TD 09/20/17 10:30 10/20/17 10:29 09/23/17 18:04 1 PATCH Aspirin (Aspirin Chew) 81 mg DAILY@1400 JT 09/20/17 14:00 10/20/17 13:59 09/24/17 13:18 81 MG Miscellaneous (Remove Lidoderm Patch) 1 ea Q12H PRN N/A 09/20/17 12:00 10/20/17 11:59 Buspirone HCl (Buspar Tab) 7.5 mg TID JT 09/20/17 14:00 10/20/17 13:59 09/24/17 19:55 7.5 MG Clonazepam (Klonopin Tab) 0.5 mg TID PO 09/20/17 14:00 10/20/17 13:59 09/24/17 20:00 0.5 MG Oxycodone HCl (Roxicodone Immediate Rel Tab) `1-2 tabs for pain 1 tab ... Q6H PRN PO 09/20/17 15:15 10/04/17 15:14 09/24/17 16:41 10 MG Enteral Nutritional Formula (Peptamen 1.5) 1,000 ml UD PRN JT 09/21/17 08:45 10/21/17 08:44 09/25/17 01:03 1,000 ML Metoprolol Tartrate (Lopressor Tab) 12.5 mg BID JT 09/21/17 11:30 10/21/17 11:29 09/24/17 19:54 12.5 MG Docusate Sodium (coLACE SYRUP) 100 mg HS JT 09/21/17 21:00 10/21/17 20:59 09/24/17 19:55 100 MG Senna (Senokot Syrup) 8.8 mg QAM PO 09/22/17 09:00 10/22/17 08:59 09/24/17 10:15 8.8 MG Acetylcysteine (Mucomyst 20% Inh Soln) 3 ml BIDR INH 09/21/17 20:00 10/21/17 19:59 09/25/17 07:06 3 ML Ioversol (Optiray 320) 100 ml UD PRN IV 09/22/17 13:00 09/26/17 12:59 Acetaminophen (Tylenol Soln) 1,000 mg Q8@0600,1400,2200 GT 09/24/17 14:00 10/24/17 13:59 09/25/17 05:13 1,000 MG Lorazepam (Ativan Tab) 0.5 mg Q4H PRN JT 09/24/17 11:15 10/24/17 11:14 09/25/17 05:13 0.5 MG Lansoprazole (Prevacid Solutab) 30 mg BID JT 09/24/17 21:00 10/24/17 20:59 09/24/17 19:55 30 MG Vital Signs: Date Time Temp Pulse Resp B/P (MAP) Pulse Ox O2 Delivery O2 Flow Rate FiO2 09/25/17 07:06 35 09/25/17 06:00 93 21 112/63 (79) 98 CPAP 35 09/25/17 05:18 101 25 124/72 (89) 98 CPAP 35 09/25/17 05:12 35 09/25/17 04:01 36.8 94 22 126/63 (84) 99 CPAP 35 09/25/17 04:00 97 CPAP 35 09/25/17 03:01 95 24 117/61 (79) 96 CPAP 35 09/25/17 02:14 35 09/25/17 02:01 94 23 126/64 (84) 95 CPAP 35 09/25/17 01:01 87 24 125/63 (83) 98 CPAP 35 09/25/17 00:01 97 CPAP 35 09/25/17 00:01 36.8 89 22 129/66 (87) 97 CPAP 35 09/24/17 23:12 35 09/24/17 23:01 87 26 130/67 (88) 96 CPAP 35 09/24/17 22:01 89 23 124/64 (84) 99 CPAP 35 09/24/17 21:01 83 20 108/57 (74) 99 CPAP 35 09/24/17 20:01 36.6 96 26 127/68 (87) 99 CPAP 35 09/24/17 20:00 99 CPAP 35 18 19:16 35 18 18:00 93 20 119/73 (88) 98 CPAP 35 18 17:16 35 18 16:00 95 CPAP 35 18 16:00 36.7 100 35 132/70 (90) 99 CPAP 35 09/24/17 15:38 35 09/24/17 14:00 90 26 103/56 (72) 97 CPAP 35 09/24/17 13:15 35 09/24/17 12:01 99 CPAP 35 09/24/17 12:00 37.0 92 32 126/63 (84) 98 CPAP 35 09/24/17 11:20 45 09/24/17 10:00 90 26 109/62 (78) 99 CPAP 45 09/24/17 09:19 45 09/24/17 08:00 37.1 90 24 119/65 (83) 100 CPAP 55 09/24/17 08:00 99 CPAP 55 Laboratory Results: Last 24 Hours Test 09/24/17 11:54 09/24/17 17:57 09/24/17 21:18 09/25/17 00:16 Bedside Glucose 116 mg/dl 116 mg/dl 113 mg/dl 108 mg/dl Test 09/25/17 04:15 White Blood Count 12.44 K/uL Red Blood Count 2.81 M/uL Hemoglobin 7.4 g/dL Hematocrit 24.3 % Mean Corpuscular Volume 86.5 fL Mean Corpuscular Hemoglobin 26.3 pg Mean Corpuscular Hemoglobin Concent 30.5 g/dl Platelet Count 311 K/uL Mean Platelet Volume 9.3 fL Neutrophils (%) (Auto) 83.3 % Lymphocytes (%) (Auto) 4.8 % Monocytes (%) (Auto) 9.7 % Eosinophils (%) (Auto) 1.8 % Basophils (%) (Auto) 0.2 % Neutrophils # (Auto) 10.35 K/uL Lymphocytes # (Auto) 0.60 K/uL Monocytes # (Auto) 1.21 K/uL Eosinophils # (Auto) 0.23 K/uL Basophils # (Auto) 0.02 K/uL RDW Standard Deviation 55.8 fL RDW Coefficient of Variation 17.6 % Immature Granulocyte % (Auto) 0.2 % Immature Granulocyte # (Auto) 0.03 K/uL Hypochromasia PRESENT Sodium Level 141 mmol/L Potassium Level 4.2 mmol/L Chloride Level 100 mmol/L Carbon Dioxide Level 38 mmol/L Anion Gap 3.0 mmol/L Blood Urea Nitrogen 13 mg/dl Creatinine 0.47 mg/dl Est Creatinine Clear Calc Drug Dose 136.7 ml/min Estimated GFR () 130.5 Estimated GFR (Non- 112.6 BUN/Creatinine Ratio 28.1 Random Glucose 102 mg/dl Calcium Level 8.7 mg/dl Phosphorus Level 2.2 mg/dl Magnesium Level 2.0 mg/dl
[2017-09-25] MEDS ORDERED: CONSULT PHARMACY STA (08:30)
--- NOTE | 2017-09-25 08:44 | SURGERY PROGRESS NOTE ---
DATE: 09/25/2017 Seen in the ICU. Discussed the case with the nurses. The patient has had no further problem with the J-tube. They could administer and infuse very easily without any problem. At this point, we will sign off.
[2017-09-25 08:53] LABS: HEMATOCRIT 24.5 % (42-52); HEMOGLOBIN 7.6 g/dL (14.0-18.0)
[2017-09-25] MEDS: CLONAZEPAM 0.5 MG TAB PO SCH (09:21)
[2017-09-25] MEDS: LANSOPRAZOLE SOLUTAB 30 MG JT SCH (09:30)
[2017-09-25] MEDS: SENNA 8.8 MG/5 ML UDP PO SCH (09:30)
[2017-09-25] MEDS: HEPARIN SOD 5000 UNIT/0.5 ML CARP SQ SCH (09:30)
[2017-09-25] MEDS: METOPROLOL TARTRATE 25 MG TAB JT SCH (09:31)
[2017-09-25] MEDS ORDERED: POT PHOSPHATE MONOBASIC W/ SOD TAB PO ONE (09:45)
[2017-09-25] MEDS ORDERED: OXYCODONE HCL SOLN 5 MG/5 ML UDC PO PRN (10:45)
[2017-09-25] MEDS ORDERED: LDDP5 TD (11:47)
[2017-09-25] MEDS ORDERED: MCMIN20ML INH (11:47)
[2017-09-25] MEDS ORDERED: OXYC10SO JT (11:47)
[2017-09-25] MEDS ORDERED: NUTR-1305 JT (11:47)
[2017-09-25] MEDS ORDERED: LPR25 JT (11:47)
[2017-09-25] MEDS ORDERED: HPRIS5M SQ (11:47)
[2017-09-25] MEDS ORDERED: ALPR-411 PO (11:47)
--- NOTE | 2017-09-25 11:50 | Discharge Instructions ---
Discharge Instructions Date of Service September 25, 2017. Admission Reason for Admission: Acute Respiratory Failure W/ Hypoxia & Hypercapnia Discharge Discharge Diagnosis / Problem: Cardiac arrest due to hypoxic respiratory failure Discharge Goals Goal(s): Learn about illness, Diagnostic testing, Therapeutic intervention Activity Recommendations Activity Limitations: resume your previous activity . Instructions / Follow-Up Instructions / Follow-Up To be determined at [facility] LTACH Current Hospital Diet Patient's current hospital diet: Discharge Diet Recommended Diet: N/A Procedures Procedures Performed: 1. head CT 2. echocardiogram 3. multiple CTA chests 4. multiple cxrs 5. central line 6. bronchoscopy Pending Studies Studies pending at discharge: yes List of pending studies: recent bronch cultures Laboratory Results Hemoglobin A1c Test 09/19/17 04:25 Range/Units Estimated Average Glucose 103 mg/dl Hemoglobin A1c 5.2 4.5-5.6 % Medical Emergencies . Who to Call and When: Medical Emergencies: If at any time you feel your situation is an emergency, please call 911 immediately. . Non-Emergent Contact Non-Emergency issues call your: Hospital Doctor, Tree Trimming Supervisor Call Non-Emergent contact if: temperature is above 100.5, your pain is not controlled, your pain is worsening, your pain is unusual for you, your pain is concerning you, you have any medication questions . . "Provider Documentation" section prepared by Alec Azul. .
--- NOTE | 2017-09-25 12:18 | Discharge Summary ---
Discharge Summary Date of Service September 25, 2017. Discharge Summary Admission Date: September 19, 2017 at 02:03 Discharge Date: September 25, 2017 Discharge Disposition: Acute care facility ([place], [place] ; accepting physician - Dr. Grace ) Principal Diagnosis: s/p cardiac arrest likely 2nd to acute hypoxia Problems/Secondary Diagnoses: 1. shock, likely septic - from right-sided pneumonia 2. acute/chronic hypoxic/hypercarbic respiratory failure likely 2nd to right- sided pneumonia 3. j-tube obstruction - s/p dislodgement by general surgery 4. right-sided pneumonia - aspiration vs gram negative in etiology 5. numerous b/l rib fractures 6. hypomagnesemia - resolved 7. hypophosphatemia - resolved 8. positive troponin - due to cardiac arrest and/or myocardial demand ischemia in setting of shock 9. acute/chronic anemia, acute component likely due to blood loss anemia 10. esophageal cancer with numerous complications in the past requiring various surgeries; he is s/p esophagectomy and ultimately underwent esophago- colonic anastomosis in 2014 11. h/o T2DM not on treatment 12. severe protein calorie malnutrition 13. COPD 14. h/o DVT 14. CAD 15. 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 chronic tracheostomy status - placed 06/2017 18. rhinovirus and pseudomonas pneumonia - 08/2017 19. h/o AAA s/p repair in 2014 20. abnormal left upper chest wall / cavity - due to surgery in 2014 that involved partial resection of first rib, clavicle, and manubrium. 21. large skin tear on chest - presumably due to recent chest compressions 22. chronic pain syndrome 23. critical illness myopathy with severe deconditioning 24. chronic dysphagia s/p J-tube dependency 25. abnormal LFTs - possibly 2nd to tylenol and/or statin use - improved 26. hyperlipidemia 27. gallstones Immunizations: Have You Had Influenza Vaccine: Unknown History of Tetanus Vaccine?: Unknown History of Pneumococcal: No Pneumococcal Date: Apr 23, 2012 History of Hepatitis B Vaccine: No Procedures: 1. CT head - negative for ICH or stroke. 2. CT chest - 09/18/17 - FINDINGS: Thyroid: Atrophic. Thoracic aorta: There is atherosclerotic calcification of the thoracic aorta, which is normal in caliber and demonstrates bovine variant arch anatomy. Heart: The heart is normal in size and without pericardial effusion. The coronary arteries are densely calcified. Lungs and pleural spaces: A tracheostomy is in place. Secretions fill the larynx. Emphysema is noted. Fibrotic change in the paramediastinal right upper lobe is similar to previous and is likely treatment related. There are small right and trace left pleural effusions. There is dense airspace consolidation in the right lower lung with near-complete atelectasis of the right lower lobe. Fluid/secretions fill the right lower lobe airways. Dense airspace consolidation is seen in the left lower lobe. Patchy consolidative changes also seen in the right middle and right upper lobes. Mediastinum: There is no mediastinal lymphadenopathy. Rema: Not well assessed without IV contrast. Axillae: There is no axillary lymphadenopathy. Upper abdomen: There are postoperative changes from esophageal resection and gastric pull-through procedure. The gastric conduit is seen in the anterior mediastinum. An aortic stent graft is partially imaged in the upper abdomen. A 2.7 cm cyst is incidentally noted in the right hepatic lobe. A punctate nonobstructing calculus is seen in the upper pole of the left kidney. There are mildly enlarged upper abdominal lymph nodes. Gastrohepatic nodes measure up to 10 mm in short axis. A celiac node on image #[id number] measures 13 mm in short axis. Skeletal structures: The skeletal structures are osteopenic. Degenerative change is seen throughout the thoracic spine. There are mild compression deformities of T6, T10, and T12. No lytic or blastic bony lesions are seen. Postoperative change is noted in the left humeral head. Chronic deformity is noted in the left shoulder. There is also chronic deformity of the right posterior sixth rib as well as several left-sided ribs. There are acute nondistracted right anterior 2nd through 7th rib fractures. There are also acute nondistracted left anterior 3rd through 7th rib fractures. IMPRESSION: 1. Significantly streak and motion compromised examination 2. Numerous bilateral rib fractures as above. 3. There are postoperative changes from esophageal resection with gastric pull- through procedure. 4. There are small right and trace left pleural effusions. 5. There is dense airspace consolidation at the right lung base with near-complete atelectasis of the right lower lobe. Fluid/secretions fill the right lower lobe airways. There is also dense consolidation at the left lung base, with patchy airspace consolidation seen in the right upper and middle lobes. These findings likely represent pneumonia/aspiration pneumonitis. 6. There are enlarged lymph nodes in the upper abdomen. These are nonspecific but concerning for metastatic disease if there is a history of esophageal cancer. 3. RUQ u/s - IMPRESSION: 1. Cholelithiasis and biliary sludge without convincing sonographic evidence of acute cholecystitis. A sonographic Gentile's sign was indeterminate due to right-sided rib fractures, and if there is strong clinical concern for cholecystitis a nuclear hepatobiliary scan should be considered. 2. Findings suggest mild hepatic steatosis. 3. There is trace perihepatic ascites. 4. Trace right pleural effusion. 4. CTA chest - 09/19/17 - IMPRESSION: 1. No evidence for pulmonary embolus with limitations as described above. 2. No significant change compared to the prior study. Bilateral lower lobe consolidation, right greater than left and partial opacification of the lower lobe bronchi are again noted. This favors aspiration pneumonia. 3. Gastrohepatic lymphadenopathy, unchanged. 4. Right suprahilar consolidation may represent posttreatment changes. 5. Acute bilateral anterior rib fractures are again noted. No pneumothorax. 6. Postoperative changes consistent with esophagectomy with a colonic bypass. 5. CT abd/pelvis - 09/19/17 - IMPRESSION: 1. No evidence of intra-abdominal or pelvic hemorrhage 2. No evidence of bowel obstruction. No evidence of free air. No evidence of acute diverticulitis. No evidence of acute appendicitis. 3. Aortobiiliac stent grafting. The right iliac stent is occluded 4. Dense consolidation of the right lower lobe. Left basilar atelectasis/ consolidation 5. Borderline enlarged para-aortic and peripancreatic lymph nodes 6. HIDA scan negative for acute cholecystitis. 7. LUE doppler negative for DVT. 8. CTA chest - 09/22/17 - IMPRESSION: 1. Allowing for suboptimal image quality, no evidence of pulmonary embolus. 2. Interval increase in extensive dependent consolidation affecting the bilateral lungs. There is prominent mucous plugging within the right middle and lower lobe bronchi. Findings suggest multifocal pneumonia, possibly aspiration pneumonia. 3. Peribronchovascular consolidation and bronchiectasis in the right apex consistent with chronic change, possibly organizing pneumonia. 4. Significant collateral chest wall vessels likely implies central venous stenosis. The left brachiocephalic vein is either occluded or severely stenotic. 5. Postsurgical changes of esophagectomy and colonic bypass. 9. echocardiogram - * -- Conclusions -- * 1. Normal left ventricular size and systolic function. EF 55-60%. No definite regional wall motion abnormalities. No left ventricular hypertrophy. * 2. The right ventricular systolic function is reduced as assessed by tricuspid annular plane systolic excursion (TAPSE) (TAPSE <1.6 cm). * 3. Moderate valvular aortic stenosis. Mild aortic regurgitation. * 4. Compared to prior study on 06/18/2015, aortic transvalvular velocities and gradients have increased. LV systolic function is now less hyperdynamic. 10. Right femoral triple-lumen catheter; placed in the ED 09/19/2017; removed . 11. Fiberoptic bronchoscopy 09/19/2017 - Wero Matos DO 12. Fiberoptic bronchoscopy 09/21/2017 - Wero Matos DO 13. Fiberoptic bronchoscopy 09/22/2017 - Wero Matos DO Each bronch showed significant right-sided mucous impactions/plugs s/p removal of plugs. 14. Disimpaction of J-tube - Con Casanova MD Consultations: critical care - Wero Matos DO pulmonary infectious disease general surgery PT, OT palliative care wound care dietary Medication Reconciliation New Medications: Acetylcysteine (Acetylcysteine) 1 Ml Soln 3 ML INH BIDR, #60 ML 0 Refills Heparin Sod (Porcine) (Heparin Sodium) 5,000 Unit/0.5 Ml Inj 5000 UNIT SQ Q12H, #60 SYR 1 Refill Lidocaine (Lidocaine) 1 Patch Tdsy 2 PATCH TD Q24H PRN for Pain, #60 PATCH 0 Refills apply to sites of pain for 12 hours, remove for 12 hours Nutritional Supplements (Peptamen 1.5 Fito) 1 Liq Liq 1000 ML JT UD, #1 CAN 2 Refills goal is 50cc/hr continuously Changed Medications: Metoprolol Tartrate (Lopressor) 25 Mg Tab 12.5 MG JT BID, #60 TAB 2 Refills (Changed from: 25 MG; PO; Refills: ) Oxycodone Oral Soln (Roxicodone Oral Soln) 5 Mg/5 Ml Soln 15 MG JT Q6H PRN for moderate-severe pain, #50 ML 0 Refills (Changed from: 5-10 MG; Q4H; Refills: ) Continued Medications: Alprazolam (Xanax) 0.5 Mg Tab 0.25 MG PO Q8 PRN for anxiety, #30 TAB 0 Refills (This prescription has been renewed) Aspirin (Aspirin Chewable) 81 Mg Chew 81 MG JT DAILY, TAB Buspirone Hcl (Buspirone Hcl) 7.5 Mg Tab 7.5 MG JT TID Clonazepam (Klonopin) 0.5 Mg Tab 0.5 MG JT TID for 30 Days, #90 TAB Docusate Sodium (Docusate Sodium) 50 Mg/5 Ml Liq 10 ML JT DAILY Famotidine (Acid Control Maximum Stre) 20 Mg Tab 20 MG JT Q12 Furosemide (Lasix) 20 Mg Tab 20 MG JT BID, TAB Ipratropium-Albuterol (Duoneb) 3 Ml Nebu 1 TREATMENT INH QID, INHA Lansoprazole (Prevacid) 30 Mg Capcr 30 MG JT DAILY PRN for GI Upset, CAP Midodrine (Midodrine HCl) 10 Mg Tab 10 MG JT TID Potassium/Phosphorus/Sodium (Phos-Nak Powder Concentra) 1 Pkt Powd 1 PKT JT DAILY Sennosides (Senna) 8.8 Mg/5 Ml Syp 8.8 MG JT DAILY Discontinued Medications: Atorvastatin (Lipitor) 20 Mg Tab 20 MG PO DAILY, TAB Furosemide (Lasix) 20 Mg Tab 20 MG PO BID, TAB Sodium Chloride (Sodium Chloride) 3 % Inj 3 ML INH BID Tobramycin (Bethkis) 300 Mg/4 Ml Neb 300 MG INH BID Discharge Exam Physical Exam: General Appearance: no apparent distress ENT: pharynx normal, + pertinent finding (trach in place, clean/dry) Neck: no JVD Respiratory/Chest: no respiratory distress, no accessory muscle use, + decreased breath sounds (right base), + crackles (right base), + pertinent finding (course BS b/l but much worse on right) Cardiovascular: regular rate, rhythm, no gallop, normal peripheral pulses, + systolic murmur (1-2/6 RUSB) Abdomen / GI: normal bowel sounds, non tender, soft, no organomegaly, + pertinent finding (multiple scars on abdominal wall; J-tube LUQ clean) Extremities: no pedal edema, + pertinent finding (LUE with mild edema throughout the arm) Neurologic/Psychiatric: no motor/sensory deficits (strength (distally) 5/5 x 4 exts), alert, oriented x 3 Skin: + pertinent finding (skin tear, right upper newman - clean; large skin tear/wound in the central chest region, covered with dressing) Hospital Course HISTORY OF PRESENT ILLNESS: History is obtained from prior records as well as staff members. Patient is a complicated 72-year-old male who presented from [facility] via [facility] for cardiac arrest. Reportedly the patient suffered respiratory insufficiency/respiratory arrest (the possibility has been raised with possibly aspiration and was reportedly receiving tube feeds or medications via the gastrostomy tube when this event occurred) leading to cardiac arrest. The patient was noted to not have a pulse therefore CPR was started and an AED was placed and no shock was advised. Patient received chest compressions for approximately 5-10 minutes before there was return of spontaneous circulation. Reportedly there was copious amounts of aspirate from the patient's tracheostomy tube which was suctioned out and airway was reestablished. EMS established a left humeral intraosseous line prior to arrival in the emergency department In the emergency department, the patient had consultation with Dr. Mckeon interventional cardiology for possible ST elevations present on prehospital EKG , repeat EKG did not demonstrate such changes. Patient was noted to have a significant 6 multidrug-resistant pseudomonal infection that he was being treated for, he was started on broad-spectrum IV antibiotics, a right sided femoral line was placed for persistent hypotension and vasoactive medication administration. There is a concern for concrement and sepsis secondary to probable pulmonary source, chronic aspiration, empyema. In the emergency department the patient was found to be responsive and answering questions appropriately. There is no indication for therapeutic hypothermia. The patient was at [facility] secondary to recent admission to [facility] for complications following treatment for esophageal cancer. 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 shock, likely septic - from right-sided pneumonia - The patient required pressors for a period of time along with fluid resuscitation and his shock resolved with such. He completed about 7 days of broad-spectrum IV antibiotic therapy for his right- sided pneumonia. All blood, urine, and bronchoscopy cultures have remained negative for any specific bacterial pathogen (bronch culture with yeast only). The patient had no evidence of cardiogenic or adrenal shock based on his normal echo and normal cortisol levels. There was some concern that perhaps he had a component of hemorrhagic shock as his H/H dropped quickly in the first 48 hours. However, stool was heme negative and CT chest/abd/pelvis showed no evidence of internal bleeding (e.g. no retroperitoneal hemorrhage, etc). 2. s/p cardiac arrest - this was felt to be hypoxia-induced as there was a report that copious secretions/tube feedings were suctioned from his trach during the code. He had chest compressions for 5-10 minutes with successful moravian of spontaneous circulation. He had a mild troponin elevation likely due to his arrest and #1 above. He never had concrete evidence of a true ACS. Echo showed preserved LV function. He did well from a mental status standpoint as well as neurological standpoint with no apparent deficits throughout his stay. 3. acute/chronic hypoxic/hypercarbic respiratory failure likely 2nd to right- sided pneumonia - there was strong suspicion that the pneumonia was due to aspiration. Alternatively this could have been a gram negative pneumonia although no specific pathogen was isolated from any of his bronchoscopy cultures. He underwent multiple therapeutic/diagnostic bronchs as noted above. Each bronch showed extensive right-sided mucous plugging. The last bronch performed was much improved from a secretions/mucous plugging standpoint. He completed nearly 7-days of broad-spectrum IV antibiotics while hospitalized. He required mechanical ventilation much of his stay and was transitioned to [facility] collar with 40% FiO2 on day of transfer to [facility]. He will continue to require extensive pulmonary toilet due to his propensity for mucous plugging, aspiration, etc. 4. j-tube obstruction - s/p dislodgement by general surgery on hospital day # 1. He is now back on tube feedings w/ peptamen at his goal rate of 50cc/hr continuously. 5. right-sided pneumonia - aspiration vs gram negative in etiology. see above. 6. abdominal pain with abnormal LFTs - mainly RUQ - this was felt to be pain from his rib fractures from the chest compressions. He underwent a work-up to exclude acute cholecystitis and fortunately the HIDA was negative for such. His RUQ pain gradually resolved during his stay. He continues with chest wall pain from the rib fractures, however. His abnormal LFTs gradually improved during the stay. This could have been due to pre-hospital use of tylenol and/or statin agent. If LFTs continue to remain stable/normal at [facility] his statin can be resumed. 7. hypomagnesemia - resolved. 8. hypophosphatemia - resolved. 9. positive troponin - due to cardiac arrest and/or myocardial demand ischemia in setting of shock. 10. acute/chronic anemia with acute component possibly due to blood loss anemia - serial H/H's showed drop from about Hb of 12 to low 8's and then his hemoglobin ultimately plateaued. Fecal occult blood was negative. Hemoglobin on day of discharge was 7.6. Suspect that some of his acute drop was dilutional from fluid resuscitation, from blood draws, as well as some bleeding from his chest wall skin tear/wound. He should be placed on iron supplementation at [facility]. 11. 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 There was no discrete evidence of metastatic lesions on imaging however there were some enlarged intra-abdominal lymph nodes seen. These need follow-up. 12. h/o T2DM - hemoglobin a1c is very low suggesting his DM has resolved, likely from weight loss due to #11 and malnutrition. 13. protein calorie malnutrition - severe - J-tube tube feedings have been resumed. 14. COPD - was not in exacerbation during his stay. 15. h/o DVT - has mild LUE swelling but doppler was negative for DVT. 16. CAD - records suggest he had left main disease and other occlusions; he is s/p CABG in August 2014 at [facility]. He is typically on low- dose ASA, beta thomas, and statin. Latter was held due to abnormal LFTs. 17. hyponatremia - resolved with IVF. 18. h/o VRE bacteremia - [facility] / [facility] August 2017 - no evidence of recurrence and echo w/o valve lesions. 19. tracheostomy status - placed 06/2017 at [facility]. 20. rhinovirus and pseudomonas pneumonia - 08/2017 at [facility] - bronch cultures were negative for pseudomonas while here. 21. h/o AAA s/p repair in 2014 at [facility]. 22. b/l rib fractures - 2nd to chest compressions during recent cardiac arrest - he will need ongoing adjustments to his pain control regimen. 23. abnormal left upper chest wall / cavity - due to surgery in 2014 that involved partial resection of first rib, clavicle, and manubrium. 24. large skin tear on chest - presumably due to recent chest compressions - wound care team consulted for management. 25. chronic pain syndrome - pain from his rib fractures was a problem throughout his stay. He takes chronic oxycodone at home and escalating doses of this was needed for him to remain comfortable. Would consider fentanyl patch upon transfer to [facility] to optimize his pain control. Per records has follow-up with thoracic surgery at [facility] - October 10, 2017. Time unknown. 09/25/17 04:15 Red Blood Count 2.81, Mean Corpuscular Volume 86.5, Mean Corpuscular Hemoglobin 26.3, Mean Corpuscular Hemoglobin Concent 30.5, Mean Platelet Volume 9.3, Neutrophils (%) (Auto) 83.3, Lymphocytes (%) (Auto) 4.8, Monocytes (%) (Auto) 9.7, Eosinophils (%) (Auto) 1.8, Basophils (%) (Auto) 0.2, Neutrophils # (Auto) 10.35, Lymphocytes # (Auto) 0.60, Monocytes # (Auto) 1.21, Eosinophils # (Auto) 0.23, Basophils # (Auto) 0.02 09/25/17 08:45 09/25/17 04:15 Test 09/25/17 00:16 09/25/17 04:15 Bedside Glucose 108 mg/dl (70-99) White Blood Count 12.44 K/uL (4.8-10.8) Red Blood Count 2.81 M/uL (4.7-6.1) Hemoglobin 7.4 g/dL (14.0-18.0) Hematocrit 24.3 % (42-52) Mean Corpuscular Volume 86.5 fL (80-100) Mean Corpuscular Hemoglobin 26.3 pg (25-34) Mean Corpuscular Hemoglobin Concent 30.5 g/dl (32-36) Platelet Count 311 K/uL (130-400) Mean Platelet Volume 9.3 fL (7.4-10.4) Neutrophils (%) (Auto) 83.3 % Lymphocytes (%) (Auto) 4.8 % Monocytes (%) (Auto) 9.7 % Eosinophils (%) (Auto) 1.8 % Basophils (%) (Auto) 0.2 % Neutrophils # (Auto) 10.35 K/uL (1.4-6.5) Lymphocytes # (Auto) 0.60 K/uL (1.2-3.4) Monocytes # (Auto) 1.21 K/uL (0.11-0.59) Eosinophils # (Auto) 0.23 K/uL (0-0.5) Basophils # (Auto) 0.02 K/uL (0-0.2) RDW Standard Deviation 55.8 fL (36.4-46.3) RDW Coefficient of Variation 17.6 % (11.5-14.5) Immature Granulocyte % (Auto) 0.2 % Immature Granulocyte # (Auto) 0.03 K/uL (0.00-0.02) Hypochromasia PRESENT Anion Gap 3.0 mmol/L (3-11) Est Creatinine Clear Calc Drug Dose 136.7 ml/min Estimated GFR () 130.5 Estimated GFR (Non- 112.6 BUN/Creatinine Ratio 28.1 (10-20) Calcium Level 8.7 mg/dl (8.5-10.1) Phosphorus Level 2.2 mg/dl (2.5-4.9) Magnesium Level 2.0 mg/dl (1.8-2.4) Test 09/18/17 23:00 09/18/17 23:05 09/18/17 23:15 09/19/17 00:14 Prothrombin Time 10.6 Prothrombin Time INR 1.0 PTT 27.5 Partial Thromboplastin Ratio 1.1 Total Creatine Kinase 81 Pro-B-Type Natriuretic Peptide 4349 Lipase 53 POC Troponin I 0.060 POC Hemoglobin 10.9 POC Hematocrit 32 POC Blood Gas pH 7.33 POC Blood Gas pCO2 61 POC Blood Gas pO2 102 POC Blood Gas HCO3 32 POC Blood Gas Total CO2 34 POC Blood Gas Base Excess 6.0 POC Blood Gas O2 Saturation 97.0 POC Sodium 136 POC Potassium 3.0 Urine Color DK YELLOW Urine Appearance CLOUDY Urine pH 5.0 Urine Specific [place] 1.021 Urine Protein 2+ Urine Glucose (UA) NEG Urine Ketones NEG Urine Occult Blood 2+ Urine Nitrite NEG Urine Bilirubin NEG Urine Urobilinogen NEG Urine Leukocyte Esterase NEG Urine WBC (Auto) 5-10 Urine RBC (Auto) 10-30 Urine Hyaline Casts (Auto) 10-30 Urine Epithelial Cells (Auto) >30 Urine Bacteria (Auto) NEG Urine Renal Epithelial Cells Test 09/19/17 04:25 09/19/17 05:33 09/19/17 08:29 09/19/17 12:03 Estimated Average Glucose 103 Hemoglobin A1c 5.2 Lactic Acid Level 1.8 1.6 Hepatitis C Antibody Screen NEG Ionized Calcium 1.07 1.04 Procalcitonin 1.70 Random Cortisol 40.37 Anisocytosis PRESENT Prothrombin Time 10.8 Prothrombin Time INR 1.0 PTT 24.5 Partial Thromboplastin Ratio 0.9 Troponin I 0.544 Random Tobramycin Level 7.40 Test 09/19/17 14:26 09/19/17 15:16 09/19/17 16:58 09/20/17 04:15 POC Glucose 83 95 Troponin I 0.440 Hepatitis B Core Total Antibody NON-REACTIVE Test 09/21/17 04:19 09/21/17 13:01 09/22/17 04:42 09/23/17 05:37 Red Blood Cell Morphology Unremarkable Unremarkable Blood Gas Sample Site R Radial POC Blood Gas pH 7.37 POC Blood Gas pCO2 56 POC Blood Gas pO2 74 POC Blood Gas HCO3 32 POC Blood Gas Total CO2 34 POC Blood Gas Base Excess 7.0 POC Blood Gas O2 Saturation 94.0 Kota Test Pass Oxygen Delivery Device Trach Col POC FiO2 48 Absolute Reticulocyte Count 0.08 Percent Reticulocyte Count 2.9 Stomatocytes 1+ Total Bilirubin 0.4 Aspartate Amino Transferase (AST) 16 Alanine Aminotransferase (ALT) 24 Alkaline Phosphatase 100 Total Protein 6.7 Albumin 2.4 Test 09/24/17 00:30 09/24/17 04:34 09/24/17 05:26 09/24/17 21:18 Stool Occult Blood NEGATIVE White Blood Count 11.17 Red Blood Count 3.01 Hemoglobin 8.1 Hematocrit 26.7 Mean Corpuscular Volume 88.7 Mean Corpuscular Hemoglobin 26.9 Mean Corpuscular Hemoglobin Concent 30.3 Platelet Count 328 Mean Platelet Volume 9.7 Neutrophils (%) (Auto) 85.2 Lymphocytes (%) (Auto) 4.7 Monocytes (%) (Auto) 8.0 Eosinophils (%) (Auto) 1.5 Basophils (%) (Auto) 0.2 Neutrophils # (Auto) 9.52 Lymphocytes # (Auto) 0.52 Monocytes # (Auto) 0.89 Eosinophils # (Auto) 0.17 Basophils # (Auto) 0.02 RDW Standard Deviation 56.7 RDW Coefficient of Variation 17.4 Immature Granulocyte % (Auto) 0.4 Immature Granulocyte # (Auto) 0.05 Hypochromasia PRESENT Stomatocytes 1+ Sodium Level 139 Potassium Level 4.4 Chloride Level 99 Carbon Dioxide Level 38 Anion Gap 2.0 Blood Urea Nitrogen 16 Creatinine 0.58 Est Creatinine Clear Calc Drug Dose 110.8 Estimated GFR () 119.7 Estimated GFR (Non- 103.3 BUN/Creatinine Ratio 27.2 Random Glucose 114 Calcium Level 9.0 Phosphorus Level 2.6 Magnesium Level 2.0 Total Bilirubin 0.4 Direct Bilirubin 0.1 Aspartate Amino Transferase (AST) 25 Alanine Aminotransferase (ALT) 22 Alkaline Phosphatase 102 Total Protein 7.1 Albumin 2.4 Chemistry Specimen Hemolysis POC Glucose 113 Test 09/25/17 00:16 09/25/17 04:15 09/25/17 08:45 POC Glucose 108 White Blood Count 12.44 Red Blood Count 2.81 Hemoglobin 7.4 7.6 Hematocrit 24.3 24.5 Mean Corpuscular Volume 86.5 Mean Corpuscular Hemoglobin 26.3 Mean Corpuscular Hemoglobin Concent 30.5 Platelet Count 311 Mean Platelet Volume 9.3 Neutrophils (%) (Auto) 83.3 Lymphocytes (%) (Auto) 4.8 Monocytes (%) (Auto) 9.7 Eosinophils (%) (Auto) 1.8 Basophils (%) (Auto) 0.2 Neutrophils # (Auto) 10.35 Lymphocytes # (Auto) 0.60 Monocytes # (Auto) 1.21 Eosinophils # (Auto) 0.23 Basophils # (Auto) 0.02 RDW Standard Deviation 55.8 RDW Coefficient of Variation 17.6 Immature Granulocyte % (Auto) 0.2 Immature Granulocyte # (Auto) 0.03 Hypochromasia PRESENT Sodium Level 141 Potassium Level 4.2 Chloride Level 100 Carbon Dioxide Level 38 Anion Gap 3.0 Blood Urea Nitrogen 13 Creatinine 0.47 Est Creatinine Clear Calc Drug Dose 136.7 Estimated GFR () 130.5 Estimated GFR (Non- 112.6 BUN/Creatinine Ratio 28.1 Random Glucose 102 Calcium Level 8.7 Phosphorus Level 2.2 Magnesium Level 2.0 I would like to thank Dr. Grace and the medical team at [facility] in [place] for accepting Mr. Jerry for ongoing care and rehabilitation. Total Time Spent: Greater than 30 minutes This includes examination of the patient, discharge planning, medication reconciliation, and communication with other providers. Discharge Instructions Please refer to the electronic Patient Visit Report (Discharge Instructions) for additional information. Follow-Up to be determined following his hospital stay at [facility] Additional Copies To Nilay Samayoa M.D.; Karan Bowman M.D.
--- NOTE | 2017-09-25 13:56 | Infectious Disease Progress Nt ---
Progress Note Date of Service September 25, 2017. Subjective Pt evaluation today including: conversation w/ patient, physical exam, chart review, lab review, review of studies, conversation w/ gis consultant, review of inpatient medication list Has remained afebrile, respiratory status stable overnight. Hemodynamically stable. For transfer to LTAC. All Other Systems: Reviewed and Negative Medications Current Inpatient Medications Medications (Trade) Dose Ordered Sig/Madalyn Route Start Time Stop Time Status Last Admin Dose Admin Heparin Sodium (Porcine) (Heparin Sq 5000 Unit/0.5ml) 5,000 unit Q12H SQ 09/19/17 09:00 10/19/17 08:59 09/25/17 09:30 5,000 UNIT Fentanyl Citrate (Fentanyl Inj) 12.5 mcg Q1H PRN IV 09/19/17 01:45 10/03/17 01:44 09/23/17 00:58 12.5 MCG Lorazepam (Ativan Inj) 0.5 mg Q4H PRN IV 09/19/17 01:45 10/19/17 01:44 09/24/17 10:07 0.5 MG Albuterol/ Ipratropium (Duoneb) 3 ml Q4RWA INH 09/19/17 08:00 10/19/17 07:59 09/25/17 07:06 3 ML Midodrine (Proamatine Tab) 10 mg Q8 PO 09/19/17 14:00 10/19/17 13:59 Future hold 09/25/17 05:14 10 MG Furosemide (Lasix Tab) 20 mg BIDM PO 09/19/17 16:30 10/19/17 16:29 Future Hold Glucose (Glucose 40% Gel) 15-30 GRAMS 15 GRAMS... UD PRN PO 09/19/17 12:30 10/19/17 12:29 Glucose (Glucose Chew Tab) 4-8 Tablets 4 Tabl... UD PRN PO 09/19/17 12:30 10/19/17 12:29 Dextrose (Dextrose 50% 50ML Syringe) 25-50ML 25ML FOR ... UD PRN IV 09/19/17 12:30 10/19/17 12:29 Glucagon (Glucagon Inj) 1 mg UD PRN IM 09/19/17 12:30 10/19/17 12:29 Carbohydrates (Carbohydrates For Hypoglycemia) 15-30 GRAMS 15 grams if BSG 54-69... UD PRN PO 09/19/17 12:30 10/19/17 12:29 Lidocaine (Lidoderm Patch 5%) 1 patch Q24H PRN TD 09/20/17 10:30 10/20/17 10:29 09/23/17 18:04 1 PATCH Aspirin (Aspirin Chew) 81 mg DAILY@1400 JT 09/20/17 14:00 10/20/17 13:59 09/24/17 13:18 81 MG Miscellaneous (Remove Lidoderm Patch) 1 ea Q12H PRN N/A 09/20/17 12:00 10/20/17 11:59 Buspirone HCl (Buspar Tab) 7.5 mg TID JT 09/20/17 14:00 10/20/17 13:59 09/25/17 09:32 7.5 MG Clonazepam (Klonopin Tab) 0.5 mg TID PO 09/20/17 14:00 10/20/17 13:59 09/25/17 09:21 0.5 MG Enteral Nutritional Formula (Peptamen 1.5) 1,000 ml UD PRN JT 09/21/17 08:45 10/21/17 08:44 09/25/17 01:03 1,000 ML Metoprolol Tartrate (Lopressor Tab) 12.5 mg BID JT 09/21/17 11:30 10/21/17 11:29 09/25/17 09:31 12.5 MG Docusate Sodium (coLACE SYRUP) 100 mg HS JT 09/21/17 21:00 10/21/17 20:59 09/24/17 19:55 100 MG Senna (Senokot Syrup) 8.8 mg QAM PO 09/22/17 09:00 10/22/17 08:59 09/25/17 09:30 8.8 MG Acetylcysteine (Mucomyst 20% Inh Soln) 3 ml BIDR INH 09/21/17 20:00 10/21/17 19:59 09/25/17 07:06 3 ML Ioversol (Optiray 320) 100 ml UD PRN IV 09/22/17 13:00 09/26/17 12:59 Acetaminophen (Tylenol Soln) 1,000 mg Q8@0600,1400,2200 GT 09/24/17 14:00 10/24/17 13:59 09/25/17 05:13 1,000 MG Lorazepam (Ativan Tab) 0.5 mg Q4H PRN JT 09/24/17 11:15 10/24/17 11:14 09/25/17 05:13 0.5 MG Lansoprazole (Prevacid Solutab) 30 mg BID JT 09/24/17 21:00 10/24/17 20:59 09/25/17 09:30 30 MG Oxycodone HCl (Roxicodone Soln) 15 mg Q6H PRN PO 09/25/17 10:45 10/04/17 15:14 09/25/17 11:07 15 MG Insulin Aspart (novoLOG ASPART) SLIDING SCALE Q12H SC 09/25/17 21:00 10/25/17 20:59 Objective Vital Signs Date Time Temp Pulse Resp B/P (MAP) Pulse Ox O2 Delivery O2 Flow Rate FiO2 09/25/17 12:37 97 Trach Collar 40 09/25/17 12:01 36.8 98 26 94 Trach Collar 09/25/17 12:00 104 16 115/57 (76) 97 Trach Collar 12.0 40 09/25/17 11:27 98 26 94 Trach Collar 40 09/25/17 11:00 95 23 122/65 (84) 95 Trach Collar 12.0 40 09/25/17 10:00 91 35 116/64 (81) 95 Trach Collar 12.0 40 09/25/17 09:00 103 32 118/57 (77) 95 Trach Collar 12.0 40 09/25/17 08:00 36.3 107 32 110/67 (81) 94 Trach Collar 12.0 40 09/25/17 08:00 CPAP 35 Trach Collar 09/25/17 08:00 95 Trach Collar 40 09/25/17 07:06 35 09/25/17 06:00 93 21 112/63 (79) 98 CPAP 35 09/25/17 05:18 101 25 124/72 (89) 98 CPAP 35 09/25/17 05:12 35 09/25/17 04:01 36.8 94 22 126/63 (84) 99 CPAP 35 09/25/17 04:00 97 CPAP 35 5/21/18 03:01 95 24 117/61 (79) 96 CPAP 35 09/25/17 02:14 35 09/25/17 02:01 94 23 126/64 (84) 95 CPAP 35 09/25/17 01:01 87 24 125/63 (83) 98 CPAP 35 09/25/17 00:01 97 CPAP 35 09/25/17 00:01 36.8 89 22 129/66 (87) 97 CPAP 35 09/24/17 23:12 35 09/24/17 23:01 87 26 130/67 (88) 96 CPAP 35 09/24/17 22:01 89 23 124/64 (84) 99 CPAP 35 09/24/17 21:01 83 20 108/57 (74) 99 CPAP 35 09/24/17 20:01 36.6 96 26 127/68 (87) 99 CPAP 35 09/24/17 20:00 99 CPAP 35 09/24/17 19:16 35 09/24/17 18:00 93 20 119/73 (88) 98 CPAP 35 09/24/17 17:16 35 09/24/17 16:00 95 CPAP 35 09/24/17 16:00 36.7 100 35 132/70 (90) 99 CPAP 35 09/24/17 15:38 35 09/24/17 14:00 90 26 103/56 (72) 97 CPAP 35 Physical Exam General Appearance: WD/WN, no apparent distress Eyes: normal inspection, EOMI, sclerae normal ENT: pharynx normal, + pertinent finding (Trach collar in place) Neck: supple, no adenopathy, trachea midline Respiratory/Chest: chest non-tender, lungs clear, normal breath sounds, no respiratory distress Cardiovascular: regular rate, rhythm, no gallop, no murmur Abdomen: normal bowel sounds, non tender, soft, no organomegaly Extremities: non-tender, no calf tenderness Neurologic/Psychiatric: alert, oriented x 3 Skin: normal color, warm/dry, no rash Lymphatic: no adenopathy Laboratory Results Last 24 Hours Test 09/24/17 17:57 09/24/17 21:18 09/25/17 00:16 09/25/17 04:15 Bedside Glucose 116 mg/dl 113 mg/dl 108 mg/dl White Blood Count 12.44 K/uL Red Blood Count 2.81 M/uL Hemoglobin 7.4 g/dL Hematocrit 24.3 % Mean Corpuscular Volume 86.5 fL Mean Corpuscular Hemoglobin 26.3 pg Mean Corpuscular Hemoglobin Concent 30.5 g/dl Platelet Count 311 K/uL Mean Platelet Volume 9.3 fL Neutrophils (%) (Auto) 83.3 % Lymphocytes (%) (Auto) 4.8 % Monocytes (%) (Auto) 9.7 % Eosinophils (%) (Auto) 1.8 % Basophils (%) (Auto) 0.2 % Neutrophils # (Auto) 10.35 K/uL Lymphocytes # (Auto) 0.60 K/uL Monocytes # (Auto) 1.21 K/uL Eosinophils # (Auto) 0.23 K/uL Basophils # (Auto) 0.02 K/uL RDW Standard Deviation 55.8 fL RDW Coefficient of Variation 17.6 % Immature Granulocyte % (Auto) 0.2 % Immature Granulocyte # (Auto) 0.03 K/uL Hypochromasia PRESENT Sodium Level 141 mmol/L Potassium Level 4.2 mmol/L Chloride Level 100 mmol/L Carbon Dioxide Level 38 mmol/L Anion Gap 3.0 mmol/L Blood Urea Nitrogen 13 mg/dl Creatinine 0.47 mg/dl Est Creatinine Clear Calc Drug Dose 136.7 ml/min Estimated GFR () 130.5 Estimated GFR (Non- 112.6 BUN/Creatinine Ratio 28.1 Random Glucose 102 mg/dl Calcium Level 8.7 mg/dl Phosphorus Level 2.2 mg/dl Magnesium Level 2.0 mg/dl Test 09/25/17 08:45 Hemoglobin 7.6 g/dL Hematocrit 24.5 % Assessment and Plan (1) Palliative care encounter Patient with a complex medical history and poor prognosis. We will continue to provide support to patient and with medical decision making (2) Aspiration pneumonia Status: Chronic Patient with recurrent aspiration of secretions, has been n.p.o., J-tube dependent. Patient also trach dependent (3) Cardiopulmonary arrest with successful resuscitation Status: Acute Patient with cracked ribs status post chest compressions, in addition to his weakness impacting his ability to cough and take deep breaths. 72-year-old male status post cardiac arrest with probable aspiration, previously treated for pseudomonal infection. All cultures have remained unremarkable, antibiotics have been discontinued. For transfer to LTAC.
[2017-09-25] MEDS ORDERED: INSULIN ASPART 100 UNITS/ML 3 ML PEN SC SCH (21:00)
[2017-09-28] MEDS ORDERED: PANTOprazole INJ 40 MG in SYRINGE 0 ML IV SCH (09:00)
== END 2017-09-25 13:00 | DRG 853 ==
LOC: C.EDB 22:47 → C.MSICU 09-19 02:03 → ENRESERV 09-19 02:13
PROVIDERS: ADMIT Student in an Organized Health Care Education/Training Program; ATTEND Internal Medicine
PROC: 0B9J8ZZ Drainage of Left Lower Lung Lobe, Via Natural or Artificial Opening Endoscopic (ICD-10-PCS; principal; 2017-09-19)
PROC: 0B9F8ZZ Drainage of Right Lower Lung Lobe, Via Natural or Artificial Opening Endoscopic (ICD-10-PCS; principal; 2017-09-19)
PROC: 0DW Gastrointestinal System, Revision (ICD-10-PCS; 2017-09-19)
PROC: 0T9B70Z Drainage of Bladder with Drainage Device, Via Natural or Artificial Opening (ICD-10-PCS; 2017-09-19)
PROC: 5A1955Z Respiratory Ventilation, Greater than 96 Consecutive Hours (ICD-10-PCS; 2017-09-19)
PROC: 04HK33Z Insertion of Infusion Device into Right Femoral Artery, Percutaneous Approach (ICD-10-PCS; 2017-09-19)
PROC: 0B9J8ZZ Drainage of Left Lower Lung Lobe, Via Natural or Artificial Opening Endoscopic (ICD-10-PCS; 2017-09-21)
PROC: 0B9F8ZZ Drainage of Right Lower Lung Lobe, Via Natural or Artificial Opening Endoscopic (ICD-10-PCS; 2017-09-21)
PROC: 0DWDXUZ Revision of Feeding Device in Lower Intestinal Tract, External Approach (ICD-10-PCS; 2017-09-21)
PROC: 0B9F8ZZ Drainage of Right Lower Lung Lobe, Via Natural or Artificial Opening Endoscopic (ICD-10-PCS; 2017-09-22)
DX: A41.9 Sepsis, unspecified organism (principal); R65.21 Severe sepsis with septic shock; J96.21 Acute and chronic respiratory failure with hypoxia; J96.22 Acute and chronic respiratory failure with hypercapnia; J69.0 Pneumonitis due to inhalation of food and vomit; I46.9 Cardiac arrest, cause unspecified; E43 Unspecified severe protein-calorie malnutrition; T17.890A Other foreign object in other parts of respiratory tract causing asphyxiation, initial encounter; K94.13 Enterostomy malfunction; J98.11 Atelectasis; S22.43XA Multiple fractures of ribs, bilateral, initial encounter for closed fracture; S21.102A Unspecified open wound of left front wall of thorax without penetration into thoracic cavity, initial encounter; R64 Cachexia; Z68.1 Body mass index [BMI] 19.9 or less, adult; D62 Acute posthemorrhagic anemia; Y83.3 Surgical operation with formation of external stoma as the cause of abnormal reaction of the patient, or of later complication, without mention of misadventure at the time of the procedure; X58.XXXA Exposure to other specified factors, initial encounter; J98.8 Other specified respiratory disorders; E83.42 Hypomagnesemia; E87.6 Hypokalemia; E83.39 Other disorders of phosphorus metabolism; E88.09 Other disorders of plasma-protein metabolism, not elsewhere classified; K80.20 Calculus of gallbladder without cholecystitis without obstruction; R73.9 Hyperglycemia, unspecified; I25.10 Atherosclerotic heart disease of native coronary artery without angina pectoris; I10 Essential (primary) hypertension; J44.9 Chronic obstructive pulmonary disease, unspecified; E78.5 Hyperlipidemia, unspecified; D63.8 Anemia in other chronic diseases classified elsewhere; Z87.01 Personal history of pneumonia (recurrent); Z86.19 Personal history of other infectious and parasitic diseases; Z85.01 Personal history of malignant neoplasm of esophagus; Z90.49 Acquired absence of other specified parts of digestive tract; Z98.0 Intestinal bypass and anastomosis status; Z86.39 Personal history of other endocrine, nutritional and metabolic disease; Z86.718 Personal history of other venous thrombosis and embolism; Z86.79 Personal history of other diseases of the circulatory system; Z95.1 Presence of aortocoronary bypass graft; Z95.828 Presence of other vascular implants and grafts; Z87.891 Personal history of nicotine dependence; Z79.82 Long term (current) use of aspirin; Z79.899 Other long term (current) drug therapy; Z82.49 Family history of ischemic heart disease and other diseases of the circulatory system